=== PATIENT | male | born 1970 | race Caucasian/White ===

== ENCOUNTER 2017-05-25 14:52 | Observation (INO) | payer OTHER ==
[2017-05-24 15:30] VITALS: BMI 40.4
[2017-05-25] VITALS (17 sets, daily range): BP systolic 120–181; BP diastolic 59–98; PULSE 74–89; RESP 14–20; Ht 172.7 cm; Wt 122.6 kg
[~2017-05-25] VITALS: Ht 172.7 cm; Wt 122.6 kg
[~2017-05-25 14:52] MED LIST: AMLO-145 PO; BENA20TA48 PO; CLINDAMYCIN 600 MG/50 ML D5W IVPB IVPB ONE; GLIM4TAB PO; HYDR25TA6 PO; INSU100V19 SQ; NOV SQ; OXYC-284 PO
[2017-05-25] MEDS ORDERED: PROPOFOL 20 ML ONE ×2 (17:20→18:21)
[2017-05-25] MEDS ORDERED: FENTAnyl 50 MCG/ML VIAL ONE ×2 (17:20→18:02)
[2017-05-25] MEDS ORDERED: LIDOCAINE 2% (SDV) 5 ML INJ ONE (17:21)
[2017-05-25] MEDS ORDERED: LIDOCAINE 2%/EPI (MDV) 20ML INJ ONE (17:23)
[2017-05-25] MEDS ORDERED: THROMBIN 5000 UNIT VIAL ONE (17:23)
[2017-05-25] MEDS ORDERED: MINERAL OIL LIGHT 10 ML VIAL ONE (17:23)
[2017-05-25] MEDS ORDERED: OXYCODONE/ACETAMINOPHEN (5/325) TAB PO PRN ×2 (17:30)
[2017-05-25] MEDS ORDERED: DIPHENHYDRAMINE 50 MG INJ IV PRN (17:30)
[2017-05-25] MEDS ORDERED: MEPERIDINE 25 MG INJ IV PRN (17:30)
[2017-05-25] MEDS ORDERED: ONDANSETRON 4 MG INJ IV PRN (17:30)
[2017-05-25] MEDS ORDERED: METOCLOPRAMIDE 10 MG INJ IV PRN ×2 (17:30→19:00)
[2017-05-25] MEDS ORDERED: HYDROmorphONE (0.2 MG/ML) 10ML SYG IV PRN ×2 (17:30)
[2017-05-25] MEDS ORDERED: hydrALAzine 20 MG INJ IV PRN (17:30)
[2017-05-25] MEDS ORDERED: FENTAnyl 50 MCG/ML VIAL IV PRN ×2 (17:30)
[2017-05-25] MEDS ORDERED: EPHEDrine SULFATE 50 MG/5 ML SYG IV PRN (17:30)
[2017-05-25] MEDS ORDERED: LABETALOL HCL 20MG INJ IV PRN (17:30)
[2017-05-25] MEDS ORDERED: BACITRACIN 0.9 GM OINT ONE (18:20)
[2017-05-25] MEDS ORDERED: ROPIVACAINE 0.5 % 30 ML VIAL ONE (18:21)
--- NOTE | 2017-05-25 18:32 | OPR ---
Date/Time of Note Date/Time of Note DATE: 05/25/17 TIME: 18:28 Operative Report Preoperative Diagnosis Left foot/ ankle diabetic ulceration DM2 poorly controlled Chronic pain Cellulitis history Postoperative Diagnosis same Operation/Procedure Performed Left ankle wound bed preparation Left ankle application of integra allograft Surgeon: JASMYNE DIAZ DPM Anesthesia: general Estimated Blood Loss: 10 - 50 ml's Specimens wound culture Grafts/Implants integra bilayer 4 x 5 in Complications: None JASMYNE DIAZ DPM May 25, 2017 18:32
[2017-05-25] MEDS ORDERED: CEPASTAT LOZENGE MT PRN (19:00)
[2017-05-25] MEDS ORDERED: HYDROCODONE/APAP (10/325) TAB PO PRN (19:00)
[2017-05-25] MEDS ORDERED: IBUPROFEN 600 MG TAB PO PRN (19:00)
[2017-05-25] MEDS ORDERED: KETOROLAC 30 MG INJ IV PRN (19:00)
[2017-05-25] MEDS: CEFAZOLIN 2 GM/50 ML (PMX) 50 ML IVPB SCH (19:08)
[2017-05-25] MEDS: FENTAnyl 50 MCG/ML VIAL IV PRN ×2 (19:15→19:26)
[2017-05-25] MEDS: FAMOTIDINE 20 MG INJ IV SCH (20:33)
[2017-05-25] MEDS: DIPHENHYDRAMINE 50 MG INJ IV PRN (23:27)
[2017-05-26] MEDS ORDERED: METOPROLOL 25 MG TAB PO ONE
[2017-05-26] MEDS ORDERED: AMLODIPINE 5 MG TAB PO ONE
[2017-05-26] MEDS ORDERED: hydrALAzine 20 MG INJ IV PRN (00:30)
[2017-05-26] MEDS: CEFAZOLIN 2 GM/50 ML (PMX) 50 ML IVPB SCH ×2 (03:42→11:00)
[2017-05-26 03:58] VITALS: BP 175/95; PULSE 72; RESP 18
[2017-05-26 04:36] VITALS: BP 152/74; PULSE 68; RESP 18
[2017-05-26] MEDS: DIPHENHYDRAMINE 50 MG INJ IV PRN (05:33)
[2017-05-26 07:00] VITALS: BP 158/99; RESP 18
[2017-05-26] MEDS ORDERED: ASCORBIC ACID 500 MG TAB PO SCH (09:00)
[2017-05-26] MEDS ORDERED: ZINC SULFATE 220 MG CAP PO SCH (09:00)
[2017-05-26] MEDS ORDERED: METOPROLOL 25 MG TAB PO SCH (09:00)
[2017-05-26] MEDS: FAMOTIDINE 20 MG INJ IV SCH (09:00)
--- NOTE | 2017-05-26 10:46 | HP ---
Date/Time of Note Date/Time of Note DATE: 05/26/17 TIME: 10:33 Assessment/Plan VTE Prophylaxis VTE Prophylaxis Intervention: SCD's Lines/Catheters IV Catheter Type (from Nrsg): Saline Lock Assessment/Plan Assessment/Plan Assessment and plan: 1. Status post day 1 left diabetic ulcer allograft placement-left ankle is currently dressed. Awaiting special boot. Patient to follow with the orchestrator. 2. Diabetes mellitus-while in the hospital will check Accu-Chek q. before meals and nightly. Will place him on weight-based insulin. 3. Hypertension-continue metoprolol amlodipine and as needed hydralazine. We will add CEDRIC inhibitor. Low-salt diet is advised. 4. Patient to be placed on DVT prophylaxis and GI prophylaxis 5. Obese state-recommend dietitian evaluation and diet low in salt low in fat and low in carbs 6. The patient will be provided with pain medications including Percocet 7. Smoking cessation is advised 8. Patient is to be discharged, he has a front wheel walker at home. HPI/ROS Admit Date/Time Admit Date/Time May 25, 2017 at 20:18 Hx of Present Illness The patient is a 46-year-old morbidly obese male. The patient has history of diabetes mellitus type 2, hypertension, dyslipidemia, chronic left ankle diabetic foot ulcer, who is actively smoking. Patient has been followed closely by Dr. Peoples, the orchestrator. Now status post day 1 post left ankle allograft placement. Patient tolerated the procedure well denies any significant pain. He is awaiting special left Boot placement. Since admission he has been hypertensive. ROS Subjective hx not possible: pt critical status Constitutional: other (obese), No disoriented Eyes: No discharge, No redness ENT: No congestion, No discharge Respiratory: No shortness of breath, No wheezing Cardiovascular: No chest pain, No edema, No lightheadedness, No orthopenea, No palpitations Gastrointestinal: No diarrhea Genitourinary: No discharge, No flank pain Musculoskeletal: No neck pain Skin: No laceration Neurologic: No focal-weakness PMH/Family/Social Past Medical History Medical History: diabetes, high cholesterol, hypertension, other (neuropathy, nicotine dependency, left ankle chronic ankle ulcer, minor CVA) Past Surgical History Past Surgical Hx: other (left ankle debridments, left wrist surgery 2016) Family History Significant Family History: heart disease, diabetes, vascular disease Social History Alcohol Use: none Smoking Status: Current every day smoker Drug Use: none Exam/Review of Systems Vital Signs Vitals Vital Signs Date Time Temp Pulse Resp B/P Pulse Ox O2 Delivery O2 Flow Rate FiO2 05/26/17 07:00 98.7 82 18 158/99 100 05/26/17 04:36 Room Air Intake and Output 05/25/17 05/25/17 05/26/17 15:00 23:00 07:00 Intake Total 1210 ml 1250 ml Output Total 15 ml 900 ml Balance 1195 ml 350 ml Exam Constitutional: other (obese\), No distress Psych: No confusion Head: No lacerations Eyes: PERRL Neck: No bruits, No masses Respiratory: diminished breath sounds, No congested cough, No crackles/rales Cardiovascular: No irregular rhythm Gastrointestinal: distended (obese) Genitourinary - Male: No CVA tenderness Extremities: other (right ankel banded.), No clubbing, No cyanosis, No edema Neurological: numbness (left lower extremity foot), No confused Medications Medications Current Medications Cefazolin Sodium/ Dextrose (Ancef 2 Gm/50 ml (Pmx)) 50 ml @ 100 mls/hr Q8H IVPB Last administered on 05/26/17 03:42; Admin Dose 100 MLS/HR; Start at 19:00; Stop 05/26/17 at 18:59 Acetaminophen/ Hydrocodone Bitart ([place] (10/325)) 1 tab Q6H PRN PO PAIN Last administered on 05/25/17 23:27; Admin Dose 1 TAB; Start 05/25/17 at 19:00 Ketorolac Tromethamine (Toradol) 30 mg Q6H PRN IV PAIN; Start 05/25/17 at 19:00 ; Stop 05/28/17 at 18:59 Ibuprofen (Motrin) 600 mg Q6H PRN PO PAIN LEVEL 1-5; Start 05/25/17 at 19:00 Diphenhydramine HCl (Benadryl) 25 mg Q6H PRN IV ITCHING Last administered on 05:33; Admin Dose 25 MG; Start 05/25/17 at 19:00 Metoclopramide HCl (Reglan) 10 mg Q6H PRN IV NAUSEA AND/OR VOMITING; Start at 19:00 Famotidine (Pepcid Iv) 20 mg Q12 IV Last administered on 05/25/17 20:33; Admin Dose 20 MG; Start 05/25/17 at 21:00 Phenol (Cepastat Lozenge) 1 lozenge PRN PRN MT SORE THROAT; Start 05/25/17 at 19:00 Ascorbic Acid (Vitamin C) 1,000 mg DAILY PO Last administered on 05/26/17 09: 35; Admin Dose 1,000 MG; Start 05/26/17 at 09:00 Zinc Sulfate (Zinc Sulfate) 220 mg DAILY PO Last administered on 05/26/17 09: 35; Admin Dose 220 MG; Start 05/26/17 at 09:00 Metoprolol Tartrate (Lopressor) 25 mg BID PO Last administered on 05/26/17 09: 36; Admin Dose 25 MG; Start 05/26/17 at 09:00 Hydralazine HCl (Apresoline) 10 mg Q6H PRN IV SBP>170 Last administered on 05/26 03:51; Admin Dose 10 MG; Start 05/26/17 at 00:30 SHANNA IVORY MD May 26, 2017 10:46
--- NOTE | 2017-05-26 10:48 | PDOCDIS ---
Discharge Instructions CONDITION Patient Condition: Stable HOME CARE INSTRUCTIONS: Diet Instructions: Reduced CalorieSpecial Diet: Diabetic, carb/calorie- controlled diet ACTIVITY: Activity Restrictions: Slowly Increase Activity Rest between Activity Avoid heavy lifting Avoid Heavy Housework Bathing Restrictions: Shower FOLLOW UP/APPOINTMENTS Follow-up Plan follow up with Dr. Peoples and PMD within a week. continue all home meds. SHANNA IVORY MD May 26, 2017 10:48
[2017-05-26] MEDS ORDERED: ASPI325T4 PO (10:50)
[2017-05-26] MEDS ORDERED: GLUCOSE GEL 15 GRAM TUBE PO PRN ×2 (11:00)
[2017-05-26] MEDS ORDERED: GLUCAGON 1 MG INJ IM PRN (11:00)
[2017-05-26] MEDS ORDERED: GLUCOSE GEL 15 GRAM TUBE BUCCAL PRN (11:00)
[2017-05-26] MEDS ORDERED: DEXTROSE 50% 50 ML SYRINGE IV PRN ×2 (11:00)
[2017-05-26] MEDS ORDERED: INSULIN ASPART [NOVOLOG] 3 ML PEN SC SCH (11:40)
[2017-05-27] MEDS ORDERED: ACCU-CHEK XX SCH ×2 (02:00)
--- NOTE | 2017-05-31 11:22 | OPR ---
DATE OF OPERATION: 05/25/2017 SURGEON: Frederic Peoples DPM. PLASTIC SURGEON: None. PREOPERATIVE DIAGNOSES: 1. Left foot and ankle ulceration, chronic. 2. Left foot and ankle diabetic ulceration. 3. Chronic pain. 4. Edema. 5. History of recurring cellulitis. POSTOPERATIVE DIAGNOSES: 1. Left foot and ankle ulceration, chronic. 2. Left foot and ankle diabetic ulceration. 3. Chronic pain. 4. Edema. 5. History of recurring cellulitis. PROCEDURES PERFORMED: 1. Left foot and ankle wound bed preparation for graft application. 2. Application of Integra bilayer allograft. PATHOLOGY: Wound cultures. ANESTHESIA: General with postop popliteal block. HEMOSTASIS: Compression. ESTIMATED BLOOD LOSS: Fifteen to 20 mL. MATERIAL: Three-0 Prolene. COMPLICATIONS: None. INDICATIONS FOR PROCEDURE: This is a 46-year-old gentleman with chronic pain. He had outpatient treatment for his ulceration. It has an improved appearance without acute signs of infection. It has delayed tissue regeneration. The patient presents to limb salvage. I discussed plans of procedure, risks, benefits, potential complications. Foot was marked, and informed consent was obtained. PROCEDURE IN DETAIL: The patient was brought into the operating room, placed in the supine position, and formal time-out was performed. Extremities were prepped with Betadine scrub and prepped and draped in the usual sterile fashion. At this time, using a combination of instrumentation, the wound located on the left lateral foot and ankle was prepared using a combination of instrumentation, using pickup scissors, 15-blade. Ulceration measured approximately 8 x 4 cm. Nonviable tissue was removed. Cleaned skin and subcutaneous tissue and ligament. The sound was irrigated with saline. Gloves were changed and applied the Integra and bilayered graft, sutured with 3-0 nylon. The excess was discarded. Lidocaine 2% with epi was injected in perforated wound. The wound was then covered with Xeroform, 4 x 4 gauge, Kerlix, and Hung wrap. The patient received a postoperative popliteal block by Anesthesia. POSTOPERATIVE PLAN: The patient tolerated the procedure well and transferred to PACU. Vital signs were stable. The patient has a history of chronic pain and recommend observation overnight. The patient will be continued on intravenous antibiotics. Recommend strict bed rest. Further recommendation pending clinical appearance. Dr. Jacob consulted for medical management and control of diabetes. Dictated By: Frederic Peoples DPM /[email or web address]/[email or web address] /Document#: [id number] MTDD
== END 2017-05-26 13:30 | disposition home or self-care (01) ==
LOC: SDS 14:52 → MS1 20:18
PROVIDERS: ADMIT Podiatrist Foot & Ankle Surgery; ATTEND Podiatrist Foot & Ankle Surgery
DX: E11.621 Type 2 diabetes mellitus with foot ulcer (principal); E11.622 Type 2 diabetes mellitus with other skin ulcer; L97.529 Non-pressure chronic ulcer of other part of left foot with unspecified severity; L97.329 Non-pressure chronic ulcer of left ankle with unspecified severity; R60.0 Localized edema; I10 Essential (primary) hypertension; E78.5 Hyperlipidemia, unspecified; E78.00 Pure hypercholesterolemia, unspecified; F17.200 Nicotine dependence, unspecified, uncomplicated; E66.01 Morbid (severe) obesity due to excess calories; Z68.41 Body mass index [BMI] 40.0-44.9, adult; Z88.5 Allergy status to narcotic agent; Z83.3 Family history of diabetes mellitus; Z82.49 Family history of ischemic heart disease and other diseases of the circulatory system
CPT/HCPCS: 15002; 15271; 82962; 87070; 87075; 87102; 87116; C1781; J0360; J0690; J1170; J1200; J2795; J3010; L4360; Z7500; Z7512; Z7610; G0378; J1815

== ENCOUNTER 2017-06-26 13:36 | Observation (INO) | payer OTHER ==
[~2017-06-26] VITALS: Ht 172.7 cm; Wt 123.0 kg
[2017-06-26] VITALS (15 sets, daily range): BP systolic 140–171; BP diastolic 64–105; PULSE 80–90; RESP 10–24; Ht 172.7 cm; Wt 123.0 kg
[~2017-06-26 13:36] MED LIST changes: +ASPI325T4 PO; +CEFAZOLIN 2 GM/50 ML (PMX) 50 ML IVPB SCH; -CLINDAMYCIN 600 MG/50 ML D5W IVPB IVPB ONE
[2017-06-26] MEDS ORDERED: BENA1TAB13 PO (14:31)
[2017-06-26] MEDS ORDERED: METO-448 PO (14:31)
[2017-06-26] MEDS ORDERED: GLIP-95 PO (14:32)
[2017-06-26] MEDS ORDERED: INSU200I SQ (14:33)
[2017-06-26] MEDS ORDERED: ASPI-664 PO (14:33)
[2017-06-26] MEDS ORDERED: LANT3I SC (14:33)
[2017-06-26] MEDS ORDERED: OXYC-209 PO (14:35)
[2017-06-26] MEDS ORDERED: LIDOCAINE 2%/EPI 30 ML INJ ONE ×3 (15:04→16:48)
[2017-06-26] MEDS ORDERED: MINERAL OIL LIGHT 10 ML VIAL ONE (15:05)
[2017-06-26] MEDS ORDERED: THROMBIN 5000 UNIT VIAL ONE (15:05)
[2017-06-26] MEDS ORDERED: INSULIN ASPART [NOVOLOG] 3 ML PEN SC ONE (15:30)
[2017-06-26] MEDS ORDERED: MEPERIDINE 25 MG INJ IV PRN (15:30)
[2017-06-26] MEDS ORDERED: EPHEDrine SULFATE 50 MG/5 ML SYG IV PRN (15:30)
[2017-06-26] MEDS ORDERED: HYDROmorphONE (0.2 MG/ML) 10ML SYG IV PRN ×2 (15:30)
[2017-06-26] MEDS ORDERED: oxyCODONE 5 MG TAB PO PRN ×2 (15:30)
[2017-06-26] MEDS ORDERED: ONDANSETRON 4 MG INJ IV PRN (15:30)
[2017-06-26] MEDS ORDERED: hydrALAzine 20 MG INJ IV PRN (15:30)
[2017-06-26] MEDS ORDERED: FENTAnyl 50 MCG/ML VIAL IV PRN (15:30)
[2017-06-26] MEDS ORDERED: PROCHLORPERAZINE 10 MG INJ IV PRN (15:30)
[2017-06-26] MEDS ORDERED: LABETALOL HCL 20MG INJ IV PRN (15:30)
[2017-06-26] MEDS ORDERED: DIPHENHYDRAMINE 50 MG INJ IV PRN (15:30)
[2017-06-26] MEDS ORDERED: ROPIVACAINE 0.5 % 30 ML VIAL ONE (15:39)
[2017-06-26] MEDS ORDERED: MIDAZOLAM 1 MG/ML 2 ML INJ ONE (15:40)
[2017-06-26] MEDS ORDERED: LIDOCAINE 2% (SDV) 5 ML INJ ONE (15:47)
--- NOTE | 2017-06-26 15:59 | HPN ---
Date/Time of Note Date/Time of Note DATE: 06/26/17 TIME: 15:59 Interval H&P Admission Note Pt. seen H&P reviewed: No system changes JASMYNE DIAZ DPM Jun 26, 2017 15:59
[2017-06-26] MEDS ORDERED: DEXTROSE 50% 50 ML SYRINGE IV PRN ×4 (16:00→18:00)
[2017-06-26] MEDS ORDERED: GLUCOSE GEL 15 GRAM TUBE PO PRN ×4 (16:00→18:00)
[2017-06-26] MEDS ORDERED: GLUCOSE GEL 15 GRAM TUBE BUCCAL PRN ×2 (16:00→18:00)
[2017-06-26] MEDS ORDERED: GLUCAGON 1 MG INJ IM PRN ×2 (16:00→18:00)
[2017-06-26] MEDS ORDERED: FENTAnyl 50 MCG/ML VIAL ONE (16:11)
[2017-06-26] MEDS ORDERED: PROPOFOL 20 ML ONE (16:18)
[2017-06-26] MEDS ORDERED: METOCLOPRAMIDE 10 MG INJ ONE (16:19)
[2017-06-26] MEDS ORDERED: ONDANSETRON 4 MG INJ ONE (16:19)
[2017-06-26] MEDS ORDERED: CEFAZOLIN 1 GM INJ ONE (16:19)
[2017-06-26] MEDS ORDERED: PHENYLephrine (100 MCG/ML) 5ML SYG ONE (16:37)
--- NOTE | 2017-06-26 17:13 | SIPON ---
Date/Time of Note Date/Time of Note DATE: 06/26/17 TIME: 17:12 Operative Report Preoperative Diagnosis Left foot/ ankle diabetic ulceration HTN Edema Postoperative Diagnosis same Operation/Procedure Performed Left foot/ ankle wound bed prep < 100 cm2 Left foot STSG Surgeon: JASMYNE DIAZ DPM Anesthesia Type: other (regional/ MAC) Estimated Blood Loss: 10 - 50 ml's Transfusion Required: no Specimen: none Complications: no JASMYNE DIAZ DPM Jun 26, 2017 17:13
[2017-06-26] MEDS ORDERED: HYDROCODONE/APAP (10/325) TAB PO PRN (17:30)
[2017-06-26] MEDS ORDERED: HYDROmorphONE 1 MG/ML SYG IV PRN (17:30)
[2017-06-26] MEDS ORDERED: CEPASTAT LOZENGE MT PRN (17:30)
[2017-06-26] MEDS ORDERED: ASPIRIN (EC) 81 MG TAB PO ONE (17:30)
[2017-06-26] MEDS: CEFAZOLIN 2 GM/50 ML (PMX) 50 ML IVPB SCH (17:30)
[2017-06-26] MEDS ORDERED: IBUPROFEN 600 MG TAB PO PRN (17:30)
[2017-06-26] MEDS ORDERED: METOCLOPRAMIDE 10 MG INJ IV PRN (17:30)
--- NOTE | 2017-06-26 20:26 | OPR ---
DATE OF OPERATION: 06/26/2017 SURGEON: Frederic Peoples MD BAKERY TEAM MEMBER: None. PREOPERATIVE DIAGNOSES: 1. Left foot and ankle diabetic ulceration. 2. Diabetes, type 2. 3. Hypertension. 4. Edema. POSTOPERATIVE DIAGNOSES: 1. Left foot and ankle diabetic ulceration. 2. Diabetes, type 2. 3. Hypertension. 4. Edema. OPERATION PERFORMED: 1. Left foot and ankle wound bed preparation for skin grafting. 2. Left foot split-thickness skin graft. PATHOLOGY: None. ANESTHESIA: Lidocaine 2 percent with epinephrine, total of 40 cc. Regional block, left popliteal, with sedation. ESTIMATED BLOOD LOSS: 30 mL HEMOSTASIS: Compression, topical thrombin. MATERIALS: 3-0 nylon. COMPLICATIONS: None. INDICATION FOR PROCEDURE: This is a 46-year-old gentleman with history of type 2 diabetes, has delayed wound healing, has had local wound care. Prior treatment included debridement, with application of Integra and at this time presents for definitive treatment with skin graft. Patient has been cleared medically for his surgical procedure and was given 3 g of Ancef preoperatively, was seen by Anesthesia, regional block provided. Informed consent obtained. Discussed the risks, benefits, potential complications. OPERATIVE PROCEDURE: Patient brought into the operating room, placed in the supine position. A formal time-out was performed. Extremity was prepped with Betadine scrub and paint and draped in the usual sterile fashion. At this time the wound was located about the lateral aspect of the foot and ankle, measuring approximately 12 x 5 cm. At this time, using a combination of instrumentation, the wound was prepared for grafting. Patient had estimated blood loss of 20-30 cc. At this time, attention was directed to the ipsilateral thigh. Lidocaine 2 percent with epi was injected 20 cc, mineral oil applied to the surface of the skin, split-thickness skin graft, of an inch harvested and meshed 1.5:1 and secured to the recipient site with a 3-0 nylon. Hemostasis was achieved using a compression, as well as topical thrombin in the donor site, and wounds were covered with Xeroform, 4 x 4 gauze, Kerlix, and Webril. Patient tolerated the procedure well. Transferred to PACU with vital signs stable. POSTOPERATIVE PLAN: Anticipate discharge to home. Nonweightbearing to the operative limb and can follow up in 1 week. Instructed to keep dressings clean, dry, and intact. Dictated By: Frederic Peoples DPM /[email or web address]/mariluz /Document#: [id number]
[2017-06-26] MEDS: BENAZEPRIL 20 MG TAB PO SCH (21:09)
[2017-06-26] MEDS: FAMOTIDINE 20 MG INJ IV SCH (21:09)
[2017-06-26] MEDS: GABAPENTIN 100 MG CAP GTB SCH (21:09)
[2017-06-26] MEDS: METOPROLOL (XL) 25 MG TAB PO SCH (21:13)
[2017-06-26] MEDS: INSULIN ASPART [NOVOLOG] 3 ML PEN SC SCH (21:25)
[2017-06-26] MEDS: HYDROmorphONE 1 MG/ML SYG IV PRN (21:47)
[2017-06-27] MEDS: CEFAZOLIN 2 GM/50 ML (PMX) 50 ML IVPB SCH ×2 (01:11→08:52)
[2017-06-27] MEDS: HYDROmorphONE 1 MG/ML SYG IV PRN ×2 (01:20→08:32)
[2017-06-27] MEDS: ACCU-CHEK XX SCH (01:34)
[2017-06-27 01:36] VITALS: BP 170/85; PULSE 84; RESP 18
[2017-06-27] MEDS ORDERED: ACCU-CHEK XX SCH ×2 (02:00)
[2017-06-27] MEDS: DIPHENHYDRAMINE 50 MG INJ IV PRN ×3 (02:00→21:30)
[2017-06-27 02:07] VITALS: BP 142/74; PULSE 74; RESP 18
[2017-06-27] MEDS: PANTOPRAZOLE (EC) 40 MG TAB PO SCH ×2 (06:00→08:32)
[2017-06-27 06:34] LABS: BASOPHIL # 0.1 10^3/ul (0.0-0.1); BASOPHILS % 0.9 % (0.0-2.0); EOSINOPHILS # 0.2 10^3/ul (0.0-0.5); EOSINOPHILS % 1.7 % (0.0-7.0); HEMATOCRIT 45.9 % (42.0-52.0); LYMPHOCYTES # 3.7 10^3/ul (0.8-2.9); LYMPHOCYTES % 26.6 % (15.0-51.0); MEAN CORPUSCULAR HEMOGLOBIN 30.1 pg (29.0-33.0); MEAN CORPUSCULAR HGB CONC 32.7 g/dl (32.0-37.0); MEAN PLATELET VOLUME 11.7 fl (7.4-10.4); MONOCYTE # 1.1 10^3/ul (0.3-0.9); MONOCYTES % 7.8 % (0.0-11.0); NEUTROPHILS % 62.5 % (39.0-77.0); PLATELET COUNT 271 10^3/UL (140-415); RED BLOOD COUNT 4.99 10^6/ul (4.70-6.10); RED CELL DISTRIBUTION WIDTH 13.4 % (11.5-14.5); WHITE BLOOD COUNT 13.8 10^3/ul (4.8-10.8)
[2017-06-27 07:13] LABS: ALBUMIN 3.8 g/dl (3.3-4.9); ALBUMIN/GLOBULIN RATIO 1.18; BILIRUBIN,INDIRECT 0.2 mg/dl (0-1.1); BILIRUBIN,TOTAL 0.2 mg/dl (0.2-1.3); CREATININE 1.25 mg/dl (0.61-1.24); POTASSIUM 4.3 mmol/L (3.5-5.1)
[2017-06-27] MEDS: INSULIN ASPART [NOVOLOG] 3 ML PEN SC SCH ×4 (07:50→21:00)
[2017-06-27 08:15] VITALS: BP 158/92; RESP 18
[2017-06-27] MEDS: FAMOTIDINE 20 MG INJ IV SCH (08:30)
[2017-06-27] MEDS: GABAPENTIN 100 MG CAP GTB SCH ×3 (08:30→21:17)
[2017-06-27] MEDS: BENAZEPRIL 20 MG TAB PO SCH ×2 (08:31→21:18)
[2017-06-27] MEDS: METOPROLOL (XL) 25 MG TAB PO SCH ×2 (08:32→21:17)
[2017-06-27] MEDS ORDERED: glipiZIDE (XL) 5 MG TAB PO SCH (09:00)
--- NOTE | 2017-06-27 09:17 | OPPN ---
Date/Time of Note Date/Time of Note DATE: 06/27/17 TIME: 09:09 Anesthesia Follow up Anesthesia Follow up Last documented vital signs Vital Signs Date Time Temp Pulse Resp B/P Pulse Ox O2 Delivery O2 Flow Rate FiO2 06/27/17 08:15 98.0 87 18 158/92 93 06/27/17 02:07 Room Air 06/26/17 17:32 8.0 Respiratory function: WNL Cardiovascular function: WNL Comments Pt seen and examined, VSS, A&Ox3, no n/v, tolerating diet, ambulating without difficulty. Pt is POD 1 s/p L ankle I&D, STSG, c/o pain at graft site, LLE motor and sensory intact. Pt also c/o swelling of uvula, noted that this has occurred with previous surgeries as well as being in hospitals without having any surgeries. In past per pt, swelling decreases within 24h and relieved with ice. Discussed at length with patient that it could be from manipulation of airway or medications or environmental exposure to allergens. Uvula is swollen , however does not descend down past tongue, pt does not have difficulty breathing, does not appear to have any signs of respiratory distress. Recommended seeing ENT for further evaluation and if due to allergens, an contract paralegal. Discussed that use of decadron could help swelling, however it could affect blood sugars as well, especially given h/o IDDM II, and DM neuropathy and ulcer and affect wound healing. Will try trial of lozenges and continue with ice. BHUPINDER MATHIAS MD Jun 27, 2017 09:17
[2017-06-27] MEDS: INSULIN GLARGINE [LANtus] 3 ML PEN SC SCH (10:20)
[2017-06-27] MEDS: CEPASTAT LOZENGE MT PRN (11:15)
[2017-06-27] MEDS: KETOROLAC 30 MG INJ IV PRN ×3 (11:15→13:16)
[2017-06-27] MEDS ORDERED: KETOROLAC 30 MG INJ IV SCH (12:00)
[2017-06-27] MEDS: LIDOCAINE 4% SOLUTION 50 ML BTL TOP PRN ×3 (12:58→18:25)
[2017-06-27] MEDS ORDERED: OXYCODONE/ACETAMINOPHEN (10/325) TAB PO PRN (14:00)
[2017-06-27 14:37] VITALS: BP 144/88; RESP 20
[2017-06-27] MEDS: ENOXAPARIN 40 MG/0.4 ML SYG SC SCH (14:54)
[2017-06-27] MEDS: HYDROmorphONE 2 MG/ML SYG IV PRN ×3 (15:00→21:18)
--- NOTE | 2017-06-27 18:02 | HP ---
DATE OF ADMISSION: 06/26/2017 REASON FOR ADMISSION: Status post left ankle diabetic ulcer skin graft placement. HISTORY OF PRESENT ILLNESS: The patient is a 46-year-old, obese male with history of diabetes mellitus type 2, hypertension, dyslipidemia, chronic left ankle diabetic foot ulcer status post allograft placement of the left ankle back at the end of April 2017 where wound actually did not heal completely with skin graft. He was followed closely with Dr. Peoples, the geospatial scientist, and it was decided to proceed with the case with left foot and ankle wound grafting. The patient tolerated the procedure well. The graft was taken from the left thigh. The patient has been complaining of pain. Pain medication has been provided. The left lower extremities currently all banded and covered. The patient is admitted for further care. Otherwise denies any chest pain, shortness of breath, fever, or chills. PAST MEDICAL HISTORY: Includes diabetes mellitus, dyslipidemia, hypertension, diabetic neuropathy, nicotine dependency, left chronic ankle, also minor CVA. SURGICAL HISTORY: Left ankle debridement and left graft placement back in April 2017 and left wrist surgery in 2015. FAMILY HISTORY: There is heart disease, diabetes, and vascular disease in the family. SOCIAL HISTORY: Alcohol use none. The patient is a daily smoker. IVDA none. HOME MEDICATIONS: 1. Benazepril/hydrochlorothiazide 20/12.5 b.i.d. 2. Metoprolol tartrate 25 b.i.d. 3. Aspirin, oxycodone, or Percocet 10/325 t.i.d. p.r.n. 4. Glipizide 10 mg b.i.d. 5. Lantus 25 b.i.d., but the patient says he takes insulin sliding scale p.r.n., and he used it maybe twice in the past month. PHYSICAL EXAMINATION: VITALS: Temperature is 98, pulse 87, respiration 18, blood pressure is slightly high at 158/92, saturation 93-95 percent on room air. Blood pressure has been running in the 140s-170s; so he is hypertensive. The patient remains afebrile. T-max 99. GENERAL: The patient is in no acute distress, obese. CARDIOVASCULAR: S1 and S2. Regular rate. LUNGS: Clear. ABDOMEN: Soft and nontender. The patient is obese. EXTREMITIES: Left ankle is all banded. Left thigh graft site is covered. Old graft site is healed in the right lateral ankle. No clubbing, cyanosis, or edema. LABS: White count is elevated at 13.8. Before the surgery, it was actually 13.6 on 06/20/2019. Hemoglobin 15, hematocrit 46, platelet count of 271 with normal differential. Chemistry: Sodium is 146, potassium 4.5, bicarb 25, BUN 20, creatinine 1.25 (on 06/20 was 1.2). Glucose 141 and 111. TSH 3.6, AST 26, ALT 38, alk phos 66. RADIOLOGY: No radiographic imaging. Current meds are reviewed. ASSESSMENT AND PLAN: This is a 46-year-old, obese male with history of diabetes mellitus, diabetic neuropathy, chronic left ankle diabetic foot ulcer, hypertension, postop day number 1 diabetic ulcer graft placement. 1. Status post day number 1 diabetic ulcer. Further wound care per the surgical team and executive relations specialist. The patient may need a special boot. We will follow. Pain control will be provided. 2. Diabetes mellitus. Continue Accu-Cheks before meals and at bedtime. Glucose levels are quite good. He has been on glipizide. May benefit from being on some medications such as metformin, Tradjenta, or Januvia. 3. Advised to be on a low-fat, low-carb diet, but patient insists that he wants a regular diet. 4. Hypertension. Previously on metoprolol, amlodipine, and p.r.n. hydralazine. Will also benefit with the CEDRIC inhibitor and titrate medication up as needed. 5. Patient will be placed on deep vein thrombosis prophylaxis and gastrointestinal prophylaxis. 6. Smoking cessation is advised. DISPOSITION: Soon. No evidence of infectious process noted. He has a mild leukocytosis. We will follow for any evidence of ongoing fevers. Dictated By: Conner Jacob MD /[email or web address]/[email or web address] /Document#: [id number]
[2017-06-27 20:18] VITALS: BP 161/94; RESP 19
--- NOTE | 2017-06-27 22:56 | CONS ---
DATE OF ADMISSION: 06/26/2017 DATE OF CONSULTATION: 06/27/2017 SUBJECTIVE: The patient is postoperative day 1, left foot and ankle debridement and skin grafting. The patient admitted for observation. Has a persistent pain. Drainage from donor site, as well as pain in his throat. Denies any fever, nausea, or vomiting. Patient has been using lidocaine solution for pain relief. The patient being followed by Dr. Jacob. OBJECTIVE: VITAL SIGNS: Temperature 97.8, pulse 88, respiratory rate 20, blood pressure 144/88, and pulse ox is 96 on room air. GENERAL: The patient alert, oriented, in no acute distress. EXTREMITIES: Dressings are clean, dry, and intact. Mild to moderate drainage from a donor site. The patient relates the pain to this area. The toes are warm with immediate capillary refill. LABORATORY: WBC 13.8, hemoglobin 15, hematocrit 45.9, and platelets 271. Sodium 146, potassium 4.3, chloride 105, CO2 25, BUN 20, and creatinine 1.25. ASSESSMENT: 1. Postoperative status left foot debridement and skin grafting. 2. Postoperative pain. 3. Leukocytosis PLAN: The patient seen and evaluated recommend periodic use of lidocaine solution as needed to donor site. Adjusted pain medication. Recommend tight glycemic control. Being followed by Dr. Jacob. Anticipate discharge in the morning. Discussed dressing changes with nursing. Recommend nonweightbearing with the use of a knee walker and elevation of extremity. Dispensed postoperative shoe to assist with transfers. Dictated By: Frederic Peoples DPM /susan/nehal /Document#: [id number]
[2017-06-28] MEDS: ACCU-CHEK XX SCH (01:46)
[2017-06-28] MEDS ORDERED: PANTOPRAZOLE (EC) 40 MG TAB PO SCH (06:00)
[2017-06-28] MEDS: PANTOPRAZOLE (EC) 40 MG TAB PO SCH (06:24)
[2017-06-28] MEDS: HYDROmorphONE 2 MG/ML SYG IV PRN (07:21)
[2017-06-28] MEDS: DIPHENHYDRAMINE 50 MG INJ IV PRN (07:22)
[2017-06-28] MEDS: CEPASTAT LOZENGE MT PRN (07:27)
[2017-06-28 08:03] VITALS: BP 192/105; RESP 18
[2017-06-28] MEDS: BENAZEPRIL 20 MG TAB PO SCH (08:52)
[2017-06-28] MEDS: METOPROLOL (XL) 25 MG TAB PO SCH (08:52)
[2017-06-28] MEDS: GABAPENTIN 100 MG CAP GTB SCH (08:52)
[2017-06-28] MEDS: ENOXAPARIN 40 MG/0.4 ML SYG SC SCH (08:55)
[2017-06-28] MEDS: INSULIN GLARGINE [LANtus] 3 ML PEN SC SCH (08:56)
[2017-06-28] MEDS: INSULIN ASPART [NOVOLOG] 3 ML PEN SC SCH (08:57)
[2017-06-28] MEDS ORDERED: AMLODIPINE 5 MG TAB PO SCH (09:00)
[2017-06-28] MEDS: LIDOCAINE 4% SOLUTION 50 ML BTL TOP PRN (10:50)
--- NOTE | 2017-06-28 11:22 | PDOCDIS ---
Discharge Instructions CONDITION Patient Condition: Stable HOME CARE INSTRUCTIONS: Diet Instructions: Regular ACTIVITY: Activity Restrictions: Slowly Increase Activity Rest between Activity Avoid heavy lifting Bathing Restrictions: Shower FOLLOW UP/APPOINTMENTS Follow-up Plan follow up with Dr. Peoples, and PMD within 1 week. continue home meds, see attached added prescriptions, any fevers or change in condition call 911 or go to the ER. Please discharge with home health for wound care SHANNA IVORY MD Jun 28, 2017 11:22
[2017-06-28] MEDS ORDERED: AMLO-145 PO (11:24)
--- NOTE | 2017-06-28 19:50 | DS ---
DATE OF ADMISSION: 06/26/2017 DATE OF DISCHARGE: 06/28/2017 REASON FOR ADMISSION: Left ankle diabetic foot ulcer, status post graft placement. HISTORY OF PRESENT ILLNESS: Patient is a 46-year-old, obese male with history of diabetes mellitus type 2; hypertension; dyslipidemia; chronic left ankle diabetic foot ulcer, status post allograft placement in April but unfortunately, the wound did not heal. He was followed closely by Dr. Peoples, the flat clothier, who recommended again grafting to be done. Patient underwent left foot and ankle wound bed preparation for skin grafting, left foot split-thickness skin graft. Patient tolerated the procedure well and transferred to the Medical-Surgical floor for further care. Patient received cefazolin in the perioperative state, insulin. Sugars were running okay in the low 100s. His blood pressure is high, so I added amlodipine. Patient already takes hydrochlorothiazide, benazepril, and Toprol-XL. Patient overall remained stable. Blood pressure is better in the 160s and another dose of the amlodipine was just given. Patient will be discharged in fair condition. Temperature 98.1, pulse 81, respirations 18, saturation 98 percent. DISCHARGE MEDICATIONS: Patient will be discharged with the following medications: 1. Amlodipine 5 mg daily. 2. Aspirin 81 mg daily. 3. Benazepril/hydrochlorothiazide 20/12.5. Actually, I am increasing the dose to 40/25 daily instead of 20/12.5 b.i.d. 4. Glipizide 10 mg b.i.d. 5. Insulin Lantus 25 units b.i.d. 6. Lispro per sliding scale. 7. Metoprolol XL 25 mg daily. 8. Oxycodone/Percocet p.r.n. Patient has all these prescriptions besides the amlodipine and a new dose of the benazepril/hydrochlorothiazide 40/25 daily. Basically to continue his home medications. If he has any questions, I gave him my card for any questions. FINAL DIAGNOSES: 1. Chronic left diabetic foot/ankle ulcer, status post grafting. 2. Hypertension. 3. Diabetes mellitus, type 2. 4. Morbidly obese state, with a BMI of 41.2. 5. Leukocytosis, likely reactive in nature. Afebrile, status post Ancef in the perioperative state. Patient's hemoglobin A1c is 8.4. 6. Dyslipidemia. 7. Chronic pain related to his wound. 8. Diabetic neuropathy. DIET: ADA 1800, 2 g sodium. Patient refused that diet here, so he was on a regular diet. Otherwise, he will not eat. DISCHARGE CONDITION: If there is any change in condition, fever, chills, to call 911. I would like him to be discharged with Home Health. Case management to assist. Dictated By: Conner Jacob MD /[email or web address] /Document#: [id number]
== END 2017-06-28 12:35 | disposition home health service (06) ==
LOC: SDS 13:36 → MS1 17:19 → SDS 17:19
PROVIDERS: ADMIT Podiatrist Foot & Ankle Surgery; ATTEND Podiatrist Foot & Ankle Surgery
DX: E11.621 Type 2 diabetes mellitus with foot ulcer (principal); L97.529 Non-pressure chronic ulcer of other part of left foot with unspecified severity; E11.622 Type 2 diabetes mellitus with other skin ulcer; L97.329 Non-pressure chronic ulcer of left ankle with unspecified severity; I10 Essential (primary) hypertension; R60.0 Localized edema; E66.01 Morbid (severe) obesity due to excess calories; Z68.41 Body mass index [BMI] 40.0-44.9, adult; E78.5 Hyperlipidemia, unspecified; D72.829 Elevated white blood cell count, unspecified; E11.40 Type 2 diabetes mellitus with diabetic neuropathy, unspecified; G89.29 Other chronic pain; G89.18 Other acute postprocedural pain; F17.200 Nicotine dependence, unspecified, uncomplicated; Z79.82 Long term (current) use of aspirin; Z79.4 Long term (current) use of insulin; Z86.73 Personal history of transient ischemic attack (TIA), and cerebral infarction without residual deficits; Z83.3 Family history of diabetes mellitus; Z82.49 Family history of ischemic heart disease and other diseases of the circulatory system
CPT/HCPCS: 15002; 15004; 15100; 15120; 80053; 82962; 83036; 84443; 85025; J0360; J0690; J1170; J1200; J1650; J1815; J1885; J2250; J2370; J2405; J2765; J2795; J3010; L3260; Z7500; Z7512; Z7610; G0378

== ENCOUNTER 2018-09-04 10:13 | Inpatient (IN) | END 2018-09-13 12:20 | disposition home health service (06) | DRG 982 ==

== ENCOUNTER 2018-12-25 12:30 | Emergency (ER) | payer OTHER ==
[~2018-12-25] VITALS: Wt 126.0 kg
[~2018-12-25 12:30] MED LIST changes: -AMLO-145 PO; +AMLO5TAB4 PO; +ASPI-817 PO; -ASPI325T4 PO; +ATOR40TA68 PO; -BENA20TA48 PO; -CEFAZOLIN 2 GM/50 ML (PMX) 50 ML IVPB SCH; +DOXY100T2 PO; +GABA300C16 PO; -GLIM4TAB PO; +GLIP10TA14 PO; -HYDR25TA6 PO; +INSU100I12 SQ; -INSU100V19 SQ; +LACT1CAP28 PO; +LANT3I SC; +LEVO500T48 PO; +LISI-471 PO; +METO-448 PO; -NOV SQ; -OXYC-284 PO; +OXYC-438 PO; +PIOG45TA9 PO
[2018-12-25] MEDS ORDERED: METO25TA4 PO (14:18)
[2018-12-25] MEDS ORDERED: BENA1TAB14 PO (14:20)
[2018-12-25] MEDS ORDERED: INSU100C SQ (14:21)
[2018-12-25] MEDS ORDERED: INSU100I33 SC (14:21)
[2018-12-25] MEDS ORDERED: HYDROCODONE/APAP (5/325) TAB PO ONE (14:30)
--- NOTE | 2018-12-25 14:31 | ERD ---
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 The patient states that he had chest pain for 1 hour. The patient states that he was upstairs having a debridement of his right lower extremity and came downstairs and ate in the cafeteria. He then stated he had some chest pain. He describes chest pain as a sharp pain in the center of his chest with no radiation. The patient denies any nausea, vomiting, or diaphoresis. The patient came to the ER today for evaluation of his symptoms. He states that he was evaluated earlier this month by retail shift manager Dr. Ochoa ROS All systems reviewed and are negative except as per history of present illness. Medications Home Meds Active Scripts Oxycodone HCl/Acetaminophen (Oxycodone-Acetaminophen 5-325) 1 Each Tablet, 1 TAB PO Q4H PRN for PAIN for 5 Days, #30 TAB Prov:ANJEL RENTERIA 11/30/18 Metoprolol Tartrate* (Lopressor*) 25 Mg Tab, 75 MG PO BID, #180 TAB Prov:ANJEL RENTERIA 11/30/18 Lisinopril* (Lisinopril*) 20 Mg Tablet, 20 MG PO DAILY for 30 Days, #30 TAB Prov:ANJEL RENTERIA 11/30/18 Reported Medications Insulin Glargine,Hum.rec.anlog (Basaglar Kwikpen U-100) 100 Unit/1 Ml Insuln.pen, 45 UNIT SC BID, EA 12/25/18 Insulin Lispro (Humalog) 100 Unit/1 Ml Cartridge, 5-10 UNIT SQ AC B, EA 12/25/18 Benazepril-Hydrochlorothiazide (Benazepril-Hydrochlorothiazide) 20-25 Mg Tablet, 1 TAB PO DAILY 12/25/18 Metoprolol Tartrate* (Lopressor*) 25 Mg Tablet, 75 MG PO BID, #180 TAB 12/25/18 Pioglitazone Hcl* (Actos*) 45 Mg Tablet, 45 MG PO DAILY, #30 TAB 11/21/18 Glipizide* (Glipizide*) 10 Mg Tablet, 10 MG PO BID, TAB 11/21/18 Gabapentin* (Gabapentin*) 300 Mg Capsule, 300 MG PO TID, #90 CAP 11/21/18 Aspirin* (Aspirin* EC) 81 Mg Tablet.dr, 81 MG PO DAILY, TAB 11/21/18 Amlodipine Besylate* (Norvasc*) 5 Mg Tablet, 5 MG PO DAILY, TAB 11/21/18 Atorvastatin* (Atorvastatin*) 40 Mg Tablet, 40 MG PO QHS, #30 TAB 09/04/18 Discontinued Reported Medications Insulin Lispro (Humalog Kwikpen U-100) 100 Unit/1 Ml Insuln.pen, 5-10 UNIT SQ AC A, EA 11/21/18 Insulin Glargine* (Lantus*) 100 Unit/Ml Soln, 45 UNIT SC BID, #1 VIAL 11/21/18 Discontinued Scripts Lactobacillus Rhamnosus GG (Culturelle) 1 Each Capsule, 1 CAP PO BID for 30 Days, #60 CAP Prov:ANJEL RENTERIA 11/30/18 Levofloxacin* (Levaquin*) 500 Mg Tablet, 500 MG PO DAILY@06 for 7 Days, #7 TAB Prov:ANJEL RENTERIA 11/30/18 Doxycycline* (Vibramycin*) 100 Mg Tab, 100 MG PO BID for 7 Days, #14 TAB Prov:ANJEL RENTERIA 11/30/18 Allergies Allergies: Coded Allergies: morphine (Verified Allergy, Unknown, VOMITING, 12/25/18) PMhx/Soc History of Surgery: Yes (right leg debridement status post skin graft, left a nkle surgery 2017) Anesthesia Reaction: No Hx Neurological Disorder: No Hx Respiratory Disorders: No Hx Cardiac Disorders: No Hx Psychiatric Problems: No Hx Miscellaneous Medical Probl: Yes (stroke 2016,HTN,HLD,sleep apnea,DMII,morbid obesity) Hx Alcohol Use: No Hx Substance Use: No Hx Tobacco Use: No Smoking Status: Never smoker Physical Exam Vitals Vital Signs Date Temp Pulse Resp B/P (MAP) Pulse Ox O2 O2 Flow FiO2 Time Delivery Rate 12/25/18 Nasal 13:28 Cannula 12/25/18 98.3 89 19 181/99 100 Room Air 13:17 (126) 12/25/18 98.3 72 19 189/101 100 12:33 (130) Physical Exam INITIAL VITAL SIGNS: Reviewed by me GENERAL: The patient is well developed and appropriate for usual state of health in no apparent distress HEENT: Pupils equal, round, and reactive to light. EOMI. There is no scleral icterus. NECK: C-spine is soft and supple, there is no meningismus. There is no cervical lymphadenopathy. LUNGS: Clear to auscultation bilaterally. There are no rales, wheezes or rhonchi. HEART: Regular rate and rhythm, no murmurs, clicks, rubs or gallops. ABDOMEN: Soft, non-tender, non-distended. There are bowel sounds in all four quadrants. No rebound or guarding. EXTREMITIES: There is no peripheral cyanosis or edema. No focal swelling or erythema. NEUROLOGICAL: The patient moves all four extremities with 5/5 strength. Cranial nerves II - XII are intact. Normal gait. Alert and oriented SKIN: Healing skin ulceration right lower extremity, there is no apparent rash or petechiae. HEME/LYMPHATIC: There is no evidence of excessive bruising or lymphedema. PSYCHIATRIC: The patient does not appear anxious or depressed. Result Diagram: 12/25/18 1328 12/25/18 1328 Results 24 hrs Laboratory Tests Test 12/25/18 13:28 White Blood Count 9.0 10^3/ul Red Blood Count 5.18 10^6/ul Hemoglobin 14.7 g/dl Hematocrit 45.7 % Mean Corpuscular Volume 88.2 fl Mean Corpuscular Hemoglobin 28.4 pg Mean Corpuscular Hemoglobin Concent 32.2 g/dl Red Cell Distribution Width 12.6 % Platelet Count 331 10^3/UL Mean Platelet Volume 11.2 fl Immature Granulocytes % 0.200 % Neutrophils % 60.7 % Lymphocytes % 23.3 % Monocytes % 8.8 % Eosinophils % 6.3 % Basophils % 0.7 % Nucleated Red Blood Cells % 0.0 /100WBC Immature Granulocytes # 0.020 10^3/ul Neutrophils # 5.5 10^3/ul Lymphocytes # 2.1 10^3/ul Monocytes # 0.8 10^3/ul Eosinophils # 0.6 10^3/ul Basophils # 0.1 10^3/ul Nucleated Red Blood Cells # 0.0 10^3/ul Sodium Level 136 mmol/L Potassium Level 4.4 mmol/L Chloride Level 99 mmol/L Carbon Dioxide Level 26 mmol/L Anion Gap 11 Blood Urea Nitrogen 20 mg/dl Creatinine 0.97 mg/dl Est Glomerular Filtrat Rate mL/min > 60 mL/min Glucose Level 421 mg/dl Calcium Level 9.7 mg/dl Troponin I 0.056 ng/ml Current Medications Medications Dose Sig/Yumi Start Time Status Last (Trade) Ordered Route PRN Stop Time Admin Dose Reason Admin 1 tab ONCE ONCE 12/25/18 Acetaminophen PO 14:30 / 12/25/18 14:31 Hydrocodone Bitart ([place] (5/325)) Procedures/MDM EKG: Rate/Rhythm: [Normal Sinus Rhythm] QRS, ST, T-waves: [No changes consistent w/ acute ischemia] Impression: [No evidence of ischemia or arrhythmia] EKG: #2 Rate/Rhythm: [Normal Sinus Rhythm] QRS, ST, T-waves: [No changes consistent w/ acute ischemia] Impression: [No evidence of ischemia or arrhythmia] Chest X-ray 1V Interpreted by me: Soft Tissue: No acute abnormalities Bones: No acute abnormalities Mediastinum/Cardiac Silhouette/Lungs: [No acute abnormalities] This 48-year-old male presents to the ER for evaluation of chest pain. On my exam the patient is afebrile, nontoxic-appearing, hemodynamically stable. The patient does have a history of hypertension and diabetes. Lab work was obtained this patient's troponin is in normal range at this time. He is not complaining of any active chest pain at this time. His EKG shows no signs of STEMI and repeat EKG shows no evolution of changes. Chest x-ray is clear. The patient does have a elevated glucose level above 400 however he is a known diabetic and was instructed to take his insulin at home. The patient states that he did go to Dr. Ochoa office yesterday however due to insurance reasons he was unable to see Dr. Ochoa. I advised him to call Dr. Ochoa tomorrow morning to arrange outpatient stress testing which I feel is appropriate for this patient. The patient is comfortable with her plan of care and is requesting pain medicine for pain in his right leg. He was given 1 tab of [place]. He is not hypoxic, I doubt PE. The patient will be discharged at this time however I did instruct him that if he were to have continued pain or any worsening of symptoms he needs to return immediately to the emergency room for admission to the hospital. He does verbalize understanding and is okay with the plan of care at this time. Departure Diagnosis: Primary Impression: Chest pain Additional Impressions: Morbid obesity with BMI of 40.0-44.9, adult Ulcer of lower extremity due to type 2 diabetes mellitus Uncontrolled diabetes mellitus Condition: Stable Patient Instructions: Chest Pain, Uncertain Cause Referrals: RODRIGO OCHOA Additional Instructions: Call Dr. Ochoa TOMORROW for a repeat exam.Return sooner if your condition worsens before then. JOANNA JONES DO Dec 25, 2018 14:31
[2018-12-25 14:57] VITALS: BP 163/95; PULSE 95; RESP 17
== END 2018-12-25 14:58 | disposition home or self-care (01) ==
LOC: E/R 12:30
DX: E66.01 Morbid (severe) obesity due to excess calories (principal); L97.919 Non-pressure chronic ulcer of unspecified part of right lower leg with unspecified severity; E11.9 Type 2 diabetes mellitus without complications; I10 Essential (primary) hypertension; Z68.41 Body mass index [BMI] 40.0-44.9, adult; Z79.4 Long term (current) use of insulin; Z79.82 Long term (current) use of aspirin
CPT/HCPCS: 36415; 71045; 80048; 84484; 85025; 93005; Z7502; Z7610

== ENCOUNTER 2019-01-15 15:05 | Observation (INO) | payer OTHER ==
[~2019-01-15] VITALS: Ht 172.7 cm; Wt 129.3 kg
[~2019-01-15 15:05] MED LIST changes: +BENA1TAB14 PO; -DOXY100T2 PO; +INSU100C SQ; -INSU100I12 SQ; +INSU100I33 SC; -LACT1CAP28 PO; -LANT3I SC; -LEVO500T48 PO; +METO25TA4 PO
--- NOTE | 2019-01-15 17:01 | ERD ---
ER Documentation Chief Complaint Chief Complaint RIGHT LOWER LEG WOUND WITH EXCESSIVE BLEEDING HPI The patient is a 48-year-old male, presenting to the ER because of excessive bleeding from the wound after a chemical cauterization today by insulation technician Dr Peoples, who is in the ER with the patient and redressing the wound and would l heidi the patient to be admitted. He denies dizziness, syncope, near syncope, neck pain, chest pain, abdominal pain, vomiting. He is taking Plavix and aspirin Past medical history: Diabetes mellitus, hypertension, dyslipidemia, sleep apnea Past surgical history: Left ankle, stent PCI ROS All systems reviewed and are negative except as per history of present illness. Medications Home Meds Reported Medications Insulin Lispro (Humalog) 100 Unit/1 Ml Cartridge, 0 SQ SLIDING SCALE, EA 01/15/19 Insulin Glargine,Hum.rec.anlog (Basaglar Kwikpen U-100) 100 Unit/1 Ml Insuln.pen, 45 UNIT SC BID, EA 01/15/19 Metoprolol Tartrate* (Lopressor*) 25 Mg Tablet, 75 MG PO BID, #180 TAB 01/15/19 Atorvastatin* (Atorvastatin*) 80 Mg Tablet, 80 MG PO QHS, #30 TAB 01/15/19 Pioglitazone Hcl* (Pioglitazone Hcl*) 45 Mg Tablet, 45 MG PO DAILY, TAB 01/15/19 Clopidogrel Bisulfate* (Clopidogrel Bisulfate*) 75 Mg Tablet, 75 MG PO DAILY, #30 TAB 01/15/19 Carvedilol* (Carvedilol*) 12.5 Mg Tablet, 12.5 MG PO BID, #60 TAB 01/15/19 Aspirin* (Aspirin* EC) 81 Mg Tablet., 81 MG PO DAILY, TAB 01/15/19 Amlodipine Besylate* (Norvasc*) 5 Mg Tablet, 5 MG PO DAILY, TAB 01/15/19 Hydrochlorothiazide* (Hydrochlorothiazide*) 25 Mg Tab, 25 MG PO DAILY, #30 TAB 01/15/19 Glipizide* (Glipizide*) 10 Mg Tablet, 10 MG PO AC BREAKFAST DINNER, TAB 01/15/19 Lisinopril* (Lisinopril*) 20 Mg Tablet, 20 MG PO DAILY, #30 TAB 01/15/19 Gabapentin* (Gabapentin*) 300 Mg Capsule, 300 MG PO TID, #90 CAP 01/15/19 Isosorbide Dinitrate* (Isordil*) 10 Mg Tablet, 10 MG PO TID, TAB 01/15/19 Discontinued Reported Medications Insulin Glargine,Hum.rec.anlog (Basaglar Kwikpen U-100) 100 Unit/1 Ml Insu ln.pen, 45 UNIT SC BID, EA 12/25/18 Insulin Lispro (Humalog) 100 Unit/1 Ml Cartridge, 5-10 UNIT SQ AC B, EA 12/25/18 Benazepril-Hydrochlorothiazide (Benazepril-Hydrochlorothiazide) 20-25 Mg Tablet, 1 TAB PO DAILY 12/25/18 Metoprolol Tartrate* (Lopressor*) 25 Mg Tablet, 75 MG PO BID, #180 TAB 12/25/18 Pioglitazone Hcl* (Actos*) 45 Mg Tablet, 45 MG PO DAILY, #30 TAB 11/21/18 Glipizide* (Glipizide*) 10 Mg Tablet, 10 MG PO BID, TAB 11/21/18 Gabapentin* (Gabapentin*) 300 Mg Capsule, 300 MG PO TID, #90 CAP 11/21/18 Aspirin* (Aspirin* EC) 81 Mg Tablet.dr, 81 MG PO DAILY, TAB 11/21/18 Amlodipine Besylate* (Norvasc*) 5 Mg Tablet, 5 MG PO DAILY, TAB 11/21/18 Atorvastatin* (Atorvastatin*) 40 Mg Tablet, 40 MG PO QHS, #30 TAB 09/04/18 Discontinued Scripts Oxycodone HCl/Acetaminophen (Oxycodone-Acetaminophen 5-325) 1 Each Tablet, 1 TAB PO Q4H PRN for PAIN for 5 Days, #30 TAB Prov:ANJEL RENTERIA 11/30/18 Metoprolol Tartrate* (Lopressor*) 25 Mg Tab, 75 MG PO BID, #180 TAB Prov:ANJEL RENTERIA 11/30/18 Lisinopril* (Lisinopril*) 20 Mg Tablet, 20 MG PO DAILY for 30 Days, #30 TAB Prov:ANJEL RENTERIA 11/30/18 Allergies Allergies: Coded Allergies: morphine (Verified Allergy, Unknown, VOMITING, 01/15/19) PMhx/Soc History of Surgery: Yes (right leg debridement status post skin graft, left ankle surgery 2017) Anesthesia Reaction: No Hx Neurological Disorder: No Hx Respiratory Disorders: No Hx Cardiac Disorders: No Hx Psychiatric Problems: No Hx Miscellaneous Medical Probl: Yes (stroke 2016,HTN,HLD,sleep apnea,DMII,morbid obesity) Hx Alcohol Use: No Hx Substance Use: No Hx Tobacco Use: No Physical Exam Vitals Vital Signs Date Temp Pulse Resp B/P (MAP) Pulse Ox O2 O2 Flow FiO2 Time Delivery Rate 01/15/19 98.4 80 17 160/81 98 Room Air 18:38 (107) 01/15/19 75 12 143/82 100 Room Air 18:01 (102) 01/15/19 98.9 88 18 149/90 96 15:21 (109) Physical Exam Const: No acute distress. Head: Atraumatic. Eyes: Normal Conjunctiva. ENT: Normal External Ears, Nose and Mouth. Neck: Full range of motion. No meningismus. Resp: Clear to auscultation bilaterally. Cardio: Regular rate and rhythm. Abd: Soft, non distended, normal bowel sounds, non tender. Skin: No petechiae or rashes. Back: No midline or flank tenderness. Ext: No cyanosis, or edema. Mild bleeding at the right calf, no active bleeding Neur: Awake and alert. No focal deficit Psych: Normal Mood and Affect. Result Diagram: 01/15/19180401/15/191804 Results 24 hrs Laboratory Tests Test 01/15/19 18:05 White Blood Count 12.1 10^3/ul Red Blood Count 4.75 10^6/ul Hemoglobin 13.5 g/dl Hematocrit 42.1 % Mean Corpuscular Volume 88.6 fl Mean Corpuscular Hemoglobin 28.4 pg Mean Corpuscular Hemoglobin Concent 32.1 g/dl Red Cell Distribution Width 12.8 % Platelet Count 416 10^3/UL Mean Platelet Volume 11.3 fl Immature Granulocytes % 0.300 % Neutrophils % 58.0 % Lymphocytes % 27.7 % Monocytes % 8.0 % Eosinophils % 5.2 % Basophils % 0.8 % Nucleated Red Blood Cells % 0.0 /100WBC Immature Granulocytes # 0.040 10^3/ul Neutrophils # 7.0 10^3/ul Lymphocytes # 3.4 10^3/ul Monocytes # 1.0 10^3/ul Eosinophils # 0.6 10^3/ul Basophils # 0.1 10^3/ul Nucleated Red Blood Cells # 0.0 10^3/ul Prothrombin Time 12.4 Sec Prothrombin Time Ratio 1.0 INR International Normalized Ratio 0.91 Activated Partial Thromboplast Time 28.7 Sec Sodium Level 139 mmol/L Potassium Level 4.6 mmol/L Chloride Level 100 mmol/L Carbon Dioxide Level 26 mmol/L Anion Gap 13 Blood Urea Nitrogen 21 mg/dl Creatinine 1.09 mg/dl Est Glomerular Filtrat Rate mL/min > 60 mL/min Glucose Level 299 mg/dl Calcium Level 9.7 mg/dl Current Medications Medications Dose Sig/Yumi Start Time Status Last (Trade) Ordered Route PRN Stop Time Admin Dose Reason Admin 0.5 mg ONCE STAT 01/15/19 DC 01/15/19 Hydromorphone IV 18:15 18:34 HCl 01/15/19 18:16 (Dilaudid) Ondansetron 4 mg ONCE STAT 01/15/19 DC 01/15/19 HCl (Zofran IV 18:15 18:34 Inj) 01/15/19 18:16 Departure Diagnosis: Primary Impression: Post-op bleeding Additional Impressions: Anemia Hyperglycemia Condition: Stable Comments I discussed the findings with the patient. I discussed the patient with the ho spitalist Dr Smith at 6:50 pm who was made aware of the lab, the treatment, the patient condition. The patient is admitted to [facility] Disclaimer: Inadvertent spelling and grammatical errors are likely due to EHR/dictation software use and do not reflect on the overall quality of patient care. Also, please note that the electronic time recorded on this note does not necessarily reflect the actual time of the patient encounter. VENKATESH PEARSON MD Jan 15, 2019 17:01
[2019-01-15] MEDS ORDERED: GABA300C16 PO (17:56)
[2019-01-15] MEDS ORDERED: ISOS10TA2 PO (17:56)
[2019-01-15] MEDS ORDERED: GLIP10TA14 PO (17:57)
[2019-01-15] MEDS ORDERED: LISI-471 PO (17:57)
[2019-01-15] MEDS ORDERED: HYDR25TA6 PO (17:57)
[2019-01-15] MEDS ORDERED: ASPI-817 PO (17:58)
[2019-01-15] MEDS ORDERED: CARV12.579 PO (17:58)
[2019-01-15] MEDS ORDERED: AMLO5TAB4 PO (17:58)
[2019-01-15] MEDS ORDERED: CLOP75TA19 PO (17:59)
[2019-01-15] MEDS ORDERED: PIOG45TA64 PO (17:59)
[2019-01-15] MEDS ORDERED: METO25TA4 PO (18:00)
[2019-01-15] MEDS ORDERED: ATOR-2 PO (18:00)
[2019-01-15] MEDS ORDERED: INSU100I33 SC (18:01)
[2019-01-15] MEDS ORDERED: INSU100C SQ (18:02)
[2019-01-15] MEDS ORDERED: HYDROmorphONE 0.5 MG/0.5 ML SYG IV STA ×2 (18:15→20:05)
[2019-01-15] MEDS ORDERED: ONDANSETRON 4 MG INJ IV STA (18:15)
[2019-01-15 20:00] VITALS: BP 157/97; PULSE 79; RESP 19
[2019-01-15 21:31] VITALS: Ht 172.7 cm; Wt 129.3 kg
--- NOTE | 2019-01-15 22:17 | HP ---
Date/Time of Note Date/Time of Note DATE: 01/15/19 TIME: 22:17 Assessment/Plan Lines/Catheters IV Catheter Type (from [facility]): Saline Lock Assessment/Plan Hospital Course created in error Result Diagram: 01/15/19 1805 01/15/19 1805 Results 24hrs Laboratory Tests Test 01/15/19 18:05 White Blood Count 12.1 #H Red Blood Count 4.75 Hemoglobin 13.5 L Hematocrit 42.1 Mean Corpuscular Volume 88.6 Mean Corpuscular Hemoglobin 28.4 L Mean Corpuscular Hemoglobin Concent 32.1 Red Cell Distribution Width 12.8 Platelet Count 416 #H Mean Platelet Volume 11.3 H Immature Granulocytes % 0.300 Neutrophils % 58.0 Lymphocytes % 27.7 Monocytes % 8.0 Eosinophils % 5.2 Basophils % 0.8 Nucleated Red Blood Cells % 0.0 Immature Granulocytes # 0.040 H Neutrophils # 7.0 Lymphocytes # 3.4 H Monocytes # 1.0 H Eosinophils # 0.6 H Basophils # 0.1 Nucleated Red Blood Cells # 0.0 Prothrombin Time 12.4 Prothrombin Time Ratio 1.0 INR International Normalized Ratio 0.91 Activated Partial Thromboplast Time 28.7 Sodium Level 139 Potassium Level 4.6 Chloride Level 100 Carbon Dioxide Level 26 Anion Gap 13 Blood Urea Nitrogen 21 H Creatinine 1.09 Est Glomerular Filtrat Rate mL/min > 60 Glucose Level 299 H Calcium Level 9.7 HPI/ROS Admit Date/Time Admit Date/Time Jan 15, 2019 at 19:07 Hx of Present Illness created in error PMH/Family/Social Past Medical History Coded Allergies: morphine (Verified Allergy, Unknown, VOMITING, 01/15/19) Past Surgical History Past Surgical Hx: other Social History Smoking Status: Never smoker Exam/Review of Systems Vital Signs Vitals Vital Signs Date Temp Pulse Resp B/P (MAP) Pulse Ox O2 O2 Flow FiO2 Time Delivery Rate 01/15/19 98.3 79 19 157/97 96 20:00 (117) 01/15/19 Room Air 18:38 GORDON GARCIA Jan 15, 2019 22:17
[2019-01-15] MEDS ORDERED: HYDROmorphONE 1 MG/ML SYG IV PRN (22:30)
[2019-01-15] MEDS ORDERED: HYDROCODONE/APAP (5/325) TAB PO PRN (22:30)
[2019-01-15] MEDS ORDERED: GLUCOSE GEL 15 GRAM TUBE BUCCAL PRN (22:30)
[2019-01-15] MEDS ORDERED: GLUCAGON 1 MG INJ IM PRN (22:30)
[2019-01-15] MEDS ORDERED: ACETAMINOPHEN 325 MG TAB PO PRN (22:30)
[2019-01-15] MEDS ORDERED: ONDANSETRON 4 MG INJ IV PRN (22:30)
[2019-01-15] MEDS ORDERED: DEXTROSE 50% 50 ML SYRINGE IV PRN ×2 (22:30)
[2019-01-15] MEDS ORDERED: GLUCOSE GEL 15 GRAM TUBE PO PRN ×2 (22:30)
[2019-01-15] MEDS ORDERED: NACL 0.9% 3 ML SYG IV SCH (22:30)
[2019-01-15] MEDS ORDERED: DIPHENHYDRAMINE 50 MG CAP PO ONE (23:00)
[2019-01-16] MEDS: INSULIN GLARGINE [LANTus] (100 UNITS/ML) SYG SC SCH ×2 (00:11→08:27)
[2019-01-16] MEDS: HYDROCODONE/APAP (10/325) TAB PO PRN ×3 (00:12→18:20)
[2019-01-16 02:00] VITALS: BP 125/75; PULSE 84; RESP 18
[2019-01-16] MEDS: ACCU-CHEK XX SCH (02:00)
[2019-01-16] MEDS: HYDROmorphONE 2 MG/ML SYG IV PRN ×4 (02:54→15:07)
[2019-01-16] MEDS ORDERED: DIPHENHYDRAMINE 50 MG CAP PO PRN (05:00)
[2019-01-16] MEDS: INSULIN ASPART [NOVOLOG] 3 ML PEN SC SCH ×5 (08:26→21:00)
[2019-01-16] MEDS: GABAPENTIN 300 MG CAP PO SCH ×3 (08:27→21:10)
[2019-01-16] MEDS: AMLODIPINE 5 MG TAB PO SCH (08:28)
[2019-01-16] MEDS: LISINOPRIL 20 MG TAB PO SCH (08:28)
[2019-01-16] MEDS: HYDROCHLOROTHIAZIDE 25 MG TAB PO SCH (08:28)
[2019-01-16 08:50] VITALS: BP 179/106; PULSE 83; RESP 20
--- NOTE | 2019-01-16 10:00 | HP ---
Date/Time of Note Date/Time of Note DATE: 01/16/19 TIME: 10:00 Assessment/Plan VTE Prophylaxis Risk score (from Nsg)>0 risk: 4 SCD applied (from Nsg): No SCD contraindicated: other Pharmacological prophylaxis: NA/contraindicated Pharm contraindication: bleeding Lines/Catheters IV Catheter Type (from Nrsg): Peripheral IV Urinary Cath still in place: No Assessment/Plan Hospital Course SUBJECTIVE: Lying in bed comfortably. No acute distress. OBJECTIVE: Vital signs-see below PHYSICAL EXAM: Constitutional: Well-developed, adequately built, lying in bed comfortably. Psych: nl mood/affect, no complaints Head: atraumatic, normocephalic Eyes: nl conjunctiva, nl sclera ENMT: mucosa pink and moist, nl external ears & nose Neck: non-tender, supple Respiratory: clear to auscultation, normal air movement Cardiovascular: nl pulses, regular rate and rhythm Gastrointestinal: non-tender, soft, bowel sounds active in all 4 quadrants. Musculoskeletal/extremities:RLE dressed w/CEDRIC wrap,no oozing/bleeding noted. Neurological: Alert oriented 3,nl speech, nl strength Skin: nl turgor ASSESSMENT/PLAN: 48-year-old male with chronic diabetic right lower extremity wound which is worsening, recent NSTEMI/PTCA x2 2 weeks ago,DMII, htn, underwent I&D/debridement yesterday at the [facility], admitted with bleeding RLE chronic DM ulcer.. 1. Bleeding Right lower extremity chronic non-healing diabetic ulcer, status post intervention at [facility] clinic yesterday -Patient was evaluated with tugboat operator in ER with control of bleeding. -Wound management, weightbearing per podiatry team. 2. Acute on chronic anemia, acute anemia secondary to postop bleeding. -Currently H&H stable. We will continue to monitor. 3. Multivessel coronary artery disease, recent NSTEMI, status post PTCA x2 2 weeks ago. -We will call patient's construction site manager. At this time, since bleeding is resolved, we should be able to resume him back on aspirin and Plavix for stent patency. We will defer this to construction site manager. -cont.statin and other home cardiac medications. 4. Essential hypertension. -Elevated likely 2/2 pain -Resume antihypertensives 5. Poorly controlled DMII -Accu-Cheks/ISS/pre-meal insulin/Lantus. -Carb controlled diet. -Endocrinology consult in light of nonhealing ulcers to recommend the best regimen. 6. Dyslipidemia -Continue statin. 7.Chronic pain 2/2 chronic non healing DM wound -Patient tells to amputate this leg as his pain is out of control and he wakes up w/ pain and go to sleep in pain. -PRN opiates -Pain management consult for better pain med regimen on DC to cope with his disease process. DVT prophylaxis: Contraindicated in light of postop bleeding. PUD prophylaxis: Not indicated CODE STATUS: Full code Diet: Carbohydrate controlled/low-cholesterol diet. Rest of the management depend on hospital course. Approximately 60 m spent on this history and physical. Patient was seen in collaboration with Result Diagram: 01/16/19 0607 01/16/19 0607 Results 24hrs Laboratory Tests Test 01/15/19 18:05 01/15/19 22:49 01/16/19 00:02 01/16/19 03:02 White Blood Count 12.1 #H Red Blood Count 4.75 Hemoglobin 13.5 L Hematocrit 42.1 Mean Corpuscular 88.6 Volume Mean Corpuscular 28.4 L Hemoglobin Mean Corpuscular 32.1 Hemoglobin Concent Red Cell 12.8 Distribution Width Platelet Count 416 #H Mean Platelet Volume 11.3 H Immature 0.300 Granulocytes % Neutrophils % 58.0 Lymphocytes % 27.7 Monocytes % 8.0 Eosinophils % 5.2 Basophils % 0.8 Nucleated Red Blood 0.0 Cells % Immature 0.040 H Granulocytes # Neutrophils # 7.0 Lymphocytes # 3.4 H Monocytes # 1.0 H Eosinophils # 0.6 H Basophils # 0.1 Nucleated Red Blood 0.0 Cells # Prothrombin Time 12.4 Prothrombin Time 1.0 Ratio INR International 0.91 Normalized Ratio Activated 28.7 Partial Thromboplast Time Sodium Level 139 Potassium Level 4.6 Chloride Level 100 Carbon Dioxide Level 26 Anion Gap 13 Blood Urea Nitrogen 21 H Creatinine 1.09 Est Glomerular > 60 Filtrat Rate mL/min Glucose Level 299 H Calcium Level 9.7 Bedside Glucose 148 131 178 Test 01/16/19 06:07 01/16/19 08:04 White Blood Count 11.8 H Red Blood Count 4.80 Hemoglobin 13.5 L Hematocrit 42.6 Mean Corpuscular 88.8 Volume Mean Corpuscular 28.1 L Hemoglobin Mean Corpuscular 31.7 L Hemoglobin Concent Red Cell 13.1 Distribution Width Platelet Count 415 Mean Platelet Volume 11.0 H Immature 0.300 Granulocytes % Neutrophils % 54.9 Lymphocytes % 29.3 Monocytes % 8.1 Eosinophils % 6.5 Basophils % 0.9 Nucleated Red Blood 0.0 Cells % Immature 0.040 H Granulocytes # Neutrophils # 6.5 Lymphocytes # 3.5 H Monocytes # 1.0 H Eosinophils # 0.8 H Basophils # 0.1 Nucleated Red Blood 0.0 Cells # Sodium Level 140 Potassium Level 4.4 Chloride Level 101 Carbon Dioxide Level 26 Anion Gap 13 Blood Urea Nitrogen 20 Creatinine 1.12 Est Glomerular > 60 Filtrat Rate mL/min Glucose Level 190 # Hemoglobin A1c 11.3 H Calcium Level 9.5 Magnesium Level 1.7 Total Bilirubin 0.3 Direct Bilirubin 0.00 Indirect Bilirubin 0.3 Aspartate Amino 30 Transf (AST/SGOT) Alanine 20 Aminotransferase (AL T/SGPT) Alkaline Phosphatase 74 Total Protein 7.4 Albumin 3.9 Globulin 3.50 H Albumin/Globulin 1.11 Ratio Triglycerides Level 143 Cholesterol Level 101 LDL Cholesterol, 43 Calculated HDL Cholesterol 29 Cholesterol/HDL 3.4 Ratio Thyroid Stimulating 4.630 Hormone (TSH) Bedside Glucose 184 HPI/ROS Admit Date/Time Admit Date/Time Jan 15, 2019 at 19:07 Hx of Present Illness This is a 48-year-old obese male with a history of type 2 diabetes, hypertension, chronic diabetic ulcers of lower extremities who has been under [facility] wound clinic follow-up with /, coronary artery disease, non-ST elevation myocardial infarction a month ago found to have multivessel coronary artery disease requiring bypass surgery for which laurenu nately not a candidate for open heart surgery secondary to worsening lower extremity diabetic wound underwent LHC/PTCA x2 stent 2 weeks ago at [facility] who was also told that he may need another stent in the near future, came to the emergency room with bleeding Right lower extremity wound. Apparently, patient underwent I&D/ debridement at [facility] wound clinic with yesterday and was discharged with compressive dressing/postop boards, felt tightness leading to removal of dressing by himself at home, found to have severe bleeding with dripping blood all over, who was advised by the tugboat operator to go to the emergency room. Patient was seen by tugboat operator in the emergency room with bedside intervention and control of bleeding from right lower extremity wound. Patient reports 10/10 pain on RLE and is asking to amputate this leg.. He denied chest pain, palpitation, shortness of breath, nausea, vomiting, abdominal pain, numbness, tingling, headache, fever, chills or other constitutional symptoms. Labs WBC 11,800, hemoglobin A1c 11.3, blood sugar 190. Patient has pain 10 out of 10 on right lower extremity. He is also holding breath with pain when I am evaluating him. Patient's blood pressure is 179/106. ROS A 12 point review of system was assessed and is negative other than what is mentioned in the HPI. PMH/Family/Social Past Medical History See HPI Medications Current Medications IV Flush (NS 3 ml) 3 ml PER PROTOCOL IV ; Start 01/15/19 at 22:30 Ondansetron HCl (Zofran Inj) 4 mg Q6H PRN IV NAUSEA/VOMITING; Start 01/15/19 at 22:30 Acetaminophen (Tylenol Tab) 650 mg Q6H PRN PO .PAIN 1-3 OR TEMP; Start 01/15/19 at 22:30 Amlodipine Besylate (Norvasc) 5 mg DAILY PO Last administered on 01/16/19 08:28; Admin Dose 5 MG; Start 01/16/19 at 09:00 Atorvastatin Calcium (Lipitor) 80 mg QHS PO ; Start 01/16/19 at 21:00 Carvedilol (Coreg) 12.5 mg BID PO Last administered on 01/16/19 08:28; Admin Dose 12.5 MG; Start 01/16/19 at 09:00 Gabapentin (Neurontin) 300 mg TID PO Last administered on 01/16/19 08:27; Admin Dose 300 MG; Start 01/16/19 at 09:00 Hydrochlorothiazide (Hydrochlorothiazide) 25 mg DAILY PO Last administered on 01/16/19 08:28; Admin Dose 25 MG; Start 01/16/19 at 09:00 Insulin Glargine (Lantus) 45 units BID SC Last administered on 01/16/19 08:27; Admin Dose 45 UNITS; Start 01/15/19 at 22:30 Lisinopril (Zestril) 20 mg DAILY PO Last administered on 01/16/19at 08:28; Admin Dose 20 MG; Start 01/16/19 at 09:00 Diagnostic Test (Pha) (Accu-Chek) 1 ea 02 XX ; Start 01/16/19 at 02:00 Insulin Aspart (Novolog Insulin Pen) NOVOLOG *MILD* ALGORITHM WITH MEALS BEDTIME SC Last administered on 01/16/19at 08:26; Admin Dose 2 UNIT; Start 01/16/19 at 08:00 Miscellaneous Information 1 ea NOTE XX ; Start 01/15/19 at 22:30 Glucose (Glutose) 15 gm Q15M PRN PO DECREASED GLUCOSE; Start 01/15/19 at 22:30 Glucose (Glutose) 22.5 gm Q15M PRN PO DECREASED GLUCOSE; Start 01/15/19 at 22:30 Dextrose (D50w Syringe) 25 ml Q15M PRN IV DECREASED GLUCOSE; Start 01/15/19 at 22:30 Dextrose (D50w Syringe) 50 ml Q15M PRN IV DECREASED GLUCOSE; Start 01/15/19 at 22:30 Glucagon (Glucagen) 1 mg Q15M PRN IM DECREASED GLUCOSE; Start 01/15/19 at 22:30 Glucose (Glutose) 15 gm Q15M PRN BUCCAL DECREASED GLUCOSE; Start 01/15/19 at 22:30 Hydromorphone HCl (Dilaudid) 2 mg Q4H PRN IV SEVERE PAIN LEVEL 7-10 Last administered on 01/16/19at 07:08; Admin Dose 2 MG; Start 01/15/19 at 23:30 Acetaminophen/ Hydrocodone Bitart ([place] (10/325)) 1 tab Q6H PRN PO MODERATE PAIN LEVEL 4-6 Last administered on 01/16/19at 00:12; Admin Dose 1 TAB; Start 01/15/19 at 23:30 Diphenhydramine HCl (Benadryl) 50 mg Q6H PRN PO ITCHING Last administered on 01/16/19at 07:08; Admin Dose 50 MG; Start 01/16/19 at 05:00 Coded Allergies: morphine (Verified Allergy, Unknown, VOMITING, 01/15/19) Past Surgical History See HPI Past Surgical Hx: other Family History Significant Family History: no pertinent family hx Social History Former smoker/alcohol/meth abuse, sober for 25 years. Smoking Status: Former smoker Exam/Review of Systems Vital Signs Vitals Vital Signs Date Temp Pulse Resp B/P (MAP) Pulse Ox O2 O2 Flow FiO2 Time Delivery Rate 01/16/19 98.1 83 20 179/106 96 Room Air 08:50 (130) Intake and Output 01/15/19 01/15/19 01/16/19 1515:00 23:00 07:00 IntakeIntake Total 400 ml BalanceBalance 400 ml KIMI HULL NP Jan 16, 2019 10:00
--- NOTE | 2019-01-16 10:31 | CONS ---
Assessment/Plan Assessment/Plan Hospital Course (Demo Recall) 1. Coronary artery disease status post recent [place] 2. Multivessel coronary artery disease status post PCI of the left cecum and obtuse marginal recently at [facility] about a week ago by myself with significant RCA and diagonal disease 3. Diabetes 4. Hypertension 5. Dyslipidemia 6. Nonhealing wound and bleeding in the wound Recommendation: Aspirin and Plavix will be resumed. Already discussed with podiatry and decided to resume patient aspirin Plavix Continue with the Coreg and increase as needed and tolerated Diabetic management as per internal medicine Continue with a statin Aggressive risk factor modifications Stage PCI of the right coronary artery at a later time probably up a couple of weeks once no sign of bleeding. Thank you for his referral will continue to follow with you MARII OLIVEIRA MD [facility] Consultation Date/Type/Reason Admit Date/Time Jan 15, 2019 at 19:07 Date of Consultation: Jan 16, 2019 Type of Consult Cardiology Reason for Consultation cad s/p PCI Requesting Provider: KIMI HULL NP Date/Time of Note DATE: 01/16/19 TIME: 10:26 Hx of Present Illness Interventional cardiology consultation note Chief complaint: Right leg bleeding Reason for consult: Coronary artery disease status post recent PCI History of present illness: Thank you for this referral. History was from the patient from review of the old chart discussion physician staff This is a 48-year-old gentleman with history of severe diabetes severe coronary artery disease status post PCI of his left circumflex and obtuse marginal at [facility] by me about a week ago, nonhealing wound in his right leg who has had an I&D done yesterday. After this the procedure patient had noted significant bleeding of his right leg. He has been admitted for further workup. Bleeding is stopped now. Discussed with podiatry as well. Patient aspirin Plavix were held today by a fter discussion with podiatry permission has been given by them to be started again. Patient blood pressure also has been labile. Was low yesterday and is higher today but he has significant right foot pain now. Allergies: Morphine Medications were reviewed as per medical reconciliation sheet Family history: No reported early coronary artery disease Social history: Has quit smoking Past medical history: Coronary artery disease multivessel coronary artery disease. Patient is being followed by his regular financial professional Dr. Kwasi Martin and has had a coronary angiogram done by him about a week ago at [facility]. Coronary angiogram that time showed multivessel coronary artery disease. He was referred for cardiac surgery for a coronary artery bypass graft. After CT surgery evaluating felt the patient would not be a good candidate for bypass due to his severe right lower extremity wound. At that time he was referred to me for multivessel PCI and underwent PCI of his left second obtuse marginal. He still has significant right coronary arteries as well as diagonal disease which was felt that his best to stage him and later on once he remains stable. Patient also with diabetes hypertension dyslipidemia likely peripheral vascular disease Review of system: Patient denies all others except for above-mentioned Past Medical History Home Meds Reported Medications Insulin Lispro (Humalog) 100 Unit/1 Ml Cartridge, 0 SQ SLIDING SCALE, EA 01/15/19 Insulin Glargine,Hum.rec.anlog (Basaglar Kwikpen U-100) 100 Unit/1 Ml Insuln.pen, 45 UNIT SC BID, EA 01/15/19 Metoprolol Tartrate* (Lopressor*) 25 Mg Tablet, 75 MG PO BID, #180 TAB 01/15/19 Atorvastatin* (Atorvastatin*) 80 Mg Tablet, 80 MG PO QHS, #30 TAB 01/15/19 Pioglitazone Hcl* (Pioglitazone Hcl*) 45 Mg Tablet, 45 MG PO DAILY, TAB 01/15/19 Clopidogrel Bisulfate* (Clopidogrel Bisulfate*) 75 Mg Tablet, 75 MG PO DAILY, #30 TAB 01/15/19 Carvedilol* (Carvedilol*) 12.5 Mg Tablet, 12.5 MG PO BID, #60 TAB 01/15/19 Aspirin* (Aspirin* EC) 81 Mg Tablet.dr, 81 MG PO DAILY, TAB 01/15/19 Amlodipine Besylate* (Norvasc*) 5 Mg Tablet, 5 MG PO DAILY, TAB 01/15/19 Hydrochlorothiazide* (Hydrochlorothiazide*) 25 Mg Tab, 25 MG PO DAILY, #30 TAB 01/15/19 Glipizide* (Glipizide*) 10 Mg Tablet, 10 MG PO AC BREAKFAST DINNER, TAB 01/15/19 Lisinopril* (Lisinopril*) 20 Mg Tablet, 20 MG PO DAILY, #30 TAB 01/15/19 Gabapentin* (Gabapentin*) 300 Mg Capsule, 300 MG PO TID, #90 CAP 01/15/19 Isosorbide Dinitrate* (Isordil*) 10 Mg Tablet, 10 MG PO TID, TAB 01/15/19 Discontinued Reported Medications Insulin Glargine,Hum.rec.anlog (Basaglar Kwikpen U-100) 100 Unit/1 Ml Insuln.pen, 45 UNIT SC BID, EA 12/25/18 Insulin Lispro (Humalog) 100 Unit/1 Ml Cartridge, 5-10 UNIT SQ AC B, EA 12/25/18 Benazepril-Hydrochlorothiazide (Benazepril-Hydrochlorothiazide) 20-25 Mg Tablet, 1 TAB PO DAILY 12/25/18 Metoprolol Tartrate* (Lopressor*) 25 Mg Tablet, 75 MG PO BID, #180 TAB 12/25/18 Pioglitazone Hcl* (Actos*) 45 Mg Tablet, 45 MG PO DAILY, #30 TAB 11/21/18 Glipizide* (Glipizide*) 10 Mg Tablet, 10 MG PO BID, TAB 11/21/18 Gabapentin* (Gabapentin*) 300 Mg Capsule, 300 MG PO TID, #90 CAP 11/21/18 Aspirin* (Aspirin* EC) 81 Mg Tablet.dr, 81 MG PO DAILY, TAB 11/21/18 Amlodipine Besylate* (Norvasc*) 5 Mg Tablet, 5 MG PO DAILY, TAB 11/21/18 Atorvastatin* (Atorvastatin*) 40 Mg Tablet, 40 MG PO QHS, #30 TAB 09/04/18 Discontinued Scripts Oxycodone HCl/Acetaminophen (Oxycodone-Acetaminophen 5-325) 1 Each Tablet, 1 TAB PO Q4H PRN for PAIN for 5 Days, #30 TAB Prov:ANJEL RENTERIA 11/30/18 Metoprolol Tartrate* (Lopressor*) 25 Mg Tab, 75 MG PO BID, #180 TAB Prov:ANJEL RENTERIA 11/30/18 Lisinopril* (Lisinopril*) 20 Mg Tablet, 20 MG PO DAILY for 30 Days, #30 TAB Prov:ANJEL RENTERIA 11/30/18 Medications Current Medications IV Flush (NS 3 ml) 3 ml PER PROTOCOL IV ; Start 01/15/19 at 22:30 Ondansetron HCl (Zofran Inj) 4 mg Q6H PRN IV NAUSEA/VOMITING; Start 01/15/19 at 22:30 Acetaminophen (Tylenol Tab) 650 mg Q6H PRN PO .PAIN 1-3 OR TEMP; Start 01/15/19 at 22:30 Amlodipine Besylate (Norvasc) 5 mg DAILY PO Last administered on 01/16/19 08:28; Admin Dose 5 MG; Start 01/16/19 at 09:00 Atorvastatin Calcium (Lipitor) 80 mg QHS PO ; Start 01/16/19 at 21:00 Carvedilol (Coreg) 12.5 mg BID PO Last administered on 01/16/19 08:28; Admin Dose 12.5 MG; Start 01/16/19 at 09:00 Gabapentin (Neurontin) 300 mg TID PO Last administered on 01/16/19 08:27; Admin Dose 300 MG; Start 01/16/19 at 09:00 Hydrochlorothiazide (Hydrochlorothiazide) 25 mg DAILY PO Last administered on 01/16/19 08:28; Admin Dose 25 MG; Start 01/16/19 at 09:00 Insulin Glargine (Lantus) 45 units BID SC Last administered on 01/16/19 08:27; Admin Dose 45 UNITS; Start 01/15/19 at 22:30 Lisinopril (Zestril) 20 mg DAILY PO Last administered on 01/16/19 08:28; Admin Dose 20 MG; Start 01/16/19 at 09:00 Diagnostic Test (Pha) (Accu-Chek) 1 ea 02 XX ; Start 01/16/19 at 02:00 Insulin Aspart (Novolog Insulin Pen) NOVOLOG *MILD* ALGORITHM WITH MEALS BEDTIME SC Last administered on 01/16/19 08:26; Admin Dose 2 UNIT; Start 01/16/19 at 08:00 Miscellaneous Information 1 ea NOTE XX ; Start 01/15/19 at 22:30 Glucose (Glutose) 15 gm Q15M PRN PO DECREASED GLUCOSE; Start 01/15/19 at 22:30 Glucose (Glutose) 22.5 gm Q15M PRN PO DECREASED GLUCOSE; Start 01/15/19 at 22 :30 Dextrose (D50w Syringe) 25 ml Q15M PRN IV DECREASED GLUCOSE; Start 01/15/19 at 22:30 Dextrose (D50w Syringe) 50 ml Q15M PRN IV DECREASED GLUCOSE; Start 01/15/19 at 22:30 Glucagon (Glucagen) 1 mg Q15M PRN IM DECREASED GLUCOSE; Start 01/15/19 at 22:30 Glucose (Glutose) 15 gm Q15M PRN BUCCAL DECREASED GLUCOSE; Start 01/15/19 at 22:30 Hydromorphone HCl (Dilaudid) 2 mg Q4H PRN IV SEVERE PAIN LEVEL 7-10 Last administered on 01/16/19at 07:08; Admin Dose 2 MG; Start 01/15/19 at 23:30 Acetaminophen/ Hydrocodone Bitart ([place] (10)) 1 tab Q6H PRN PO MODERATE PAIN LEVEL 4-6 Last administered on 01/16/19at 00:12; Admin Dose 1 TAB; Start 01/15/19 at 23:30 Diphenhydramine HCl (Benadryl) 25 mg Q6H PRN IV irching; Start 01/16/19 at 10:30 Allergies: Coded Allergies: morphine (Verified Allergy, Unknown, VOMITING, 01/15/19) Past Surgical History Past Surgical Hx: other Social History Smoking Status: Former smoker Exam/Review of Systems Vital Signs Vitals Vital Signs Date Temp Pulse Resp B/P (MAP) Pulse Ox O2 O2 Flow FiO2 Time Delivery Rate 01/16/19 98.1 83 20 179/106 96 Room Air 08:50 (130) Intake and Output 01/15/19 01/15/19 01/16/19 1515:00 23:00 07:00 IntakeIntake Total 400 ml BalanceBalance 400 ml Exam Exam General: Obese gentleman in no acute distress HEENT: NC/AT. pupils are equal. round. NECK: NO JVD. no stridor. CV: RRR. systolic murmur; no gallop or rubs. PULM: no wheezing or rhonchi. GI: SOFT, NT, ND, no rebound or guarding Extremity: Right lower extremity in dressing neuro: awake and alert, OX3. Psych: Anxious but pleasant rectal: deferred : normal Labs Result Diagram: 01/16/19 0607 01/16/19 0607 Results 24hrs Laboratory Tests Test 01/15/19 18:05 01/15/19 22:49 01/16/19 00:02 01/16/19 03:02 White Blood Count 12.1 #H Red Blood Count 4.75 Hemoglobin 13.5 L Hematocrit 42.1 Mean Corpuscular 88.6 Volume Mean Corpuscular 28.4 L Hemoglobin Mean Corpuscular 32.1 Hemoglobin Concent Red Cell 12.8 Distribution Width Platelet Count 416 #H Mean Platelet Volume 11.3 H Immature 0.300 Granulocytes % Neutrophils % 58.0 Lymphocytes % 27.7 Monocytes % 8.0 Eosinophils % 5.2 Basophils % 0.8 Nucleated Red Blood 0.0 Cells % Immature 0.040 H Granulocytes # Neutrophils # 7.0 Lymphocytes # 3.4 H Monocytes # 1.0 H Eosinophils # 0.6 H Basophils # 0.1 Nucleated Red Blood 0.0 Cells # Prothrombin Time 12.4 Prothrombin Time 1.0 Ratio INR International 0.91 Normalized Ratio Activated 28.7 Partial Thromboplast Time Sodium Level 139 Potassium Level 4.6 Chloride Level 100 Carbon Dioxide Level 26 Anion Gap 13 Blood Urea Nitrogen 21 H Creatinine 1.09 Est Glomerular > 60 Filtrat Rate mL/min Glucose Level 299 H Calcium Level 9.7 Bedside Glucose 148 131 178 Test 01/16/19 06:07 01/16/19 08:04 White Blood Count 11.8 H Red Blood Count 4.80 Hemoglobin 13.5 L Hematocrit 42.6 Mean Corpuscular 88.8 Volume Mean Corpuscular 28.1 L Hemoglobin Mean Corpuscular 31.7 L Hemoglobin Concent Red Cell 13.1 Distribution Width Platelet Count 415 Mean Platelet Volume 11.0 H Immature 0.300 Granulocytes % Neutrophils % 54.9 Lymphocytes % 29.3 Monocytes % 8.1 Eosinophils % 6.5 Basophils % 0.9 Nucleated Red Blood 0.0 Cells % Immature 0.040 H Granulocytes # Neutrophils # 6.5 Lymphocytes # 3.5 H Monocytes # 1.0 H Eosinophils # 0.8 H Basophils # 0.1 Nucleated Red Blood 0.0 Cells # Sodium Level 140 Potassium Level 4.4 Chloride Level 101 Carbon Dioxide Level 26 Anion Gap 13 Blood Urea Nitrogen 20 Creatinine 1.12 Est Glomerular > 60 Filtrat Rate mL/min Glucose Level 190 # Hemoglobin A1c 11.3 H Calcium Level 9.5 Magnesium Level 1.7 Total Bilirubin 0.3 Direct Bilirubin 0.00 Indirect Bilirubin 0.3 Aspartate Amino 30 Transf (AST/SGOT) Alanine 20 Aminotransferase (AL T/SGPT) Alkaline Phosphatase 74 Total Protein 7.4 Albumin 3.9 Globulin 3.50 H Albumin/Globulin 1.11 Ratio Triglycerides Level 143 Cholesterol Level 101 LDL Cholesterol, 43 Calculated HDL Cholesterol 29 Cholesterol/HDL 3.4 Ratio Thyroid Stimulating 4.630 Hormone (TSH) Bedside Glucose 184 Medications Medications Current Medications IV Flush (NS 3 ml) 3 ml PER PROTOCOL IV ; Start 01/15/19 at 22:30 Ondansetron HCl (Zofran Inj) 4 mg Q6H PRN IV NAUSEA/VOMITING; Start 01/15/19 at 22:30 Acetaminophen (Tylenol Tab) 650 mg Q6H PRN PO .PAIN 1-3 OR TEMP; Start 01/15/19 at 22:30 Amlodipine Besylate (Norvasc) 5 mg DAILY PO Last administered on 01/16/19at 08:28; Admin Dose 5 MG; Start 01/16/19 at 09:00 Atorvastatin Calcium (Lipitor) 80 mg QHS PO ; Start 01/16/19 at 21:00 Carvedilol (Coreg) 12.5 mg BID PO Last administered on 01/16/19at 08:28; Admin Dose 12.5 MG; Start 01/16/19 at 09:00 Gabapentin (Neurontin) 300 mg TID PO Last administered on 01/16/19 08:27; Admin Dose 300 MG; Start 01/16/19 at 09:00 Hydrochlorothiazide (Hydrochlorothiazide) 25 mg DAILY PO Last administered on 01/16/19 08:28; Admin Dose 25 MG; Start 01/16/19 at 09:00 Insulin Glargine (Lantus) 45 units BID SC Last administered on 01/16/19at 08:27; Admin Dose 45 UNITS; Start 01/15/19 at 22:30 Lisinopril (Zestril) 20 mg DAILY PO Last administered on 01/16/19 08:28; Admin Dose 20 MG; Start 01/16/19 at 09:00 Diagnostic Test (Pha) (Accu-Chek) 1 ea 02 XX ; Start 01/16/19 at 02:00 Insulin Aspart (Novolog Insulin Pen) NOVOLOG *MILD* ALGORITHM WITH MEALS BEDTIME SC Last administered on 01/16/19at 08:26; Admin Dose 2 UNIT; Start 01/16/19 at 08:00 Miscellaneous Information 1 ea NOTE XX ; Start 01/15/19 at 22:30 Glucose (Glutose) 15 gm Q15M PRN PO DECREASED GLUCOSE; Start 01/15/19 at 22:30 Glucose (Glutose) 22.5 gm Q15M PRN PO DECREASED GLUCOSE; Start 01/15/19 at 22:30 Dextrose (D50w Syringe) 25 ml Q15M PRN IV DECREASED GLUCOSE; Start 01/15/19 at 22:30 Dextrose (D50w Syringe) 50 ml Q15M PRN IV DECREASED GLUCOSE; Start 01/15/19 at 22:30 Glucagon (Glucagen) 1 mg Q15M PRN IM DECREASED GLUCOSE; Start 01/15/19 at 22:30 Glucose (Glutose) 15 gm Q15M PRN BUCCAL DECREASED GLUCOSE; Start 01/15/19 at 22:30 Hydromorphone HCl (Dilaudid) 2 mg Q4H PRN IV SEVERE PAIN LEVEL 7-10 Last administered on 01/16/19at 07:08; Admin Dose 2 MG; Start 01/15/19 at 23:30 Acetaminophen/ Hydrocodone Bitart ([place] (10/325)) 1 tab Q6H PRN PO MODERATE PAIN LEVEL 4-6 Last administered on 01/16/19at 00:12; Admin Dose 1 TAB; Start 01/15/19 at 23:30 Diphenhydramine HCl (Benadryl) 25 mg Q6H PRN IV irching; Start 01/16/19 at 10:30 MARII OLIVEIRA MD Jan 16, 2019 10:31
[2019-01-16] MEDS: DIPHENHYDRAMINE 50 MG INJ IV PRN ×2 (10:32→17:36)
[2019-01-16 11:13] VITALS: BP 135/85; PULSE 76
[2019-01-16] MEDS: ASPIRIN (EC) 81 MG TAB PO SCH (12:04)
[2019-01-16] MEDS: CLOPIDOGREL 75 MG TAB PO SCH (12:04)
--- NOTE | 2019-01-16 13:05 | CONS ---
Assessment/Plan Assessment/Plan Assessment/Plan (Daily) Right lower extremity diabetic ulcer CAD s/p cardiac stent DM2 with peripheral neuropathy Chronic pain right lower extremity Plan: Dressings to be kept clean dry and intact today. May resume dressing change tomorrow if in house. Patient may continue with topical abx creams and compression therapy at home for dressing changes. Continue with anticoagulation. Recommend to nurses to have surgicel on standby to incorporate into the dressings if bleeding persists. Patient may weight bear as tolerated. Recommend pain management and endocrinology for chronic pain and diabetes out of control. Patient has previous tattoo near ulceration site, urine metal toxicity studies ordered. Consultation Date/Type/Reason Admit Date/Time Jan 15, 2019 at 19:07 Date/Time of Note DATE: 01/16/19 TIME: 13:05 Hx of Present Illness 48 y/o M patient with hx of T2DM, HTN, hyperlipidemia, CAD s/p recent NSTEMI, CVA x2, L hand nerve injury, presents to the floor with right foot ulceration and concern for bleeding. Patient was seen previously at the [facility] wound center and due to patient being on blood thinners he was having uncontrolled bleeding and was instructed to report to the ED and be admitted for further monitoring. Patient had a previous cardiac stent placement and is now on blood thinners. He is not a candidate for open heart surgery due to non-healing right lower extremity ulceration site. Patient reports chronic pain to the right lower extremity ulceration site. Denies constitutional symptoms. ROS negative except for HPI Past Medical History T2DM, HTN, hyperlipidemia, CAD s/p recent NSTEMI, CVA x2, L hand nerve injury Home Meds Reported Medications Insulin Lispro (Humalog) 100 Unit/1 Ml Cartridge, 0 SQ SLIDING SCALE, EA 01/15/19 Insulin Glargine,Hum.rec.anlog (Basaglar Kwikpen U-100) 100 Unit/1 Ml Insuln.pen, 45 UNIT SC BID, EA 01/15/19 Metoprolol Tartrate* (Lopressor*) 25 Mg Tablet, 75 MG PO BID, #180 TAB 01/15/19 Atorvastatin* (Atorvastatin*) 80 Mg Tablet, 80 MG PO QHS, #30 TAB 01/15/19 Pioglitazone Hcl* (Pioglitazone Hcl*) 45 Mg Tablet, 45 MG PO DAILY, TAB 01/15/19 Clopidogrel Bisulfate* (Clopidogrel Bisulfate*) 75 Mg Tablet, 75 MG PO DAILY, #30 TAB 01/15/19 Carvedilol* (Carvedilol*) 12.5 Mg Tablet, 12.5 MG PO BID, #60 TAB 01/15/19 Aspirin* (Aspirin* EC) 81 Mg Tablet.dr, 81 MG PO DAILY, TAB 01/15/19 Amlodipine Besylate* (Norvasc*) 5 Mg Tablet, 5 MG PO DAILY, TAB 01/15/19 Hydrochlorothiazide* (Hydrochlorothiazide*) 25 Mg Tab, 25 MG PO DAILY, #30 TAB 01/15/19 Glipizide* (Glipizide*) 10 Mg Tablet, 10 MG PO AC BREAKFAST DINNER, TAB 01/15/19 Lisinopril* (Lisinopril*) 20 Mg Tablet, 20 MG PO DAILY, #30 TAB 01/15/19 Gabapentin* (Gabapentin*) 300 Mg Capsule, 300 MG PO TID, #90 CAP 01/15/19 Isosorbide Dinitrate* (Isordil*) 10 Mg Tablet, 10 MG PO TID, TAB 01/15/19 Discontinued Reported Medications Insulin Glargine,Hum.rec.anlog (Basaglar Kwikpen U-100) 100 Unit/1 Ml Insuln.pen, 45 UNIT SC BID, EA 12/25/18 Insulin Lispro (Humalog) 100 Unit/1 Ml Cartridge, 5-10 UNIT SQ AC B, EA 12/25/18 Benazepril-Hydrochlorothiazide (Benazepril-Hydrochlorothiazide) 20-25 Mg Tablet, 1 TAB PO DAILY 12/25/18 Metoprolol Tartrate* (Lopressor*) 25 Mg Tablet, 75 MG PO BID, #180 TAB 12/25/18 Pioglitazone Hcl* (Actos*) 45 Mg Tablet, 45 MG PO DAILY, #30 TAB 11/21/18 Glipizide* (Glipizide*) 10 Mg Tablet, 10 MG PO BID, TAB 11/21/18 Gabapentin* (Gabapentin*) 300 Mg Capsule, 300 MG PO TID, #90 CAP 11/21/18 Aspirin* (Aspirin* EC) 81 Mg Tablet.dr, 81 MG PO DAILY, TAB 11/21/18 Amlodipine Besylate* (Norvasc*) 5 Mg Tablet, 5 MG PO DAILY, TAB 11/21/18 Atorvastatin* (Atorvastatin*) 40 Mg Tablet, 40 MG PO QHS, #30 TAB 09/04/18 Discontinued Scripts Oxycodone HCl/Acetaminophen (Oxycodone-Acetaminophen 5-325) 1 Each Tablet, 1 TAB PO Q4H PRN for PAIN for 5 Days, #30 TAB Prov:ANJEL RENTERIA 11/30/18 Metoprolol Tartrate* (Lopressor*) 25 Mg Tab, 75 MG PO BID, #180 TAB Prov:ANJEL RENTERIA 11/30/18 Lisinopril* (Lisinopril*) 20 Mg Tablet, 20 MG PO DAILY for 30 Days, #30 TAB Prov:ANJEL RENTERIA 11/30/18 Medications Current Medications IV Flush (NS 3 ml) 3 ml PER PROTOCOL IV ; Start 01/15/19 at 22:30 Ondansetron HCl (Zofran Inj) 4 mg Q6H PRN IV NAUSEA/VOMITING; Start 01/15/19 at 22:30 Acetaminophen (Tylenol Tab) 650 mg Q6H PRN PO .PAIN 1-3 OR TEMP; Start 01/15/19 at 22:30 Amlodipine Besylate (Norvasc) 5 mg DAILY PO Last administered on 01/16/19at 08:28; Admin Dose 5 MG; Start 01/16/19 at 09:00 Atorvastatin Calcium (Lipitor) 80 mg QHS PO ; Start 01/16/19 at 21:00 Carvedilol (Coreg) 12.5 mg BID PO Last administered on 01/16/19at 08:28; Admin Dose 12.5 MG; Start 01/16/19 at 09:00 Gabapentin (Neurontin) 300 mg TID PO Last administered on 01/16/19at 12:04; Admin Dose 300 MG; Start 01/16/19 at 09:00 Hydrochlorothiazide (Hydrochlorothiazide) 25 mg DAILY PO Last administered on 01/16/19 08:28; Admin Dose 25 MG; Start 01/16/19 at 09:00 Insulin Glargine (Lantus) 45 units BID SC Last administered on 01/16/19 08:27; Admin Dose 45 UNITS; Start 01/15/19 at 22:30 Lisinopril (Zestril) 20 mg DAILY PO Last administered on 01/16/19at 08:28; Admin Dose 20 MG; Start 01/16/19 at 09:00 Diagnostic Test (Pha) (Accu-Chek) 1 ea 02 XX ; Start 01/16/19 at 02:00 Insulin Aspart (Novolog Insulin Pen) NOVOLOG *MILD* ALGORITHM WITH MEALS BE DTIME SC Last administered on 01/16/19at 11:55; Admin Dose 2 UNIT; Start 01/16/19 at 08:00 Miscellaneous Information 1 ea NOTE XX ; Start 01/15/19 at 22:30 Glucose (Glutose) 15 gm Q15M PRN PO DECREASED GLUCOSE; Start 01/15/19 at 22:30 Glucose (Glutose) 22.5 gm Q15M PRN PO DECREASED GLUCOSE; Start 01/15/19 at 22:30 Dextrose (D50w Syringe) 25 ml Q15M PRN IV DECREASED GLUCOSE; Start 01/15/19 at 22:30 Dextrose (D50w Syringe) 50 ml Q15M PRN IV DECREASED GLUCOSE; Start 01/15/19 at 22:30 Glucagon (Glucagen) 1 mg Q15M PRN IM DECREASED GLUCOSE; Start 01/15/19 at 22:30 Glucose (Glutose) 15 gm Q15M PRN BUCCAL DECREASED GLUCOSE; Start 01/15/19 at 22:30 Hydromorphone HCl (Dilaudid) 2 mg Q4H PRN IV SEVERE PAIN LEVEL 7-10 Last administered on 01/16/19at 11:05; Admin Dose 2 MG; Start 01/15/19 at 23:30 Acetaminophen/ Hydrocodone Bitart ([place] (10/325)) 1 tab Q6H PRN PO MODERATE PAIN LEVEL 4-6 Last administered on 01/16/19at 12:13; Admin Dose 1 TAB; Start 01/15/19 at 23:30 Diphenhydramine HCl (Benadryl) 25 mg Q6H PRN IV irching Last administered on 01/16/19at 10:32; Admin Dose 25 MG; Start 01/16/19 at 10:30 Aspirin (Halfprin) 81 mg DAILY PO Last administered on 01/16/19at 12:04; Admin Dose 81 MG; Start 01/16/19 at 11:30 Clopidogrel Bisulfate (plaVIX) 75 mg DAILY PO Last administered on 01/16/19at 12:04; Admin Dose 75 MG; Start 01/16/19 at 11:30 Sodium Hypochlorite ([place]akin'S (Dilute 40)) 1 applic DAILY IRR ; Start 01/17/19 at 09:00 Collagenase (Santyl) 1 applic DAILY TOP ; Start 01/17/19 at 09:00 Allergies: Coded Allergies: metformin (Verified Allergy, Intermediate, 01/16/19) per pt, makes him feel horribles, worse abdominal pain morphine (Verified Allergy, Unknown, VOMITING, 01/15/19) Past Surgical History right lower extremity split thickness skin graft, cardiac stent placement Past Surgical Hx: other Family History Significant Family History: no pertinent family hx Social History Alcohol Use: none Smoking Status: Former smoker Exam/Review of Systems Exam Vitals Vital Signs Date Temp Pulse Resp B/P (MAP) Pulse Ox O2 O2 Flow FiO2 Time Delivery Rate 01/16/19 76 135/85 11:13 (102) 01/16/19 98.1 20 96 Room Air 08:50 Intake and Output 01/15/19 01/15/19 01/16/19 1515:00 23:00 07:00 IntakeIntake Total 400 ml BalanceBalance 400 ml Exam Dressings are clean dry and intact No strikethrough appreciated No proximal streaking No foul odor. Results Result Diagram: 01/16/19 0607 01/16/19 0607 Results 24hrs Laboratory Tests Test 01/15/19 18:05 01/15/19 22:49 01/16/19 00:02 01/16/19 03:02 White Blood Count 12.1 #H Red Blood Count 4.75 Hemoglobin 13.5 L Hematocrit 42.1 Mean Corpuscular 88.6 Volume Mean Corpuscular 28.4 L Hemoglobin Mean Corpuscular 32.1 Hemoglobin Concent Red Cell 12.8 Distribution Width Platelet Count 416 #H Mean Platelet Volume 11.3 H Immature 0.300 Granulocytes % Neutrophils % 58.0 Lymphocytes % 27.7 Monocytes % 8.0 Eosinophils % 5.2 Basophils % 0.8 Nucleated Red Blood 0.0 Cells % Immature 0.040 H Granulocytes # Neutrophils # 7.0 Lymphocytes # 3.4 H Monocytes # 1.0 H Eosinophils # 0.6 H Basophils # 0.1 Nucleated Red Blood 0.0 Cells # Prothrombin Time 12.4 Prothrombin Time 1.0 Ratio INR International 0.91 Normalized Ratio Activated 28.7 Partial Thromboplast Time Sodium Level 139 Potassium Level 4.6 Chloride Level 100 Carbon Dioxide Level 26 Anion Gap 13 Blood Urea Nitrogen 21 H Creatinine 1.09 Est Glomerular > 60 Filtrat Rate mL/min Glucose Level 299 H Calcium Level 9.7 Bedside Glucose 148 131 178 Test 01/16/19 06:07 01/16/19 08:04 01/16/19 11:15 White Blood Count 11.8 H Red Blood Count 4.80 Hemoglobin 13.5 L Hematocrit 42.6 Mean Corpuscular 88.8 Volume Mean Corpuscular 28.1 L Hemoglobin Mean Corpuscular 31.7 L Hemoglobin Concent Red Cell 13.1 Distribution Width Platelet Count 415 Mean Platelet Volume 11.0 H Immature 0.300 Granulocytes % Neutrophils % 54.9 Lymphocytes % 29.3 Monocytes % 8.1 Eosinophils % 6.5 Basophils % 0.9 Nucleated Red Blood 0.0 Cells % Immature 0.040 H Granulocytes # Neutrophils # 6.5 Lymphocytes # 3.5 H Monocytes # 1.0 H Eosinophils # 0.8 H Basophils # 0.1 Nucleated Red Blood 0.0 Cells # Sodium Level 140 Potassium Level 4.4 Chloride Level 101 Carbon Dioxide Level 26 Anion Gap 13 Blood Urea Nitrogen 20 Creatinine 1.12 Est Glomerular > 60 Filtrat Rate mL/min Glucose Level 190 # Hemoglobin A1c 11.3 H Calcium Level 9.5 Magnesium Level 1.7 Total Bilirubin 0.3 Direct Bilirubin 0.00 Indirect Bilirubin 0.3 Aspartate Amino 30 Transf (AST/SGOT) Alanine 20 Aminotransferase (AL T/SGPT) Alkaline Phosphatase 74 Total Protein 7.4 Albumin 3.9 Globulin 3.50 H Albumin/Globulin 1.11 Ratio Triglycerides Level 143 Cholesterol Level 101 LDL Cholesterol, 43 Calculated HDL Cholesterol 29 Cholesterol/HDL 3.4 Ratio Thyroid Stimulating 4.630 Hormone (TSH) Bedside Glucose 184 189 Medications Medication Current Medications IV Flush (NS 3 ml) 3 ml PER PROTOCOL IV ; Start 01/15/19 at 22:30 Ondansetron HCl (Zofran Inj) 4 mg Q6H PRN IV NAUSEA/VOMITING; Start 01/15/19 at 22:30 Acetaminophen (Tylenol Tab) 650 mg Q6H PRN PO .PAIN 1-3 OR TEMP; Start 01/15/19 at 22:30 Amlodipine Besylate (Norvasc) 5 mg DAILY PO Last administered on 01/16/19at 08:28; Admin Dose 5 MG; Start 01/16/19 at 09:00 Atorvastatin Calcium (Lipitor) 80 mg QHS PO ; Start 01/16/19 at 21:00 Carvedilol (Coreg) 12.5 mg BID PO Last administered on 01/16/19at 08:28; Admin Dose 12.5 MG; Start 01/16/19 at 09:00 Gabapentin (Neurontin) 300 mg TID PO Last administered on 01/16/19at 12:04; Admin Dose 300 MG; Start 01/16/19 at 09:00 Hydrochlorothiazide (Hydrochlorothiazide) 25 mg DAILY PO Last administered on 01/16/19at 08:28; Admin Dose 25 MG; Start 01/16/19 at 09:00 Insulin Glargine (Lantus) 45 units BID SC Last administered on 01/16/19at 08:27; Admin Dose 45 UNITS; Start 01/15/19 at 22:30 Lisinopril (Zestril) 20 mg DAILY PO Last administered on 01/16/19at 08:28; Admin Dose 20 MG; Start 01/16/19 at 09:00 Diagnostic Test (Pha) (Accu-Chek) 1 ea 02 XX ; Start 01/16/19 at 02:00 Insulin Aspart (Novolog Insulin Pen) NOVOLOG *MILD* ALGORITHM WITH MEALS BEDTIME SC Last administered on 01/16/19at 11:55; Admin Dose 2 UNIT; Start 01/16/19 at 08:00 Miscellaneous Information 1 ea NOTE XX ; Start 01/15/19 at 22:30 Glucose (Glutose) 15 gm Q15M PRN PO DECREASED GLUCOSE; Start 01/15/19 at 22:30 Glucose (Glutose) 22.5 gm Q15M PRN PO DECREASED GLUCOSE; Start 01/15/19 at 22:30 Dextrose (D50w Syringe) 25 ml Q15M PRN IV DECREASED GLUCOSE; Start 01/15/19 at 22:30 Dextrose (D50w Syringe) 50 ml Q15M PRN IV DECREASED GLUCOSE; Start 01/15/19 at 22:30 Glucagon (Glucagen) 1 mg Q15M PRN IM DECREASED GLUCOSE; Start 01/15/19 at 22:30 Glucose (Glutose) 15 gm Q15M PRN BUCCAL DECREASED GLUCOSE; Start 01/15/19 at 22:30 Hydromorphone HCl (Dilaudid) 2 mg Q4H PRN IV SEVERE PAIN LEVEL 7-10 Last administered on 01/16/19 11:05; Admin Dose 2 MG; Start 01/15/19 at 23:30 Acetaminophen/ Hydrocodone Bitart ([place] (10/325)) 1 tab Q6H PRN PO MODERATE PAIN LEVEL 4-6 Last administered on 01/16/19at 12:13; Admin Dose 1 TAB; Start 01/15/19 at 23:30 Diphenhydramine HCl (Benadryl) 25 mg Q6H PRN IV irching Last administered on 01/16/19at 10:32; Admin Dose 25 MG; Start 01/16/19 at 10:30 Aspirin (Halfprin) 81 mg DAILY PO Last administered on 01/16/19at 12:04; Admin Dose 81 MG; Start 01/16/19 at 11:30 Clopidogrel Bisulfate (plaVIX) 75 mg DAILY PO Last administered on 01/16/19at 12:04; Admin Dose 75 MG; Start 01/16/19 at 11:30 Sodium Hypochlorite ([place]akin'S (Dilute 1/40)) 1 applic DAILY IRR ; Start 01/17/19 at 09:00 Collagenase (Santyl) 1 applic DAILY TOP ; Start 01/17/19 at 09:00 KHADRA ODOM DPM Jan 16, 2019 13:05
[2019-01-16 15:11] VITALS: BP 136/70; PULSE 78; RESP 18
[2019-01-16] MEDS ORDERED: metFORMIN (XR) 500 MG TAB PO SCH (18:05)
--- NOTE | 2019-01-16 18:10 | CONS ---
Assessment/Plan Assessment/Plan Problems: (1) Diabetes mellitus type 2 in obese Status: Chronic Comment: T2DM OOC. A1c > 11%. Cannot control glucose on lantus alone. Will change pt.'s 90 units/d of insulin to 90 units multi-dose. Will decrease lantus to 36 units qhs and start 18 units qac of Novolog. Pt. intolerant of metformin. Add tradjenta 5 mg/d and jardiance 25 mg/d. Monitor glucose values and titrate insulin to goal values. Given CAD and DFU, good control of blood glucose is imperative. Consultation Date/Type/Reason Admit Date/Time Jan 15, 2019 at 19:07 Date of Consultation: Jan 16, 2019 Type of Consult Endocrinology Reason for Consultation T2DM Out Of Control (OOC) Requesting Provider: KIMI HULL NP Date/Time of Note DATE: 01/16/19 TIME: 18:03 Hx of Present Illness 48 y/o C M w/ h/o T2DM, HTN, hyperlipidemia, CAD s/p recent NSTEMI, CVA x2, L hand nerve injury in [facility] until recent R DFU procedure. Subsequently had excessive bleeding. Seen in [facility] and admission recommended by podiatry. A1c >11%. Endo consulted. Constitutional: no complaints Eyes: no complaints ENT: no complaints Respiratory: no complaints Cardiovascular: no complaints Gastrointestinal: no complaints Genitourinary: no complaints Musculoskeletal: no complaints Skin: no complaints Neurologic: no complaints Past Medical History Medical History: coronary artery disease (w/ [place]), diabetes, high cholesterol, hypertension, other (CVA x 2, nerve injury L hand) Home Meds Reported Medications Insulin Lispro (Humalog) 100 Unit/1 Ml Cartridge, 0 SQ SLIDING SCALE, EA 01/15/19 Insulin Glargine,Hum.rec.anlog (Basaglar Kwikpen U-100) 100 Unit/1 Ml Insuln.pen, 45 UNIT SC BID, EA 01/15/19 Metoprolol Tartrate* (Lopressor*) 25 Mg Tablet, 75 MG PO BID, #180 TAB 01/15/19 Atorvastatin* (Atorvastatin*) 80 Mg Tablet, 80 MG PO QHS, #30 TAB 01/15/19 Pioglitazone Hcl* (Pioglitazone Hcl*) 45 Mg Tablet, 45 MG PO DAILY, TAB 01/15/19 Clopidogrel Bisulfate* (Clopidogrel Bisulfate*) 75 Mg Tablet, 75 MG PO DAILY, #30 TAB 01/15/19 Carvedilol* (Carvedilol*) 12.5 Mg Tablet, 12.5 MG PO BID, #60 TAB 01/15/19 Aspirin* (Aspirin* EC) 81 Mg Tablet.dr, 81 MG PO DAILY, TAB 01/15/19 Amlodipine Besylate* (Norvasc*) 5 Mg Tablet, 5 MG PO DAILY, TAB 01/15/19 Hydrochlorothiazide* (Hydrochlorothiazide*) 25 Mg Tab, 25 MG PO DAILY, #30 TAB 01/15/19 Glipizide* (Glipizide*) 10 Mg Tablet, 10 MG PO AC BREAKFAST DINNER, TAB 01/15/19 Lisinopril* (Lisinopril*) 20 Mg Tablet, 20 MG PO DAILY, #30 TAB 01/15/19 Gabapentin* (Gabapentin*) 300 Mg Capsule, 300 MG PO TID, #90 CAP 01/15/19 Isosorbide Dinitrate* (Isordil*) 10 Mg Tablet, 10 MG PO TID, TAB 01/15/19 Discontinued Reported Medications Insulin Glargine,Hum.rec.anlog (Basaglar Kwikpen U-100) 100 Unit/1 Ml Insuln.pen, 45 UNIT SC BID, EA 12/25/18 Insulin Lispro (Humalog) 100 Unit/1 Ml Cartridge, 5-10 UNIT SQ AC B, EA 12/25/18 Benazepril-Hydrochlorothiazide (Benazepril-Hydrochlorothiazide) 20-25 Mg Tablet, 1 TAB PO DAILY 12/25/18 Metoprolol Tartrate* (Lopressor*) 25 Mg Tablet, 75 MG PO BID, #180 TAB 12/25/18 Pioglitazone Hcl* (Actos*) 45 Mg Tablet, 45 MG PO DAILY, #30 TAB 11/21/18 Glipizide* (Glipizide*) 10 Mg Tablet, 10 MG PO BID, TAB 11/21/18 Gabapentin* (Gabapentin*) 300 Mg Capsule, 300 MG PO TID, #90 CAP 11/21/18 Aspirin* (Aspirin* EC) 81 Mg Tablet.dr, 81 MG PO DAILY, TAB 11/21/18 Amlodipine Besylate* (Norvasc*) 5 Mg Tablet, 5 MG PO DAILY, TAB 11/21/18 Atorvastatin* (Atorvastatin*) 40 Mg Tablet, 40 MG PO QHS, #30 TAB 09/04/18 Discontinued Scripts Oxycodone HCl/Acetaminophen (Oxycodone-Acetaminophen 5-325) 1 Each Tablet, 1 TAB PO Q4H PRN for PAIN for 5 Days, #30 TAB Prov:ANJEL RENTERIA 11/30/18 Metoprolol Tartrate* (Lopressor*) 25 Mg Tab, 75 MG PO BID, #180 TAB Prov:ANJEL RENTERIA 11/30/18 Lisinopril* (Lisinopril*) 20 Mg Tablet, 20 MG PO DAILY for 30 Days, #30 TAB Prov:ANJEL RENTERIA 11/30/18 Medications Current Medications IV Flush (NS 3 ml) 3 ml PER PROTOCOL IV ; Start 01/15/19 at 22:30 Ondansetron HCl (Zofran Inj) 4 mg Q6H PRN IV NAUSEA/VOMITING; Start 01/15/19 at 22:30 Acetaminophen (Tylenol Tab) 650 mg Q6H PRN PO .PAIN 1-3 OR TEMP; Start 01/15/19 at 22:30 Amlodipine Besylate (Norvasc) 5 mg DAILY PO Last administered on 01/16/19at 08:28; Admin Dose 5 MG; Start 01/16/19 at 09:00 Atorvastatin Calcium (Lipitor) 80 mg QHS PO ; Start 01/16/19 at 21:00 Carvedilol (Coreg) 12.5 mg BID PO Last administered on 01/16/19at 08:28; Admin Dose 12.5 MG; Start 01/16/19 at 09:00 Gabapentin (Neurontin) 300 mg TID PO Last administered on 01/16/19at 12:04; Admin Dose 300 MG; Start 01/16/19 at 09:00 Hydrochlorothiazide (Hydrochlorothiazide) 25 mg DAILY PO Last administered on 01/16/19at 08:28; Admin Dose 25 MG; Start 01/16/19 at 09:00 Lisinopril (Zestril) 20 mg DAILY PO Last administered on 01/16/19at 08:28; Admin Dose 20 MG; Start 01/16/19 at 09:00 Diagnostic Test (Pha) (Accu-Chek) 1 XX ; Start 01/16/19 at 02:00 Insulin Aspart (Novolog Insulin Pen) NOVOLOG *MILD* ALGORITHM WITH MEALS BEDTIME SC Last administered on 01/16/19at 17:38; Admin Dose 1 UNIT; Start 01/16/19 at 08:00 Miscellaneous Information 1 ea NOTE XX ; Start 01/15/19 at 22:30 Glucose (Glutose) 15 gm Q15M PRN PO DECREASED GLUCOSE; Start 01/15/19 at 22:30 Glucose (Glutose) 22.5 gm Q15M PRN PO DECREASED GLUCOSE; Start 01/15/19 at 22:30 Dextrose (D50w Syringe) 25 ml Q15M PRN IV DECREASED GLUCOSE; Start 01/15/19 at 22:30 Dextrose (D50w Syringe) 50 ml Q15M PRN IV DECREASED GLUCOSE; Start 01/15/19 at 22:30 Glucagon (Glucagen) 1 mg Q15M PRN IM DECREASED GLUCOSE; Start 01/15/19 at 22:30 Glucose (Glutose) 15 gm Q15M PRN BUCCAL DECREASED GLUCOSE; Start 01/15/19 at 22:30 Hydromorphone HCl (Dilaudid) 2 mg Q4H PRN IV SEVERE PAIN LEVEL 7-10 Last ad ministered on 01/16/19at 15:07; Admin Dose 2 MG; Start 01/15/19 at 23:30 Acetaminophen/ Hydrocodone Bitart (Forest (10/325)) 1 tab Q6H PRN PO MODERATE PAIN LEVEL 4-6 Last administered on 01/16/19at 12:13; Admin Dose 1 TAB; Start 01/15/19 at 23:30 Diphenhydramine HCl (Benadryl) 25 mg Q6H PRN IV irching Last administered on 01/16/19at 17:36; Admin Dose 25 MG; Start 01/16/19 at 10:30 Aspirin (Halfprin) 81 mg DAILY PO Last administered on 01/16/19at 12:04; Admin Dose 81 MG; Start 01/16/19 at 11:30 Clopidogrel Bisulfate (plaVIX) 75 mg DAILY PO Last administered on 01/16/19at 12:04; Admin Dose 75 MG; Start 01/16/19 at 11:30 Sodium Hypochlorite (Dakin'S (Dilute )) 1 applic DAILY IRR ; Start 01/17/19 at 09:00 Collagenase (Santyl) 1 applic DAILY TOP ; Start 01/17/19 at 09:00 Insulin Glargine (Lantus) 36 units QHS SC ; Start 01/16/19 at 21:00 Insulin Aspart (Novolog Insulin Pen) 16 unit WITH MEALS SC Last administered on 01/16/19at 17:37; Admin Dose 16 UNIT; Start 01/16/19 at 17:35 Metformin HCl (Glucophage Xr) 500 mg BID WITH MEALS PO ; Start 01/16/19 at 18:05 Linagliptin (Tradjenta) 5 mg DAILY PO ; Start 01/17/19 at 09:00 Empaglifozin (Jardiance) 25 mg DAILY@08 PO ; Start 01/17/19 at 08:00 Allergies: Coded Allergies: morphine (Verified Allergy, Unknown, VOMITING, 01/15/19) Past Surgical History Past Surgical Hx: angioplasty, other (R foot I&D multiple, skin graft, ORIF L hand, (+) tendon release L hand) Family History Significant Family History: cancer (lung and leukemia in father), diabetes, hypertension, other (CVA in brother) Social History b. 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 ) Exam/Review of Systems Exam Vitals VS - Last 72 Hours, by Label Date Temp Pulse Resp B/P (MAP) Pulse Ox O2 O2 Flow FiO2 Time Delivery Rate 01/16/19 98.0 78 18 136/70 95 Room Air 15:11 (92) 01/16/19 76 135/85 11:13 (102) 01/16/19 98.1 83 20 179/106 96 Room Air 08:50 (130) 01/16/19 98.5 84 18 125/75 96 02:00 (92) 01/15/19 98.3 79 19 157/97 96 20:00 (117) 01/15/19 98.4 80 17 160/81 98 Room Air 18:38 (107) 01/15/19 75 12 143/82 100 Room Air 18:01 (102) 01/15/19 98.9 88 18 149/90 96 15:21 (109) Vital Signs Date Temp Pulse Resp B/P (MAP) Pulse Ox O2 O2 Flow FiO2 Time Delivery Rate 01/16/19 98.0 78 18 136/70 95 Room Air 15:11 (92) Intake and Output 01/15/19 01/15/19 01/16/19 1515:00 23:00 07:00 IntakeIntake Total 400 ml BalanceBalance 400 ml Constitutional: alert, oriented, obese Psych: no complaints, nl mood/affect Eyes: nl conjunctiva, EOMI, nl lids, nl sclera, PERRL ENMT: nl external ears & nose, mucosa pink and moist Neck: supple, non-tender; No bruits, No masses, No thyromegaly Respiratory: clear to auscultation, normal air movement Cardiovascular: regular rate and rhythm, nl pulses; No edema, No murmurs/extra sounds, No rub Gastrointestinal: soft, nl liver, spleen, non-tender, bowel sounds; No mass, No rebound or guarding Musculoskeletal: No nl extremities to inspection (R foot wrapped) Extremities: No cyanosis, No clubbing, No edema Neurological: [place] CR[place] II-XII intact, nl mental status, nl speech, nl strength Additional Comments Bedside Glucose - 72 Hours Test 01/15/19 22:49 01/16/19 00:02 01/16/19 03:02 01/16/19 08:04 Bedside 148 131 178 184 Glucose mg/dL (70-220) mg/dL (70-220) mg/dL (70-220) mg/dL (70-220) Test 01/16/19 11:15 01/16/19 17:31 Bedside 189 149 Glucose mg/dL (70-220) mg/dL (70-220) Results Result Diagram: 01/16/19 0607 01/16/19 0607 Results 24hrs Laboratory Tests Test 01/15/19 18:05 01/15/19 22:49 01/16/19 00:02 01/16/19 03:02 White Blood Count 12.1 #H Red Blood Count 4.75 Hemoglobin 13.5 L Hematocrit 42.1 Mean Corpuscular 88.6 Volume Mean Corpuscular 28.4 L Hemoglobin Mean Corpuscular 32.1 Hemoglobin Concent Red Cell 12.8 Distribution Width Platelet Count 416 #H Mean Platelet Volume 11.3 H Immature 0.300 Granulocytes % Neutrophils % 58.0 Lymphocytes % 27.7 Monocytes % 8.0 Eosinophils % 5.2 Basophils % 0.8 Nucleated Red Blood 0.0 Cells % Immature 0.040 H Granulocytes # Neutrophils # 7.0 Lymphocytes # 3.4 H Monocytes # 1.0 H Eosinophils # 0.6 H Basophils # 0.1 Nucleated Red Blood 0.0 Cells # Prothrombin Time 12.4 Prothrombin Time 1.0 Ratio INR International 0.91 Normalized Ratio Activated 28.7 Partial Thromboplast Time Sodium Level 139 Potassium Level 4.6 Chloride Level 100 Carbon Dioxide Level 26 Anion Gap 13 Blood Urea Nitrogen 21 H Creatinine 1.09 Est Glomerular > 60 Filtrat Rate mL/min Glucose Level 299 H Calcium Level 9.7 Bedside Glucose 148 131 178 Test 01/16/19 06:07 01/16/19 08:04 01/16/19 11:15 01/16/19 17:31 White Blood Count 11.8 H Red Blood Count 4.80 Hemoglobin 13.5 L Hematocrit 42.6 Mean Corpuscular 88.8 Volume Mean Corpuscular 28.1 L Hemoglobin Mean Corpuscular 31.7 L Hemoglobin Concent Red Cell 13.1 Distribution Width Platelet Count 415 Mean Platelet Volume 11.0 H Immature 0.300 Granulocytes % Neutrophils % 54.9 Lymphocytes % 29.3 Monocytes % 8.1 Eosinophils % 6.5 Basophils % 0.9 Nucleated Red Blood 0.0 Cells % Immature 0.040 H Granulocytes # Neutrophils # 6.5 Lymphocytes # 3.5 H Monocytes # 1.0 H Eosinophils # 0.8 H Basophils # 0.1 Nucleated Red Blood 0.0 Cells # Sodium Level 140 Potassium Level 4.4 Chloride Level 101 Carbon Dioxide Level 26 Anion Gap 13 Blood Urea Nitrogen 20 Creatinine 1.12 Est Glomerular > 60 Filtrat Rate mL/min Glucose Level 190 # Hemoglobin A1c 11.3 H Calcium Level 9.5 Magnesium Level 1.7 Total Bilirubin 0.3 Direct Bilirubin 0.00 Indirect Bilirubin 0.3 Aspartate Amino 30 Transf (AST/SGOT) Alanine 20 Aminotransferase (AL T/SGPT) Alkaline Phosphatase 74 Total Protein 7.4 Albumin 3.9 Globulin 3.50 H Albumin/Globulin 1.11 Ratio Triglycerides Level 143 Cholesterol Level 101 LDL Cholesterol, 43 Calculated HDL Cholesterol 29 Cholesterol/HDL 3.4 Ratio Thyroid Stimulating 4.630 Hormone (TSH) Bedside Glucose 184 189 149 Medications Medication Current Medications IV Flush (NS 3 ml) 3 ml PER PROTOCOL IV ; Start 01/15/19 at 22:30 Ondansetron HCl (Zofran Inj) 4 mg Q6H PRN IV NAUSEA/VOMITING; Start 01/15/19 at 22:30 Acetaminophen (Tylenol Tab) 650 mg Q6H PRN PO .PAIN 1-3 OR TEMP; Start 01/15/19 at 22:30 Amlodipine Besylate (Norvasc) 5 mg DAILY PO Last administered on 01/16/19at 08:28; Admin Dose 5 MG; Start 01/16/19 at 09:00 Atorvastatin Calcium (Lipitor) 80 mg QHS PO ; Start 01/16/19 at 21:00 Carvedilol (Coreg) 12.5 mg BID PO Last administered on 01/16/19at 08:28; Admin Dose 12.5 MG; Start 01/16/19 at 09:00 Gabapentin (Neurontin) 300 mg TID PO Last administered on 01/16/19at 12:04; Admin Dose 300 MG; Start 01/16/19 at 09:00 Hydrochlorothiazide (Hydrochlorothiazide) 25 mg DAILY PO Last administered on 01/16/19at 08:28; Admin Dose 25 MG; Start 01/16/19 at 09:00 Lisinopril (Zestril) 20 mg DAILY PO Last administered on 01/16/19at 08:28; Admin Dose 20 MG; Start 01/16/19 at 09:00 Diagnostic Test (Pha) (Accu-Chek) 1 ea 02 XX ; Start 01/16/19 at 02:00 Insulin Aspart (Novolog Insulin Pen) NOVOLOG *MILD* ALGORITHM WITH MEALS BEDTIME SC Last administered on 01/16/19at 17:38; Admin Dose 1 UNIT; Start 01/16/19 at 08:00 Miscellaneous Information 1 ea NOTE XX ; Start 01/15/19 at 22:30 Glucose (Glutose) 15 gm Q15M PRN PO DECREASED GLUCOSE; Start 01/15/19 at 22:30 Glucose (Glutose) 22.5 gm Q15M PRN PO DECREASED GLUCOSE; Start 01/15/19 at 22:30 Dextrose (D50w Syringe) 25 ml Q15M PRN IV DECREASED GLUCOSE; Start 01/15/19 at 22:30 Dextrose (D50w Syringe) 50 ml Q15M PRN IV DECREASED GLUCOSE; Start 01/15/19 at 22:30 Glucagon (Glucagen) 1 mg Q15M PRN IM DECREASED GLUCOSE; Start 01/15/19 at 22:30 Glucose (Glutose) 15 gm Q15M PRN BUCCAL DECREASED GLUCOSE; Start 01/15/19 at 22:30 Hydromorphone HCl (Dilaudid) 2 mg Q4H PRN IV SEVERE PAIN LEVEL 7-10 Last administered on 01/16/19at 15:07; Admin Dose 2 MG; Start 01/15/19 at 23:30 Acetaminophen/ Hydrocodone Bitart (Forest (10)) 1 tab Q6H PRN PO MODERATE PAIN LEVEL 4-6 Last administered on 01/16/19at 12:13; Admin Dose 1 TAB; Start 01/15/19 at 23:30 Diphenhydramine HCl (Benadryl) 25 mg Q6H PRN IV irching Last administered on 01/16/19at 17:36; Admin Dose 25 MG; Start 01/16/19 at 10:30 Aspirin (Halfprin) 81 mg DAILY PO Last administered on 01/16/19at 12:04; Admin Dose 81 MG; Start 01/16/19 at 11:30 Clopidogrel Bisulfate (plaVIX) 75 mg DAILY PO Last administered on 01/16/19at 12:04; Admin Dose 75 MG; Start 01/16/19 at 11:30 Sodium Hypochlorite (Dakin'S (Dilute 1/40)) 1 applic DAILY IRR ; Start 01/17/19 at 09:00 Collagenase (Santyl) 1 applic DAILY TOP ; Start 01/17/19 at 09:00 Insulin Glargine (Lantus) 36 units QHS SC ; Start 01/16/19 at 21:00 Insulin Aspart (Novolog Insulin Pen) 16 unit WITH MEALS SC Last administered on 01/16/19at 17:37; Admin Dose 16 UNIT; Start 01/16/19 at 17:35 Metformin HCl (Glucophage Xr) 500 mg BID WITH MEALS PO ; Start 01/16/19 at 18:05 Linagliptin (Tradjenta) 5 mg DAILY PO ; Start 01/17/19 at 09:00 Empaglifozin (Jardiance) 25 mg DAILY@08 PO ; Start 3/22/19 at 08:00 VENKATESH ROWAN MD Jan 16, 2019 18:10
[2019-01-16 20:00] VITALS: BP 124/77; PULSE 75; RESP 19
[2019-01-16] MEDS: METHADONE (1 MG/ML 5 ML PO UD SYG) PO SCH (20:58)
[2019-01-16] MEDS: HYDROmorphONE 1 MG/ML SYG IV PRN (20:58)
[2019-01-16] MEDS ORDERED: INSULIN GLARGINE [LANTus] (100 UNITS/ML) SYG SC SCH (21:00)
[2019-01-16] MEDS ORDERED: ATORVASTATIN 80 MG TAB PO SCH (21:00)
[2019-01-16] MEDS: morphine (ER) 15 MG TAB PO SCH (22:13)
[2019-01-17] MEDS: METHADONE (1 MG/ML 5 ML PO UD SYG) PO SCH ×4 (00:37→18:00)
[2019-01-17] MEDS: ACCU-CHEK XX SCH (01:25)
[2019-01-17 02:00] VITALS: BP 130/59; PULSE 76; RESP 19
--- NOTE | 2019-01-17 06:53 | CONS ---
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 I had a long discussion with him decided to switch from current medications to MS Contin 15 mg p.o. twice daily a temporary low-dose of methadone to control his pain tonight which be 2 mg p.o. every 6 hours, but I did tell him we probably would not be able to discharge him with methadone can be taken up if he wants to continue with that drug with an outpatient pain management physician and finally IV Dilaudid will be continued at the dose will be lowered since he is on 2 new opioids. We will follow him closely thank you Consultation Date/Type/Reason Admit Date/Time Jan 15, 2019 at 19:07 Date/Time of Note DATE: 01/17/19 TIME: 06:51 Hx of Present Illness Chronic diabetic right lower extremity wound. Patient underwent a debridement a nd grafting 2 days ago at clinic was admitted through the emergency room after he developed uncontrolled bleeding from the debridement site. Comorbid medical problems at this gentleman include non-STEMI 2 diabetes. Patient seen in emergency room his H&H was stable, blood pressure was controlled elevated lipid level restarted back on his statin drugs. Unfortunately patient request to have his right leg amputated since he has had a chronic ongoing pain management issue with his leg and density of his disorder it has interfered with his social life significantly. Complaints of pain in the area itself anterior tibial region not nausea not associated with nausea vomiting constipation itchi ng pruritus mental cloudiness sweating fatigue drowsiness he states that the current medication he is taking is not controlling his pain there is no past medical history of purposeful overdose oversedation negative mood changes are apparent in patient's respiration for the wound to fully heal up. He does not appear to be intoxicated unkempt and not involved in motor vehicle accident this was not a result of a mechanical fall or syncopal fall there is no contact with street drugs. The pain medication he takes at home include just Peebles with minimal response Constitutional: no complaints, improved Eyes: no complaints ENT: no complaints Respiratory: no complaints Cardiovascular: no complaints Gastrointestinal: no complaints Genitourinary: no complaints Musculoskeletal: no complaints, other (Refer to history of present illness) Skin: other (Refer to history of present illness) Neurologic: other (Chronic lower extremity neuropathy) Psychological: anxiety, depression Past Medical History Medical History: coronary artery disease (w/ ND), diabetes, high cholesterol, hypertension, other (CVA x 2, nerve injury L hand) Home Meds Reported Medications Insulin Lispro (Humalog) 100 Unit/1 Ml Cartridge, 0 SQ SLIDING SCALE, EA 01/15/19 Insulin Glargine,Hum.rec.anlog (Basaglar Kwikpen U-100) 100 Unit/1 Ml Insuln.pen, 45 UNIT SC BID, EA 01/15/19 Metoprolol Tartrate* (Lopressor*) 25 Mg Tablet, 75 MG PO BID, #180 TAB 01/15/19 Atorvastatin* (Atorvastatin*) 80 Mg Tablet, 80 MG PO QHS, #30 TAB 01/15/19 Pioglitazone Hcl* (Pioglitazone Hcl*) 45 Mg Tablet, 45 MG PO DAILY, TAB 01/15/19 Clopidogrel Bisulfate* (Clopidogrel Bisulfate*) 75 Mg Tablet, 75 MG PO DAILY, #30 TAB 01/15/19 Carvedilol* (Carvedilol*) 12.5 Mg Tablet, 12.5 MG PO BID, #60 TAB 01/15/19 Aspirin* (Aspirin* EC) 81 Mg Tablet.dr, 81 MG PO DAILY, TAB 01/15/19 Amlodipine Besylate* (Norvasc*) 5 Mg Tablet, 5 MG PO DAILY, TAB 01/15/19 Hydrochlorothiazide* (Hydrochlorothiazide*) 25 Mg Tab, 25 MG PO DAILY, #30 TAB 01/15/19 Glipizide* (Glipizide*) 10 Mg Tablet, 10 MG PO AC BREAKFAST DINNER, TAB 01/15/19 Lisinopril* (Lisinopril*) 20 Mg Tablet, 20 MG PO DAILY, #30 TAB 01/15/19 Gabapentin* (Gabapentin*) 300 Mg Capsule, 300 MG PO TID, #90 CAP 01/15/19 Isosorbide Dinitrate* (Isordil*) 10 Mg Tablet, 10 MG PO TID, TAB 01/15/19 Discontinued Reported Medications Insulin Glargine,Hum.rec.anlog (Basaglar Yovaniikpen U-100) 100 Unit/1 Ml Insuln.pen, 45 UNIT SC BID, EA 12/25/18 Insulin Lispro (Humalog) 100 Unit/1 Ml Cartridge, 5-10 UNIT SQ AC B, EA 12/25/18 Benazepril-Hydrochlorothiazide (Benazepril-Hydrochlorothiazide) 20-25 Mg Tablet, 1 TAB PO DAILY 12/25/18 Metoprolol Tartrate* (Lopressor*) 25 Mg Tablet, 75 MG PO BID, #180 TAB 12/25/18 Pioglitazone Hcl* (Actos*) 45 Mg Tablet, 45 MG PO DAILY, #30 TAB 11/21/18 Glipizide* (Glipizide*) 10 Mg Tablet, 10 MG PO BID, TAB 11/21/18 Gabapentin* (Gabapentin*) 300 Mg Capsule, 300 MG PO TID, #90 CAP 11/21/18 Aspirin* (Aspirin* EC) 81 Mg Tablet.dr, 81 MG PO DAILY, TAB 11/21/18 Amlodipine Besylate* (Norvasc*) 5 Mg Tablet, 5 MG PO DAILY, TAB 11/21/18 Atorvastatin* (Atorvastatin*) 40 Mg Tablet, 40 MG PO QHS, #30 TAB 09/04/18 Discontinued Scripts Oxycodone HCl/Acetaminophen (Oxycodone-Acetaminophen 5-325) 1 Each Tablet, 1 TAB PO Q4H PRN for PAIN for 5 Days, #30 TAB Prov:ANJEL RENTERIA 11/30/18 Metoprolol Tartrate* (Lopressor*) 25 Mg Tab, 75 MG PO BID, #180 TAB Prov:ANJEL RENTERIA 11/30/18 Lisinopril* (Lisinopril*) 20 Mg Tablet, 20 MG PO DAILY for 30 Days, #30 TAB Prov:ANJEL RENTERIA 11/30/18 Medications Current Medications IV Flush (NS 3 ml) 3 ml PER PROTOCOL IV ; Start 01/15/19 at 22:30 Ondansetron HCl (Zofran Inj) 4 mg Q6H PRN IV NAUSEA/VOMITING; Start 01/15/19 at 22:30 Acetaminophen (Tylenol Tab) 650 mg Q6H PRN PO .PAIN 1-3 OR TEMP; Start 01/15/19 at 22:30 Amlodipine Besylate (Norvasc) 5 mg DAILY PO Last administered on 01/16/19 08:28; Admin Dose 5 MG; Start 01/16/19 at 09:00 Atorvastatin Calcium (Lipitor) 80 mg QHS PO Last administered on 01/16/19at 21:10; Admin Dose 80 MG; Start 01/16/19 at 21:00 Carvedilol (Coreg) 12.5 mg BID PO Last administered on 01/16/19 21:10; Admin Dose 12.5 MG; Start 01/16/19 at 09:00 Gabapentin (Neurontin) 300 mg TID PO Last administered on 01/16/19 21:10; A dmin Dose 300 MG; Start 01/16/19 at 09:00 Hydrochlorothiazide (Hydrochlorothiazide) 25 mg DAILY PO Last administered on 01/16/19 08:28; Admin Dose 25 MG; Start 01/16/19 at 09:00 Lisinopril (Zestril) 20 mg DAILY PO Last administered on 01/16/19 08:28; Admin Dose 20 MG; Start 01/16/19 at 09:00 Diagnostic Test (Pha) (Accu-Chek) 1 ea 02 XX ; Start 01/16/19 at 02:00 Insulin Aspart (Novolog Insulin Pen) NOVOLOG *MILD* ALGORITHM WITH MEALS BEDTIME SC Last administered on 01/16/19at 17:38; Admin Dose 1 UNIT; Start 01/16/19 at 08:00 Miscellaneous Information 1 ea NOTE XX ; Start 01/15/19 at 22:30 Glucose (Glutose) 15 gm Q15M PRN PO DECREASED GLUCOSE; Start 01/15/19 at 22:30 Glucose (Glutose) 22.5 gm Q15M PRN PO DECREASED GLUCOSE; Start 01/15/19 at 22:30 Dextrose (D50w Syringe) 25 ml Q15M PRN IV DECREASED GLUCOSE; Start 01/15/19 at 22:30 Dextrose (D50w Syringe) 50 ml Q15M PRN IV DECREASED GLUCOSE; Start 01/15/19 at 22:30 Glucagon (Glucagen) 1 mg Q15M PRN IM DECREASED GLUCOSE; Start 01/15/19 at 22:30 Glucose (Glutose) 15 gm Q15M PRN BUCCAL DECREASED GLUCOSE; Start 01/15/19 at 22:30 Diphenhydramine HCl (Benadryl) 25 mg Q6H PRN IV irching Last administered on 01/16/19at 17:36; Admin Dose 25 MG; Start 01/16/19 at 10:30 Aspirin (Halfprin) 81 mg DAILY PO Last administered on 01/16/19at 12:04; Admin Dose 81 MG; Start 01/16/19 at 11:30 Clopidogrel Bisulfate (plaVIX) 75 mg DAILY PO Last administered on 01/16/19at 12:04; Admin Dose 75 MG; Start 01/16/19 at 11:30 Sodium Hypochlorite (Dakin'S (Dilute )) 1 applic DAILY IRR ; Start 01/17/19 at 09:00 Collagenase (Santyl) 1 applic DAILY TOP ; Start 01/17/19 at 09:00 Insulin Glargine (Lantus) 36 units QHS SC Last administered on 01/16/19at 22:14; Admin Dose 36 UNITS; Start 01/16/19 at 21:00 Insulin Aspart (Novolog Insulin Pen) 16 unit WITH MEALS SC Last administered on 01/16/19at 17:37; Admin Dose 16 UNIT; Start 01/16/19 at 17:35 Linagliptin (Tradjenta) 5 mg DAILY PO ; Start 01/17/19 at 09:00 Empaglifozin (Jardiance) 25 mg DAILY@08 PO ; Start 01/17/19 at 08:00 Hydromorphone HCl (Dilaudid) 1 mg Q4H PRN IV SEVERE PAIN LEVEL 7-10 Last administered on 01/16/19at 20:58; Admin Dose 1 MG; Start 01/16/19 at 19:30 Morphine Sulfate (Ms Contin (Er)) 15 mg BID PO Last administered on 01/16/19at 22:13; Admin Dose 15 MG; Start 01/16/19 at 21:00 Methadone HCl (Methadone Liq) 2 mg Q6 PO Last administered on 01/17/19at 06:04; Admin Dose 2 MG; Start 01/16/19 at 19:30 Allergies: Coded Allergies: metformin (Verified Allergy, Intermediate, 01/16/19) per pt, makes him feel horribles, worse abdominal pain morphine (Verified Allergy, Unknown, VOMITING, 01/15/19) Past Surgical History Past Surgical Hx: angioplasty, other (R foot I&D multiple, skin graft, ORIF L hand, (+) tendon release L hand) Social History Alcohol Use: none Smoking Status: Former smoker (1-2 ppd x 20 y, quit 17 y. 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 ) Exam/Review of Systems Exam Vitals Vital Signs Date Temp Pulse Resp B/P (MAP) Pulse Ox O2 O2 Flow FiO2 Time Delivery Rate 01/17/19 98.1 76 19 130/59 97 02:00 (82) 01/16/19 Room Air 15:11 Intake and Output 01/16/19 01/16/19 01/17/19 1515:00 23:00 07:00 IntakeIntake Total 820 ml OutputOutput Total 325 ml 250 ml BalanceBalance 820 ml -325 ml -250 ml Constitutional: alert, oriented, well developed Psych: no complaints, nl mood/affect, anxiety, confusion, depression, suicidal, other Head: No normocephalic, No atraumatic, No lacerations, No hematomas, No other Eyes: No nl conjunctiva, No EOMI, No nl lids, No nl sclera, No PERRL, No icteric, No fundi, disc, No other ENMT: No nl external ears & nose, No nl lips & teeth, No nl nasal mucosa & septum, No mucosa pink and moist, No intubated, No tympanic membranes, No other Neck: No supple, No non-tender, No jvd, No bruits, No masses, No thyromegaly, No nuchal rigidity, No other Respiratory: No clear to auscultation, No normal air movement, No congested cough, No crackles/rales, No diminished breath sounds, No intercostal retra ction, No labored breathing, No respirations, No tactile fremitus, No wheezing, No other Cardiovascular: No regular rate and rhythm, No nl pulses, No bruits, No diastolic murmur, No edema, No gallop, No irregular rhythm, No jugular venous distention (JVD), No murmurs/extra sounds, No rub, No systolic murmur, No S3, No S4, No other Gastrointestinal: No soft, No nl liver, spleen, No non-tender, No ascites, No bowel sounds, No distended, No firm, No hepatomegaly, No mass, No rebound or guarding, No splenomegaly, No surgical scars, No tender, No other Genitourinary - Male: No nl penis, No nl scrotum, No CVA tenderness, No discharge, No other Musculoskeletal: No nl extremities to inspection, No nl gait and stance, No joint tenderness, No muscle tone, No muscle weakness, No range of motion, No spine non-tender, No swelling, No other Extremities: No normal pulses, No calf tenderness, No cyanosis, No clubbing, No edema, No pitting pedal edema, No palpable cord, No tenderness, No other Neurological: No STAFF ANESTHESIOLOGIST II-XII intact, No nl mental status, No nl speech, No nl strength, No confused, No DTR's symmetric, No focal weakness, No lethargic, No numbness, No reflexes, No unresponsive, No other Skin: other (Right lower extremity circumferentially bandaged) Results Result Diagram: 01/16/19 0607 01/16/19 0607 Results 24hrs Laboratory Tests Test 01/16/19 08:04 01/16/19 11:15 01/16/19 17:31 01/16/19 20:53 Bedside Glucose 184 189 149 165 Medications Medication Current Medications IV Flush (NS 3 ml) 3 ml PER PROTOCOL IV ; Start 01/15/19 at 22:30 Ondansetron HCl (Zofran Inj) 4 mg Q6H PRN IV NAUSEA/VOMITING; Start 01/15/19 at 22:30 Acetaminophen (Tylenol Tab) 650 mg Q6H PRN PO .PAIN 1-3 OR TEMP; Start 01/15/19 at 22:30 Amlodipine Besylate (Norvasc) 5 mg DAILY PO Last administered on 01/16/19at 08:28; Admin Dose 5 MG; Start 01/16/19 at 09:00 Atorvastatin Calcium (Lipitor) 80 mg QHS PO Last administered on 01/16/19at 21:10; Admin Dose 80 MG; Start 01/16/19 at 21:00 Carvedilol (Coreg) 12.5 mg BID PO Last administered on 01/16/19at 21:10; Admin Dose 12.5 MG; Start 01/16/19 at 09:00 Gabapentin (Neurontin) 300 mg TID PO Last administered on 01/16/19at 21:10; Admin Dose 300 MG; Start 01/16/19 at 09:00 Hydrochlorothiazide (Hydrochlorothiazide) 25 mg DAILY PO Last administered on 01/16/19at 08:28; Admin Dose 25 MG; Start 01/16/19 at 09:00 Lisinopril (Zestril) 20 mg DAILY PO Last administered on 01/16/19at 08:28; Admin Dose 20 MG; Start 01/16/19 at 09:00 Diagnostic Test (Pha) (Accu-Chek) 1 ea 02 XX ; Start 01/16/19 at 02:00 Insulin Aspart (Novolog Insulin Pen) NOVOLOG *MILD* ALGORITHM WITH MEALS BEDTIME SC Last administered on 01/16/19at 17:38; Admin Dose 1 UNIT; Start 01/16/19 at 08:00 Miscellaneous Information 1 ea NOTE XX ; Start 01/15/19 at 22:30 Glucose (Glutose) 15 gm Q15M PRN PO DECREASED GLUCOSE; Start 01/15/19 at 22:30 Glucose (Glutose) 22.5 gm Q15M PRN PO DECREASED GLUCOSE; Start 01/15/19 at 22:30 Dextrose (D50w Syringe) 25 ml Q15M PRN IV DECREASED GLUCOSE; Start 01/15/19 at 22:30 Dextrose (D50w Syringe) 50 ml Q15M PRN IV DECREASED GLUCOSE; Start 01/15/19 at 22:30 Glucagon (Glucagen) 1 mg Q15M PRN IM DECREASED GLUCOSE; Start 01/15/19 at 22:30 Glucose (Glutose) 15 gm Q15M PRN BUCCAL DECREASED GLUCOSE; Start 01/15/19 at 22:30 Diphenhydramine HCl (Benadryl) 25 mg Q6H PRN IV irching Last administered on 01/16/19at 17:36; Admin Dose 25 MG; Start 01/16/19 at 10:30 Aspirin (Halfprin) 81 mg DAILY PO Last administered on 01/16/19at 12:04; Admin Dose 81 MG; Start 01/16/19 at 11:30 Clopidogrel Bisulfate (plaVIX) 75 mg DAILY PO Last administered on 01/16/19at 12:04; Admin Dose 75 MG; Start 01/16/19 at 11:30 Sodium Hypochlorite (Dakin'S (Dilute )) 1 applic DAILY IRR ; Start 01/17/19 at 09:00 Collagenase (Santyl) 1 applic DAILY TOP ; Start 01/17/19 at 09:00 Insulin Glargine (Lantus) 36 units QHS SC Last administered on 01/16/19at 22:14; Admin Dose 36 UNITS; Start 01/16/19 at 21:00 Insulin Aspart (Novolog Insulin Pen) 16 unit WITH MEALS SC Last administered on 01/16/19at 17:37; Admin Dose 16 UNIT; Start 01/16/19 at 17:35 Linagliptin (Tradjenta) 5 mg DAILY PO ; Start 01/17/19 at 09:00 Empaglifozin (Jardiance) 25 mg DAILY@08 PO ; Start 01/17/19 at 08:00 Hydromorphone HCl (Dilaudid) 1 mg Q4H PRN IV SEVERE PAIN LEVEL 7-10 Last administered on 01/16/19at 20:58; Admin Dose 1 MG; Start 01/16/19 at 19:30 Morphine Sulfate (Ms Contin (Er)) 15 mg BID PO Last administered on 01/16/19at 22:13; Admin Dose 15 MG; Start 01/16/19 at 21:00 Methadone HCl (Methadone Liq) 2 mg Q6 PO Last administered on 01/17/19at 06:04; Admin Dose 2 MG; Start 01/16/19 at 19:30 MOHSEN GUPTA Jan 17, 2019 06:53
[2019-01-17] MEDS: HYDROmorphONE 1 MG/ML SYG IV PRN ×2 (07:45→14:27)
[2019-01-17] MEDS ORDERED: EMPAGLIFLOZIN 10 MG TABLET PO SCH (08:00)
[2019-01-17] MEDS: GABAPENTIN 300 MG CAP PO SCH ×2 (08:15→12:39)
[2019-01-17] MEDS: CLOPIDOGREL 75 MG TAB PO SCH (08:16)
[2019-01-17] MEDS: LISINOPRIL 20 MG TAB PO SCH (08:16)
[2019-01-17] MEDS: HYDROCHLOROTHIAZIDE 25 MG TAB PO SCH (08:16)
[2019-01-17] MEDS: INSULIN ASPART [NOVOLOG] 3 ML PEN SC SCH ×5 (08:17→17:18)
[2019-01-17] MEDS: ASPIRIN (EC) 81 MG TAB PO SCH (08:18)
[2019-01-17] MEDS: AMLODIPINE 5 MG TAB PO SCH (08:18)
[2019-01-17] MEDS: DIPHENHYDRAMINE 50 MG INJ IV PRN ×2 (08:25→14:27)
[2019-01-17 08:39] VITALS: BP 143/80; PULSE 81; RESP 18
[2019-01-17] MEDS ORDERED: COLLAGENASE 5 GM (UD JAR) TOP SCH (09:00)
[2019-01-17] MEDS ORDERED: SODIUM HYPOCHLORITE (1/40) 1 APPLIC BTL IRR SCH (09:00)
[2019-01-17] MEDS ORDERED: LINAGLIPTIN 5 MG TABLET PO SCH (09:00)
[2019-01-17] MEDS: morphine (ER) 15 MG TAB PO SCH (09:11)
[2019-01-17] MEDS ORDERED: INSU100I33 SC ×2 (11:57→12:26)
[2019-01-17] MEDS ORDERED: MORP15TA3 PO (11:57)
[2019-01-17] MEDS ORDERED: LINA5TAB PO (11:57)
[2019-01-17] MEDS ORDERED: EMPA10TA PO (11:57)
[2019-01-17] MEDS ORDERED: INSU100C SQ ×2 (11:57→12:26)
[2019-01-17] MEDS ORDERED: SAN30GM TOP (11:57)
--- NOTE | 2019-01-17 11:58 | PDOCDIS ---
Discharge Instructions CONDITION [id number] Patient Condition: [id number] Stable HOME CARE INSTRUCTIONS: [id number] Your diet recommendation is: [id number] Carbohydrate controlled/low-cholesterol diet FOLLOW UP/APPOINTMENTS Follow-up Plan Follow-up with [facility] wound clinic on next Sunday Wound care as instructed. Follow-up with primary care physician in 1 week You will also benefit from a outpatient pain management clinic for your pain medications. Follow-up with in his clinic in 2 weeks. You need to have staged coronary angiogram and stent placement once your wound is healed further. Name, Degree Rigoberto Elizondo MD Specialty Cardiology Comments Office Address [id number] [facility] [address] [place] [id number] Office KIMI HULL NP Jan 17, 2019 11:58
--- NOTE | 2019-01-17 12:09 | DS ---
Date/Time of Note Date/Time of Note DATE: 01/17/19 TIME: 12:05 Discharge Summary Admission/Discharge Info Admit Date/Time Jan 15, 2019 at 19:07 Discharge Date/Time Discharge Diagnosis 1. Bleeding Right lower extremity chronic non-healing diabetic ulcer, status post intervention at [facility] clinic yesterday.stable 2. Acute on chronic anemia, acute anemia secondary to postop bleeding.Stable 3. Multivessel coronary artery disease, recent NSTEMI, status post PTCA x2 2 weeks ago.NEEDS STAGED PTCA IN COUPLE WEEKS 4. Essential hypertension. 5. Poorly controlled DMII 6. Dyslipidemia 7.Chronic pain 2/2 chronic non healing DM wound Patient Condition: Stable Consults ,radiography technician ,Cards ,pain doctor Hx of Present Illness This is a 48-year-old obese male with a history of type 2 diabetes, hypertension, chronic diabetic ulcers of lower extremities who has been under [facility] wound clinic follow-up with /, coronary artery disease, non-ST elevation myocardial infarction a month ago found to have multivessel coronary artery disease requiring bypass surgery for which unfortunately not a candidate for open heart surgery secondary to worsening lower extremity diabetic wound underwent LHC/PTCA x2 stent 2 weeks ago at [facility] who was also told that he may need another stent in the near future, came to the emergency room with bleeding Right lower extremity wound. Apparently, patient underwent I&D/ debridement at [facility] wound clinic with yesterday and was discharged with compressive dressing/postop boards, felt tightness leading to removal of dressing by himself at home, found to have severe bleeding with dripping blood all over, who was advised by the radiography technician to go to the emergency room. Patient was seen by radiography technician in the emergency room with bedside intervention and control of bleeding from right lower extremity wound. Patient reports 10/10 pain on RLE and is asking to amputate this leg.. He denied chest pain, palpitation, shortness of breath, nausea, vomiting, abdominal pain, numbness, tingling, headache, fever, chills or other constitutional symptoms. Labs WBC 11,800, hemoglobin A1c 11.3, blood sugar 190. Patient has pain 10 out of 10 on right lower extremity. He is also holding breath with pain when I am evaluating him. Patient's blood pressure is 179/106. Hospital Course 48-year-old male with chronic diabetic right lower extremity wound which is worsening, recent NSTEMI/PTCA x2 2 weeks ago who is also on aspirin and Plavix,DMII, htn, underwent I&D/debridement yesterday at the clinic, admitted with bleeding RLE chronic DM ulcer.. Patient underwent I&D, dressing change by radiography technician. Bleeding stopped. Patient was continued on appropriate dressing changes recommended by radiography technician . Patient was also continued on aspirin and Plavix with recent cardiac stent placed. He was also being followed by his air conditioning unit tester. Apparently this patient has multivessel coronary artery disease who is also not a candidate for open heart surgery secondary to nonhealing right lower extremity ulcers with poorly controlled diabetes. Patient would need staged cardiac stent once right lower extremity wound remain stabilized. He was also seen by contact center specialist and supervisor paint roller covers. He was continued on appropriate diabetic regimen. He was continued on MS Contin for pain management. Patient also verbalized that he will follow-up with [facility] pain clinic after discharge. At this time, patient is feeling back to baseline.Patient with no further bleeding. He is ready for outpatient follow-up with [facility] wound clinic. He was given MS Contin prescription to control his pain. He was given all the new insulin prescriptions. Home health was arranged for daily dressing change. Approximately 60 minutes was spent on coordinating the discharge on this patient. Patient was seen in collaboration with Dr. Chacko. Home Meds Active Scripts Collagenase* (Santyl*) 30 Gm Oint..gm., 1 APPLIC TOP DAILY, #1 TUBE Apply to right lower extremity wound after irrigation with Dakin solution. Prov:HULL,KIMI V. QUALITY ASSURANCE ASSISTANT 01/17/19 Linagliptin (TRADJENTA) 5 Mg Tablet, 5 MG PO DAILY, #30 TAB Prov:HULL,KIMI V. QUALITY ASSURANCE ASSISTANT 01/17/19 Empagliflozin (Jardiance) 10 Mg Tablet, 25 MG PO DAILY@08, #30 TAB Prov:HULL,KIMI V. QUALITY ASSURANCE ASSISTANT 01/17/19 Insulin Lispro (Humalog) 100 Unit/1 Ml Cartridge, 16 UNIT SQ TIDM A, #1 EA Blood sugar check 3 times a day and at bedtime. Provide patient with 100 lancet, 100 test strips, 100 32-gauge insulin pen needles. Prov:KIMI HULL V. QUALITY ASSURANCE ASSISTANT 01/17/19 Insulin Glargine,Hum.rec.anlog (Basaglar Kwikpen U-100) 100 Unit/1 Ml Insuln.pen, 36 UNIT SC .HS, #1 EA Prov:KIMI HULL V. QUALITY ASSURANCE ASSISTANT 01/17/19 Reported Medications Metoprolol Tartrate* (Lopressor*) 25 Mg Tablet, 75 MG PO BID, #180 TAB 01/15/19 Atorvastatin* (Atorvastatin*) 80 Mg Tablet, 80 MG PO QHS, #30 TAB 01/15/19 Pioglitazone Hcl* (Pioglitazone Hcl*) 45 Mg Tablet, 45 MG PO DAILY, TAB 01/15/19 Clopidogrel Bisulfate* (Clopidogrel Bisulfate*) 75 Mg Tablet, 75 MG PO DAILY, #30 TAB 01/15/19 Carvedilol* (Carvedilol*) 12.5 Mg Tablet, 12.5 MG PO BID, #60 TAB 01/15/19 Aspirin* (Aspirin* EC) 81 Mg Tablet.dr, 81 MG PO DAILY, TAB 01/15/19 Amlodipine Besylate* (Norvasc*) 5 Mg Tablet, 5 MG PO DAILY, TAB 01/15/19 Hydrochlorothiazide* (Hydrochlorothiazide*) 25 Mg Tab, 25 MG PO DAILY, #30 TAB 01/15/19 Glipizide* (Glipizide*) 10 Mg Tablet, 10 MG PO AC BREAKFAST DINNER, TAB 01/15/19 Lisinopril* (Lisinopril*) 20 Mg Tablet, 20 MG PO DAILY, #30 TAB 01/15/19 Gabapentin* (Gabapentin*) 300 Mg Capsule, 300 MG PO TID, #90 CAP 01/15/19 Isosorbide Dinitrate* (Isordil*) 10 Mg Tablet, 10 MG PO TID, TAB 01/15/19 Discontinued Reported Medications Insulin Glargine,Hum.rec.anlog (Basaglar Kwikpen U-100) 100 Unit/1 Ml Insuln.pen, 45 UNIT SC BID, EA 12/25/18 Insulin Lispro (Humalog) 100 Unit/1 Ml Cartridge, 5-10 UNIT SQ AC B, EA 12/25/18 Benazepril-Hydrochlorothiazide (Benazepril-Hydrochlorothiazide) 20-25 Mg Tablet, 1 TAB PO DAILY 12/25/18 Metoprolol Tartrate* (Lopressor*) 25 Mg Tablet, 75 MG PO BID, #180 TAB 12/25/18 Pioglitazone Hcl* (Actos*) 45 Mg Tablet, 45 MG PO DAILY, #30 TAB 11/21/18 Glipizide* (Glipizide*) 10 Mg Tablet, 10 MG PO BID, TAB 11/21/18 Gabapentin* (Gabapentin*) 300 Mg Capsule, 300 MG PO TID, #90 CAP 11/21/18 Aspirin* (Aspirin* EC) 81 Mg Tablet.dr, 81 MG PO DAILY, TAB 11/21/18 Amlodipine Besylate* (Norvasc*) 5 Mg Tablet, 5 MG PO DAILY, TAB 11/21/18 Atorvastatin* (Atorvastatin*) 40 Mg Tablet, 40 MG PO QHS, #30 TAB 09/04/18 Discontinued Scripts Oxycodone HCl/Acetaminophen (Oxycodone-Acetaminophen 5-325) 1 Each Tablet, 1 TAB PO Q4H PRN for PAIN for 5 Days, #30 TAB Prov:ANJEL RENTERIA 11/30/18 Metoprolol Tartrate* (Lopressor*) 25 Mg Tab, 75 MG PO BID, #180 TAB Prov:ANJEL RENTERIA 11/30/18 Lisinopril* (Lisinopril*) 20 Mg Tablet, 20 MG PO DAILY for 30 Days, #30 TAB Prov:ANJEL RENTERIA 11/30/18 Follow-up Plan Follow-up with [facility] wound clinic on next Sunday Wound care as instructed. Follow-up with primary care physician in 1 week You will also benefit from a outpatient pain management clinic for your pain medications. Primary Care Provider Not On Staff Doctor Pending Labs Laboratory Tests Test 01/16/19 17:31 01/16/19 20:53 01/17/19 08:15 Bedside Glucose 149 mg/dL (70-220) 165 mg/dL (70-220) 152 mg/dL (70-220) KIMI HULL NP Jan 17, 2019 12:09
[2019-01-17] MEDS ORDERED: INSULIN ASPART [NOVOLOG] 3 ML PEN SC ONE (13:00)
[2019-01-17 14:13] VITALS: BP 115/79; PULSE 82; RESP 18
--- NOTE | 2019-01-17 14:19 | RADRPT ---
Echocardiogram Report Patient Name: AKASH GARCÍAPatient ID: [id number] : 1970 (48y 2m)Study Date: 01/16/2019 10:40:56 AM Gender: MAccession #: [id number] Tech: Jose Eduardo Walters [facility] Location: 2262-A Ref.Physician: MARII ELIZONDO Height(Cm): BSA: Weight(Kg): Quality: AdequateAccount #: Procedures: Echocardiographic Report: Transthoracic echocardiogram with complete 2D, M-Mode, and doppler examination. Indications: Coronary Artery Disease. Measurements: 2D/M Mode Doppler Measurement Value Normal Range Measurement Value Normal Range LVIDd 2D 5.9 [ 4.2 - 5.8 ] cm AV Peak Mata 1.4 [ 100.0 - 170.0 ] cm/sec LVIDs 2D 3.5 [ 2.5 - 4.0 ] cm AV Peak PG 8.0 [ 2.0 - 9.0 ] mmHg LVPWd 2D 1.3 [ 0.6 - 1.0 ] cm LVOT Peak Mata 0.9 [ 70.0 - 110.0 ] cm/sec IVSd 2D 1.3 [ 0.6 - 1.0 ] cm LVOT Peak PG 3.0 [ 2.0 - 6.0 ] mmHg IVS/LVPW 2D 1.0 ratio MV E Peak Mata 0.9 [ 60.0 - 130.0 ] cm/sec AoR Diam 2D 3.2 [ 2.6 - 3.4 ] cm MV A Peak Mata 0.6 [ 100.0 - 120.0 ] cm/sec LA/Ao 2D 1 ratio MV E/A 1.4 [ 0.8 - 1.5 ] ratio LA Dimen 2D 4.0 [ 3.0 - 4.0 ] cm MV Decel Time 201 [ 104 - 258 ] msec Lat E` Mata 0.1 [ 10.0 - 15.0 ] cm/sec Med E` Mata 0.0 cm/sec MV E/A 1.4 [ 0.8 - 1.5 ] ratio RA Pressure 10.0 mmHg Findings: Left Ventricle: Normal left ventricular systolic function. Normal left ventricular cavity size. Mild concentric left ventricular hypertrophy. Ejection fraction is visually estimated at 50 %. Tissue Doppler/Mitral Doppler indices are consistent with impaired relaxation (Stage I diastolic dysfunction). Right Ventricle: Normal right ventricular size. Normal right ventricular systolic function. Left Atrium: The left atrium is normal in size. Right Atrium: The right atrium is normal in size. Mitral Valve: Mild mitral leaflet calcification. Mild mitral annular calcification. Trace mitral regurgitation. Aortic Valve: No significant aortic stenosis or insufficiency. Aortic cusps appear mildly calcified. Tricuspid Valve: Normal appearance of the tricuspid valve. Unable to obtain RVSP due to minimal presence of tricuspid regurgitation. Pericardium: Normal pericardium with no significant pericardial effusion. Aorta: Normal aortic root. IVC: Normal size and normal respiratory collapse consistent with normal right atrial pressure. Conclusions: Normal left ventricular systolic function. Normal left ventricular cavity size. Mild concentric left ventricular hypertrophy. Ejection fraction is visually estimated at 50 %. Tissue Doppler/Mitral Doppler indices are consistent with impaired relaxation (Stage I diastolic dysfunction). No significant aortic stenosis or insufficiency. Aortic cusps appear mildly calcified. Mild mitral leaflet calcification. Mild mitral annular calcification. Trace mitral regurgitation. Normal appearance of the tricuspid valve. Unable to obtain RVSP due to minimal presence of tricuspid regurgitation. Electronically Signed By: Marii Elizondo 2019-01-17 14:19:27 PDT
--- NOTE | 2019-01-17 16:36 | CONS ---
Consult Date/Type/Reason Admit Date/Time Jan 15, 2019 at 19:07 Initial Consult Date 01/16/19 Requesting Provider: KIMI HULL NP Date/Time of Note DATE: 01/17/19 TIME: 16:35 Subjective Cardiology follow-up progress note Subjective: Patient with no chest pain or pressure no palpitation. His foot pain is better. No active bleeding Objective: General: Obese gentleman in no acute distress HEENT: NC/AT. pupils are equal. round. NECK: NO JVD. no stridor. CV: RRR. systolic murmur; no gallop or rubs. PULM: no wheezing or rhonchi. GI: SOFT, NT, ND, no rebound or guarding Extremity: Right lower extremity in dressing neuro: awake and alert, OX3. Psych: Anxious but pleasant rectal: deferred : normal Objective Vitals Vital Signs Date Temp Pulse Resp B/P (MAP) Pulse Ox O2 O2 Flow FiO2 Time Delivery Rate 01/17/19 97.4 82 18 115/79 93 Room Air 14:13 (91) Intake and Output 01/16/19 01/16/19 01/17/19 1515:00 23:00 07:00 IntakeIntake Total 820 ml OutputOutput Total 325 ml 250 ml BalanceBalance 820 ml -325 ml -250 ml Results/Medications Result Diagram: 01/17/19 1416 01/17/19 1416 Results 24 hrs Laboratory Tests Test 01/16/19 17:31 01/16/19 20:53 01/17/19 08:15 01/17/19 12:12 Bedside Glucose 149 165 152 92 Test 01/17/19 14:16 White Blood Count 10.6 Red Blood Count 4.82 Hemoglobin 13.8 L Hematocrit 43.0 Mean Corpuscular 89.2 Volume Mean Corpuscular 28.6 L Hemoglobin Mean Corpuscular 32.1 Hemoglobin Concent Red Cell 12.9 Distribution Width Platelet Count 412 Mean Platelet Volume 11.1 H Immature 0.400 Granulocytes % Neutrophils % 57.5 Lymphocytes % 26.6 Monocytes % 7.1 Eosinophils % 7.6 H Basophils % 0.8 Nucleated Red Blood 0.0 Cells % Immature 0.040 H Granulocytes # Neutrophils # 6.1 Lymphocytes # 2.8 Monocytes # 0.8 Eosinophils # 0.8 H Basophils # 0.1 Nucleated Red Blood 0.0 Cells # Sodium Level 139 Potassium Level 4.1 Chloride Level 100 Carbon Dioxide Level 25 Anion Gap 14 H Blood Urea Nitrogen 27 H Creatinine 1.36 H Est Glomerular 56 L Filtrat Rate mL/min Glucose Level 104 # Calcium Level 9.7 Magnesium Level 1.9 Total Bilirubin 0.3 Direct Bilirubin 0.00 Indirect Bilirubin 0.3 Aspartate Amino 38 Transf (AST/SGOT) Alanine 28 Aminotransferase (AL T/SGPT) Alkaline Phosphatase 86 B-Type Natriuretic 388 H Peptide Total Protein 7.7 Albumin 4.2 Globulin 3.50 H Albumin/Globulin 1.20 Ratio Triglycerides Level 173 H Cholesterol Level 114 LDL Cholesterol, 50 Calculated HDL Cholesterol 29 Cholesterol/HDL 3.9 Ratio Home Meds Active Scripts Insulin Lispro (Humalog) 100 Unit/1 Ml Cartridge, 14 UNIT SQ TIDM A, #1 EA Take insulin lispro 14 units subcutaneous 3 times a day with meals. Need to check blood sugar 3 times a day and at bedtime. Provide patient with 100 lancet, 100 test strips, 100 32-gauge insulin pen needles. Prov:KIMI HULL NP 01/17/19 Insulin Glargine,Hum.rec.anlog (Basaglar Kwikpen U-100) 100 Unit/1 Ml Insuln.pen, 32 UNIT SC .HS, #1 EA Prov:KIMI HULL NP 01/17/19 Morphine Sulfate (Morphine Sulfate ER) 15 Mg Tablet.er, 15 MG PO BID PRN for PAIN, #30 TAB Prov:KIMI HULL NP 01/17/19 Collagenase* (Santyl*) 30 Gm Oint..gm., 1 APPLIC TOP DAILY, #1 TUBE Apply to right lower extremity wound after irrigation with Dakin solution. Prov:KIMI HULL NP 01/17/19 Linagliptin (TRADJENTA) 5 Mg Tablet, 5 MG PO DAILY, #30 TAB Prov:KIMI HULL V. UPSETTER 01/17/19 Empagliflozin (Jardiance) 10 Mg Tablet, 25 MG PO DAILY@08, #30 TAB Prov:KIMI HULL V. UPSETTER 01/17/19 Reported Medications Atorvastatin* (Atorvastatin*) 80 Mg Tablet, 80 MG PO QHS, #30 TAB 01/15/19 Clopidogrel Bisulfate* (Clopidogrel Bisulfate*) 75 Mg Tablet, 75 MG PO DAILY, #30 TAB 01/15/19 Carvedilol* (Carvedilol*) 12.5 Mg Tablet, 12.5 MG PO BID, #60 TAB 01/15/19 Aspirin* (Aspirin* EC) 81 Mg Tablet.dr, 81 MG PO DAILY, TAB 01/15/19 Amlodipine Besylate* (Norvasc*) 5 Mg Tablet, 5 MG PO DAILY, TAB 01/15/19 Hydrochlorothiazide* (Hydrochlorothiazide*) 25 Mg Tab, 25 MG PO DAILY, #30 TAB 01/15/19 Lisinopril* (Lisinopril*) 20 Mg Tablet, 20 MG PO DAILY, #30 TAB 01/15/19 Gabapentin* (Gabapentin*) 300 Mg Capsule, 300 MG PO TID, #90 CAP 01/15/19 Isosorbide Dinitrate* (Isordil*) 10 Mg Tablet, 10 MG PO TID, TAB 01/15/19 Discontinued Reported Medications Insulin Lispro (Humalog) 100 Unit/1 Ml Cartridge, 0 SQ SLIDING SCALE, EA 01/15/19 Insulin Glargine,Hum.rec.anlog (Basaglar Kwikpen U-100) 100 Unit/1 Ml Insuln.pen, 45 UNIT SC BID, EA 01/15/19 Metoprolol Tartrate* (Lopressor*) 25 Mg Tablet, 75 MG PO BID, #180 TAB 01/15/19 Pioglitazone Hcl* (Pioglitazone Hcl*) 45 Mg Tablet, 45 MG PO DAILY, TAB 01/15/19 Glipizide* (Glipizide*) 10 Mg Tablet, 10 MG PO AC BREAKFAST DINNER, TAB 01/15/19 Insulin Glargine,Hum.rec.anlog (Basaglar Kwikpen U-100) 100 Unit/1 Ml Insuln.pen, 45 UNIT SC BID, EA 12/25/18 Insulin Lispro (Humalog) 100 Unit/1 Ml Cartridge, 5-10 UNIT SQ AC B, EA 12/25/18 Benazepril-Hydrochlorothiazide (Benazepril-Hydrochlorothiazide) 20-25 Mg Tablet, 1 TAB PO DAILY 12/25/18 Metoprolol Tartrate* (Lopressor*) 25 Mg Tablet, 75 MG PO BID, #180 TAB 12/25/18 Pioglitazone Hcl* (Actos*) 45 Mg Tablet, 45 MG PO DAILY, #30 TAB 11/21/18 Glipizide* (Glipizide*) 10 Mg Tablet, 10 MG PO BID, TAB 11/21/18 Gabapentin* (Gabapentin*) 300 Mg Capsule, 300 MG PO TID, #90 CAP 11/21/18 Aspirin* (Aspirin* EC) 81 Mg Tablet.dr, 81 MG PO DAILY, TAB 11/21/18 Amlodipine Besylate* (Norvasc*) 5 Mg Tablet, 5 MG PO DAILY, TAB 11/21/18 Atorvastatin* (Atorvastatin*) 40 Mg Tablet, 40 MG PO QHS, #30 TAB 09/04/18 Discontinued Scripts Oxycodone HCl/Acetaminophen (Oxycodone-Acetaminophen 5-325) 1 Each Tablet, 1 TAB PO Q4H PRN for PAIN for 5 Days, #30 TAB Prov:ANJEL RENTERIA 11/30/18 Metoprolol Tartrate* (Lopressor*) 25 Mg Tab, 75 MG PO BID, #180 TAB Prov:ANJEL RENTERIA 11/30/18 Lisinopril* (Lisinopril*) 20 Mg Tablet, 20 MG PO DAILY for 30 Days, #30 TAB Prov:ANJEL RENTERIA 11/30/18 Medications Current Medications IV Flush (NS 3 ml) 3 ml PER PROTOCOL IV ; Start 01/15/19 at 22:30 Ondansetron HCl (Zofran Inj) 4 mg Q6H PRN IV NAUSEA/VOMITING; Start 01/15/19 at 22:30 Acetaminophen (Tylenol Tab) 650 mg Q6H PRN PO .PAIN 1-3 OR TEMP; Start 01/15/19 at 22:30 Amlodipine Besylate (Norvasc) 5 mg DAILY PO Last administered on 01/17/19at 08:18; Admin Dose 5 MG; Start 01/16/19 at 09:00 Atorvastatin Calcium (Lipitor) 80 mg QHS PO Last administered on 01/16/19at 21:10; Admin Dose 80 MG; Start 01/16/19 at 21:00 Carvedilol (Coreg) 12.5 mg BID PO Last administered on 01/17/19at 08:21; Admin Dose 12.5 MG; Start 01/16/19 at 09:00 Gabapentin (Neurontin) 300 mg TID PO Last administered on 01/17/19at 12:39; Admin Dose 300 MG; Start 01/16/19 at 09:00 Hydrochlorothiazide (Hydrochlorothiazide) 25 mg DAILY PO Last administered on at 08:16; Admin Dose 25 MG; Start 01/16/19 at 09:00 Lisinopril (Zestril) 20 mg DAILY PO Last administered on 01/17/19at 08:16; Admin Dose 20 MG; Start 01/16/19 at 09:00 Diagnostic Test (Pha) (Accu-Chek) 1 ea 02 XX ; Start 01/16/19 at 02:00 Insulin Aspart (Novolog Insulin Pen) NOVOLOG *MILD* ALGORITHM WITH MEALS BEDTIME SC Last administered on 01/17/19 08:18; Admin Dose 1 UNIT; Start 01/16 at 08:00 Miscellaneous Information 1 ea NOTE XX ; Start 01/15/19 at 22:30 Glucose (Glutose) 15 gm Q15M PRN PO DECREASED GLUCOSE; Start 01/15/19 at 22:30 Glucose (Glutose) 22.5 gm Q15M PRN PO DECREASED GLUCOSE; Start 01/15/19 at 22:30 Dextrose (D50w Syringe) 25 ml Q15M PRN IV DECREASED GLUCOSE; Start 01/15/19 at 22:30 Dextrose (D50w Syringe) 50 ml Q15M PRN IV DECREASED GLUCOSE; Start 01/15/19 at 22:30 Glucagon (Glucagen) 1 mg Q15M PRN IM DECREASED GLUCOSE; Start 01/15/19 at 22:30 Glucose (Glutose) 15 gm Q15M PRN BUCCAL DECREASED GLUCOSE; Start 01/15/19 at 22:30 Diphenhydramine HCl (Benadryl) 25 mg Q6H PRN IV irching Last administered on 01/17/19at 14:27; Admin Dose 25 MG; Start 01/16/19 at 10:30 Aspirin (Halfprin) 81 mg DAILY PO Last administered on 01/17/19at 08:18; Admin Dose 81 MG; Start 01/16/19 at 11:30 Clopidogrel Bisulfate (plaVIX) 75 mg DAILY PO Last administered on 01/17/19at 08:16; Admin Dose 75 MG; Start 01/16/19 at 11:30 Sodium Hypochlorite (Dakin'S (Dilute 1/40)) 1 applic DAILY IRR Last administered on 01/17/19 08:21; Admin Dose 1 APPLIC; Start 01/17/19 at 09:00 Collagenase (Santyl) 1 applic DAILY TOP Last administered on 01/17/19 08:21; Admin Dose 1 APPLIC; Start 01/17/19 at 09:00 Linagliptin (Tradjenta) 5 mg DAILY PO Last administered on 01/17/19 08:24; Admin Dose 5 MG; Start 01/17/19 at 09:00 Empaglifozin (Jardiance) 25 mg DAILY@08 PO Last administered on 01/17/19 08:16; Admin Dose 25 MG; Start 01/17/19 at 08:00 Hydromorphone HCl (Dilaudid) 1 mg Q4H PRN IV SEVERE PAIN LEVEL 7-10 Last administered on 01/17/19 14:27; Admin Dose 1 MG; Start 01/16/19 at 19:30 Morphine Sulfate (Ms Contin (Er)) 15 mg BID PO Last administered on 01/17/19 09:11; Admin Dose 15 MG; Start 01/16/19 at 21:00 Methadone HCl (Methadone Liq) 2 mg Q6 PO Last administered on 01/17/19 11:50; Admin Dose 2 MG; Start 01/16/19 at 19:30 Insulin Aspart (Novolog Insulin Pen) 14 unit WITH MEALS SC ; Start 01/17/19 at 17:35 Insulin Glargine (Lantus) 32 units QHS SC ; Start 01/17/19 at 21:00 Assessment/Plan Hospital Course (Demo Recall) 1. Coronary artery disease status post recent MO 2. Multivessel coronary artery disease status post PCI of the left cecum and obtuse marginal recently at [facility] about a week ago by myself with significant RCA and diagonal disease 3. Diabetes 4. Hypertension 5. Dyslipidemia 6. Nonhealing wound and bleeding in the wound Recommendation: Aspirin and Plavix should be continued. Continue with the Coreg and increase as needed and tolerated Diabetic management as per internal medicine/endocrine sediment remediation consultant Continue with a statin Aggressive risk factor modifications Stage PCI of the right coronary artery at a later time probably up a couple of weeks once no sign of bleeding. 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 Kwasi Martin Thank you for his referral will continue to follow with you MARII OLIVEIRA MD Jan 17, 2019 16:36
--- NOTE | 2019-01-17 17:16 | CONS ---
Assessment/Plan Assessment/Plan Problems: (1) Diabetes mellitus type 2 in obese Status: Chronic Comment: Excellent glycemic control. BG actually slightly below expected at lunch today. Would continue this regimen after d/c: Lantus 32 units sq qhs, Humalog 14 units qac, Tradjenta 5 mg daily, Jardiance 25 mg daily. F/u as outpt. Consultation Date/Type/Reason Admit Date/Time Jan 15, 2019 at 19:07 Initial Consult Date 01/16/19 Type of Consult Endocrinology Reason for Consultation [id number] Requesting Provider: KIMI HULL NP Date/Time of Note DATE: 01/17/19 TIME: 17:14 24 HR Interval Summary Constitutional: no complaints, improved Detailed Summary Respiratory: no complaints Cardiovascular: no complaints Gastrointestinal: no complaints Genitourinary: no complaints Musculoskeletal: no complaints Neurologic: no complaints Exam/Review of Systems Exam Vitals VS - Last 72 Hours, by Label Date Temp Pulse Resp B/P (MAP) Pulse Ox O2 O2 Flow FiO2 Time Delivery Rate 01/17/19 97.4 82 18 115/79 93 Room Air 14:13 (91) 01/17/19 97.8 81 18 143/80 95 Room Air 08:39 (101) 01/17/19 98.1 76 19 130/59 97 02:00 (82) 01/16/19 98.3 75 19 124/77 96 20:00 (93) 01/16/19 98.0 78 18 136/70 95 Room Air 15:11 (92) 01/16/19 76 135/85 11:13 (102) 01/16/19 98.1 83 20 179/106 96 Room Air 08:50 (130) 01/16/19 98.5 84 18 125/75 96 02:00 (92) 01/15/19 98.3 79 19 157/97 96 20:00 (117) 01/15/19 98.4 80 17 160/81 98 Room Air 18:38 (107) 01/15/19 75 12 143/82 100 Room Air 18:01 (102) 01/15/19 98.9 88 18 149/90 96 15:21 (109) Vital Signs Date Temp Pulse Resp B/P (MAP) Pulse Ox O2 O2 Flow FiO2 Time Delivery Rate 01/17/19 97.4 82 18 115/79 93 Room Air 14:13 (91) Intake and Output 01/16/19 01/16/19 01/17/19 1515:00 23:00 07:00 IntakeIntake Total 820 ml OutputOutput Total 325 ml 250 ml BalanceBalance 820 ml -325 ml -250 ml Constitutional: alert, oriented, obese Respiratory: clear to auscultation, normal air movement Cardiovascular: regular rate and rhythm, nl pulses; No edema, No murmurs/extra sounds, No rub Gastrointestinal: soft, nl liver, spleen, non-tender, bowel sounds; No mass, No rebound or guarding Musculoskeletal: No nl extremities to inspection (RLE wrapped) Extremities: No cyanosis, No clubbing, No edema Neurological: CAT TENDER II-XII intact, nl mental status, nl speech, nl strength Additional Comments Bedside Glucose - 72 Hours Test 01/15/19 22:49 01/16/19 00:02 01/16/19 03:02 01/16/19 08:04 Bedside 148 131 178 184 Glucose mg/dL (70-220) mg/dL (70-220) mg/dL (70-220) mg/dL (70-220) Test 01/16/19 11:15 01/16/19 17:31 01/16/19 20:53 01/17/19 08:15 Bedside 189 149 165 152 Glucose mg/dL (70-220) mg/dL (70-220) mg/dL (70-220) mg/dL (70-220) Test 01/17/19 12:12 Bedside 92 Glucose mg/dL (70-220) Results Result Diagram: 01/17/19 1416 01/17/19 1416 Results 24hrs Laboratory Tests Test 01/16/19 17:31 01/16/19 20:53 01/17/19 08:15 01/17/19 12:12 Bedside Glucose 149 165 152 92 Test 01/17/19 14:16 White Blood Count 10.6 Red Blood Count 4.82 Hemoglobin 13.8 L Hematocrit 43.0 Mean Corpuscular 89.2 Volume Mean Corpuscular 28.6 L Hemoglobin Mean Corpuscular 32.1 Hemoglobin Concent Red Cell 12.9 Distribution Width Platelet Count 412 Mean Platelet Volume 11.1 H Immature 0.400 Granulocytes % Neutrophils % 57.5 Lymphocytes % 26.6 Monocytes % 7.1 Eosinophils % 7.6 H Basophils % 0.8 Nucleated Red Blood 0.0 Cells % Immature 0.040 H Granulocytes # Neutrophils # 6.1 Lymphocytes # 2.8 Monocytes # 0.8 Eosinophils # 0.8 H Basophils # 0.1 Nucleated Red Blood 0.0 Cells # Sodium Level 139 Potassium Level 4.1 Chloride Level 100 Carbon Dioxide Level 25 Anion Gap 14 H Blood Urea Nitrogen 27 H Creatinine 1.36 H Est Glomerular 56 L Filtrat Rate mL/min Glucose Level 104 # Calcium Level 9.7 Magnesium Level 1.9 Total Bilirubin 0.3 Direct Bilirubin 0.00 Indirect Bilirubin 0.3 Aspartate Amino 38 Transf (AST/SGOT) Alanine 28 Aminotransferase (AL T/SGPT) Alkaline Phosphatase 86 B-Type Natriuretic 388 H Peptide Total Protein 7.7 Albumin 4.2 Globulin 3.50 H Albumin/Globulin 1.20 Ratio Triglycerides Level 173 H Cholesterol Level 114 LDL Cholesterol, 50 Calculated HDL Cholesterol 29 Cholesterol/HDL 3.9 Ratio Medications Medication Current Medications IV Flush (NS 3 ml) 3 ml PER PROTOCOL IV ; Start 01/15/19 at 22:30 Ondansetron HCl (Zofran Inj) 4 mg Q6H PRN IV NAUSEA/VOMITING; Start 01/15/19 at 22:30 Acetaminophen (Tylenol Tab) 650 mg Q6H PRN PO .PAIN 1-3 OR TEMP; Start 01/15/19 at 22:30 Amlodipine Besylate (Norvasc) 5 mg DAILY PO Last administered on 01/17/19at 08:18; Admin Dose 5 MG; Start 01/16/19 at 09:00 Atorvastatin Calcium (Lipitor) 80 mg QHS PO Last administered on 01/16/19at 21:10; Admin Dose 80 MG; Start 01/16/19 at 21:00 Carvedilol (Coreg) 12.5 mg BID PO Last administered on 01/17/19 08:21; Admin Dose 12.5 MG; Start 01/16/19 at 09:00 Gabapentin (Neurontin) 300 mg TID PO Last administered on 01/17/19at 12:39; Admin Dose 300 MG; Start 01/16/19 at 09:00 Hydrochlorothiazide (Hydrochlorothiazide) 25 mg DAILY PO Last administered on 01/17/19 08:16; Admin Dose 25 MG; Start 01/16/19 at 09:00 Lisinopril (Zestril) 20 mg DAILY PO Last administered on 01/17/19 08:16; Admin Dose 20 MG; Start 01/16/19 at 09:00 Diagnostic Test (Pha) (Accu-Chek) 1 ea 02 XX ; Start 01/16/19 at 02:00 Insulin Aspart (Novolog Insulin Pen) NOVOLOG *MILD* ALGORITHM WITH MEALS BEDTIME SC Last administered on 01/17/19at 08:18; Admin Dose 1 UNIT; Start 01/16/19 at 08:00 Miscellaneous Information 1 ea NOTE XX ; Start 01/15/19 at 22:30 Glucose (Glutose) 15 gm Q15M PRN PO DECREASED GLUCOSE; Start 01/15/19 at 22:30 Glucose (Glutose) 22.5 gm Q15M PRN PO DECREASED GLUCOSE; Start 01/15/19 at 22:30 Dextrose (D50w Syringe) 25 ml Q15M PRN IV DECREASED GLUCOSE; Start 01/15/19 at 22:30 Dextrose (D50w Syringe) 50 ml Q15M PRN IV DECREASED GLUCOSE; Start 01/15/19 at 22:30 Glucagon (Glucagen) 1 mg Q15M PRN IM DECREASED GLUCOSE; Start 01/15/19 at 22:30 Glucose (Glutose) 15 gm Q15M PRN BUCCAL DECREASED GLUCOSE; Start 01/15/19 at 22:30 Diphenhydramine HCl (Benadryl) 25 mg Q6H PRN IV irching Last administered on 01/17/19at 14:27; Admin Dose 25 MG; Start 01/16/19 at 10:30 Aspirin (Halfprin) 81 mg DAILY PO Last administered on 01/17/19at 08:18; Admin Dose 81 MG; Start 01/16/19 at 11:30 Clopidogrel Bisulfate (plaVIX) 75 mg DAILY PO Last administered on 01/17/19at 08:16; Admin Dose 75 MG; Start 01/16/19 at 11:30 Sodium Hypochlorite (Dakin'S (Dilute )) 1 applic DAILY IRR Last administered on 01/17/19 08:21; Admin Dose 1 APPLIC; Start 01/17/19 at 09:00 Collagenase (Santyl) 1 applic DAILY TOP Last administered on 01/17/19at 08:21; Admin Dose 1 APPLIC; Start 01/17/19 at 09:00 Linagliptin (Tradjenta) 5 mg DAILY PO Last administered on 01/17/19 08:24; Admin Dose 5 MG; Start 01/17/19 at 09:00 Empaglifozin (Jardiance) 25 mg DAILY@08 PO Last administered on 01/17/19 08:16; Admin Dose 25 MG; Start 01/17/19 at 08:00 Hydromorphone HCl (Dilaudid) 1 mg Q4H PRN IV SEVERE PAIN LEVEL 7-10 Last administered on 01/17/19at 14:27; Admin Dose 1 MG; Start 01/16/19 at 19:30 Morphine Sulfate (Ms Contin (Er)) 15 mg BID PO Last administered on 01/17/19at 09:11; Admin Dose 15 MG; Start 01/16/19 at 21:00 Methadone HCl (Methadone Liq) 2 mg Q6 PO Last administered on 01/17/19at 11:50; Admin Dose 2 MG; Start 01/16/19 at 19:30 Insulin Aspart (Novolog Insulin Pen) 14 unit WITH MEALS SC ; Start 01/17/19 at 17:35 Insulin Glargine (Lantus) 32 units QHS SC ; Start 01/17/19 at 21:00 VENKATESH ROWAN MD Jan 17, 2019 17:16
[2019-01-17] MEDS ORDERED: INSULIN ASPART [NOVOLOG] 3 ML PEN SC SCH (17:35)
[2019-01-17] MEDS ORDERED: INSULIN GLARGINE [LANTus] (100 UNITS/ML) SYG SC SCH (21:00)
== END 2019-01-17 19:30 | disposition home or self-care (01) ==
LOC: E/R 15:05 → PP2 19:07
PROVIDERS: ADMIT Family Medicine; ATTEND Family Medicine
DX: L76.21 Postprocedural hemorrhage of skin and subcutaneous tissue following a dermatologic procedure (principal); E11.621 Type 2 diabetes mellitus with foot ulcer; L97.819 Non-pressure chronic ulcer of other part of right lower leg with unspecified severity; D64.9 Anemia, unspecified; I10 Essential (primary) hypertension; E11.65 Type 2 diabetes mellitus with hyperglycemia; Z79.4 Long term (current) use of insulin; E78.5 Hyperlipidemia, unspecified; G47.30 Sleep apnea, unspecified; Z79.82 Long term (current) use of aspirin; E11.42 Type 2 diabetes mellitus with diabetic polyneuropathy; I25.10 Atherosclerotic heart disease of native coronary artery without angina pectoris; Z86.73 Personal history of transient ischemic attack (TIA), and cerebral infarction without residual deficits; Z95.5 Presence of coronary angioplasty implant and graft
CPT/HCPCS: 80048; 80053; 80061; 82962; 83015; 83036; 83735; 83880; 84443; 85025; 85610; 85730; 93306; 96374; 96375; J1170; J1200; J1815; J2405; Z7500; Z7502; Z7610; G0378

== ENCOUNTER 2019-03-03 11:01 | Inpatient (IN) | payer OTHER ==
[~2019-03-03] VITALS: Ht 172.7 cm; Wt 133.1 kg
[~2019-03-03 11:01] MED LIST changes: +ATOR-2 PO; -ATOR40TA68 PO; -BENA1TAB14 PO; +CARV12.579 PO; +CLOP75TA19 PO; +EMPA10TA PO; -GLIP10TA14 PO; +HYDR25TA6 PO; +ISOS10TA2 PO; +LINA5TAB PO; -METO-448 PO; -METO25TA4 PO; +MORP15TA3 PO; -OXYC-438 PO; -PIOG45TA9 PO; +SAN30GM TOP
[2019-03-03 11:11] VITALS: Ht 172.7 cm; Wt 133.1 kg
--- NOTE | 2019-03-03 15:34 | ERD ---
ER Documentation Chief Complaint Chief Complaint chest pain HPI The patient is a 48-year-old male, presenting to the ER because of intermittent left-sided chest pain for the last 6 weeks, worse for the last 2 days. He had similar symptoms when he had 2 stent PCI at [facility] about [address] Elizondo. He called Dr. Elizondo who asked him to come to [facility]. The chest pain is intermittent, he denies chest pain with vomiting/radiation/exertion/diaphoresis, he denies dyspnea, abdominal pain, vomiting, dizzy, diarrhea. He does not smoke Past medical history: CAD, diabetes mellitus, hypertension, chronic right foot wound for a year and a half Past surgical history: Stent PCI ROS All systems reviewed and are negative except as per history of present illness. Medications Home Meds Active Scripts Insulin Lispro (Humalog) 100 Unit/1 Ml Cartridge, 14 UNIT SQ TIDM A, #1 EA Take insulin lispro 14 units subcutaneous 3 times a day with meals. Need to check blood sugar 3 times a day and at bedtime. Provide patient with 100 lancet, 100 test strips, 100 32-gauge insulin pen needles. Prov:KIMI HULL NP 01/17/19 Insulin Glargine,Hum.rec.anlog (Basaglar Kwikpen U-100) 100 Unit/1 Ml Insuln.pen, 32 UNIT SC .HS, #1 EA Prov:KIMI HULL NP 01/17/19 Collagenase* (Santyl*) 30 Gm Oint..gm., 1 APPLIC TOP DAILY, #1 TUBE Apply to right lower extremity wound after irrigation with Dakin solution. Prov:KIMI HULL NP 01/17/19 Linagliptin (TRADJENTA) 5 Mg Tablet, 5 MG PO DAILY, #30 TAB Prov:KIMI HULL V. INCOME TAX AUDITOR 01/17/19 Empagliflozin (Jardiance) 10 Mg Tablet, 25 MG PO DAILY@08, #30 TAB Prov:KIMI HULL NP 01/17/19 Reported Medications Hydrocodone/Acetaminophen ([place] 10-325 Tablet) 1 Each Tablet, 1 EACH PO Q8H, TAB 03/03/19 Oxycodone HCl/Acetaminophen (Oxycodone-Acetaminophen 10-325) 1 Each Tablet, 1 EACH PO Q12H PRN for NEEDED, TAB 03/03/19 Atorvastatin* (Atorvastatin*) 80 Mg Tablet, 80 MG PO QHS, #30 TAB 01/15/19 Clopidogrel Bisulfate* (Clopidogrel Bisulfate*) 75 Mg Tablet, 75 MG PO DAILY, #30 TAB 01/15/19 Carvedilol* (Carvedilol*) 12.5 Mg Tablet, 12.5 MG PO BID, #60 TAB 01/15/19 Aspirin* (Aspirin* EC) 81 Mg Tablet.dr, 81 MG PO DAILY, TAB 01/15/19 Amlodipine Besylate* (Norvasc*) 5 Mg Tablet, 5 MG PO DAILY, TAB 01/15/19 Hydrochlorothiazide* (Hydrochlorothiazide*) 25 Mg Tab, 25 MG PO DAILY, #30 TAB 01/15/19 Lisinopril* (Lisinopril*) 20 Mg Tablet, 20 MG PO DAILY, #30 TAB 01/15/19 Gabapentin* (Gabapentin*) 300 Mg Capsule, 300 MG PO TID, #90 CAP 01/15/19 Isosorbide Dinitrate* (Isordil*) 10 Mg Tablet, 10 MG PO TID, TAB 01/15/19 Discontinued Scripts Morphine Sulfate (Morphine Sulfate ER) 15 Mg Tablet.er, 15 MG PO BID PRN for PAIN, #30 TAB Prov:KIMI HULL V. INCOME TAX AUDITOR 01/17/19 Allergies Allergies: Coded Allergies: metformin (Verified Allergy, Intermediate, 03/03/19) per pt, makes him feel horribles, worse abdominal pain PMhx/Soc History of Surgery: Yes Anesthesia Reaction: No Hx Neurological Disorder: Yes (neuropathy) Hx Respiratory Disorders: No Hx Cardiac Disorders: Yes (Stents x2) Hx Psychiatric Problems: No Hx Miscellaneous Medical Probl: Yes (Diabetic wound lower extremity) Hx Alcohol Use: Yes Hx Substance Use: Yes Hx Tobacco Use: Yes Physical Exam Vitals Vital Signs Date Temp Pulse Resp B/P (MAP) Pulse Ox O2 O2 Flow FiO2 Time Delivery Rate 03/03/19 81 18 140/76 99 Room Air 19:02 (97) 03/03/19 78 20 136/84 99 Room Air 16:45 (101) 03/03/19 98.1 80 18 146/77 95 11:11 (100) Physical Exam Const: No acute distress. Head: Atraumatic. Eyes: Normal Conjunctiva. ENT: Normal External Ears, Nose and Mouth. Neck: Full range of motion. No meningismus. Resp: Clear to auscultation bilaterally. Cardio: Regular rate and rhythm. Abd: Soft, non distended, normal bowel sounds, non tender. Skin: No petechiae or rashes. Back: No midline or flank tenderness. Ext: No cyanosis, or edema. Right foot is immobilized, no calf tenderness Neur: Awake and alert. No focal deficit Psych: Normal Mood and Affect. Result Diagram: 03/03/19 1609 03/03/19 1608 Results 24 hrs Laboratory Tests Test 03/03/19 16:08 03/03/19 16:09 Sodium Level 136 mmol/L Potassium Level 5.0 mmol/L Chloride Level 102 mmol/L Carbon Dioxide Level 21 mmol/L Anion Gap 13 Blood Urea Nitrogen 32 mg/dl Creatinine 1.37 mg/dl Est Glomerular Filtrat Rate mL/min 55 mL/min Glucose Level 283 mg/dl Calcium Level 10.1 mg/dl Troponin I < 0.012 ng/ml White Blood Count 11.0 10^3/ul Red Blood Count 4.98 10^6/ul Hemoglobin 14.4 g/dl Hematocrit 44.7 % Mean Corpuscular Volume 89.8 fl Mean Corpuscular Hemoglobin 28.9 pg Mean Corpuscular Hemoglobin Concent 32.2 g/dl Red Cell Distribution Width 14.2 % Platelet Count 318 10^3/UL Mean Platelet Volume 11.0 fl Immature Granulocytes % 0.300 % Neutrophils % 53.7 % Lymphocytes % 26.8 % Monocytes % 8.5 % Eosinophils % 9.7 % Basophils % 1.0 % Nucleated Red Blood Cells % 0.0 /100WBC Immature Granulocytes # 0.030 10^3/ul Neutrophils # 5.9 10^3/ul Lymphocytes # 2.9 10^3/ul Monocytes # 0.9 10^3/ul Eosinophils # 1.1 10^3/ul Basophils # 0.1 10^3/ul Nucleated Red Blood Cells # 0.0 10^3/ul Current Medications Medications Dose Sig/Yumi Start Time Status Last (Trade) Ordered Route PRN Stop Time Admin Dose Reason Admin Aspirin 324 mg ONCE ONCE 03/03/19 DC 03/03/19 (Aspirin) PO 16:00 03/03/19 16:15 16:01 1 inch ONCE ONCE 03/03/19 DC 03/03/19 Nitroglycerin TD 16:00 03/03/19 16:11 16:01 (Nitroglyceri n 2% Oint) 1 tab ONCE ONCE 03/03/19 DC 03/03/19 Acetaminophen PO 16:30 03/03/19 16:39 / 16:31 Hydrocodone Bitart ([place] (10/325)) IV Flush 3 ml PER 03/03/19 UNV (NS 3 ml) PROTOCOL IV 19:00 Ondansetron 4 mg Q6H PRN 03/03/19 HCl (Zofran IV 19:00 Inj) NAUSEA/VOMITI NG 650 mg Q6H PRN 03/03/19 Acetaminophen PO .PAIN 1-3 19:00 (Tylenol OR TEMP Tab) 1 tab Q6H PRN 03/03/19 Acetaminophen PO .MOD PAIN 19:00 / 4-6 Hydrocodone Bitart ([place] (5/325)) Morphine 2 mg Q4H PRN 03/03/19 UNV Sulfate IV .SEVERE 19:00 (morphine) PAIN 7-10 Docusate 100 mg Q12H PRN 03/03/19 Sodium PO 19:00 (Colace) .CONSTIPATION Magnesium 30 ml DAILY PRN 03/03/19 UNV Hydroxide PO 19:00 (Milk Of Mag) .CONSTIPATION Lorazepam 0.5 mg Q6H PRN 03/03/19 UNV (Ativan) IV ANXIETY 19:00 Albuterol/ 3 ml Q4H RESP 03/03/19 Ipratropium THERAPY PRN 19:00 (Duoneb) HHN SHORTNESS OF BREATH Hydralazine 10 mg Q6H PRN 03/03/19 HCl IV ELEVATED 19:00 (Apresoline) BLOOD PRESSURE 1 tab Q5M PRN 03/03/19 UNV Nitroglycerin SL ANGINA 19:00 (Nitroglyceri n (Sl Tab) 0.4 Mg) Aspirin 325 mg DAILY PO 03/04/19 (Ecotrin) 09:00 Discontinue ONCE ONCE 03/03/19 DC Miscellaneous current oral XX 19:00 03/03/19 sulfonylur... 19:02 Information (* Miscellaneous Pharmacy Order) Diagnostic 1 ea 02 XX 03/04/19 Test (Pha) 02:00 (Accu-Chek) ONCE ONCE 03/03/19 DC Miscellaneous HYPOGLYCEMIA XX 19:00 03/03/19 PROTOCOL 19:02 Information w... (* Miscellaneous Pharmacy Order) Insulin NOVOLOG Q4 SC 03/03/19 Aspart *MILD* 21:00 (Novolog ALGORI... Insulin Pen) Discontinue ONCE ONCE 03/03/19 DC Miscellaneous all previ... XX 19:00 03/03/19 19:02 Information (* Miscellaneous Pharmacy Order) Amlodipine 5 mg DAILY PO 03/04/19 Besylate 09:00 (Norvasc) Aspirin 81 mg DAILY PO 03/04/19 (Halfprin) 09:00 80 mg QHS PO 03/03/19 Atorvastatin 21:00 Calcium (Lipitor) Carvedilol 12.5 mg BID PO 03/03/19 (Coreg) 21:00 Collagenase 1 applic DAILY TOP 03/04/19 UNV (Santyl) 09:00 Gabapentin 300 mg TID PO 03/03/19 (Neurontin) 21:00 Insulin 32 unit HS SC 03/03/19 UNV Glargine 19:00 (Lantus) Isosorbide 10 mg TID PO 03/03/19 UNV Dinitrate 21:00 (Isordil) 14 unit TIDM A SQ 03/03/19 UNV Miscellaneous 19:00 Information Clopidogrel 75 mg DAILY PO 03/04/19 Bisulfate 09:00 (plaVIX) Insulin 32 units QHS SC 03/03/19 Glargine 21:00 (Lantus) Procedures/[place] [id number] Radiology Main Line: [phone] DIAGNOSTIC IMAGING REPORT Patient: AKASH GARCÍA : 1970 Age: 48 Sex: M MR #: [id number] DOS: 03/03/19 1540 Ordering MD: VENKATESH PEARSON MD Location: E/R Room/Bed: PROCEDURE: XR Chest. CLINICAL INDICATION: chest pain TECHNIQUE: Single frontal view of the chest was obtained COMPARISON: DR HERNANDEZ CHEST 11/24/2018 FINDINGS: The heart and mediastinum are within normal limits. The lungs are clear. There is no pleural effusion or pneumothorax. RPTAT: AA IMPRESSION: No acute disease. .Kendell Greenwood MD, MD Date Time Electronically viewed and signed by .Kendell Greenwood MD, MD on 03/03/2019 17:11 .S/ CC: VENKATESH PERASON MD [phone] EKG: Read by emergency physician Rate/Rhythm: Normal Sinus Rhythm 80 beats/min QRS, ST, T-waves: No ST elevation, no T inversion, septal Q's Impression: Abnormal EKG Consultation: I discussed episode with Dr Elizondo, who recommended admitting the patient MEDICAL MAKING DECISION: The patient is 48 year old male, with multiple cardiac risk factors, presenting with acute chest pain that is concerning for acute ACS, was treated with aspirin 325 mg p.o., 1 inch of nitroglycerin ointment to the chest wall for acute chest pain and [place] 10 mg p.o. for his chronic right foot pain with good response. The differential diagnoses considered include but are not limited to acute coronary syndrome, acute myocardial infarction, pericarditis, pulmonary embolism, aortic dissection, pneumonia, pleural effusion, pneumothorax, GERD, chest wall pain. Departure Diagnosis: Primary Impression: Chest pain Additional Impression: Renal insufficiency Condition: Stable Comments I discussed the findings with the patient. I discussed the patient with Dr Cain at 5:25 p , who was made aware of the lab, the treatment, the patient condition. The patient is admitted to [facility] Disclaimer: Inadvertent spelling and grammatical errors are likely due to EHR/dictation software use and do not reflect on the overall quality of patient care. Also, please note that the electronic time recorded on this note does not necessarily reflect the actual time of the patient encounter. VENKATESH PEARSON MD March 03, 2019 15:33
[2019-03-03] MEDS ORDERED: ASPIRIN 81 MG TAB PO ONE (16:00)
[2019-03-03] MEDS ORDERED: NITROGLYCERIN 2% 1 GM OINT PKT TD ONE (16:00)
[2019-03-03] MEDS ORDERED: HYDROCODONE/APAP (10/325) TAB PO ONE (16:30)
[2019-03-03] MEDS ORDERED: OXYC-431 PO (17:42)
[2019-03-03] MEDS ORDERED: HYDR-3980 PO (17:42)
[2019-03-03] MEDS ORDERED: LORAZEPAM 2 MG INJ IV PRN (19:00)
[2019-03-03] MEDS ORDERED: hydrALAzine 20 MG INJ IV PRN (19:00)
[2019-03-03] MEDS ORDERED: ONDANSETRON 4 MG INJ IV PRN (19:00)
[2019-03-03] MEDS ORDERED: ACETAMINOPHEN 325 MG TAB PO PRN (19:00)
[2019-03-03] MEDS ORDERED: NITROGLYCERIN (SL) 0.4 MG TAB SL PRN (19:00)
[2019-03-03] MEDS ORDERED: MAGNESIUM HYDROXIDE 30ML CUP PO PRN (19:00)
[2019-03-03] MEDS ORDERED: ALBUTEROL/IPRATROPIUM (NEB) 3 ML AMP HHN PRN (19:00)
[2019-03-03] MEDS ORDERED: DOCUSATE SODIUM 100 MG CAP PO PRN (19:00)
[2019-03-03] MEDS ORDERED: INSULIN GLARGINE [LANtus] 3 ML PEN SC SCH (19:00)
[2019-03-03] MEDS ORDERED: NACL 0.9% 3 ML SYG IV SCH (19:00)
--- NOTE | 2019-03-03 19:09 | CONS ---
Assessment/Plan Assessment/Plan Hospital Course (Demo Recall) 1.Chest pain r/ o ACS 2. multivessel CAD 3. HX PCI OM 4. DM 5. HTN 6. Dyslipidemia 7. morbid obesity 8. PAD 9. NONhealing wound REC cont ASA PLAVIX BETABLOCKER DM control HOLD metformin cont statin check lipid panel R/O [place] [facility] michelet PCI tomorrow am . Risks benefits and alternatives of procedure discussed with the patient. Risks including but not limited to risk of infection vascular complication bleeding complication MN stroke arrhythmia renal failure etc. discussed. Patient consented to procedure. Patient has been scheduled for the procedure for a.m. Thank you for his referral. We will continue to follow along with you MARII OLIVEIRA MD [facility] Consultation Date/Type/Reason Admit Date/Time Date of Consultation: March 03, 2019 Type of Consult Cardiology Reason for Consultation chest pain Requesting Provider: LUCAS OROZCO Date/Time of Note DATE: 03/03/19 TIME: 19:03 Hx of Present Illness Interventional cardiology consultation note Chief complaint: Chest pain Reason for consult: Chest pain History of present illness: Thank you for this referral. History was obtained from the patient from review of the old chart. This is a pleasant 48-year-old gentleman multiple complicated medical history including history of coronary artery disease status post complex PCI of his left circumflex artery/obtuse marginals who presented to emergency room with recurrence of chest pain. Pain is anterior pressure-like. He could not describe any exacerbation or relieving factors for it much but it seems like is getting worse with exertion. Also patient is unable to do much activity due to his leg pain He states that he has been compliant with aspirin and Plavix has not had any recent bleeding Allergies: Morphine Medications were reviewed as per medical reconciliation sheet Family history: No reported early coronary artery disease Social history: Has quit smoking Past medical history: Coronary artery disease multivessel coronary artery disease. Patient is being followed by his regular wire splicer Dr. Kwasi Martin and has had a coronary angiogram done by him about a month ago at [facility]. Coronary angiogram that time showed multivessel coronary artery disease. He was referred for cardiac surgery for a coronary artery bypass graft at that time but. After CT surgery evaluation, the surgery felt the patient would not be a good candidate for bypass due to his severe right lower extremity wound. At that time he was referred to me for multivessel PCI and underwent PCI of 2 of his second obtuse marginals. He still has significant right coronary arteries as well as diagonal disease which was felt that his best to stage him and later on once he remains stable. Patient also with diabetes hypertension dyslipidemia likely peripheral vascular disease Review of system: Patient denies all others except for above-mentioned Past Medical History Home Meds Active Scripts Insulin Lispro (Humalog) 100 Unit/1 Ml Cartridge, 14 UNIT SQ TIDM A, #1 EA Take insulin lispro 14 units subcutaneous 3 times a day with meals. Need to check blood sugar 3 times a day and at bedtime. Provide patient with 100 lancet, 100 test strips, 100 32-gauge insulin pen needles. Prov:KIMI HULL NP 01/17/19 Insulin Glargine,Hum.rec.anlog (Basaglar Kwikpen U-100) 100 Unit/1 Ml Insuln.pen, 32 UNIT SC .HS, #1 EA Prov:KIMI HULL NP 01/17/19 Collagenase* (Santyl*) 30 Gm Oint..gm., 1 APPLIC TOP DAILY, #1 TUBE Apply to right lower extremity wound after irrigation with Dakin solution. Prov:KIMI HULL NP 01/17/19 Linagliptin (TRADJENTA) 5 Mg Tablet, 5 MG PO DAILY, #30 TAB Prov:KIMI HULL V. MEDICAL CLAIMS PROCESSOR 01/17/19 Empagliflozin (Jardiance) 10 Mg Tablet, 25 MG PO DAILY@08, #30 TAB Prov:KIMI HULL V. MEDICAL CLAIMS PROCESSOR 01/17/19 Reported Medications Hydrocodone/Acetaminophen ([place] 10-325 Tablet) 1 Each Tablet, 1 EACH PO Q8H, TAB 03/03/19 Oxycodone HCl/Acetaminophen (Oxycodone-Acetaminophen 10-325) 1 Each Tablet, 1 EACH PO Q12H PRN for NEEDED, TAB 03/03/19 Atorvastatin* (Atorvastatin*) 80 Mg Tablet, 80 MG PO QHS, #30 TAB 01/15/19 Clopidogrel Bisulfate* (Clopidogrel Bisulfate*) 75 Mg Tablet, 75 MG PO DAILY, #30 TAB 01/15/19 Carvedilol* (Carvedilol*) 12.5 Mg Tablet, 12.5 MG PO BID, #60 TAB 3/20/19 Aspirin* (Aspirin* EC) 81 Mg Tablet.dr, 81 MG PO DAILY, TAB 01/15/19 Amlodipine Besylate* (Norvasc*) 5 Mg Tablet, 5 MG PO DAILY, TAB 01/15/19 Hydrochlorothiazide* (Hydrochlorothiazide*) 25 Mg Tab, 25 MG PO DAILY, #30 TAB 01/15/19 Lisinopril* (Lisinopril*) 20 Mg Tablet, 20 MG PO DAILY, #30 TAB 01/15/19 Gabapentin* (Gabapentin*) 300 Mg Capsule, 300 MG PO TID, #90 CAP 01/15/19 Isosorbide Dinitrate* (Isordil*) 10 Mg Tablet, 10 MG PO TID, TAB 01/15/19 Discontinued Scripts Morphine Sulfate (Morphine Sulfate ER) 15 Mg Tablet.er, 15 MG PO BID PRN for PAIN, #30 TAB Prov:KIMI HULL V. MEDICAL CLAIMS PROCESSOR 01/17/19 Medications Current Medications IV Flush (NS 3 ml) 3 ml PER PROTOCOL IV ; Start 03/03/19 at 19:00; Status UNV Ondansetron HCl (Zofran Inj) 4 mg Q6H PRN IV NAUSEA/VOMITING; Start 03/03/19 at 19:00 Acetaminophen (Tylenol Tab) 650 mg Q6H PRN PO .PAIN 1-3 OR TEMP; Start 03/03/19 at 19:00 Acetaminophen/ Hydrocodone Bitart ([place] (5/325)) 1 tab Q6H PRN PO .MOD PAIN 4- 6; Start 03/03/19 at 19:00; Status UNV Morphine Sulfate (morphine) 2 mg Q4H PRN IV .SEVERE PAIN 7-10; Start 03/03/19 at 19:00; Status UNV Docusate Sodium (Colace) 100 mg Q12H PRN PO .CONSTIPATION; Start 03/03/19 at 19:00 Magnesium Hydroxide (Milk Of Mag) 30 ml DAILY PRN PO .CONSTIPATION; Start 03/03/19 at 19:00; Status UNV Lorazepam (Ativan) 0.5 mg Q6H PRN IV ANXIETY; Start 03/03/19 at 19:00; Status UNV Albuterol/ Ipratropium (Duoneb) 3 ml Q4H RESP THERAPY PRN HHN SHORTNESS OF BREATH; Start 03/03/19 at 19:00; Status UNV Hydralazine HCl (Apresoline) 10 mg Q6H PRN IV ELEVATED BLOOD PRESSURE; Start 03/03/19 at 19:00; Status UNV Nitroglycerin (Nitroglycerin (Sl Tab) 0.4 Mg) 1 tab Q5M PRN SL ANGINA; Start 03/03/19 at 19:00; Status UNV Aspirin (Ecotrin) 325 mg DAILY PO ; Start 03/04/19 at 09:00 Miscellaneous Information (* Miscellaneous Pharmacy Order) Discontinue current oral sulfonylur... ONCE ONCE XX ; Start 03/03/19 at 19:00; Stop 03/03/19 at 19:01 Diagnostic Test (Pha) (Accu-Chek) 1 XX ; Start 03/04/19 at 02:00 Miscellaneous Information (* Miscellaneous Pharmacy Order) HYPOGLYCEMIA PROTOCOL w... ONCE ONCE XX ; Start 03/03/19 at 19:00; Stop 03/03/19 at 19:01; Status UNV Insulin Aspart (Novolog Insulin Pen) NOVOLOG *MILD* ALGORI... Q4 SC ; Start 03/03/19 at 21:00; Status UNV Miscellaneous Information (* Miscellaneous Pharmacy Order) Discontinue all previ... ONCE ONCE XX ; Start 03/03/19 at 19:00; Stop 03/03/19 at 19:01; Status UNV Amlodipine Besylate (Norvasc) 5 mg DAILY PO ; Start 03/04/19 at 09:00 Aspirin (Halfprin) 81 mg DAILY PO ; Start 03/04/19 at 09:00 Atorvastatin Calcium (Lipitor) 80 mg QHS PO ; Start 03/03/19 at 21:00 Carvedilol (Coreg) 12.5 mg BID PO ; Start 03/03/19 at 21:00 Collagenase (Santyl) 1 applic DAILY TOP ; Start 03/04/19 at 09:00; Status UNV Gabapentin (Neurontin) 300 mg TID PO ; Start 03/03/19 at 21:00 Insulin Glargine (Lantus) 32 unit HS SC ; Start 03/03/19 at 19:00; Status UNV Isosorbide Dinitrate (Isordil) 10 mg TID PO ; Start 03/03/19 at 21:00; Status UNV Miscellaneous Information 14 unit TIDM A SQ ; Start 03/03/19 at 19:00; Status UNV Clopidogrel Bisulfate (plaVIX) 75 mg DAILY PO ; Start 03/04/19 at 09:00 Allergies: Coded Allergies: metformin (Verified Allergy, Intermediate, 03/03/19) per pt, makes him feel horribles, worse abdominal pain Past Surgical History Past Surgical Hx: angioplasty, other Social History Smoking Status: Current every day smoker Exam/Review of Systems Vital Signs Vitals Vital Signs Date Temp Pulse Resp B/P (MAP) Pulse Ox O2 O2 Flow FiO2 Time Delivery Rate 03/03/19 78 20 136/84 99 Room Air 16:45 (101) 03/03/19 98.1 11:11 Exam Exam General: no acute distress HEENT: NC/AT. pupils are equal. round. NECK: NO JVD. no stridor. CV: RRR. systolic murmur; no gallop or rubs. PULM: no wheezing or rhonchi. GI: SOFT, NT, ND, no rebound or guarding Extremity: Right lower extremity is covered neuro: awake and alert, OX3. Psych: calm and pleasant rectal: deferred echo 01/14 shows Normal left ventricular systolic function. Normal left ventricular cavity size. Mild concentric left ventricular hypertrophy. Ejection fraction is visually estimated at 50 %. Tissue Doppler/Mitral Doppler indices are consistent with impaired relaxation (Stage I diastolic dysfunction). No significant aortic stenosis or insufficiency. Aortic cusps appear mildly calcified. Mild mitral leaflet calcification. Mild mitral annular calcification. Trace mitral regurgitation. Normal appearance of the tricuspid valve. Unable to obtain RVSP due to minimal presence of tricuspid regurgitation. Labs Result Diagram: 03/03/19 1609 03/03/19 1608 Results 24hrs Laboratory Tests Test 03/03/19 16:08 03/03/19 16:09 Sodium Level 136 Potassium Level 5.0 Chloride Level 102 Carbon Dioxide Level 21 Anion Gap 13 Blood Urea Nitrogen 32 H Creatinine 1.37 H Est Glomerular Filtrat Rate mL/min 55 L Glucose Level 283 H Calcium Level 10.1 Troponin I < 0.012 White Blood Count 11.0 H Red Blood Count 4.98 Hemoglobin 14.4 Hematocrit 44.7 Mean Corpuscular Volume 89.8 Mean Corpuscular Hemoglobin 28.9 L Mean Corpuscular Hemoglobin Concent 32.2 Red Cell Distribution Width 14.2 Platelet Count 318 # Mean Platelet Volume 11.0 H Immature Granulocytes % 0.300 Neutrophils % 53.7 Lymphocytes % 26.8 Monocytes % 8.5 Eosinophils % 9.7 H Basophils % 1.0 Nucleated Red Blood Cells % 0.0 Immature Granulocytes # 0.030 Neutrophils # 5.9 Lymphocytes # 2.9 Monocytes # 0.9 Eosinophils # 1.1 H Basophils # 0.1 Nucleated Red Blood Cells # 0.0 Medications Medications Current Medications IV Flush (NS 3 ml) 3 ml PER PROTOCOL IV ; Start 03/03/19 at 19:00; Status UNV Ondansetron HCl (Zofran Inj) 4 mg Q6H PRN IV NAUSEA/VOMITING; Start 03/03/19 at 19:00 Acetaminophen (Tylenol Tab) 650 mg Q6H PRN PO .PAIN 1-3 OR TEMP; Start 03/03/19 at 19:00 Acetaminophen/ Hydrocodone Bitart ([place] (5/325)) 1 tab Q6H PRN PO .MOD PAIN 4- 6; Start 03/03/19 at 19:00; Status UNV Morphine Sulfate (morphine) 2 mg Q4H PRN IV .SEVERE PAIN 7-10; Start 03/03/19 at 19:00; Status UNV Docusate Sodium (Colace) 100 mg Q12H PRN PO .CONSTIPATION; Start 03/03/19 at 19:00 Magnesium Hydroxide (Milk Of Mag) 30 ml DAILY PRN PO .CONSTIPATION; Start 03/03/19 at 19:00; Status UNV Lorazepam (Ativan) 0.5 mg Q6H PRN IV ANXIETY; Start 03/03/19 at 19:00; Status U NV Albuterol/ Ipratropium (Duoneb) 3 ml Q4H RESP THERAPY PRN HHN SHORTNESS OF BREATH; Start 03/03/19 at 19:00; Status UNV Hydralazine HCl (Apresoline) 10 mg Q6H PRN IV ELEVATED BLOOD PRESSURE; Start 03/03/19 at 19:00; Status UNV Nitroglycerin (Nitroglycerin (Sl Tab) 0.4 Mg) 1 tab Q5M PRN SL ANGINA; Start 03/03/19 at 19:00; Status UNV Aspirin (Ecotrin) 325 mg DAILY PO ; Start 03/04/19 at 09:00 Miscellaneous Information (* Miscellaneous Pharmacy Order) Discontinue current oral sulfonylur... ONCE ONCE XX ; Start 03/03/19 at 19:00; Stop 03/03/19 at 19:01 Diagnostic Test (Pha) (Accu-Chek) 1 ea 02 XX ; Start 03/04/19 at 02:00 Miscellaneous Information (* Miscellaneous Pharmacy Order) HYPOGLYCEMIA PROTOCOL w... ONCE ONCE XX ; Start 03/03/19 at 19:00; Stop 03/03/19 at 19:01; Status UNV Insulin Aspart (Novolog Insulin Pen) NOVOLOG *MILD* ALGORI... Q4 SC ; Start 03/03/19 at 21:00; Status UNV Miscellaneous Information (* Miscellaneous Pharmacy Order) Discontinue all previ... ONCE ONCE XX ; Start 03/03/19 at 19:00; Stop 03/03/19 at 19:01; Status UNV Amlodipine Besylate (Norvasc) 5 mg DAILY PO ; Start 03/04/19 at 09:00 Aspirin (Halfprin) 81 mg DAILY PO ; Start 03/04/19 at 09:00 Atorvastatin Calcium (Lipitor) 80 mg QHS PO ; Start 03/03/19 at 21:00 Carvedilol (Coreg) 12.5 mg BID PO ; Start 03/03/19 at 21:00 Collagenase (Santyl) 1 applic DAILY TOP ; Start 03/04/19 at 09:00; Status UNV Gabapentin (Neurontin) 300 mg TID PO ; Start 03/03/19 at 21:00 Insulin Glargine (Lantus) 32 unit HS SC ; Start 03/03/19 at 19:00; Status UNV Isosorbide Dinitrate (Isordil) 10 mg TID PO ; Start 03/03/19 at 21:00; Status UNV Miscellaneous Information 14 unit TIDM A SQ ; Start 03/03/19 at 19:00; Status UNV Clopidogrel Bisulfate (plaVIX) 75 mg DAILY PO ; Start 03/04/19 at 09:00 MARII OLIVEIRA MD March 03, 2019 19:09
[2019-03-03] MEDS: morphine 2 MG INJ IV PRN (19:31)
--- NOTE | 2019-03-03 19:46 | HP ---
DATE OF ADMISSION: 03/03/2019 CHIEF COMPLAINT: Chest pain, recent stent placement 6 weeks ago. HISTORY OF PRESENT ILLNESS: A 48-year-old male with history of non-ST elevation HI, coronary artery disease with stent placement x2 performed 6 weeks ago, type 2 diabetes, high cholesterol, hypertensio n, who was sent in by his computer installation engineer because of chest pain and need for possible new stent placemen t versus bypass surgery. The patient presently denies any fever or chills, diarrhea or constipation, no nausea or vomiting, but he has been having some chest pain, pressure-like in sensation, mild shor tness of breath. The patient was last here at [facility] from 01/15 to 01/17/2019. At that time, he was treated for bleeding right lower extremity chronic nonhealing diabetic ulcer, and apparently 6 w eeks ago or within the last 2 months, had stent placement at [facility]. When patient came in today, he was found to have white blood cell count of 11.0, his creatinine was 1 .37, his troponin was negative x1. PAST MEDICAL HISTORY: As stated above. ALLERGY: Metformin. HOME MEDICINES: 1. Plavix 75 mg daily. 2. Norvasc 5 mg daily. 3. Atorvastatin 80 mg at bedtime. 4. Coreg 12.5 mg b.i.d. 5. Isordil 10 mg t.i.d. 6. Lisinopril 20 mg daily. 7. Aspirin 81 mg daily. 8. Gabapentin 300 mg t.i.d. 9. [place] 10/325 one tab q.8 hours p.r.n. 10. Hydrochlorothiazide 25 mg daily. 11. Jardiance 25 mg daily. 12. Basaglar insulin 32 units at bedtime. 13. Humalog insulin 14 units. 14. Tradjenta 5 mg daily. 15. Santyl topically daily. FAMILY HISTORY: Noncontributory. 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 PAST SURGICAL HISTORY: Again, he had recent cardiac stent placement 6 to 8 weeks ago. He has had le g debridement in the past with skin graft placement in the past and also left ankle surgery in the [facility] and left wrist surgery in the past. PHYSICAL EXAMINATION: VITAL SIGNS: Today, T-max 98.1, pulse 80, respirations 18, blood pressure 146/77, satting at 95% on room air. GENERAL: The patient lying in bed, answering questions appropriately. No acute distress. HEENT: Pupils equal, round, reactive to light. Extraocular muscles intact. NECK: Supple. No thyromegaly. LUNGS: Clear to auscultation bilaterally. CARDIOVASCULAR: S1, S2 heard. No rubs or gallops. ABDOMEN: Soft, nontender, nondistended. Normal bowel sounds. No rebound or guarding. MUSCULOSKELETAL: No lower extremity edema bilaterally. NEUROLOGIC: No focal deficits. LABORATORY DATA: Sodium 136, potassium 5.0, chloride 102, CO2 21, BUN 32, creatinine 1.37, glucose 2 83. WBC 11.0, hemoglobin 14.4, hematocrit 44.7, platelets 318. IMAGING STUDY: His chest x-ray showed no acute disease. ASSESSMENT AND PLAN: A 48-year-old male with prior history of non-ST elevation myocardial infarction , coronary artery disease with stent placement x2 recently, type 2 diabetes, hypertension, high ernestine sterol, who presents with chest pain symptoms. 1. Chest pain. Again, rule out for acute coronary syndrome. Admit the patient. Put him on aspirin , morphine, oxygen, nitroglycerin as needed and trend his troponins. First troponin is negative. Ch varsha 2 more every 6 hours. We will get a cardiology consult. The patient, per discussion with Cardio logy team, may benefit from another stent placement given his significant coronary artery disease mainor cici possible bypass surgery. We will discuss the case further with Cardiology team when the patient is more stabilized. Follow up TSH, A1c and lipid panel. Continue aspirin and Plavix for now. 2. Type 2 diabetes. Follow up A1c. Continue home Basaglar insulin and short-acting insulin. Add s liding-scale insulin. 3. History of high cholesterol. Follow up lipid panel. Continue statin. 4. History of hypertension. For now, continue Coreg. We are holding his hydrochlorothiazide medica tion for now. Continue Isordil. 5. Gastrointestinal prophylaxis. Add H2 freya. 6. Deep venous thrombosis prophylaxis. He will be on sequential compression devices for now. Dictated By: LUCAS GARCIA Conf#: [id number] DID#: [id number]
[2019-03-03] MEDS: DIPHENHYDRAMINE 25 MG CAP PO PRN (20:09)
[2019-03-03] MEDS: INSULIN ASPART [NOVOLOG] 3 ML PEN SC SCH ×2 (22:00→22:41)
[2019-03-03] MEDS: ATORVASTATIN 80 MG TAB PO SCH (22:43)
[2019-03-03] MEDS: HYDROCODONE/APAP (5/325) TAB PO PRN (22:44)
[2019-03-03] MEDS: ISOSORBIDE DINITRATE 10 MG TAB PO SCH (22:44)
[2019-03-03] MEDS: GABAPENTIN 300 MG CAP PO SCH (22:45)
[2019-03-03] MEDS: INSULIN GLARGINE [LANTus] (100 UNITS/ML) SYG SC SCH (22:46)
[2019-03-04] VITALS (27 sets, daily range): BP systolic 84–175; BP diastolic 57–95; PULSE 75–100; RESP 10–24
[2019-03-04] MEDS ORDERED: DIPHENHYDRAMINE 50 MG INJ IV ONE ×2 (00:30→12:39)
[2019-03-04] MEDS: INSULIN ASPART [NOVOLOG] 3 ML PEN SC SCH ×10 (01:00→23:55)
[2019-03-04] MEDS: morphine 2 MG INJ IV PRN ×3 (01:56→18:12)
[2019-03-04] MEDS: ACCU-CHEK XX SCH (02:00)
[2019-03-04] MEDS: HYDROCODONE/APAP (5/325) TAB PO PRN (04:44)
[2019-03-04] MEDS: DIPHENHYDRAMINE 25 MG CAP PO PRN ×2 (05:43→11:53)
--- NOTE | 2019-03-04 07:25 | CONS ---
Consult Date/Type/Reason Admit Date/Time March 03, 2019 at 17:57 Initial Consult Date 03/03/19 Type of Consultation: cv Requesting Provider: LUCAS OROZCO Date/Time of Note DATE: 03/04/19 TIME: 07:23 Subjective Cardiology follow-up progress note Subjective: Discussed with the staff telemetry was reviewed patient remains in sinus rhythm overnight No chest pain or pressure now but has had some chest discomfort last night again Objective: General: no acute distress HEENT: NC/AT. pupils are equal. round. NECK: NO JVD. no stridor. CV: RRR. systolic murmur; no gallop or rubs. PULM: no wheezing or rhonchi. GI: SOFT, NT, ND, no rebound or guarding Extremity: Right lower extremity is covered neuro: awake and alert, OX3. Psych: calm and pleasant rectal: deferred echo 01/14 shows Normal left ventricular systolic function. Normal left ventricular cavity size. Mild concentric left ventricular hypertrophy. Ejection fraction is visually estimated at 50 %. Tissue Doppler/Mitral Doppler indices are consistent with impaired relaxation (Stage I diastolic dysfunction). No significant aortic stenosis or insufficiency. Aortic cusps appear mildly calcified. Mild mitral leaflet calcification. Mild mitral annular calcification. Trace mitral regurgitation. Normal appearance of the tricuspid valve. Unable to obtain RVSP due to minimal presence of tricuspid regurgitation. Objective Vitals Vital Signs Date Temp Pulse Resp B/P (MAP) Pulse Ox O2 O2 Flow FiO2 Time Delivery Rate 03/04/19 98.0 75 20 100/58 92 Room Air 04:00 (72) Results/Medications Result Diagram: 03/03/19 1609 03/03/19 1608 Results 24 hrs Laboratory Tests Test 03/03/19 16:08 03/03/19 16:09 03/03/19 19:20 03/03/19 22:38 Sodium Level 136 Potassium Level 5.0 Chloride Level 102 Carbon Dioxide Level 21 Anion Gap 13 Blood Urea Nitrogen 32 H Creatinine 1.37 H Est Glomerular Filtrat 55 L Rate mL/min Glucose Level 283 H Calcium Level 10.1 Troponin I < 0.012 White Blood Count 11.0 H Red Blood Count 4.98 Hemoglobin 14.4 Hematocrit 44.7 Mean Corpuscular Volume 89.8 Mean Corpuscular 28.9 L Hemoglobin Mean Corpuscular 32.2 Hemoglobin Concent Red Cell Distribution 14.2 Width Platelet Count 318 # Mean Platelet Volume 11.0 H Immature Granulocytes % 0.300 Neutrophils % 53.7 Lymphocytes % 26.8 Monocytes % 8.5 Eosinophils % 9.7 H Basophils % 1.0 Nucleated Red Blood 0.0 Cells % Immature Granulocytes # 0.030 Neutrophils # 5.9 Lymphocytes # 2.9 Monocytes # 0.9 Eosinophils # 1.1 H Basophils # 0.1 Nucleated Red Blood 0.0 Cells # Prothrombin Time 11.8 L Prothrombin Time Ratio 0.9 INR International 0.86 Normalized Ratio Activated 28.3 Partial Thromboplast Time Creatine Kinase 126 Creatinine Kinase MB 2.63 H (Mass) Free Thyroxine 1.46 Bedside Glucose 133 Test 03/03/19 23:09 03/04/19 01:09 03/04/19 06:10 Creatine Kinase 126 Creatine Kinase Index 2.9 Creatinine Kinase MB 3.61 H (Mass) Troponin I < 0.012 Bedside Glucose 144 132 Home Meds Active Scripts Insulin Lispro (Humalog) 100 Unit/1 Ml Cartridge, 14 UNIT SQ TIDM A, #1 EA Take insulin lispro 14 units subcutaneous 3 times a day with meals. Need to check blood sugar 3 times a day and at bedtime. Provide patient with 100 lancet, 100 test strips, 100 32-gauge insulin pen needles. Prov:KIMI HULL NP 01/17/19 Insulin Glargine,Hum.rec.anlog (Basaglar Kwikpen U-100) 100 Unit/1 Ml Insuln.pen, 32 UNIT SC .HS, #1 EA Prov:KIMI HULL V. COUNTER INSTALLER 01/17/19 Collagenase* (Santyl*) 30 Gm Oint..gm., 1 APPLIC TOP DAILY, #1 TUBE Apply to right lower extremity wound after irrigation with Dakin solution. Prov:HULLCADYA Aurelia. COUNTER INSTALLER 01/17/19 Linagliptin (TRADJENTA) 5 Mg Tablet, 5 MG PO DAILY, #30 TAB Prov:HULLKIMI V. COUNTER INSTALLER 01/17/19 Empagliflozin (Jardiance) 10 Mg Tablet, 25 MG PO DAILY@08, #30 TAB Prov:IKMI HULL V. COUNTER INSTALLER 01/17/19 Reported Medications Hydrocodone/Acetaminophen ([place] 10-325 Tablet) 1 Each Tablet, 1 EACH PO Q8H, TAB 5/6/19 Oxycodone HCl/Acetaminophen (Oxycodone-Acetaminophen 10-325) 1 Each Tablet, 1 EACH PO Q12H PRN for NEEDED, TAB 03/03/19 Atorvastatin* (Atorvastatin*) 80 Mg Tablet, 80 MG PO QHS, #30 TAB 01/15/19 Clopidogrel Bisulfate* (Clopidogrel Bisulfate*) 75 Mg Tablet, 75 MG PO DAILY, #30 TAB 01/15/19 Carvedilol* (Carvedilol*) 12.5 Mg Tablet, 12.5 MG PO BID, #60 TAB 01/15/19 Aspirin* (Aspirin* EC) 81 Mg Tablet.dr, 81 MG PO DAILY, TAB 01/15/19 Amlodipine Besylate* (Norvasc*) 5 Mg Tablet, 5 MG PO DAILY, TAB 01/15/19 Hydrochlorothiazide* (Hydrochlorothiazide*) 25 Mg Tab, 25 MG PO DAILY, #30 TAB 01/15/19 Lisinopril* (Lisinopril*) 20 Mg Tablet, 20 MG PO DAILY, #30 TAB 01/15/19 Gabapentin* (Gabapentin*) 300 Mg Capsule, 300 MG PO TID, #90 CAP 01/15/19 Isosorbide Dinitrate* (Isordil*) 10 Mg Tablet, 10 MG PO TID, TAB 01/15/19 Discontinued Scripts Morphine Sulfate (Morphine Sulfate ER) 15 Mg Tablet.er, 15 MG PO BID PRN for PAIN, #30 TAB Prov:KIMI HULL V. COUNTER INSTALLER 01/17/19 Medications Current Medications IV Flush (NS 3 ml) 3 ml PER PROTOCOL IV ; Start 03/03/19 at 19:00 Ondansetron HCl (Zofran Inj) 4 mg Q6H PRN IV NAUSEA/VOMITING Last administered on 03/03/19at 19:31; Admin Dose 4 MG; Start 03/03/19 at 19:00 Acetaminophen (Tylenol Tab) 650 mg Q6H PRN PO .PAIN 1-3 OR TEMP; Start 03/03/19 at 19:00 Acetaminophen/ Hydrocodone Bitart ([place] (5/325)) 1 tab Q6H PRN PO .MOD PAIN 4- 6 Last administered on 03/04/19at 04:44; Admin Dose 1 TAB; Start 03/03/19 at 19:00 Morphine Sulfate (morphine) 2 mg Q4H PRN IV .SEVERE PAIN 7-10 Last administered on 03/04/19at 01:56; Admin Dose 2 MG; Start 03/03/19 at 19:00 Docusate Sodium (Colace) 100 mg Q12H PRN PO .CONSTIPATION; Start 03/03/19 at 19:00 Magnesium Hydroxide (Milk Of Mag) 30 ml DAILY PRN PO .CONSTIPATION; Start 03/03/19 at 19:00 Lorazepam (Ativan) 0.5 mg Q6H PRN IV ANXIETY; Start 03/03/19 at 19:00 Albuterol/ Ipratropium (Duoneb) 3 ml Q4H RESP THERAPY PRN HHN SHORTNESS OF BLAKE TH; Start 03/03/19 at 19:00 Hydralazine HCl (Apresoline) 10 mg Q6H PRN IV ELEVATED BLOOD PRESSURE; Start 03/03/19 at 19:00 Nitroglycerin (Nitroglycerin (Sl Tab) 0.4 Mg) 1 tab Q5M PRN SL ANGINA; Start 03/03/19 at 19:00 Diagnostic Test (Pha) (Accu-Chek) 1 ea 02 XX Last administered on 03/04/19at 02:00; Admin Dose 1 EA; Start 03/04/19 at 02:00 Insulin Aspart (Novolog Insulin Pen) NOVOLOG *MILD* ALGORI... Q4 SC ; Start 03/03/19 at 21:00 Amlodipine Besylate (Norvasc) 5 mg DAILY PO ; Start 03/04/19 at 09:00 Atorvastatin Calcium (Lipitor) 80 mg QHS PO Last administered on 03/03/19at 22:43; Admin Dose 80 MG; Start 03/03/19 at 21:00 Carvedilol (Coreg) 12.5 mg BID PO Last administered on 03/03/19at 22:45; Admin Dose 12.5 MG; Start 03/03/19 at 21:00 Collagenase (Santyl) 1 applic DAILY TOP ; Start 03/04/19 at 09:00 Gabapentin (Neurontin) 300 mg TID PO Last administered on 03/03/19at 22:45; Admin Dose 300 MG; Start 03/03/19 at 21:00 Isosorbide Dinitrate (Isordil) 10 mg TID PO Last administered on 5/6/19at 22: 44; Admin Dose 10 MG; Start 03/03/19 at 21:00 Insulin Aspart (Novolog Insulin Pen) 14 unit AC MEALS SC ; Start 03/03/19 at 22:00 Clopidogrel Bisulfate (plaVIX) 75 mg DAILY PO ; Start 03/04/19 at 09:00 Insulin Glargine (Lantus) 32 units QHS SC ; Start 03/03/19 at 21:00 Aspirin (Halfprin) 81 mg DAILY PO ; Start 03/04/19 at 09:00 Diphenhydramine HCl (Benadryl) 25 mg Q6 PRN PO itch Last administered on at 05:43; Admin Dose 25 MG; Start 03/03/19 at 20:00 Assessment/Plan Hospital Course (Demo Recall) 1.Chest pain r/ o ACS 2. multivessel CAD 3. HX PCI OM 4. DM 5. HTN 6. Dyslipidemia 7. morbid obesity 8. PAD 9. NONhealing wound REC cont ASA PLAVIX BETABLOCKER DM control HOLD metformin We will discontinue Norvasc to avoid hypotension cont statin check lipid panel R/O [place] [facility] michelet PCI today Risks benefits and alternatives of procedure discussed with the patient. Risks including but not limited to risk of infection vascular complication bleeding complication [place] stroke arrhythmia renal failure etc. discussed. Patient consented to procedure. Patient has been scheduled for the procedure for a.m. Thank you for his referral. We will continue to follow along with you MARII OLIVEIRA MD [facility] MARII OLIVEIRA MD March 04, 2019 07:25
[2019-03-04] MEDS ORDERED: DIPHENHYDRAMINE 50 MG INJ ONE ×2 (07:37→12:37)
[2019-03-04] MEDS ORDERED: HEPARIN 1000 UNITS/ML 10 ML INJ ONE (07:45)
[2019-03-04] MEDS ORDERED: LIDOCAINE 1% (MDV) 20 ML INJ ONE (07:45)
[2019-03-04] MEDS ORDERED: IODIXANOL LOCM 100 ML BTL ONE (07:45)
[2019-03-04] MEDS ORDERED: MIDAZOLAM 1 MG/ML 2 ML INJ ONE (07:46)
[2019-03-04] MEDS ORDERED: NITROGLYCERIN (IC) 100 MCG/ML INJ ONE (07:46)
[2019-03-04] MEDS ORDERED: VERAPAMIL 5 MG INJ ONE (07:46)
[2019-03-04] MEDS ORDERED: FENTAnyl 50 MCG/ML VIAL ONE (07:46)
[2019-03-04] MEDS ORDERED: AMLODIPINE 5 MG TAB PO SCH (09:00)
[2019-03-04] MEDS ORDERED: ASPIRIN (EC) 325 MG TAB PO SCH (09:00)
[2019-03-04] MEDS: GABAPENTIN 300 MG CAP PO SCH ×3 (09:00→21:33)
[2019-03-04] MEDS ORDERED: ASPIRIN (EC) 81 MG TAB PO SCH (09:00)
[2019-03-04] MEDS: ISOSORBIDE DINITRATE 10 MG TAB PO SCH ×2 (09:00→21:33)
[2019-03-04] MEDS ORDERED: CLOPIDOGREL 300 MG TAB ONE (09:29)
[2019-03-04] MEDS ORDERED: SOD CHLORIDE 0.9% 1,000 ML IV SCH (09:39)
--- NOTE | 2019-03-04 09:48 | OPR ---
Date/Time of Note Date/Time of Note DATE: 03/04/19 TIME: 09:43 Operative Report Procedure Date: March 04, 2019 Preoperative Diagnosis ACS Postoperative Diagnosis ACS Operation/Procedure Performed PCI RCA Surgeon see signature line Civil Draftsman Tim Anesthesia Type: moderate sedation Estimated Blood Loss: minimal Transfusion none Specimen none Grafts/Implants none Complications none Procedure Description Game Protector: Marii Elizondo MD Indication: 48-year-old gentleman with history of coronary artery disease status post complex PCI of his left circumflex artery, with known multivessel disease who was admitted with acute coronary syndrome Procure performed: #1 left heart catheterization and selective right and left coronary angiogram using radial approach #2 ultrasound guided placement of radial arterial sheath placement 3. Successful PTCA and stenting of proximal right coronary artery using a 4 x 20 mm Synergy drug-eluting stent 4. Moderate sedation for more than 90 minutes 5. Fractional flow reserve (FFR) measurement of the right coronary artery Findings: 1. Left main: is normal and birfurcates to LAD & LCX. 2. LAD: has 40-50 % stenosis at proximal LAD, and 30-40 % stenosis at mid LAD. Diagonal is moderate size with about 80% stenosis all the way from ostial to proximal and mid 3. Left circumflex artery: is nondominant. it has minimal luminal irregularity. Previous 2 stents are widely patent 4. RCA: is large and dominant. it has 50 % stenosis at ostium. Proximally had about 70% stenosis angiographically. FFR measurement of this lesion was 0.70 consistent with significant stenosis of this lesion. After successful PCI no significant residual stenosis left. Distally PDA and posterolateral artery are very small diffusely diseased 5. LVEDP is 22 with no significant gradient across aortic valve Procedure in detail: Written informed consent with obtained after risks benefits and alternatives discussed with the patient in detail. risks including but not limited to risk of infection vascular complications, bleeding complications, [place] stroke arrhythmia renal failure at even were discussed with the patient in detail. Patient was brought into the cardiac microbiology lab assistant and placed in supine pos ition. Radial area was prepped and draped in regular sterile fashion and then he was in anesthetized using 1% lidocaine. Under clinical physician assistant of ultrasound, radial artery was cannulated and using modified seldinger technique a 6 [place] sheath was placed in the radial artery. A JR4 guiding head was advanced to engage the right coronary artery graft review was obtained. It was decided to do FFR measurement of this lesion to see if the significant clinically. FFR wire was advanced as if it was equilibrated out of the body. Adenosine was given and FFR measurement showed as lowest at 0.7 consistent with significant stenosis. . BMW wire was used and advanced across the lesion and placed distal to the lesion. I used a 3 x 12 balloon which was placed across the lesion and predilated the vessel. Then I used a 4 x 20 mm Synergy drug-eluting stent which was placed across the lesion and deployed at 16 Nagi. Final angiographic view was obtained which showed REJI-3 flow no evidence of dissection and no significant residual stenosis at the site of the stent. Then a JL3.5 catheter was advanced and engaged into the left main coronary artery and angiographic view was obtained. Then a pigtail was advanced to engage the left ventricle hemodynamics as recorded by pullback aortic pressure was measured. Patient tolerated the procedure well with no complication. Patient was transferred to ICU in stable condition. contrast used: 90 cc Visipaque Conclusions: Successful PTCA stenting of the right coronary artery artery from 70% stenosis and FFR measurement of 0.7 to no significant residual stenosis using a 4 x 20 mm Synergy drug-eluting stent. Recommendations: Aggressive medical therapy. aspirin indefinitely dual antiplatlet therapy with aspirin and Plavix Elective PCI of the diagonal a later time ( FEW weeks) if patient remains symptomatic despite medical therapy MARII ELIZONDO MD [facility] MARII ELIZONDO MD March 04, 2019 09:48
--- NOTE | 2019-03-04 11:21 | PN ---
Date/Time of Note Date/Time of Note DATE: 03/04/19 TIME: 11:15 Assessment/Plan VTE Prophylaxis Risk score (from Nsg)>0 risk: 1 SCD applied (from Nsg): Yes Pharmacological prophylaxis: other Lines/Catheters IV Catheter Type (from Nrsg): Peripheral IV Urinary Cath still in place: No Assessment/Plan Hospital Course S: Patient Sound Person undergoing stent placement recently. No acute events overnight. O: VS - see below PHYSICAL EXAMINATION: -Unable to be performed today as patient is presently off the floor at procedure. [facility]: Date/Time of Note Date/Time of Note DATE: 03/04/19 TIME: 09:43 Operative Report Procedure Date: March 04, 2019 Preoperative Diagnosis ACS Postoperative Diagnosis ACS Operation/Procedure Performed PCI RCA ASSESSMENT AND PLAN: 48-year-old male with prior history of non-ST elevation myocardial infarction, coronary artery disease with stent placement x2 recently, type 2 diabetes, hypertension, high cholesterol, who presents with chest pain symptoms. 1. Chest pain- has ruled out for acute coronary syndrome. Again status post cardiac stent placement earlier this morning by cardiology team. - aspirin, morphine, oxygen, nitroglycerin as needed - Continue Plavix, beta-freya, Lipitor as well - Follow-up recommendations from cardiology team the patient 2. Type 2 diabetes-sugars stable, A1c = 10.2. - Continue home Basaglar insulin and short-acting insulin, sliding-scale insulin. - Holding metformin since admission 3. History of high cholesterol. - Continue statin. 4. History of hypertension. Stable - for now, continue Coreg. We are holding his hydrochlorothiazide medication since admission - Continue Isordil. 5. Gastrointestinal prophylaxis- H2 freya. 6. Deep venous thrombosis prophylaxis - sequential compression devices for now. Result Diagram: 03/04/1980403/04/19804 Results 24hrs Laboratory Tests Test 03/03/19 16:08 03/03/19 16:09 03/03/19 19:20 03/03/19 22:38 Sodium Level 136 Potassium Level 5.0 Chloride Level 102 Carbon Dioxide Level 21 Anion Gap 13 Blood Urea Nitrogen 32 H Creatinine 1.37 H Est Glomerular Filtrat 55 L Rate mL/min Glucose Level 283 H Calcium Level 10.1 Troponin I < 0.012 White Blood Count 11.0 H Red Blood Count 4.98 Hemoglobin 14.4 Hematocrit 44.7 Mean Corpuscular Volume 89.8 Mean Corpuscular 28.9 L Hemoglobin Mean Corpuscular 32.2 Hemoglobin Concent Red Cell Distribution 14.2 Width Platelet Count 318 # Mean Platelet Volume 11.0 H Immature Granulocytes % 0.300 Neutrophils % 53.7 Lymphocytes % 26.8 Monocytes % 8.5 Eosinophils % 9.7 H Basophils % 1.0 Nucleated Red Blood 0.0 Cells % Immature Granulocytes # 0.030 Neutrophils # 5.9 Lymphocytes # 2.9 Monocytes # 0.9 Eosinophils # 1.1 H Basophils # 0.1 Nucleated Red Blood 0.0 Cells # Prothrombin Time 11.8 L Prothrombin Time Ratio 0.9 INR International 0.86 Normalized Ratio Activated 28.3 Partial Thromboplast Time Creatine Kinase 126 Creatinine Kinase MB 2.63 H (Mass) Free Thyroxine 1.46 Bedside Glucose 133 Test 03/03/19 23:09 03/04/19 01:09 03/04/19 06:10 03/04/19 08:05 Creatine Kinase 126 119 Creatine Kinase Index 2.9 2.2 Creatinine Kinase MB 3.61 H 2.65 H (Mass) Troponin I < 0.012 < 0.012 Bedside Glucose 144 132 White Blood Count 12.1 H Red Blood Count 4.69 L Hemoglobin 13.4 L Hematocrit 41.9 L Mean Corpuscular Volume 89.3 Mean Corpuscular 28.6 L Hemoglobin Mean Corpuscular 32.0 Hemoglobin Concent Red Cell Distribution 14.2 Width Platelet Count 304 Mean Platelet Volume 11.3 H Immature Granulocytes % 0.400 Neutrophils % 52.9 Lymphocytes % 28.4 Monocytes % 9.1 Eosinophils % 8.2 H Basophils % 1.0 Nucleated Red Blood 0.0 Cells % Immature Granulocytes # 0.050 H Neutrophils # 6.4 Lymphocytes # 3.5 H Monocytes # 1.1 H Eosinophils # 1.0 H Basophils # 0.1 Nucleated Red Blood 0.0 Cells # Sodium Level 138 Potassium Level 4.4 Chloride Level 104 Carbon Dioxide Level 24 Anion Gap 10 Blood Urea Nitrogen 41 H Creatinine 1.72 H Est Glomerular Filtrat 42 L Rate mL/min Glucose Level 136 # Hemoglobin A1c 10.2 H Calcium Level 9.3 Phosphorus Level 7.1 H Magnesium Level 1.9 Triglycerides Level 271 H Cholesterol Level 142 LDL Cholesterol, 57 Calculated HDL Cholesterol 31 Cholesterol/HDL Ratio 4.5 Thyroid Stimulating 2.400 Hormone (TSH) Exam/Review of Systems Exam Vitals Vital Signs Date Temp Pulse Resp B/P (MAP) Pulse Ox O2 O2 Flow FiO2 Time Delivery Rate 03/04/19 78 13 158/85 95 Nasal 2.0 10:34 (109) Cannula 03/04/19 99.0 09:49 Results Results 24hrs Laboratory Tests Test 03/03/19 16:08 03/03/19 16:09 03/03/19 19:20 03/03/19 22:38 Sodium Level 136 Potassium Level 5.0 Chloride Level 102 Carbon Dioxide Level 21 Anion Gap 13 Blood Urea Nitrogen 32 H Creatinine 1.37 H Est Glomerular Filtrat 55 L Rate mL/min Glucose Level 283 H Calcium Level 10.1 Troponin I < 0.012 White Blood Count 11.0 H Red Blood Count 4.98 Hemoglobin 14.4 Hematocrit 44.7 Mean Corpuscular Volume 89.8 Mean Corpuscular 28.9 L Hemoglobin Mean Corpuscular 32.2 Hemoglobin Concent Red Cell Distribution 14.2 Width Platelet Count 318 # Mean Platelet Volume 11.0 H Immature Granulocytes % 0.300 Neutrophils % 53.7 Lymphocytes % 26.8 Monocytes % 8.5 Eosinophils % 9.7 H Basophils % 1.0 Nucleated Red Blood 0.0 Cells % Immature Granulocytes # 0.030 Neutrophils # 5.9 Lymphocytes # 2.9 Monocytes # 0.9 Eosinophils # 1.1 H Basophils # 0.1 Nucleated Red Blood 0.0 Cells # Prothrombin Time 11.8 L Prothrombin Time Ratio 0.9 INR International 0.86 Normalized Ratio Activated 28.3 Partial Thromboplast Time Creatine Kinase 126 Creatinine Kinase MB 2.63 H (Mass) Free Thyroxine 1.46 Bedside Glucose 133 Test 03/03/19 23:09 03/04/19 01:09 03/04/19 06:10 03/04/19 08:05 Creatine Kinase 126 119 Creatine Kinase Index 2.9 2.2 Creatinine Kinase MB 3.61 H 2.65 H (Mass) Troponin I < 0.012 < 0.012 Bedside Glucose 144 132 White Blood Count 12.1 H Red Blood Count 4.69 L Hemoglobin 13.4 L Hematocrit 41.9 L Mean Corpuscular Volume 89.3 Mean Corpuscular 28.6 L Hemoglobin Mean Corpuscular 32.0 Hemoglobin Concent Red Cell Distribution 14.2 Width Platelet Count 304 Mean Platelet Volume 11.3 H Immature Granulocytes % 0.400 Neutrophils % 52.9 Lymphocytes % 28.4 Monocytes % 9.1 Eosinophils % 8.2 H Basophils % 1.0 Nucleated Red Blood 0.0 Cells % Immature Granulocytes # 0.050 H Neutrophils # 6.4 Lymphocytes # 3.5 H Monocytes # 1.1 H Eosinophils # 1.0 H Basophils # 0.1 Nucleated Red Blood 0.0 Cells # Sodium Level 138 Potassium Level 4.4 Chloride Level 104 Carbon Dioxide Level 24 Anion Gap 10 Blood Urea Nitrogen 41 H Creatinine 1.72 H Est Glomerular Filtrat 42 L Rate mL/min Glucose Level 136 # Hemoglobin A1c 10.2 H Calcium Level 9.3 Phosphorus Level 7.1 H Magnesium Level 1.9 Triglycerides Level 271 H Cholesterol Level 142 LDL Cholesterol, 57 Calculated HDL Cholesterol 31 Cholesterol/HDL Ratio 4.5 Thyroid Stimulating 2.400 Hormone (TSH) Medications Medication Current Medications IV Flush (NS 3 ml) 3 ml PER PROTOCOL IV ; Start 03/03/19 at 19:00 Ondansetron HCl (Zofran Inj) 4 mg Q6H PRN IV NAUSEA/VOMITING Last administered on 03/03/19at 19:31; Admin Dose 4 MG; Start 03/03/19 at 19:00 Acetaminophen (Tylenol Tab) 650 mg Q6H PRN PO .PAIN 1-3 OR TEMP; Start 03/03/19 at 19:00 Acetaminophen/ Hydrocodone Bitart ([place] (5/325)) 1 tab Q6H PRN PO .MOD PAIN 4- 6 Last administered on 03/04/19at 04:44; Admin Dose 1 TAB; Start 03/03/19 at 19:00 Morphine Sulfate (morphine) 2 mg Q4H PRN IV .SEVERE PAIN 7-10 Last administered on 03/04/19at 10:03; Admin Dose 2 MG; Start 03/03/19 at 19:00 Docusate Sodium (Colace) 100 mg Q12H PRN PO .CONSTIPATION; Start 03/03/19 at 19:00 Magnesium Hydroxide (Milk Of Mag) 30 ml DAILY PRN PO .CONSTIPATION; Start 03/03/19 at 19:00 Lorazepam (Ativan) 0.5 mg Q6H PRN IV ANXIETY; Start 03/03/19 at 19:00 Albuterol/ Ipratropium (Duoneb) 3 ml Q4H RESP THERAPY PRN HHN SHORTNESS OF BREATH; Start 03/03/19 at 19:00 Hydralazine HCl (Apresoline) 10 mg Q6H PRN IV ELEVATED BLOOD PRESSURE; Start 03/03/19 at 19:00 Nitroglycerin (Nitroglycerin (Sl Tab) 0.4 Mg) 1 tab Q5M PRN SL ANGINA; Start 03/03/19 at 19:00 Diagnostic Test (Pha) (Accu-Chek) 1 ea 02 XX Last administered on 03/04/19at 02:00; Admin Dose 1 EA; Start 03/04/19 at 02:00 Insulin Aspart (Novolog Insulin Pen) NOVOLOG *MILD* ALGORI... Q4 SC ; Start 03/03/19 at 21:00 Atorvastatin Calcium (Lipitor) 80 mg QHS PO Last administered on 03/03/19at 22:43; Admin Dose 80 MG; Start 03/03/19 at 21:00 Collagenase (Santyl) 1 applic DAILY TOP ; Start 03/04/19 at 09:00 Gabapentin (Neurontin) 300 mg TID PO Last administered on 03/03/19at 22:45; Admin Dose 300 MG; Start 03/03/19 at 21:00 Isosorbide Dinitrate (Isordil) 10 mg TID PO Last administered on 03/03/19at 22:44; Admin Dose 10 MG; Start 03/03/19 at 21:00 Insulin Aspart (Novolog Insulin Pen) 14 unit AC MEALS SC ; Start 03/03/19 at 2 2:00 Clopidogrel Bisulfate (plaVIX) 75 mg DAILY PO ; Start 03/04/19 at 09:00 Insulin Glargine (Lantus) 32 units QHS SC ; Start 03/03/19 at 21:00 Aspirin (Halfprin) 81 mg DAILY PO ; Start 03/04/19 at 09:00 Diphenhydramine HCl (Benadryl) 25 mg Q6 PRN PO itch Last administered on 03/04/19at 05:43; Admin Dose 25 MG; Start 03/03/19 at 20:00 Sodium Chloride 1,000 ml @ 100 mls/hr Q10H IV Last administered on 03/04/19at 10:54; Admin Dose 100 MLS/HR; Start 03/04/19 at 09:39; Stop 03/04/19 at 19:38 Carvedilol (Coreg) 6.25 mg BID PO ; Start 03/04/19 at 21:00 LUCAS OROZCO March 04, 2019 11:21
--- NOTE | 2019-03-04 12:01 | CONS ---
Assessment/Plan Assessment/Plan Assessment/Plan (Daily) 1. acute on chronic renal failure 2. 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 acute chest pain, 4. h/o previous NSTEMi and cardiac cath 5. H/O HTN 6. H/o DM II 7. h/o HL Plan: Cr bumped to 1.7 Continue current medications IVF NS at 100 cc has been given alld ay, now stopped Successful PTCA stenting of the right coronary artery artery and DERIC placement Will follow up in AM creatinine to decide for further iVF will follow up Consultation Date/Type/Reason Admit Date/Time March 03, 2019 at 17:57 Date of Consultation: March 04, 2019 Type of Consult NEPHROLOGY Reason for Consultation acute vs acute on chronic renal failure Requesting Provider: LUCAS OROZCO Date/Time of Note DATE: 03/04/19 TIME: 12:01 Hx of Present Illness 48-year-old male with prior history of non-ST elevation myocardial infarction, coronary artery disease with stent placement x2 recently, type 2 diabetes, hypertension, high cholesterol, who presents with chest pain symptoms. pt hda a Cr 1.37 on admisison , pt was taken to cardica cath today AM by cardioloyg and Renal has been consulted for acute vs acute on chronic renal failure no H/o NSAID use no h/o Previous CKD as per patient but he was told by his PMD that he has protein in urine Respiratory: pleuritic pain Cardiovascular: chest pain Past Medical History Medical History: coronary artery disease, diabetes, high cholesterol, hypertension Home Meds Active Scripts Insulin Lispro (Humalog) 100 Unit/1 Ml Cartridge, 14 UNIT SQ TIDM A, #1 EA Take insulin lispro 14 units subcutaneous 3 times a day with meals. Need to check blood sugar 3 times a day and at bedtime. Provide patient with 100 lancet, 100 test strips, 100 32-gauge insulin pen needles. Prov:HULL,KIMI V. SALES SERVICE REPRESENTATIVE 01/17/19 Insulin Glargine,Hum.rec.anlog ([place] U-100) 100 Unit/1 Ml Insuln.pen, 32 UNIT SC .HS, #1 EA Prov:HULL,KIMI V. SALES SERVICE REPRESENTATIVE 01/17/19 Collagenase* (Santyl*) 30 Gm Oint..gm., 1 APPLIC TOP DAILY, #1 TUBE Apply to right lower extremity wound after irrigation with Dakin solution. Prov:KIMI HULL V. SALES SERVICE REPRESENTATIVE 01/17/19 Linagliptin (TRADJENTA) 5 Mg Tablet, 5 MG PO DAILY, #30 TAB Prov:HULLKIMI MONZON V. SALES SERVICE REPRESENTATIVE 01/17/19 Empagliflozin (Jardiance) 10 Mg Tablet, 25 MG PO DAILY@08, #30 TAB Prov:KIMI HULL V. SALES SERVICE REPRESENTATIVE 01/17/19 Reported Medications Hydrocodone/Acetaminophen ([place] 10-325 Tablet) 1 Each Tablet, 1 EACH PO Q8H, TAB 03/03/19 Oxycodone HCl/Acetaminophen (Oxycodone-Acetaminophen 10-325) 1 Each Tablet, 1 EACH PO Q12H PRN for NEEDED, TAB 03/03/19 Atorvastatin* (Atorvastatin*) 80 Mg Tablet, 80 MG PO QHS, #30 TAB 01/15/19 Clopidogrel Bisulfate* (Clopidogrel Bisulfate*) 75 Mg Tablet, 75 MG PO DAILY, #30 TAB 01/15/19 Carvedilol* (Carvedilol*) 12.5 Mg Tablet, 12.5 MG PO BID, #60 TAB 01/15/19 Aspirin* (Aspirin* EC) 81 Mg Tablet.dr, 81 MG PO DAILY, TAB 01/15/19 Amlodipine Besylate* (Norvasc*) 5 Mg Tablet, 5 MG PO DAILY, TAB 01/15/19 Hydrochlorothiazide* (Hydrochlorothiazide*) 25 Mg Tab, 25 MG PO DAILY, #30 TAB 01/15/19 Lisinopril* (Lisinopril*) 20 Mg Tablet, 20 MG PO DAILY, #30 TAB 01/15/19 Gabapentin* (Gabapentin*) 300 Mg Capsule, 300 MG PO TID, #90 CAP 01/15/19 Isosorbide Dinitrate* (Isordil*) 10 Mg Tablet, 10 MG PO TID, TAB 01/15/19 Discontinued Scripts Morphine Sulfate (Morphine Sulfate ER) 15 Mg Tablet.er, 15 MG PO BID PRN for PAIN, #30 TAB Prov:KIMI HULL V. SALES SERVICE REPRESENTATIVE 01/17/19 Medications Current Medications IV Flush (NS 3 ml) 3 ml PER PROTOCOL IV ; Start 03/03/19 at 19:00 Ondansetron HCl (Zofran Inj) 4 mg Q6H PRN IV NAUSEA/VOMITING Last administered on 03/03/19at 19:31; Admin Dose 4 MG; Start 03/03/19 at 19:00 Acetaminophen (Tylenol Tab) 650 mg Q6H PRN PO .PAIN 1-3 OR TEMP; Start 03/03/19 at 19:00 Acetaminophen/ Hydrocodone Bitart ([place] (5/325)) 1 tab Q6H PRN PO .MOD PAIN 4- 6 Last administered on 03/04/19at 04:44; Admin Dose 1 TAB; Start 03/03/19 at 19:00 Morphine Sulfate (morphine) 2 mg Q4H PRN IV .SEVERE PAIN 7-10 Last administered on 03/04/19at 10:03; Admin Dose 2 MG; Start 03/03/19 at 19:00 Docusate Sodium (Colace) 100 mg Q12H PRN PO .CONSTIPATION; Start 03/03/19 at 19:00 Magnesium Hydroxide (Milk Of Mag) 30 ml DAILY PRN PO .CONSTIPATION; Start 03/03/19 at 19:00 Lorazepam (Ativan) 0.5 mg Q6H PRN IV ANXIETY; Start 03/03/19 at 19:00 Albuterol/ Ipratropium (Duoneb) 3 ml Q4H RESP THERAPY PRN HHN SHORTNESS OF BREATH; Start 03/03/19 at 19:00 Hydralazine HCl (Apresoline) 10 mg Q6H PRN IV ELEVATED BLOOD PRESSURE; Start 03/03/19 at 19:00 Nitroglycerin (Nitroglycerin (Sl Tab) 0.4 Mg) 1 tab Q5M PRN SL ANGINA; Start 03/03/19 at 19:00 Diagnostic Test (Pha) (Accu-Chek) 1 ea 02 XX Last administered on 03/04/19at 02:00; Admin Dose 1 EA; Start 03/04/19 at 02:00 Insulin Aspart (Novolog Insulin Pen) NOVOLOG *MILD* ALGORI... Q4 SC ; Start 03/03/19 at 21:00 Atorvastatin Calcium (Lipitor) 80 mg QHS PO Last administered on 03/03/19at 22:43; Admin Dose 80 MG; Start 03/03/19 at 21:00 Collagenase (Santyl) 1 applic DAILY TOP ; Start 03/04/19 at 09:00 Gabapentin (Neurontin) 300 mg TID PO Last administered on 03/03/19at 22:45; Admin Dose 300 MG; Start 03/03/19 at 21:00 Isosorbide Dinitrate (Isordil) 10 mg TID PO Last administered on 03/03/19at 22:44; Admin Dose 10 MG; Start 03/03/19 at 21:00 Insulin Aspart (Novolog Insulin Pen) 14 unit AC MEALS SC ; Start 03/03/19 at 22:00 Clopidogrel Bisulfate (plaVIX) 75 mg DAILY PO ; Start 03/04/19 at 09:00 Insulin Glargine (Lantus) 32 units QHS SC ; Start 03/03/19 at 21:00 Aspirin (Halfprin) 81 mg DAILY PO ; Start 03/04/19 at 09:00 Diphenhydramine HCl (Benadryl) 25 mg Q6 PRN PO itch Last administered on 03/04/19at 11:53; Admin Dose 25 MG; Start 03/03/19 at 20:00 Sodium Chloride 1,000 ml @ 100 mls/hr Q10H IV Last administered on 03/04/19at 10:54; Admin Dose 100 MLS/HR; Start 03/04/19 at 09:39; Stop 03/04/19 at 19:38 Carvedilol (Coreg) 6.25 mg BID PO ; Start 03/04/19 at 21:00 Allergies: Coded Allergies: metformin (Verified Allergy, Intermediate, 03/03/19) per pt, makes him feel horribles, worse abdominal pain Past Surgical History Past Surgical Hx: angioplasty, other (H/o previous Cardiac cath placement ) Family History Significant Family History: no pertinent family hx Social History Alcohol Use: none Smoking Status: Current every day smoker Drug Use: none Exam/Review of Systems Exam Vitals Vital Signs Date Temp Pulse Resp B/P (MAP) Pulse Ox O2 O2 Flow FiO2 Time Delivery Rate 03/04/19 84 11 141/79 87 Nasal 11:09 (99) Cannula 03/04/19 2.0 10:39 03/04/19 99.0 09:49 Constitutional: alert Psych: no complaints Head: normocephalic Eyes: nl conjunctiva ENMT: nl external ears & nose Neck: supple, non-tender Respiratory: clear to auscultation, normal air movement, diminished breath sounds Cardiovascular: regular rate and rhythm, nl pulses Gastrointestinal: soft, non-tender Extremities: normal pulses Neurological: [employer] II-XII intact, nl mental status, nl speech, nl strength Skin: nl turgor Lymph: nl lymph nodes Results Result Diagram: 03/04/19 0805 03/04/19 0805 Results 24hrs Laboratory Tests Test 03/03/19 16:08 03/03/19 16:09 03/03/19 19:20 03/03/19 22:38 Sodium Level 136 Potassium Level 5.0 Chloride Level 102 Carbon Dioxide Level 21 Anion Gap 13 Blood Urea Nitrogen 32 H Creatinine 1.37 H Est Glomerular Filtrat 55 L Rate mL/min Glucose Level 283 H Calcium Level 10.1 Troponin I < 0.012 White Blood Count 11.0 H Red Blood Count 4.98 Hemoglobin 14.4 Hematocrit 44.7 Mean Corpuscular Volume 89.8 Mean Corpuscular 28.9 L Hemoglobin Mean Corpuscular 32.2 Hemoglobin Concent Red Cell Distribution 14.2 Width Platelet Count 318 # Mean Platelet Volume 11.0 H Immature Granulocytes % 0.300 Neutrophils % 53.7 Lymphocytes % 26.8 Monocytes % 8.5 Eosinophils % 9.7 H Basophils % 1.0 Nucleated Red Blood 0.0 Cells % Immature Granulocytes # 0.030 Neutrophils # 5.9 Lymphocytes # 2.9 Monocytes # 0.9 Eosinophils # 1.1 H Basophils # 0.1 Nucleated Red Blood 0.0 Cells # Prothrombin Time 11.8 L Prothrombin Time Ratio 0.9 INR International 0.86 Normalized Ratio Activated 28.3 Partial Thromboplast Time Creatine Kinase 126 Creatinine Kinase MB 2.63 H (Mass) Free Thyroxine 1.46 Bedside Glucose 133 Test 03/03/19 23:09 03/04/19 01:09 03/04/19 06:10 03/04/19 08:05 Creatine Kinase 126 119 Creatine Kinase Index 2.9 2.2 Creatinine Kinase MB 3.61 H 2.65 H (Mass) Troponin I < 0.012 < 0.012 Bedside Glucose 144 132 White Blood Count 12.1 H Red Blood Count 4.69 L Hemoglobin 13.4 L Hematocrit 41.9 L Mean Corpuscular Volume 89.3 Mean Corpuscular 28.6 L Hemoglobin Mean Corpuscular 32.0 Hemoglobin Concent Red Cell Distribution 14.2 Width Platelet Count 304 Mean Platelet Volume 11.3 H Immature Granulocytes % 0.400 Neutrophils % 52.9 Lymphocytes % 28.4 Monocytes % 9.1 Eosinophils % 8.2 H Basophils % 1.0 Nucleated Red Blood 0.0 Cells % Immature Granulocytes # 0.050 H Neutrophils # 6.4 Lymphocytes # 3.5 H Monocytes # 1.1 H Eosinophils # 1.0 H Basophils # 0.1 Nucleated Red Blood 0.0 Cells # Sodium Level 138 Potassium Level 4.4 Chloride Level 104 Carbon Dioxide Level 24 Anion Gap 10 Blood Urea Nitrogen 41 H Creatinine 1.72 H Est Glomerular Filtrat 42 L Rate mL/min Glucose Level 136 # Hemoglobin A1c 10.2 H Calcium Level 9.3 Phosphorus Level 7.1 H Magnesium Level 1.9 Triglycerides Level 271 H Cholesterol Level 142 LDL Cholesterol, 57 Calculated HDL Cholesterol 31 Cholesterol/HDL Ratio 4.5 Thyroid Stimulating 2.400 Hormone (TSH) Medications Medication Current Medications IV Flush (NS 3 ml) 3 ml PER PROTOCOL IV ; Start 03/03/19 at 19:00 Ondansetron HCl (Zofran Inj) 4 mg Q6H PRN IV NAUSEA/VOMITING Last administered on 03/03/19at 19:31; Admin Dose 4 MG; Start 03/03/19 at 19:00 Acetaminophen (Tylenol Tab) 650 mg Q6H PRN PO .PAIN 1-3 OR TEMP; Start 03/03/19 at 19:00 Acetaminophen/ Hydrocodone Bitart ([place] (5/325)) 1 tab Q6H PRN PO .MOD PAIN 4- 6 Last administered on 03/04/19at 04:44; Admin Dose 1 TAB; Start 03/03/19 at 19:00 Morphine Sulfate (morphine) 2 mg Q4H PRN IV .SEVERE PAIN 7-10 Last administered on 03/04/19at 10:03; Admin Dose 2 MG; Start 03/03/19 at 19:00 Docusate Sodium (Colace) 100 mg Q12H PRN PO .CONSTIPATION; Start 03/03/19 at 19:00 Magnesium Hydroxide (Milk Of Mag) 30 ml DAILY PRN PO .CONSTIPATION; Start 03/03/19 at 19:00 Lorazepam (Ativan) 0.5 mg Q6H PRN IV ANXIETY; Start 03/03/19 at 19:00 Albuterol/ Ipratropium (Duoneb) 3 ml Q4H RESP THERAPY PRN HHN SHORTNESS OF BREATH; Start 03/03/19 at 19:00 Hydralazine HCl (Apresoline) 10 mg Q6H PRN IV ELEVATED BLOOD PRESSURE; Start 03/03/19 at 19:00 Nitroglycerin (Nitroglycerin (Sl Tab) 0.4 Mg) 1 tab Q5M PRN SL ANGINA; Start 03/03/19 at 19:00 Diagnostic Test (Pha) (Accu-Chek) 1 ea 02 XX Last administered on 03/04/19at 02:00; Admin Dose 1 EA; Start 03/04/19 at 02:00 Insulin Aspart (Novolog Insulin Pen) NOVOLOG *MILD* ALGORI... Q4 SC ; Start 03/03/19 at 21:00 Atorvastatin Calcium (Lipitor) 80 mg QHS PO Last administered on 03/03/19at 22:43; Admin Dose 80 MG; Start 03/03/19 at 21:00 Collagenase (Santyl) 1 applic DAILY TOP ; Start 03/04/19 at 09:00 Gabapentin (Neurontin) 300 mg TID PO Last administered on 03/03/19at 22:45; Admin Dose 300 MG; Start 03/03/19 at 21:00 Isosorbide Dinitrate (Isordil) 10 mg TID PO Last administered on 03/03/19at 22:44; Admin Dose 10 MG; Start 03/03/19 at 21:00 Insulin Aspart (Novolog Insulin Pen) 14 unit AC MEALS SC ; Start 03/03/19 at 22:00 Clopidogrel Bisulfate (plaVIX) 75 mg DAILY PO ; Start 03/04/19 at 09:00 Insulin Glargine (Lantus) 32 units QHS SC ; Start 03/03/19 at 21:00 Aspirin (Halfprin) 81 mg DAILY PO ; Start 03/04/19 at 09:00 Diphenhydramine HCl (Benadryl) 25 mg Q6 PRN PO itch Last administered on 03/04/19at 11:53; Admin Dose 25 MG; Start 03/03/19 at 20:00 Sodium Chloride 1,000 ml @ 100 mls/hr Q10H IV Last administered on 03/04/19at 10:54; Admin Dose 100 MLS/HR; Start 03/04/19 at 09:39; Stop 03/04/19 at 19:38 Carvedilol (Coreg) 6.25 mg BID PO ; Start 03/04/19 at 21:00 RENEE RIVERA MD March 04, 2019 12:01
[2019-03-04] MEDS: CLOPIDOGREL 75 MG TAB PO SCH (14:30)
[2019-03-04] MEDS: COLLAGENASE 5 GM (UD JAR) TOP SCH (14:45)
[2019-03-04] MEDS: ASPIRIN (EC) 81 MG TAB PO SCH (14:58)
--- NOTE | 2019-03-04 15:57 | RADRPT ---
Vent Rate: 80 bpm RR Interval: 752 msec LA Interval: 170 msec QRS Duration: 98 msec QT Interval: 391 msec QTC Interval: 451 msec P-R-T [place]: 30 - -74 - 69 degrees Sinus rhythm...normal P axis, V-rate 50- 99 Left anterior fascicular block...axis(240,-40), init forces inf Anterior infarct, old...Q >40mS, abnormal ST-T, V2-V5 Electronically Signed By: Fransisco Davidson
[2019-03-04] MEDS: DIPHENHYDRAMINE 50 MG INJ IV PRN (17:34)
[2019-03-04] MEDS: INSULIN GLARGINE [LANTus] (100 UNITS/ML) SYG SC SCH (21:00)
[2019-03-04] MEDS: ATORVASTATIN 80 MG TAB PO SCH (21:33)
[2019-03-05] VITALS (10 sets, daily range): BP systolic 144–180; BP diastolic 69–94; PULSE 68–107; RESP 18–20
[2019-03-05] MEDS: DIPHENHYDRAMINE 50 MG INJ IV PRN (00:08)
[2019-03-05] MEDS: ACCU-CHEK XX SCH (02:00)
[2019-03-05] MEDS: INSULIN ASPART [NOVOLOG] 3 ML PEN SC SCH ×8 (05:00→21:00)
[2019-03-05] MEDS: GABAPENTIN 300 MG CAP PO SCH ×3 (09:00→21:39)
[2019-03-05] MEDS: ASPIRIN (EC) 81 MG TAB PO SCH ×2 (09:00→13:29)
[2019-03-05] MEDS: CLOPIDOGREL 75 MG TAB PO SCH ×2 (09:00→13:29)
[2019-03-05] MEDS: COLLAGENASE 5 GM (UD JAR) TOP SCH (09:00)
[2019-03-05] MEDS: ISOSORBIDE DINITRATE 10 MG TAB PO SCH ×3 (09:00→21:40)
--- NOTE | 2019-03-05 09:04 | CONS ---
Assessment/Plan Assessment/Plan Assessment/Plan (Daily) 1. acute on chronic renal failure 2. 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 acute chest pain, 4. h/o previous NSTEMi and cardiac cath 5. H/O HTN 6. H/o DM II 7. h/o HL Plan: s/p IVF hydration , BUN/Cr improved to 22/1.1, other electrolytes stable Successful PTCA stenting of the right coronary artery artery and DERIC placement will follow up Consultation Date/Type/Reason Admit Date/Time March 03, 2019 at 17:57 Initial Consult Date 03/04/19 Type of Consult NEPHROLOGY Requesting Provider: LUCAS OROZCO Date/Time of Note DATE: 03/05/19 TIME: 09:04 Exam/Review of Systems Exam Vitals Vital Signs Date Temp Pulse Resp B/P (MAP) Pulse Ox O2 O2 Flow FiO2 Time Delivery Rate 03/05/19 98.7 102 20 180/94 92 Room Air 08:04 (122) 03/04/19 2.0 12:09 Intake and Output 03/04/19 03/04/19 03/05/19 1515:00 23:00 07:00 IntakeIntake Total 120 ml 500 ml BalanceBalance 120 ml 500 ml Exam Constitutional: alert, awake no acute distress Respiratory: clear to auscultation, normal air movement, diminished breath so unds Cardiovascular: regular rate and rhythm, nl pulses Gastrointestinal: soft, non-tender Extremities: normal pulses Neurological: [employer] II-XII intact, nl mental status, nl speech, nl strength Results Result Diagram: 03/04/19 0805 03/04/19 0805 Results 24hrs Laboratory Tests Test 03/04/19 14:36 03/04/19 17:31 Bedside Glucose 129 185 Medications Medication Current Medications IV Flush (NS 3 ml) 3 ml PER PROTOCOL IV ; Start 03/03/19 at 19:00 Ondansetron HCl (Zofran Inj) 4 mg Q6H PRN IV NAUSEA/VOMITING Last administered on 03/03/19at 19:31; Admin Dose 4 MG; Start 03/03/19 at 19:00 Acetaminophen (Tylenol Tab) 650 mg Q6H PRN PO .PAIN 1-3 OR TEMP; Start 03/03/19 at 19:00 Acetaminophen/ Hydrocodone Bitart ([place] (5/325)) 1 tab Q6H PRN PO .MOD PAIN 4- 6 Last administered on 03/04/19 04:44; Admin Dose 1 TAB; Start 03/03/19 at 19:00 Docusate Sodium (Colace) 100 mg Q12H PRN PO .CONSTIPATION; Start 03/03/19 at 19:00 Magnesium Hydroxide (Milk Of Mag) 30 ml DAILY PRN PO .CONSTIPATION; Start 03/03/19 at 19:00 Lorazepam (Ativan) 0.5 mg Q6H PRN IV ANXIETY; Start 03/03/19 at 19:00 Albuterol/ Ipratropium (Duoneb) 3 ml Q4H RESP THERAPY PRN HHN SHORTNESS OF BREATH; Start 03/03/19 at 19:00 Hydralazine HCl (Apresoline) 10 mg Q6H PRN IV ELEVATED BLOOD PRESSURE Last administered on 03/05/19 08:33; Admin Dose 10 MG; Start 03/03/19 at 19:00 Nitroglycerin (Nitroglycerin (Sl Tab) 0.4 Mg) 1 tab Q5M PRN SL ANGINA; Start 03/03/19 at 19:00 Diagnostic Test (Pha) (Accu-Chek) 1 ea 02 XX Last administered on 03/04/19 02:00; Admin Dose 1 EA; Start 03/04/19 at 02:00 Insulin Aspart (Novolog Insulin Pen) NOVOLOG *MILD* ALGORI... Q4 SC Last administered on 03/04/19 18:06; Admin Dose 2 UNIT; Start 03/03/19 at 21:00 Atorvastatin Calcium (Lipitor) 80 mg QHS PO Last administered on 03/04/19 21:33; Admin Dose 80 MG; Start 03/03/19 at 21:00 Collagenase (Santyl) 1 applic DAILY TOP ; Start 03/04/19 at 09:00 Gabapentin (Neurontin) 300 mg TID PO Last administered on 03/04/19 21:33; Admin Dose 300 MG; Start 03/03/19 at 21:00 Isosorbide Dinitrate (Isordil) 10 mg TID PO Last administered on 03/04/19 21:33; Admin Dose 10 MG; Start 03/03/19 at 21:00 Insulin Aspart (Novolog Insulin Pen) 14 unit AC MEALS SC Last administered on 03/04/19 18:06; Admin Dose 14 UNIT; Start 03/03/19 at 22:00 Clopidogrel Bisulfate (plaVIX) 75 mg DAILY PO ; Start 03/04/19 at 09:00 Insulin Glargine (Lantus) 32 units QHS SC ; Start 03/03/19 at 21:00 Aspirin (Halfprin) 81 mg DAILY PO Last administered on 03/04/19 14:58; Admin Dose 81 MG; Start 03/04/19 at 09:00 Carvedilol (Coreg) 6.25 mg BID PO Last administered on 03/04/19 21:32; Admin Dose 6.25 MG; Start 03/04/19 at 21:00 Morphine Sulfate (morphine) 1 mg Q4H PRN IV .SEVERE PAIN 7-10 Last administered on 03/04/19 18:12; Admin Dose 1 MG; Start 03/04/19 at 19:00 Diphenhydramine HCl (Benadryl) 25 mg Q6H PRN IV ITCHING Last administered on 03/05/19 00:08; Admin Dose 25 MG; Start 03/04/19 at 15:30 RENEE RIVERA MD March 05, 2019 09:04
--- NOTE | 2019-03-05 09:13 | CONS ---
Consult Date/Type/Reason Admit Date/Time March 03, 2019 at 17:57 Initial Consult Date 03/03/19 Type of Consultation: cv Requesting Provider: LUCAS OROZCO Date/Time of Note DATE: 03/05/19 TIME: 09:11 Subjective Cardiology follow-up progress note Subjective: Discussed with the staff telemetry was reviewed patient remains in sinus rhythm No chest pain or pressure now Discussed with multiple nursing staff. Patient has been noncompliant. Has not been taking his medication. Refused blood draw. Wanted to sign out AMA yesterday. Patient does not want to have a cardiac done and wants to have a regular diet Objective: General: no acute distress HEENT: NC/AT. pupils are equal. round. NECK: NO JVD. no stridor. CV: RRR. systolic murmur; no gallop or rubs. PULM: no wheezing or rhonchi. GI: SOFT, NT, ND, no rebound or guarding Extremity: Right lower extremity is covered neuro: awake and alert, OX3. Psych: calm and pleasant rectal: deferred echo 01/14 shows Normal left ventricular systolic function. Normal left ventricular cavity size. Mild concentric left ventricular hypertrophy. Ejection fraction is visually estimated at 50 %. Tissue Doppler/Mitral Doppler indices are consistent with impaired relaxation (Stage I diastolic dysfunction). No significant aortic stenosis or insufficiency. Aortic cusps appear mildly calcified. Mild mitral leaflet calcification. Mild mitral annular calcification. Trace mitral regurgitation. Normal appearance of the tricuspid valve. Unable to obtain RVSP due to minimal presence of tricuspid regurgitation. Objective Vitals Vital Signs Date Temp Pulse Resp B/P (MAP) Pulse Ox O2 O2 Flow FiO2 Time Delivery Rate 03/05/19 105 09:09 03/05/19 98.7 20 180/94 92 Room Air 08:04 (122) 03/04/19 2.0 12:09 Intake and Output 03/04/19 03/04/19 03/05/19 1515:00 23:00 07:00 IntakeIntake Total 120 ml 500 ml BalanceBalance 120 ml 500 ml Results/Medications Result Diagram: 03/04/1980403/04/19804 Results 24 hrs Laboratory Tests Test 03/04/19 14:36 03/04/19 17:31 Bedside Glucose 129 185 Home Meds Active Scripts Insulin Lispro (Humalog) 100 Unit/1 Ml Cartridge, 14 UNIT SQ TIDM A, #1 EA Take insulin lispro 14 units subcutaneous 3 times a day with meals. Need to check blood sugar 3 times a day and at bedtime. Provide patient with 100 lancet, 100 test strips, 100 32-gauge insulin pen needles. Prov:HULL,KIMI [employer] 01/17/19 Insulin Glargine,Hum.rec.anlog (Basaglar Kwikpen U-100) 100 Unit/1 Ml Insuln.pen, 32 UNIT SC .HS, #1 EA Prov:HULL,K[employer] 01/17/19 Collagenase* (Santyl*) 30 Gm Oint..gm., 1 APPLIC TOP DAILY, #1 TUBE Apply to right lower extremity wound after irrigation with Dakin solution. Prov:HULL,K[employer] 01/17/19 Linagliptin (TRADJENTA) 5 Mg Tablet, 5 MG PO DAILY, #30 TAB Prov:HULL,K[employer] 01/17/19 Empagliflozin (Jardiance) 10 Mg Tablet, 25 MG PO DAILY@08, #30 TAB Prov:HULL,K[employer] 01/17/19 Reported Medications Hydrocodone/Acetaminophen ([place] 10-325 Tablet) 1 Each Tablet, 1 EACH PO Q8H, TAB 03/03/19 Oxycodone HCl/Acetaminophen (Oxycodone-Acetaminophen 10-325) 1 Each Tablet, 1 EACH PO Q12H PRN for NEEDED, TAB 03/03/19 Atorvastatin* (Atorvastatin*) 80 Mg Tablet, 80 MG PO QHS, #30 TAB 01/15/19 Clopidogrel Bisulfate* (Clopidogrel Bisulfate*) 75 Mg Tablet, 75 MG PO DAILY, #30 TAB 01/15/19 Carvedilol* (Carvedilol*) 12.5 Mg Tablet, 12.5 MG PO BID, #60 TAB 01/15/19 Aspirin* (Aspirin* EC) 81 Mg Tablet.dr, 81 MG PO DAILY, TAB 01/15/19 Amlodipine Besylate* (Norvasc*) 5 Mg Tablet, 5 MG PO DAILY, TAB 01/15/19 Hydrochlorothiazide* (Hydrochlorothiazide*) 25 Mg Tab, 25 MG PO DAILY, #30 TAB 01/15/19 Lisinopril* (Lisinopril*) 20 Mg Tablet, 20 MG PO DAILY, #30 TAB 01/15/19 Gabapentin* (Gabapentin*) 300 Mg Capsule, 300 MG PO TID, #90 CAP 01/15/19 Isosorbide Dinitrate* (Isordil*) 10 Mg Tablet, 10 MG PO TID, TAB 01/15/19 Discontinued Scripts Morphine Sulfate (Morphine Sulfate ER) 15 Mg Tablet.er, 15 MG PO BID PRN for PAIN, #30 TAB Prov:KIMI [employer]ENT 01/17/19 Medications Current Medications IV Flush (NS 3 ml) 3 ml PER PROTOCOL IV ; Start 03/03/19 at 19:00 Ondansetron HCl (Zofran Inj) 4 mg Q6H PRN IV NAUSEA/VOMITING Last administered on 03/03/19at 19:31; Admin Dose 4 MG; Start 03/03/19 at 19:00 Acetaminophen (Tylenol Tab) 650 mg Q6H PRN PO .PAIN 1-3 OR TEMP; Start 03/03/19 at 19:00 Acetaminophen/ Hydrocodone Bitart ([place] (5/325)) 1 tab Q6H PRN PO .MOD PAIN 4- 6 Last administered on 03/04/19at 04:44; Admin Dose 1 TAB; Start 03/03/19 at 19:00 Docusate Sodium (Colace) 100 mg Q12H PRN PO .CONSTIPATION; Start 03/03/19 at 19:00 Magnesium Hydroxide (Milk Of Mag) 30 ml DAILY PRN PO .CONSTIPATION; Start 03/03/19 at 19:00 Lorazepam (Ativan) 0.5 mg Q6H PRN IV ANXIETY; Start 03/03/19 at 19:00 Albuterol/ Ipratropium (Duoneb) 3 ml Q4H RESP THERAPY PRN HHN SHORTNESS OF BREATH; Start 03/03/19 at 19:00 Hydralazine HCl (Apresoline) 10 mg Q6H PRN IV ELEVATED BLOOD PRESSURE Last administered on 03/05/19at 08:33; Admin Dose 10 MG; Start 03/03/19 at 19:00 Nitroglycerin (Nitroglycerin (Sl Tab) 0.4 Mg) 1 tab Q5M PRN SL ANGINA; Start 03/03/19 at 19:00 Diagnostic Test (Pha) (Accu-Chek) 1 ea 02 XX Last administered on 03/04/19 02:00; Admin Dose 1 EA; Start 03/04/19 at 02:00 Insulin Aspart (Novolog Insulin Pen) NOVOLOG *MILD* ALGORI... Q4 SC Last administered on 03/04/19 18:06; Admin Dose 2 UNIT; Start 03/03/19 at 21:00 Atorvastatin Calcium (Lipitor) 80 mg QHS PO Last administered on 03/04/19 21:33; Admin Dose 80 MG; Start 03/03/19 at 21:00 Collagenase (Santyl) 1 applic DAILY TOP ; Start 03/04/19 at 09:00 Gabapentin (Neurontin) 300 mg TID PO Last administered on 03/04/19 21:33; Admin Dose 300 MG; Start 03/03/19 at 21:00 Isosorbide Dinitrate (Isordil) 10 mg TID PO Last administered on 03/04/19 21:33; Admin Dose 10 MG; Start 03/03/19 at 21:00 Insulin Aspart (Novolog Insulin Pen) 14 unit AC MEALS SC Last administered on 03/04/19 18:06; Admin Dose 14 UNIT; Start 03/03/19 at 22:00 Clopidogrel Bisulfate (plaVIX) 75 mg DAILY PO ; Start 03/04/19 at 09:00 Insulin Glargine (Lantus) 32 units QHS SC ; Start 03/03/19 at 21:00 Aspirin (Halfprin) 81 mg DAILY PO Last administered on 03/04/19 14:58; Admin Dose 81 MG; Start 03/04/19 at 09:00 Morphine Sulfate (morphine) 1 mg Q4H PRN IV .SEVERE PAIN 7-10 Last administered on 03/04/19 18:12; Admin Dose 1 MG; Start 03/04/19 at 19:00 Diphenhydramine HCl (Benadryl) 25 mg Q6H PRN IV ITCHING Last administered on 03/05/19 00:08; Admin Dose 25 MG; Start 03/04/19 at 15:30 Carvedilol (Coreg) 12.5 mg BID PO ; Start 03/05/19 at 21:00; Status UNV Carvedilol (Coreg) 6.25 mg ONCE ONCE PO ; Start 03/05/19 at 09:30; Stop 03/05/19 at 09:31; Status UNV Assessment/Plan Hospital Course (Demo Recall) 1.Chest pain /ACS: Status post PCI of right coronary artery 2. multivessel CAD 3. HX PCI OM 4. DM 5. HTN 6. Dyslipidemia 7. morbid obesity 8. PAD 9. NONhealing wound 10. Renal insufficiency 11. Severe obstructive sleep apnea 12. Noncompliant REC cont ASA PLAVIX CONTINUE WITH BETABLOCKER DM control HOLD metformin Off of Norvasc to avoid hypotension. However today's patient hypertensive but he has not been taking any of his medications cont statin Importance of compliance with diet and medication were discussed with the patient explained to him. DC planning if renal function is a stable today. However he has refused blood draw Thank you for his referral. We will continue to follow along with you MARII OLIVEIRA MD [facility] MARII OLIVEIRA MD March 05, 2019 09:13
--- NOTE | 2019-03-05 11:46 | PN ---
Date/Time of Note Date/Time of Note DATE: 03/05/19 TIME: 11:41 Assessment/Plan VTE Prophylaxis Risk score (from Nsg)>0 risk: 1 SCD applied (from Nsg): Yes Pharmacological prophylaxis: other Lines/Catheters IV Catheter Type (from Nrsg): Peripheral IV Urinary Cath still in place: No Assessment/Plan Hospital Course S: Patient had a cardiac stent placed yesterday. Refused blood draws this morning and asking for change in diet as he does not like a low-fat low- cholesterol diet. O: VS - see below PHYSICAL EXAMINATION: GENERAL: lying in bed, answering questions appropriately. No acute distress. HEENT: Pupils equal, round, reactive to light. Extraocular muscles intact. NECK: Supple. No thyromegaly. LUNGS: Clear to auscultation bilaterally. CARDIOVASCULAR: S1, S2 heard. No rubs or gallops. ABDOMEN: Soft, nontender, nondistended. Normal bowel sounds. No rebound or guarding. MUSCULOSKELETAL: No lower extremity edema bilaterally. NEUROLOGIC: No focal deficits. [facility]: Date/Time of Note Date/Time of Note DATE: 03/04/19 TIME: 09:43 Operative Report Procedure Date: March 04, 2019 Preoperative Diagnosis ACS Postoperative Diagnosis ACS Operation/Procedure Performed PCI RCA ASSESSMENT AND PLAN: 48-year-old male with prior history of non-ST elevation myocardial infarction, coronary artery disease with stent placement x2 recently, type 2 diabetes, hypertension, high cholesterol, who presents with chest pain symptoms. 1. Chest pain- has ruled out for acute coronary syndrome. Again status post cardiac stent placement Status post PCI of right coronary artery yesterday. - aspirin, morphine, oxygen, nitroglycerin as needed - Continue Plavix, beta-freya, Lipitor as well - Follow-up recommendations from cardiology team 2. Type 2 diabetes-sugars stable, A1c = 10.2. - Continue home Basaglar insulin and short-acting insulin, sliding-scale insulin. - Holding metformin since admission 3. History of high cholesterol. - Continue statin. 4. History of hypertension. Stable - for now, continue Coreg. We are holding his hydrochlorothiazide medication since admission - Continue Isordil. 5. Likely acute on CKD - due to DM nephropathy. Creatinine on admission 1.3, yesterday 1.7. Again patient refused BMP this morning. -Again, holding hydrochlorthiazide and metformin since admission. -Follow-up further renal recommendations and will try to convince patient to allow for blood draws today to monitor creatinine levels to see if IV fluids need to be restarted or not 6. Deep venous thrombosis prophylaxis - sequential compression devices for now. Result Diagram: 03/04/19 0803/04/1905 Results 24hrs Laboratory Tests Test 03/04/19 14:36 03/04/19 17:31 Bedside Glucose 129 185 Exam/Review of Systems Exam Vitals Vital Signs Date Temp Pulse Resp B/P (MAP) Pulse Ox O2 O2 Flow FiO2 Time Delivery Rate 03/05/19 105 09:09 03/05/19 98.7 20 180/94 92 Room Air 08:04 (122) 03/04/19 2.0 12:09 Intake and Output 03/04/19 03/04/19 03/05/19 1414:59 22:59 06:59 IntakeIntake Total 120 ml 500 ml BalanceBalance 120 ml 500 ml Results Results 24hrs Laboratory Tests Test 03/04/19 14:36 03/04/19 17:31 Bedside Glucose 129 185 Medications Medication Current Medications IV Flush (NS 3 ml) 3 ml PER PROTOCOL IV ; Start 03/03/19 at 19:00 Ondansetron HCl (Zofran Inj) 4 mg Q6H PRN IV NAUSEA/VOMITING Last administered on 03/03/19at 19:31; Admin Dose 4 MG; Start 03/03/19 at 19:00 Acetaminophen (Tylenol Tab) 650 mg Q6H PRN PO .PAIN 1-3 OR TEMP; Start 03/03/19 at 19:00 Acetaminophen/ Hydrocodone Bitart ([place] (5/325)) 1 tab Q6H PRN PO .MOD PAIN 4- 6 Last administered on 03/04/19at 04:44; Admin Dose 1 TAB; Start 03/03/19 at 19:00 Docusate Sodium (Colace) 100 mg Q12H PRN PO .CONSTIPATION; Start 03/03/19 at 19:00 Magnesium Hydroxide (Milk Of Mag) 30 ml DAILY PRN PO .CONSTIPATION; Start 03/03/19 at 19:00 Lorazepam (Ativan) 0.5 mg Q6H PRN IV ANXIETY; Start 03/03/19 at 19:00 Albuterol/ Ipratropium (Duoneb) 3 ml Q4H RESP THERAPY PRN HHN SHORTNESS OF BREATH; Start 03/03/19 at 19:00 Hydralazine HCl (Apresoline) 10 mg Q6H PRN IV ELEVATED BLOOD PRESSURE Last administered on 03/05/19 08:33; Admin Dose 10 MG; Start 03/03/19 at 19:00 Nitroglycerin (Nitroglycerin (Sl Tab) 0.4 Mg) 1 tab Q5M PRN SL ANGINA; Start 03/03/19 at 19:00 Diagnostic Test (Pha) (Accu-Chek) 1 ea 02 XX Last administered on 03/04/19 02:00; Admin Dose 1 EA; Start 03/04/19 at 02:00 Insulin Aspart (Novolog Insulin Pen) NOVOLOG *MILD* ALGORI... Q4 SC Last administered on 03/04/19 18:06; Admin Dose 2 UNIT; Start 03/03/19 at 21:00 Atorvastatin Calcium (Lipitor) 80 mg QHS PO Last administered on 03/04/19 21:33; Admin Dose 80 MG; Start 03/03/19 at 21:00 Collagenase (Santyl) 1 applic DAILY TOP ; Start 03/04/19 at 09:00 Gabapentin (Neurontin) 300 mg TID PO Last administered on 03/04/19 21:33; Admin Dose 300 MG; Start 03/03/19 at 21:00 Isosorbide Dinitrate (Isordil) 10 mg TID PO Last administered on 03/04/19 21:33; Admin Dose 10 MG; Start 03/03/19 at 21:00 Insulin Aspart (Novolog Insulin Pen) 14 unit AC MEALS SC Last administered on 03/04/19 18:06; Admin Dose 14 UNIT; Start 03/03/19 at 22:00 Clopidogrel Bisulfate (plaVIX) 75 mg DAILY PO ; Start 03/04/19 at 09:00 Insulin Glargine (Lantus) 32 units QHS SC ; Start 03/03/19 at 21:00 Aspirin (Halfprin) 81 mg DAILY PO Last administered on 03/04/19 14:58; Admin Dose 81 MG; Start 03/04/19 at 09:00 Morphine Sulfate (morphine) 1 mg Q4H PRN IV .SEVERE PAIN 7-10 Last administered on 5/7/19at 18:12; Admin Dose 1 MG; Start 03/04/19 at 19:00 Diphenhydramine HCl (Benadryl) 25 mg Q6H PRN IV ITCHING Last administered on 03/05/19at 00:08; Admin Dose 25 MG; Start 03/04/19 at 15:30 Carvedilol (Coreg) 12.5 mg BID PO ; Start 03/05/19 at 21:00 LUCAS OROZCO March 05, 2019 11:46
[2019-03-05] MEDS: HYDROCODONE/APAP (5/325) TAB PO PRN (13:30)
[2019-03-05] MEDS: morphine 2 MG INJ IV PRN ×2 (16:20→21:39)
[2019-03-05] MEDS: INSULIN GLARGINE [LANTus] (100 UNITS/ML) SYG SC SCH (21:00)
[2019-03-05] MEDS: ATORVASTATIN 80 MG TAB PO SCH (21:39)
--- NOTE | 2019-03-05 22:21 | CONS ---
Assessment/Plan Assessment/Plan Assessment/Plan (Daily) Right lower extremity diabetic ulcer DM2 with peripheral neuropathy CAD with cardiac stent placements Edema Pain in limb Plan Continue with daily topical antibiotic dressing changes. Monitor for s/s of infection. Discussed possible debridements of wound sites. Patient is to follow up in outpatient wound clinic. Weight bearing as tolerated. Tight glycemic control. Consultation Date/Type/Reason Admit Date/Time March 03, 2019 at 17:57 Date/Time of Note DATE: 03/05/19 TIME: 22:21 Hx of Present Illness 48 y/o diabetic M patient admitted to the hospital for chest pain and underwent cardiac stent placement presents to the floor with chronic right lower extremity ulceration. Patient has been following up in wound care clinic and had undergone a previous skin graft procedure with partial take. Patient relates he's been doing dressing changes with topical antibiotic ointments. Denies f/ c/n/v or constitutional symptoms. ROS negative except for HPI Past Medical History Medical History: coronary artery disease, diabetes, high cholesterol, hypertension Home Meds Active Scripts Insulin Lispro (Humalog) 100 Unit/1 Ml Cartridge, 14 UNIT SQ TIDM A, #1 EA Take insulin lispro 14 units subcutaneous 3 times a day with meals. Need to check blood sugar 3 times a day and at bedtime. Provide patient with 100 lancet, 100 test strips, 100 32-gauge insulin pen needles. Prov:KIMI HULL NP 01/17/19 Insulin Glargine,Hum.rec.anlog (Basaglar Kwikpen U-100) 100 Unit/1 Ml Insuln.pen, 32 UNIT SC .HS, #1 EA Prov:KIMI HULL V. PRODUCE DEPARTMENT SUPERVISOR 01/17/19 Collagenase* (Santyl*) 30 Gm Oint..gm., 1 APPLIC TOP DAILY, #1 TUBE Apply to right lower extremity wound after irrigation with Dakin solution. Prov:KIMI HULL V. PRODUCE DEPARTMENT SUPERVISOR 01/17/19 Linagliptin (TRADJENTA) 5 Mg Tablet, 5 MG PO DAILY, #30 TAB Prov:HULLKIMI V. PRODUCE DEPARTMENT SUPERVISOR 01/17/19 Empagliflozin (Jardiance) 10 Mg Tablet, 25 MG PO DAILY@08, #30 TAB Prov:KIMI HULL V. PRODUCE DEPARTMENT SUPERVISOR 01/17/19 Reported Medications Hydrocodone/Acetaminophen ([place] 10-325 Tablet) 1 Each Tablet, 1 EACH PO Q8H, TAB 03/03/19 Oxycodone HCl/Acetaminophen (Oxycodone-Acetaminophen 10-325) 1 Each Tablet, 1 EACH PO Q12H PRN for NEEDED, TAB 03/03/19 Atorvastatin* (Atorvastatin*) 80 Mg Tablet, 80 MG PO QHS, #30 TAB 01/15/19 Clopidogrel Bisulfate* (Clopidogrel Bisulfate*) 75 Mg Tablet, 75 MG PO DAILY, #30 TAB 01/15/19 Carvedilol* (Carvedilol*) 12.5 Mg Tablet, 12.5 MG PO BID, #60 TAB 01/15/19 Aspirin* (Aspirin* EC) 81 Mg Tablet.dr, 81 MG PO DAILY, TAB 01/15/19 Amlodipine Besylate* (Norvasc*) 5 Mg Tablet, 5 MG PO DAILY, TAB 01/15/19 Hydrochlorothiazide* (Hydrochlorothiazide*) 25 Mg Tab, 25 MG PO DAILY, #30 TAB 01/15/19 Lisinopril* (Lisinopril*) 20 Mg Tablet, 20 MG PO DAILY, #30 TAB 01/15/19 Gabapentin* (Gabapentin*) 300 Mg Capsule, 300 MG PO TID, #90 CAP 01/15/19 Isosorbide Dinitrate* (Isordil*) 10 Mg Tablet, 10 MG PO TID, TAB 01/15/19 Discontinued Scripts Morphine Sulfate (Morphine Sulfate ER) 15 Mg Tablet.er, 15 MG PO BID PRN for PAIN, #30 TAB Prov:KIMI HULL V. PRODUCE DEPARTMENT SUPERVISOR 01/17/19 Medications Current Medications IV Flush (NS 3 ml) 3 ml PER PROTOCOL IV ; Start 03/03/19 at 19:00 Ondansetron HCl (Zofran Inj) 4 mg Q6H PRN IV NAUSEA/VOMITING Last administered on 03/03/19at 19:31; Admin Dose 4 MG; Start 03/03/19 at 19:00 Acetaminophen (Tylenol Tab) 650 mg Q6H PRN PO .PAIN 1-3 OR TEMP; Start 03/03/19 at 19:00 Acetaminophen/ Hydrocodone Bitart ([place] (5/325)) 1 tab Q6H PRN PO .MOD PAIN 4- 6 Last administered on 03/05/19at 13:30; Admin Dose 1 TAB; Start 03/03/19 at 19:00 Docusate Sodium (Colace) 100 mg Q12H PRN PO .CONSTIPATION; Start 03/03/19 at 19:00 Magnesium Hydroxide (Milk Of Mag) 30 ml DAILY PRN PO .CONSTIPATION; Start 03/03/19 at 19:00 Lorazepam (Ativan) 0.5 mg Q6H PRN IV ANXIETY; Start 03/03/19 at 19:00 Albuterol/ Ipratropium (Duoneb) 3 ml Q4H RESP THERAPY PRN HHN SHORTNESS OF BREATH; Start 03/03/19 at 19:00 Hydralazine HCl (Apresoline) 10 mg Q6H PRN IV ELEVATED BLOOD PRESSURE Last administered on 03/05/19 08:33; Admin Dose 10 MG; Start 03/03/19 at 19:00 Nitroglycerin (Nitroglycerin (Sl Tab) 0.4 Mg) 1 tab Q5M PRN SL ANGINA; Start 03/03/19 at 19:00 Diagnostic Test (Pha) (Accu-Chek) 1 ea 02 XX Last administered on 03/04/19 02:00; Admin Dose 1 EA; Start 03/04/19 at 02:00 Insulin Aspart (Novolog Insulin Pen) NOVOLOG *MILD* ALGORI... Q4 SC Last administered on 03/04/19 18:06; Admin Dose 2 UNIT; Start 03/03/19 at 21:00 Atorvastatin Calcium (Lipitor) 80 mg QHS PO Last administered on 03/05/19 21:39; Admin Dose 80 MG; Start 03/03/19 at 21:00 Collagenase (Santyl) 1 applic DAILY TOP ; Start 03/04/19 at 09:00 Gabapentin (Neurontin) 300 mg TID PO Last administered on 03/05/19 21:39; Admin Dose 300 MG; Start 03/03/19 at 21:00 Isosorbide Dinitrate (Isordil) 10 mg TID PO Last administered on 03/05/19 21:40; Admin Dose 10 MG; Start 03/03/19 at 21:00 Insulin Aspart (Novolog Insulin Pen) 14 unit AC MEALS SC Last administered on 03/04/19 18:06; Admin Dose 14 UNIT; Start 03/03/19 at 22:00 Clopidogrel Bisulfate (plaVIX) 75 mg DAILY PO Last administered on 03/05/19 13:29; Admin Dose 75 MG; Start 03/04/19 at 09:00 Insulin Glargine (Lantus) 32 units QHS SC ; Start 03/03/19 at 21:00 Aspirin (Halfprin) 81 mg DAILY PO Last administered on 03/05/19 13:29; Admin Dose 81 MG; Start 03/04/19 at 09:00 Morphine Sulfate (morphine) 1 mg Q4H PRN IV .SEVERE PAIN 7-10 Last administered on 03/05/19at 21:39; Admin Dose 1 MG; Start 03/04/19 at 19:00 Diphenhydramine HCl (Benadryl) 25 mg Q6H PRN IV ITCHING Last administered on 00:08; Admin Dose 25 MG; Start 03/04/19 at 15:30 Carvedilol (Coreg) 12.5 mg BID PO Last administered on 03/05/19 21:40; Admin Dose 12.5 MG; Start 03/05/19 at 21:00 Gentamicin Sulfate (Gentamicin 0.1% Oint) 1 applic DAILY TOP ; Start 03/06/19 at 09:00 Mupirocin (Bactroban) 1 applic DAILY TOP ; Start 03/06/19 at 09:00 Allergies: Coded Allergies: metformin (Verified Allergy, Intermediate, 03/03/19) per pt, makes him feel horribles, worse abdominal pain Past Surgical History Past Surgical Hx: angioplasty, other (H/o previous Cardiac cath placement ) Social History Alcohol Use: none Smoking Status: Current every day smoker Drug Use: none Exam/Review of Systems Exam Vitals Vital Signs Date Temp Pulse Resp B/P (MAP) Pulse Ox O2 O2 Flow FiO2 Time Delivery Rate 03/05/19 93 20:31 03/05/19 98.2 20 168/91 95 20:04 (116) 03/05/19 Room Air 15:10 03/04/19 2.0 12:09 Intake and Output 03/04/19 03/04/19 03/05/19 1515:00 23:00 07:00 IntakeIntake Total 120 ml 500 ml BalanceBalance 120 ml 500 ml Exam DP/PT pulses palpable Right posterior ankle ulceration with partial skin graft uptake 4 x 4 x 0.2 granular wound bed, no probing to bone or tendon, no proximal streaking, no purulence Right lateral jamey proximal ulcer 2.5 x 2.5 x 0.2cm fibrotic wound base with no probing to bone or purulence or proximal streaking Right lateral ankle distal ulcer 2 x 2.5 x 0.2cm fibrotic wound base, no probing to bone, no purulence no proximal streaking. Absent protective sensations Muscle strength 5/5 in all compartments of the foot Right lateral ankle wounds pain on palpation. Results Result Diagram: 03/05/19 1302 03/05/19 1302 Results 24hrs Laboratory Tests Test 03/05/19 13:02 03/05/19 13:34 03/05/19 18:03 03/05/19 21:07 White Blood Count 9.7 Red Blood Count 5.00 Hemoglobin 14.3 Hematocrit 44.1 Mean Corpuscular Volume 88.2 Mean Corpuscular 28.6 L Hemoglobin Mean Corpuscular 32.4 Hemoglobin Concent Red Cell Distribution 14.1 Width Platelet Count 308 Mean Platelet Volume 11.0 H Immature Granulocytes % 0.400 Neutrophils % 64.6 Lymphocytes % 19.2 Monocytes % 7.5 Eosinophils % 7.6 H Basophils % 0.7 Nucleated Red Blood 0.0 Cells % Immature Granulocytes # 0.040 H Neutrophils # 6.3 Lymphocytes # 1.9 Monocytes # 0.7 Eosinophils # 0.7 H Basophils # 0.1 Nucleated Red Blood 0.0 Cells # Sodium Level 141 Potassium Level 4.1 Chloride Level 106 Carbon Dioxide Level 26 Anion Gap 9 Blood Urea Nitrogen 22 #H Creatinine 1.00 Est Glomerular Filtrat > 60 Rate mL/min Glucose Level 147 Calcium Level 9.4 Bedside Glucose 135 109 130 Medications Medication Current Medications IV Flush (NS 3 ml) 3 ml PER PROTOCOL IV ; Start 03/03/19 at 19:00 Ondansetron HCl (Zofran Inj) 4 mg Q6H PRN IV NAUSEA/VOMITING Last administered on 03/03/19at 19:31; Admin Dose 4 MG; Start 03/03/19 at 19:00 Acetaminophen (Tylenol Tab) 650 mg Q6H PRN PO .PAIN 1-3 OR TEMP; Start 03/03/19 at 19:00 Acetaminophen/ Hydrocodone Bitart ([place] (5/325)) 1 tab Q6H PRN PO .MOD PAIN 4- 6 Last administered on 03/05/19 13:30; Admin Dose 1 TAB; Start 03/03/19 at 19:00 Docusate Sodium (Colace) 100 mg Q12H PRN PO .CONSTIPATION; Start 03/03/19 at 19:00 Magnesium Hydroxide (Milk Of Mag) 30 ml DAILY PRN PO .CONSTIPATION; Start 03/03/19 at 19:00 Lorazepam (Ativan) 0.5 mg Q6H PRN IV ANXIETY; Start 03/03/19 at 19:00 Albuterol/ Ipratropium (Duoneb) 3 ml Q4H RESP THERAPY PRN HHN SHORTNESS OF BREATH; Start 03/03/19 at 19:00 Hydralazine HCl (Apresoline) 10 mg Q6H PRN IV ELEVATED BLOOD PRESSURE Last administered on 03/05/19 08:33; Admin Dose 10 MG; Start 03/03/19 at 19:00 Nitroglycerin (Nitroglycerin (Sl Tab) 0.4 Mg) 1 tab Q5M PRN SL ANGINA; Start 03/03/19 at 19:00 Diagnostic Test (Pha) (Accu-Chek) 1 ea 02 XX Last administered on 03/04/19 02:00; Admin Dose 1 EA; Start 03/04/19 at 02:00 Insulin Aspart (Novolog Insulin Pen) NOVOLOG *MILD* ALGORI... Q4 SC Last administered on 03/04/19 18:06; Admin Dose 2 UNIT; Start 03/03/19 at 21:00 Atorvastatin Calcium (Lipitor) 80 mg QHS PO Last administered on 03/05/19 21:39; Admin Dose 80 MG; Start 03/03/19 at 21:00 Collagenase (Santyl) 1 applic DAILY TOP ; Start 03/04/19 at 09:00 Gabapentin (Neurontin) 300 mg TID PO Last administered on 03/05/19 21:39; Admin Dose 300 MG; Start 03/03/19 at 21:00 Isosorbide Dinitrate (Isordil) 10 mg TID PO Last administered on 03/05/19 21:40; Admin Dose 10 MG; Start 03/03/19 at 21:00 Insulin Aspart (Novolog Insulin Pen) 14 unit AC MEALS SC Last administered on 03/04/19 18:06; Admin Dose 14 UNIT; Start 03/03/19 at 22:00 Clopidogrel Bisulfate (plaVIX) 75 mg DAILY PO Last administered on 03/05/19 13:29; Admin Dose 75 MG; Start 03/04/19 at 09:00 Insulin Glargine (Lantus) 32 units QHS SC ; Start 03/03/19 at 21:00 Aspirin (Halfprin) 81 mg DAILY PO Last administered on 03/05/19 13:29; Admin Dose 81 MG; Start 03/04/19 at 09:00 Morphine Sulfate (morphine) 1 mg Q4H PRN IV .SEVERE PAIN 7-10 Last administered on 03/05/19 21:39; Admin Dose 1 MG; Start 03/04/19 at 19:00 Diphenhydramine HCl (Benadryl) 25 mg Q6H PRN IV ITCHING Last administered on 03/05/19 00:08; Admin Dose 25 MG; Start 03/04/19 at 15:30 Carvedilol (Coreg) 12.5 mg BID PO Last administered on 03/05/19 21:40; Admin Dose 12.5 MG; Start 03/05/19 at 21:00 Gentamicin Sulfate (Gentamicin 0.1% Oint) 1 applic DAILY TOP ; Start 03/06/19 at 09:00 Mupirocin (Bactroban) 1 applic DAILY TOP ; Start 03/06/19 at 09:00 KHADRA ODOM DPM March 05, 2019 22:21
[2019-03-06] VITALS (7 sets, daily range): BP systolic 127–151; BP diastolic 69–98; PULSE 85–97; RESP 20
[2019-03-06] MEDS: INSULIN ASPART [NOVOLOG] 3 ML PEN SC SCH ×6 (01:00→12:30)
[2019-03-06] MEDS ORDERED: GLUCAGON 1 MG INJ IM PRN (02:30)
[2019-03-06] MEDS ORDERED: GLUCOSE GEL 15 GRAM TUBE PO PRN ×2 (02:30)
[2019-03-06] MEDS ORDERED: GLUCOSE GEL 15 GRAM TUBE BUCCAL PRN (02:30)
[2019-03-06] MEDS ORDERED: DEXTROSE 50% 50 ML SYRINGE IV PRN ×2 (02:30)
[2019-03-06] MEDS: morphine 2 MG INJ IV PRN ×2 (04:42→08:54)
[2019-03-06] MEDS ORDERED: INSULIN GLARGINE [LANTus] (100 UNITS/ML) SYG SC SCH (08:00)
[2019-03-06] MEDS: CLOPIDOGREL 75 MG TAB PO SCH (08:20)
[2019-03-06] MEDS: ISOSORBIDE DINITRATE 10 MG TAB PO SCH ×2 (08:20→13:01)
[2019-03-06] MEDS: GABAPENTIN 300 MG CAP PO SCH ×2 (08:20→13:01)
[2019-03-06] MEDS: ASPIRIN (EC) 81 MG TAB PO SCH (08:21)
[2019-03-06] MEDS: DIPHENHYDRAMINE 50 MG INJ IV PRN (08:22)
--- NOTE | 2019-03-06 08:48 | CONS ---
Consult Date/Type/Reason Admit Date/Time March 03, 2019 at 17:57 Initial Consult Date 03/03/19 Type of Consultation: cv Requesting Provider: LUCAS OROZCO Date/Time of Note DATE: 03/06/19 TIME: 08:47 Subjective Cardiology follow-up progress note Subjective: Discussed with the staff telemetry was reviewed patient remains in sinus rhythm No chest pain or pressure now he wants to go home Objective: General: no acute distress HEENT: NC/AT. pupils are equal. round. NECK: NO JVD. no stridor. CV: RRR. systolic murmur; no gallop or rubs. PULM: no wheezing or rhonchi. GI: SOFT, NT, ND, no rebound or guarding Extremity: Right lower extremity is covered neuro: awake and alert, OX3. Psych: calm and pleasant rectal: deferred vascular L hand normal radial pulse. no hematoma or bleeding echo 01/14 shows Normal left ventricular systolic function. Normal left ventricular cavity size. Mild concentric left ventricular hypertrophy. Ejection fraction is visually estimated at 50 %. Tissue Doppler/Mitral Doppler indices are consistent with impaired relaxation (Stage I diastolic dysfunction). No significant aortic stenosis or insufficiency. Aortic cusps appear mildly calcified. Mild mitral leaflet calcification. Mild mitral annular calcification. Trace mitral regurgitation. Normal appearance of the tricuspid valve. Unable to obtain RVSP due to minimal presence of tricuspid regurgitation. Objective Vitals Vital Signs Date Temp Pulse Resp B/P (MAP) Pulse Ox O2 O2 Flow FiO2 Time Delivery Rate 03/06/19 98.6 92 20 151/98 95 Room Air 07:50 (115) 03/04/19 2.0 12:09 Results/Medications Result Diagram: 03/05/19 1302 03/05/19 1302 Results 24 hrs Laboratory Tests Test 03/05/19 13:02 03/05/19 13:34 03/05/19 18:03 03/05/19 21:07 White Blood Count 9.7 Red Blood Count 5.00 Hemoglobin 14.3 Hematocrit 44.1 Mean Corpuscular Volume 88.2 Mean Corpuscular 28.6 L Hemoglobin Mean Corpuscular 32.4 Hemoglobin Concent Red Cell Distribution 14.1 Width Platelet Count 308 Mean Platelet Volume 11.0 H Immature Granulocytes % 0.400 Neutrophils % 64.6 Lymphocytes % 19.2 Monocytes % 7.5 Eosinophils % 7.6 H Basophils % 0.7 Nucleated Red Blood 0.0 Cells % Immature Granulocytes # 0.040 H Neutrophils # 6.3 Lymphocytes # 1.9 Monocytes # 0.7 Eosinophils # 0.7 H Basophils # 0.1 Nucleated Red Blood 0.0 Cells # Sodium Level 141 Potassium Level 4.1 Chloride Level 106 Carbon Dioxide Level 26 Anion Gap 9 Blood Urea Nitrogen 22 #H Creatinine 1.00 Est Glomerular Filtrat > 60 Rate mL/min Glucose Level 147 Calcium Level 9.4 Bedside Glucose 135 109 130 Test 03/06/19 04:49 03/06/19 07:49 Bedside Glucose 145 146 Home Meds Active Scripts Insulin Lispro (Humalog) 100 Unit/1 Ml Cartridge, 14 UNIT SQ TIDM A, #1 EA Take insulin lispro 14 units subcutaneous 3 times a day with meals. Need to check blood sugar 3 times a day and at bedtime. Provide patient with 100 lancet, 100 test strips, 100 32-gauge insulin pen needles. Prov:KIMI HULL NP 01/17/19 Insulin Glargine,Hum.rec.anlog (Basaglar Kwikpen U-100) 100 Unit/1 Ml Insuln.pen, 32 UNIT SC .HS, #1 EA Prov:KIMI HULL V. COATING MACHINE OPERATOR 01/17/19 Collagenase* (Santyl*) 30 Gm Oint..gm., 1 APPLIC TOP DAILY, #1 TUBE Apply to right lower extremity wound after irrigation with Dakin solution. Prov:KIMI HULL V. COATING MACHINE OPERATOR 01/17/19 Linagliptin (TRADJENTA) 5 Mg Tablet, 5 MG PO DAILY, #30 TAB Prov:KIMI HULL V. COATING MACHINE OPERATOR 01/17/19 Empagliflozin (Jardiance) 10 Mg Tablet, 25 MG PO DAILY@08, #30 TAB Prov:KIMI HULL V. COATING MACHINE OPERATOR 01/17/19 Reported Medications Hydrocodone/Acetaminophen ([place] 10-325 Tablet) 1 Each Tablet, 1 EACH PO Q8H, TAB 03/03/19 Oxycodone HCl/Acetaminophen (Oxycodone-Acetaminophen 10-325) 1 Each Tablet, 1 EACH PO Q12H PRN for NEEDED, TAB 03/03/19 Atorvastatin* (Atorvastatin*) 80 Mg Tablet, 80 MG PO QHS, #30 TAB 01/15/19 Clopidogrel Bisulfate* (Clopidogrel Bisulfate*) 75 Mg Tablet, 75 MG PO DAILY, #30 TAB 01/15/19 Carvedilol* (Carvedilol*) 12.5 Mg Tablet, 12.5 MG PO BID, #60 TAB 01/15/19 Aspirin* (Aspirin* EC) 81 Mg Tablet.dr, 81 MG PO DAILY, TAB 01/15/19 Amlodipine Besylate* (Norvasc*) 5 Mg Tablet, 5 MG PO DAILY, TAB 01/15/19 Hydrochlorothiazide* (Hydrochlorothiazide*) 25 Mg Tab, 25 MG PO DAILY, #30 TAB 01/15/19 Lisinopril* (Lisinopril*) 20 Mg Tablet, 20 MG PO DAILY, #30 TAB 01/15/19 Gabapentin* (Gabapentin*) 300 Mg Capsule, 300 MG PO TID, #90 CAP 01/15/19 Isosorbide Dinitrate* (Isordil*) 10 Mg Tablet, 10 MG PO TID, TAB 01/15/19 Discontinued Scripts Morphine Sulfate (Morphine Sulfate ER) 15 Mg Tablet.er, 15 MG PO BID PRN for PAIN, #30 TAB Prov:KIMI HULL V. COATING MACHINE OPERATOR 01/17/19 Medications Current Medications IV Flush (NS 3 ml) 3 ml PER PROTOCOL IV ; Start 03/03/19 at 19:00 Ondansetron HCl (Zofran Inj) 4 mg Q6H PRN IV NAUSEA/VOMITING Last administered on 03/03/19at 19:31; Admin Dose 4 MG; Start 03/03/19 at 19:00 Acetaminophen (Tylenol Tab) 650 mg Q6H PRN PO .PAIN 1-3 OR TEMP; Start 03/03/19 at 19:00 Acetaminophen/ Hydrocodone Bitart ([place] (5/325)) 1 tab Q6H PRN PO .MOD PAIN 4- 6 Last administered on 03/05/19at 13:30; Admin Dose 1 TAB; Start 03/03/19 at 19:00 Docusate Sodium (Colace) 100 mg Q12H PRN PO .CONSTIPATION; Start 03/03/19 at 19:00 Magnesium Hydroxide (Milk Of Mag) 30 ml DAILY PRN PO .CONSTIPATION; Start 03/03/19 at 19:00 Lorazepam (Ativan) 0.5 mg Q6H PRN IV ANXIETY; Start 03/03/19 at 19:00 Albuterol/ Ipratropium (Duoneb) 3 ml Q4H RESP THERAPY PRN HHN SHORTNESS OF BREATH; Start 03/03/19 at 19:00 Hydralazine HCl (Apresoline) 10 mg Q6H PRN IV ELEVATED BLOOD PRESSURE Last administered on 03/05/19 08:33; Admin Dose 10 MG; Start 03/03/19 at 19:00 Nitroglycerin (Nitroglycerin (Sl Tab) 0.4 Mg) 1 tab Q5M PRN SL ANGINA; Start 03/03/19 at 19:00 Insulin Aspart (Novolog Insulin Pen) NOVOLOG *MILD* ALGORI... Q4 SC Last administered on 03/04/19 18:06; Admin Dose 2 UNIT; Start 03/03/19 at 21:00 Atorvastatin Calcium (Lipitor) 80 mg QHS PO Last administered on 03/05/19 21:39; Admin Dose 80 MG; Start 03/03/19 at 21:00 Collagenase (Santyl) 1 applic DAILY TOP ; Start 03/04/19 at 09:00 Gabapentin (Neurontin) 300 mg TID PO Last administered on 03/06/19 08:20; Admin Dose 300 MG; Start 03/03/19 at 21:00 Isosorbide Dinitrate (Isordil) 10 mg TID PO Last administered on 03/06/19 08:20; Admin Dose 10 MG; Start 03/03/19 at 21:00 Insulin Aspart (Novolog Insulin Pen) 14 unit AC MEALS SC Last administered on 03/04/19 18:06; Admin Dose 14 UNIT; Start 03/03/19 at 22:00 Clopidogrel Bisulfate (plaVIX) 75 mg DAILY PO Last administered on 03/06/19 08:20; Admin Dose 75 MG; Start 03/04/19 at 09:00 Aspirin (Halfprin) 81 mg DAILY PO Last administered on 03/06/19 08:21; Admin Dose 81 MG; Start 03/04/19 at 09:00 Morphine Sulfate (morphine) 1 mg Q4H PRN IV .SEVERE PAIN 7-10 Last administered on 03/06/19 04:42; Admin Dose 1 MG; Start 03/04/19 at 19:00 Diphenhydramine HCl (Benadryl) 25 mg Q6H PRN IV ITCHING Last administered on 03/06/19at 08:22; Admin Dose 25 MG; Start 03/04/19 at 15:30 Carvedilol (Coreg) 12.5 mg BID PO Last administered on 03/06/19at 08:21; Admin Dose 12.5 MG; Start 03/05/19 at 21:00 Gentamicin Sulfate (Gentamicin 0.1% Oint) 1 applic DAILY TOP Last administered on 03/06/19at 08:21; Admin Dose 1 APPLIC; Start 03/06/19 at 09:00 Mupirocin (Bactroban) 1 applic DAILY TOP Last administered on 03/06/19at 08:22; Admin Dose 1 APPLIC; Start 03/06/19 at 09:00 Insulin Glargine (Lantus) 32 units DAILY@0800 SC Last administered on 03/06/19at 07:54; Admin Dose 32 UNITS; Start 03/06/19 at 08:00 Miscellaneous Information 1 ea NOTE XX ; Start 03/06/19 at 02:30 Glucose (Glutose) 15 gm Q15M PRN PO DECREASED GLUCOSE; Start 03/06/19 at 02:30 Glucose (Glutose) 22.5 gm Q15M PRN PO DECREASED GLUCOSE; Start 03/06/19 at 02:30 Dextrose (D50w Syringe) 25 ml Q15M PRN IV DECREASED GLUCOSE; Start 03/06/19 at 02:30 Dextrose (D50w Syringe) 50 ml Q15M PRN IV DECREASED GLUCOSE; Start 03/06/19 at 02:30 Glucagon (Glucagen) 1 mg Q15M PRN IM DECREASED GLUCOSE; Start 03/06/19 at 02:30 Glucose (Glutose) 15 gm Q15M PRN BUCCAL DECREASED GLUCOSE; Start 03/06/19 at 02:30 Assessment/Plan Hospital Course (Demo Recall) 1.Chest pain /ACS: Status post PCI of right coronary artery 2. multivessel CAD 3. HX PCI OM 4. DM 5. HTN 6. Dyslipidemia 7. morbid obesity 8. PAD 9. NONhealing wound 10. Renal insufficiency 11. Severe obstructive sleep apnea 12. Noncompliant REC cont ASA PLAVIX CONTINUE WITH BETABLOCKER DM control HOLD metformin Off of Norvasc to avoid hypotension. However today's patient hypertensive but he has not been taking any of his medications cont statin Importance of compliance with diet and medication were discussed with the patient explained to him. DC planning HE HAS NO CARDIAC CONTRAINDICATION FOR HYPERBARIC CHAMBER Thank you for his referral. We will continue to follow along with you MARII OLIVEIRA MD [facility] MARII OLIVEIRA MD March 06, 2019 08:48
[2019-03-06] MEDS: COLLAGENASE 5 GM (UD JAR) TOP SCH (08:53)
[2019-03-06] MEDS ORDERED: MUPIROCIN 2% 22 GM OINT TOP SCH (09:00)
[2019-03-06] MEDS ORDERED: GENTAMICIN 0.1% 15 GM OINT TOP SCH (09:00)
--- NOTE | 2019-03-06 09:24 | CONS ---
Assessment/Plan Assessment/Plan Assessment/Plan (Daily) 1. acute on chronic renal failure 2. 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 acute chest pain, 4. h/o previous NSTEMi and cardiac cath 5. H/O HTN 6. H/o DM II 7. h/o HL Plan: s/p IVF hydration , BUN/Cr improving, Electrolytes stable today Successful PTCA stenting of the right coronary artery artery and DERIC placement follow up wiht me in clinic in 1-2 week upon discharge will follow up Consultation Date/Type/Reason Admit Date/Time March 03, 2019 at 17:57 Initial Consult Date 03/04/19 Type of Consult NEPHROLOGY Requesting Provider: LUCAS OROZCO Date/Time of Note DATE: 03/06/19 TIME: 09:24 Exam/Review of Systems Exam Vitals Vital Signs Date Temp Pulse Resp B/P (MAP) Pulse Ox O2 O2 Flow FiO2 Time Delivery Rate 03/06/19 98.6 92 20 151/98 95 Room Air 07:50 (115) 03/04/19 2.0 12:09 Exam Constitutional: alert, awake no acute distress Respiratory: clear to auscultation, normal air movement, diminished breath sounds Cardiovascular: regular rate and rhythm, nl pulses Gastrointestinal: soft, non-tender Extremities: normal pulses Neurological: DIGITAL CIRCUIT DESIGNER II-XII intact, nl mental status, nl speech, nl strength Results Result Diagram: 03/06/19 0840 03/05/19 1302 Results 24hrs Laboratory Tests Test 03/05/19 13:02 03/05/19 13:34 03/05/19 18:03 03/05/19 21:07 White Blood Count 9.7 Red Blood Count 5.00 Hemoglobin 14.3 Hematocrit 44.1 Mean Corpuscular Volume 88.2 Mean Corpuscular 28.6 L Hemoglobin Mean Corpuscular 32.4 Hemoglobin Concent Red Cell Distribution 14.1 Width Platelet Count 308 Mean Platelet Volume 11.0 H Immature Granulocytes % 0.400 Neutrophils % 64.6 Lymphocytes % 19.2 Monocytes % 7.5 Eosinophils % 7.6 H Basophils % 0.7 Nucleated Red Blood 0.0 Cells % Immature Granulocytes # 0.040 H Neutrophils # 6.3 Lymphocytes # 1.9 Monocytes # 0.7 Eosinophils # 0.7 H Basophils # 0.1 Nucleated Red Blood 0.0 Cells # Sodium Level 141 Potassium Level 4.1 Chloride Level 106 Carbon Dioxide Level 26 Anion Gap 9 Blood Urea Nitrogen 22 #H Creatinine 1.00 Est Glomerular Filtrat > 60 Rate mL/min Glucose Level 147 Calcium Level 9.4 Bedside Glucose 135 109 130 Test 03/06/19 04:49 03/06/19 07:49 03/06/19 08:40 Bedside Glucose 145 146 White Blood Count 9.2 Red Blood Count 4.96 Hemoglobin 14.1 Hematocrit 44.4 Mean Corpuscular Volume 89.5 Mean Corpuscular 28.4 L Hemoglobin Mean Corpuscular 31.8 L Hemoglobin Concent Red Cell Distribution 14.2 Width Platelet Count 299 Mean Platelet Volume 11.2 H Immature Granulocytes % 0.300 Neutrophils % 60.0 Lymphocytes % 23.4 Monocytes % 8.0 Eosinophils % 7.3 H Basophils % 1.0 Nucleated Red Blood 0.0 Cells % Immature Granulocytes # 0.030 Neutrophils # 5.5 Lymphocytes # 2.2 Monocytes # 0.7 Eosinophils # 0.7 H Basophils # 0.1 Nucleated Red Blood 0.0 Cells # Medications Medication Current Medications IV Flush (NS 3 ml) 3 ml PER PROTOCOL IV ; Start 03/03/19 at 19:00 Ondansetron HCl (Zofran Inj) 4 mg Q6H PRN IV NAUSEA/VOMITING Last administered on 03/03/19at 19:31; Admin Dose 4 MG; Start 03/03/19 at 19:00 Acetaminophen (Tylenol Tab) 650 mg Q6H PRN PO .PAIN 1-3 OR TEMP; Start 03/03/19 at 19:00 Acetaminophen/ Hydrocodone Bitart ([place] (5/325)) 1 tab Q6H PRN PO .MOD PAIN 4- 6 Last administered on 03/05/19at 13:30; Admin Dose 1 TAB; Start 03/03/19 at 19:00 Docusate Sodium (Colace) 100 mg Q12H PRN PO .CONSTIPATION; Start 03/03/19 at 19:00 Magnesium Hydroxide (Milk Of Mag) 30 ml DAILY PRN PO .CONSTIPATION; Start 03/03/19 at 19:00 Lorazepam (Ativan) 0.5 mg Q6H PRN IV ANXIETY; Start 03/03/19 at 19:00 Albuterol/ Ipratropium (Duoneb) 3 ml Q4H RESP THERAPY PRN HHN SHORTNESS OF BREATH; Start 03/03/19 at 19:00 Hydralazine HCl (Apresoline) 10 mg Q6H PRN IV ELEVATED BLOOD PRESSURE Last administered on 03/05/19 08:33; Admin Dose 10 MG; Start 03/03/19 at 19:00 Nitroglycerin (Nitroglycerin (Sl Tab) 0.4 Mg) 1 tab Q5M PRN SL ANGINA; Start 03/03/19 at 19:00 Insulin Aspart (Novolog Insulin Pen) NOVOLOG *MILD* ALGORI... Q4 SC Last administered on 03/04/19 18:06; Admin Dose 2 UNIT; Start 03/03/19 at 21:00 Atorvastatin Calcium (Lipitor) 80 mg QHS PO Last administered on 03/05/19 2 1:39; Admin Dose 80 MG; Start 03/03/19 at 21:00 Collagenase (Santyl) 1 applic DAILY TOP Last administered on 03/06/19 08:53; Admin Dose 1 APPLIC; Start 03/04/19 at 09:00 Gabapentin (Neurontin) 300 mg TID PO Last administered on 03/06/19 08:20; Admin Dose 300 MG; Start 03/03/19 at 21:00 Isosorbide Dinitrate (Isordil) 10 mg TID PO Last administered on 03/06/19 08:20; Admin Dose 10 MG; Start 03/03/19 at 21:00 Insulin Aspart (Novolog Insulin Pen) 14 unit AC MEALS SC Last administered on 03/04/19 18:06; Admin Dose 14 UNIT; Start 03/03/19 at 22:00 Clopidogrel Bisulfate (plaVIX) 75 mg DAILY PO Last administered on 03/06/19 08:20; Admin Dose 75 MG; Start 03/04/19 at 09:00 Aspirin (Halfprin) 81 mg DAILY PO Last administered on 03/06/19 08:21; Admin Dose 81 MG; Start 03/04/19 at 09:00 Morphine Sulfate (morphine) 1 mg Q4H PRN IV .SEVERE PAIN 7-10 Last administered on 03/06/19 08:54; Admin Dose 1 MG; Start 03/04/19 at 19:00 Diphenhydramine HCl (Benadryl) 25 mg Q6H PRN IV ITCHING Last administered on 03/06/19 08:22; Admin Dose 25 MG; Start 03/04/19 at 15:30 Carvedilol (Coreg) 12.5 mg BID PO Last administered on 03/06/19 08:21; Admin Dose 12.5 MG; Start 03/05/19 at 21:00 Gentamicin Sulfate (Gentamicin 0.1% Oint) 1 applic DAILY TOP Last administered on 03/06/19 08:21; Admin Dose 1 APPLIC; Start 03/06/19 at 09:00 Mupirocin (Bactroban) 1 applic DAILY TOP Last administered on 03/06/19 08:22; Admin Dose 1 APPLIC; Start 03/06/19 at 09:00 Insulin Glargine (Lantus) 32 units DAILY@0800 SC Last administered on 03/06/19 07:54; Admin Dose 32 UNITS; Start 03/06/19 at 08:00 Miscellaneous Information 1 ea NOTE XX ; Start 03/06/19 at 02:30 Glucose (Glutose) 15 gm Q15M PRN PO DECREASED GLUCOSE; Start 03/06/19 at 02:30 Glucose (Glutose) 22.5 gm Q15M PRN PO DECREASED GLUCOSE; Start 03/06/19 at 02:30 Dextrose (D50w Syringe) 25 ml Q15M PRN IV DECREASED GLUCOSE; Start 03/06/19 at 02:30 Dextrose (D50w Syringe) 50 ml Q15M PRN IV DECREASED GLUCOSE; Start 03/06/19 at 02:30 Glucagon (Glucagen) 1 mg Q15M PRN IM DECREASED GLUCOSE; Start 03/06/19 at 02:30 Glucose (Glutose) 15 gm Q15M PRN BUCCAL DECREASED GLUCOSE; Start 03/06/19 at 02:30 RENEE RIVERA MD March 06, 2019 09:24
--- NOTE | 2019-03-06 11:33 | PDOCDIS ---
Discharge Instructions CONDITION [id number] Patient Condition: [id number] Stable HOME CARE INSTRUCTIONS: [id number] Diet Instructions: [id number] Low Fat /Cholesterol ACTIVITY: [id number] Activity Restrictions: [id number] Slowly Increase Activity Rest between Activity Avoid heavy lifting FOLLOW UP/APPOINTMENTS Follow-up Plan Please take your medications as prescribed, see your doctor in the clinic in the next 1 to 2 weeks. LUCAS OROZCO March 06, 2019 11:33
--- NOTE | 2019-03-06 11:38 | DS ---
Date/Time of Note Date/Time of Note DATE: 03/06/19 TIME: 11:34 Discharge Summary Admission/Discharge Info Admit Date/Time March 06, 2019 at 11:17 Discharge Date/Time Discharge Diagnosis 1. Chest pain- has ruled out for acute coronary syndrome. Again status post c ardiac stent placement Status post PCI of right coronary artery this admission 2. Type 2 diabetes-sugars stable, A1c = 10.2. 3. History of high cholesterol. 4. History of hypertension. 5. Likely acute on CKD - due to DM nephropathy. Resolved now. 6. CAD -with stent placement Patient Condition: Stable Procedures [facility]: Date/Time of Note Date/Time of Note DATE: 03/04/19 TIME: 09:43 Operative Report Procedure Date: March 04, 2019 Preoperative Diagnosis ACS Postoperative Diagnosis ACS Operation/Procedure Performed PCI RCA Hx of Present Illness 48-year-old male with history of non-ST elevation [place], coronary artery disease with stent placement x2 performed 6 weeks ago, type 2 diabetes, high cholesterol, hypertension, who was sent in by his clinical laboratory manager because of chest pain and need for possible new stent placement versus bypass surgery. The patient presently denies any fever or chills, diarrhea or constipation, no nausea or vomiting, but he has been having some chest pain, pressure-like in sensation, mild shortness of breath. The patient was last here at [facility] from 01/15 to 01/17/2019. At that time, he was treated for bleeding right lower extremity chronic nonhealing diabetic ulcer, and apparently 6 weeks ago or within the last 2 months, had stent placement at [facility]. When patient came in today, he was found to have white blood cell count of 11.0, his creatinine was 1.37, his troponin was negative x1. Hospital Course Patient was admitted and seen by cardiology and renal teams during this hospital stay. He underwent left heart catheterization with successful stenting of his RCA occlusion. Patient tolerated the procedure well. He did have some renal insufficiency before admission and his metformin was held and he was given IV fluids and again followed by renal team for that. Afterwards his renal function returned to normal baseline levels of BUN and creatinine. Patient was able to ambulate, tolerated p.o. diet. After getting clearance from the legal nurse consultant teams patient will be discharged home today in improved condition. He has been strongly encouraged to adhere with his diet orders as recommended by the cardiology team, and also to be compliant with his home medications. See below for full list of discharge medications. Home Meds Active Scripts Insulin Lispro (Humalog) 100 Unit/1 Ml Cartridge, 14 UNIT SQ TIDM A, #1 EA Take insulin lispro 14 units subcutaneous 3 times a day with meals. Need to check blood sugar 3 times a day and at bedtime. Provide patient with 100 lancet, 100 test strips, 100 32-gauge insulin pen needles. Prov:KIMI HULL V. SCHEDULING ASSISTANT 01/17/19 Insulin Glargine,Hum.rec.anlog (Basaglar Kwikpen U-100) 100 Unit/1 Ml Insuln.pen, 32 UNIT SC .HS, #1 EA Prov:HULLKIMI V. SCHEDULING ASSISTANT 01/17/19 Collagenase* (Santyl*) 30 Gm Oint..gm., 1 APPLIC TOP DAILY, #1 TUBE Apply to right lower extremity wound after irrigation with Dakin solution. Prov:KIMI HULL V. SCHEDULING ASSISTANT 01/17/19 Linagliptin (TRADJENTA) 5 Mg Tablet, 5 MG PO DAILY, #30 TAB Prov:HULLKIMI MONZON V. SCHEDULING ASSISTANT 01/17/19 Empagliflozin (Jardiance) 10 Mg Tablet, 25 MG PO DAILY@08, #30 TAB Prov:HULLKIMI V. SCHEDULING ASSISTANT 01/17/19 Reported Medications Hydrocodone/Acetaminophen ([place] 10-325 Tablet) 1 Each Tablet, 1 EACH PO Q8H, TAB 03/03/19 Oxycodone HCl/Acetaminophen (Oxycodone-Acetaminophen 10-325) 1 Each Tablet, 1 EACH PO Q12H PRN for NEEDED, TAB 03/03/19 Atorvastatin* (Atorvastatin*) 80 Mg Tablet, 80 MG PO QHS, #30 TAB 01/15/19 Clopidogrel Bisulfate* (Clopidogrel Bisulfate*) 75 Mg Tablet, 75 MG PO DAILY, #30 TAB 01/15/19 Carvedilol* (Carvedilol*) 12.5 Mg Tablet, 12.5 MG PO BID, #60 TAB 01/15/19 Aspirin* (Aspirin* EC) 81 Mg Tablet.dr, 81 MG PO DAILY, TAB 01/15/19 Amlodipine Besylate* (Norvasc*) 5 Mg Tablet, 5 MG PO DAILY, TAB 01/15/19 Hydrochlorothiazide* (Hydrochlorothiazide*) 25 Mg Tab, 25 MG PO DAILY, #30 TAB 01/15/19 Lisinopril* (Lisinopril*) 20 Mg Tablet, 20 MG PO DAILY, #30 TAB 01/15/19 Gabapentin* (Gabapentin*) 300 Mg Capsule, 300 MG PO TID, #90 CAP 01/15/19 Isosorbide Dinitrate* (Isordil*) 10 Mg Tablet, 10 MG PO TID, TAB 01/15/19 Discontinued Scripts Morphine Sulfate (Morphine Sulfate ER) 15 Mg Tablet.er, 15 MG PO BID PRN for PAIN, #30 TAB Prov:HULLKIMISONNY Stanford SCHEDULING ASSISTANT 01/17/19 Follow-up Plan Please take your medications as prescribed, see your doctor in the clinic in the next 1 to 2 weeks. Primary Care Provider Not On Staff Doctor Time spent on discharge: > 30 minutes Pending Labs Laboratory Tests Test 03/05/19 13:02 03/05/19 13:34 03/05/19 18:03 03/05/19 21:07 White Blood 9.7 Count 10^3/ul (4.8-10 .8) Red Blood 5.00 Count 10^6/ul (4.70-6 .10) Hemoglobin 14.3 g/dl (14.0-18.0 ) Hematocrit 44.1 % (42.0-52.0) Mean 88.2 Corpuscular fl (82.0-101.0) Volume Mean 28.6 Corpuscular pg (29.0-33.0) Hemoglobin Mean 32.4 Corpuscular g/dl (32.0-37.0 Hemoglobin Conc ) ent Red Cell 14.1 Distribution % (11.5-14.5) Width Platelet Count 308 10^3/UL (140-41 5) Mean Platelet 11.0 Volume fl (7.4-10.4) Immature 0.400 Granulocytes % % (0.001-0.429) Neutrophils % 64.6 % (39.0-77.0) Lymphocytes % 19.2 % (15.0-51.0) Monocytes % 7.5 % (0.0-11.0) Eosinophils % 7.6 % (0.0-7.0) Basophils % 0.7 % (0.0-2.0) Nucleated Red 0.0 Blood Cells % /100WBC (0.0-0. 0) Immature 0.040 Granulocytes # 10^3/ul (0.0-0. 031) Neutrophils # 6.3 10^3/ul (1.6-7. 5) Lymphocytes # 1.9 10^3/ul (0.8-2. 9) Monocytes # 0.7 10^3/ul (0.3-0. 9) Eosinophils # 0.7 10^3/ul (0.0-0. 5) Basophils # 0.1 10^3/ul (0.0-0. 1) Nucleated Red 0.0 Blood Cells # 10^3/ul (0.0-0. 0) Sodium Level 141 mmol/L (135-144 ) Potassium 4.1 Level mmol/L (3.5-5.1 ) Chloride Level 106 mmol/L (97-110) Carbon Dioxide 26 Level mmol/L (21-31) Anion Gap 9 (5-13) Blood Urea 22 mg/dl (7-20) Nitrogen Creatinine 1.00 mg/dl (0.61-1.2 4) Est Glomerular > 60 Filtrat mL/min (>60) Rate mL/min Glucose Level 147 mg/dl (70-220) Calcium Level 9.4 mg/dl (8.4-10.2 ) Bedside 135 109 130 Glucose mg/dL (70-220) mg/dL (70-220) mg/dL (70-220) Test 03/06/19 04:49 03/06/19 07:49 03/06/19 08:40 03/06/19 09:22 Bedside 145 146 166 Glucose mg/dL (70-220) mg/dL (70-220) mg/dL (70-220) White Blood 9.2 Count 10^3/ul (4.8-1 0.8) Red Blood 4.96 Count 10^6/ul (4.70- 6.10) Hemoglobin 14.1 g/dl (14.0-18. 0) Hematocrit 44.4 % (42.0-52.0) Mean 89.5 Corpuscular fl (82.0-101.0 Volume ) Mean 28.4 Corpuscular pg (29.0-33.0) Hemoglobin Mean 31.8 Corpuscular g/dl (32.0-37. Hemoglobin Conc 0) ent Red Cell 14.2 Distribution % (11.5-14.5) Width Platelet Count 299 10^3/UL (140-4 15) Mean Platelet 11.2 Volume fl (7.4-10.4) Immature 0.300 Granulocytes % % (0.001-0.429 ) Neutrophils % 60.0 % (39.0-77.0) Lymphocytes % 23.4 % (15.0-51.0) Monocytes % 8.0 % (0.0-11.0) Eosinophils % 7.3 % (0.0-7.0) Basophils % 1.0 % (0.0-2.0) Nucleated Red 0.0 Blood Cells % /100WBC (0.0-0 .0) Immature 0.030 Granulocytes # 10^3/ul (0.0-0 .031) Neutrophils # 5.5 10^3/ul (1.6-7 .5) Lymphocytes # 2.2 10^3/ul (0.8-2 .9) Monocytes # 0.7 10^3/ul (0.3-0 .9) Eosinophils # 0.7 10^3/ul (0.0-0 .5) Basophils # 0.1 10^3/ul (0.0-0 .1) Nucleated Red 0.0 Blood Cells # 10^3/ul (0.0-0 .0) Sodium Level 141 mmol/L (135-14 4) Potassium 4.7 Level mmol/L (3.5-5. 1) Chloride Level 108 mmol/L (97-110 ) Carbon Dioxide 26 Level mmol/L (21-31) Anion Gap 7 (5-13) Blood Urea 18 Nitrogen mg/dl (7-20) Creatinine 0.90 mg/dl (0.61-1. 24) Est Glomerular > 60 Filtrat mL/min (>60) Rate mL/min Glucose Level 160 mg/dl (70-220) Calcium Level 9.4 mg/dl (8.4-10. 2) LUCAS OROZCO March 06, 2019 11:38
== END 2019-03-06 14:00 | disposition home or self-care (01) | DRG 247 ==
LOC: E/R 11:01 → TEL 17:57 → OBSVTOIN 03-06 11:17
PROVIDERS: ADMIT Hospitalist; ATTEND Hospitalist
PROC: 4A033BC Measurement of Arterial Pressure, Coronary, Percutaneous Approach (ICD-10-PCS; 2019-03-04)
PROC: 027034Z Dilation of Coronary Artery, One Artery with Drug-eluting Intraluminal Device, Percutaneous Approach (ICD-10-PCS; principal; 2019-03-04 08:00)
PROC: 4A023N7 Measurement of Cardiac Sampling and Pressure, Left Heart, Percutaneous Approach (ICD-10-PCS; 2019-03-04 08:00)
PROC: B211YZZ Fluoroscopy of Multiple Coronary Arteries using Other Contrast (ICD-10-PCS; 2019-03-04 08:00)
DX: I25.10 Atherosclerotic heart disease of native coronary artery without angina pectoris (principal); Z68.41 Body mass index [BMI] 40.0-44.9, adult; L97.319 Non-pressure chronic ulcer of right ankle with unspecified severity; N17.9 Acute kidney failure, unspecified; N18.2 Chronic kidney disease, stage 2 (mild); I25.2 Old myocardial infarction; Z95.5 Presence of coronary angioplasty implant and graft; E78.00 Pure hypercholesterolemia, unspecified; Z87.891 Personal history of nicotine dependence; F15.10 Other stimulant abuse, uncomplicated; E66.01 Morbid (severe) obesity due to excess calories; E11.51 Type 2 diabetes mellitus with diabetic peripheral angiopathy without gangrene; E11.22 Type 2 diabetes mellitus with diabetic chronic kidney disease; I12.9 Hypertensive chronic kidney disease with stage 1 through stage 4 chronic kidney disease, or unspecified chronic kidney disease; E11.21 Type 2 diabetes mellitus with diabetic nephropathy; E11.622 Type 2 diabetes mellitus with other skin ulcer
CPT/HCPCS: 36415; 71045; 80048; 80061; 82550; 82553; 82962; 83036; 83735; 84100; 84439; 84443; 84484; 85025; 85610; 85730; 92928; 93005; 93458; 93571; G0378; C1769; C1874; C1887; C1894; J0360; J1200; J1644; J1815; J2250; J2270; J2405; J3010; J7030; Q9967

== ENCOUNTER 2019-03-21 14:35 | Inpatient (IN) | payer OTHER ==
[~2019-03-21] VITALS: Ht 172.7 cm; Wt 123.0 kg
[~2019-03-21 14:35] MED LIST changes: +HYDR-3980 PO; -MORP15TA3 PO; +OXYC-431 PO
[2019-03-21] MEDS ORDERED: VANCOMYCIN 1 GM (PMX) 250 ML IVPB STA (16:32)
[2019-03-21] MEDS ORDERED: HYDROmorphONE 1 MG/ML SYG IV STA (16:32)
[2019-03-21] MEDS ORDERED: PIPER-TAZO 3.375 GM IV (PMX) 100 ML IVPB STA (16:32)
[2019-03-21] MEDS ORDERED: ONDANSETRON 4 MG INJ IV STA (16:32)
[2019-03-21] MEDS ORDERED: ALPR1TAB2 PO (16:56)
[2019-03-21] MEDS ORDERED: hydrALAzine 20 MG INJ IV PRN (17:30)
[2019-03-21] MEDS ORDERED: ACETAMINOPHEN 325 MG TAB PO PRN ×2 (17:30)
[2019-03-21] MEDS ORDERED: LORAZEPAM 0.5 MG TAB PO PRN (17:30)
[2019-03-21] MEDS ORDERED: VANCOMYCIN IV PER PHARMACY XX SCH (17:30)
[2019-03-21] MEDS ORDERED: NACL 0.9% 3 ML SYG IV SCH (17:30)
[2019-03-21] MEDS ORDERED: ONDANSETRON 4 MG INJ IV PRN (17:30)
--- NOTE | 2019-03-21 17:42 | HP ---
Date/Time of Note Date/Time of Note DATE: 03/21/19 TIME: 17:42 Assessment/Plan VTE Prophylaxis Pharmacological prophylaxis: other Lines/Catheters IV Catheter Type (from Nrsg): Saline Lock Assessment/Plan Hospital Course Patient is a male with a past medical history significant for chronic right lower extremity wound ulcers, coronary artery disease status post multiple PCI's, dyslipidemia, hypertension, diabetes mellitus who presents to [facility] due to unrelenting right lower extremity pain. Patient was recently discharged after receiving stent last week and has felt good cardiac taveras however ever since he has had better blood flow from his stent he feels like his leg is with throbbing and more red. Patient saw his ice cream mixer 2 days ago and was instructed to go to the ED where they could try to do more skin grafts. Patient otherwise feels well, denies chest pain, shortness of breath, headache, nausea, vomiting, abdominal pain, left leg pain. Patient does state that he has some generalized itchiness that has not been going away. Objective Physical exam General: Patient is laying in bed and answers questions appropriately Mentation: Patient is alert and oriented 4, Head: Normocephalic atraumatic Eyes: EOMI, pupils reactive to light Neck: Supple, nontender, midline Respiratory: Clear to auscultation bilaterally Cardiovascular: regular rate, no obvious murmurs Gastrointestinal: non-tender to palpation, bowel sounds heard. Neurological: Moves all extremities spontaneously Skin: Dry, itchy, scaly skin diffuse however mild. Right lower extremity wound mildly to moderately erythematous, multiple wounds Assessment and plan Right leg diabetic leg wound -Patient's ice cream mixer consulted, sent here by podiatry, podiatry recommendations appreciated -Mildly erythematous, mildly elevated white count, start prophylactic IV antibiotic, broad-spectrum -Wound culture -Monitor Coronary artery disease status post multiple PCI -Continue aspirin and Plavix -Continue other cardiac medications Diabetes mellitus -Insulin and mealtime and Lantus while in-house Dyslipidemia -Continue statin Hypertension -Continue home meds Disposition -Podiatry recommendations appreciated Results 24hrs Laboratory Tests Test 03/21/19 16:53 03/21/19 16:58 POC Venous Lactate 1.2 White Blood Count 12.4 #H Red Blood Count 5.11 Hemoglobin 14.5 Hematocrit 45.6 Mean Corpuscular Volume 89.2 Mean Corpuscular Hemoglobin 28.4 L Mean Corpuscular Hemoglobin Concent 31.8 L Red Cell Distribution Width 14.3 Platelet Count 310 Mean Platelet Volume 11.4 H Immature Granulocytes % 0.300 Neutrophils % 52.3 Lymphocytes % 25.5 Monocytes % 7.8 Eosinophils % 13.2 H Basophils % 0.9 Nucleated Red Blood Cells % 0.0 Immature Granulocytes # 0.040 H Neutrophils # 6.5 Lymphocytes # 3.2 H Monocytes # 1.0 H Eosinophils # 1.6 H Basophils # 0.1 Nucleated Red Blood Cells # 0.0 Prothrombin Time 11.7 L Prothrombin Time Ratio 0.9 INR International Normalized Ratio 0.85 Activated Partial Thromboplast Time 24.2 Sodium Level 139 Potassium Level 4.2 Chloride Level 102 Carbon Dioxide Level 26 Anion Gap 11 Blood Urea Nitrogen 29 H Creatinine 1.24 Est Glomerular Filtrat Rate mL/min > 60 Glucose Level 206 Calcium Level 9.4 Total Bilirubin 0.4 Direct Bilirubin 0.00 Indirect Bilirubin 0.4 Aspartate Amino Transf (AST/SGOT) 26 Alanine Aminotransferase (ALT/SGPT) 26 Alkaline Phosphatase 77 Troponin I < 0.012 Total Protein 7.5 Albumin 4.3 Globulin 3.20 Albumin/Globulin Ratio 1.34 HPI/ROS Admit Date/Time Admit Date/Time PMH/Family/Social Past Medical History Medications Current Medications Vancomycin HCl 250 ml @ 125 mls/hr ONCE STAT IVPB ; Start 03/21/19 at 16:32; Stop 03/21/19 at 18:31 Vancomycin HCl (Vanco Iv Per Pharmacy) VANCOMYCIN PER PHARMACY PER PROTOCOL XX ; Start 03/21/19 at 17:30; Status UNV Piperacillin Sod/ Tazobactam Sod 100 ml @ 200 mls/hr Q6 IVPB ; Start 03/21/19 at 18:00; Status UNV Coded Allergies: metformin (Verified Allergy, Intermediate, 03/21/19) per pt, makes him feel horribles, worse abdominal pain morphine (Verified Allergy, Mild, NAUSEA, RASH, 03/21/19) Past Surgical History Past Surgical Hx: angioplasty, other Family History Significant Family History: no pertinent family hx Social History Smoking Status: Current every day smoker Exam/Review of Systems Vital Signs Vitals Vital Signs Date Temp Pulse Resp B/P (MAP) Pulse Ox O2 O2 Flow FiO2 Time Delivery Rate 03/21/19 98.8 90 16 156/77 94 14:46 (103) ANJEL RENTERIA 24, 2019 17:42
--- NOTE | 2019-03-21 17:50 | ERD ---
ER Documentation Chief Complaint Chief Complaint FOOT WOUND- SENT BY PCP FOR ASSESSMENT, SEVERE PAIN HPI Patient is a 48-year-old male with coronary disease and diabetes who presents with wounds to his right lower extremity. He was sent by Dr. Peoples from podiatry for IV antibiotics and admission. He has been doing topical antib iotics and oral antibiotics without improvement. The symptoms have been worsening. He has been dealing with this for the past 17 months and is currently in a walking boot. Upon review of old medical record the patient has multiple visits to the ER. ROS All systems reviewed and are negative except as per history of present illness. Medications Home Meds Active Scripts Insulin Lispro (Humalog) 100 Unit/1 Ml Cartridge, 14 UNIT SQ TIDM A, #1 EA Take insulin lispro 14 units subcutaneous 3 times a day with meals. Need to check blood sugar 3 times a day and at bedtime. Provide patient with 100 lancet, 100 test strips, 100 32-gauge insulin pen needles. Prov:KIMI HULL V. SURVEY SUPERVISOR 01/17/19 Insulin Glargine,Hum.rec.anlog (Basaglar Kwikpen U-100) 100 Unit/1 Ml Insuln.pen, 32 UNIT SC .HS, #1 EA Prov:HULLKIMI V. SURVEY SUPERVISOR 01/17/19 Collagenase* (Santyl*) 30 Gm Oint..gm., 1 APPLIC TOP DAILY, #1 TUBE Apply to right lower extremity wound after irrigation with Dakin solution. Prov:KIMI HULL V. SURVEY SUPERVISOR 01/17/19 Linagliptin (TRADJENTA) 5 Mg Tablet, 5 MG PO DAILY, #30 TAB Prov:KIMI HULL V. SURVEY SUPERVISOR 01/17/19 Empagliflozin (Jardiance) 10 Mg Tablet, 25 MG PO DAILY@08, #30 TAB Prov:HULLKIMI MONZON V. SURVEY SUPERVISOR 01/17/19 Reported Medications Alprazolam* (Xanax*) 1 Mg Tab, 1 MG PO TID PRN for ANXIETY, TAB 03/21/19 Hydrocodone/Acetaminophen ([place] 10-325 Tablet) 1 Each Tablet, 1 EACH PO Q8H, TAB 03/03/19 Oxycodone HCl/Acetaminophen (Oxycodone-Acetaminophen 10-325) 1 Each Tablet, 1 EACH PO Q12H PRN for NEEDED, TAB 03/03/19 Atorvastatin* (Atorvastatin*) 80 Mg Tablet, 80 MG PO QHS, #30 TAB 01/15/19 Clopidogrel Bisulfate* (Clopidogrel Bisulfate*) 75 Mg Tablet, 75 MG PO DAILY, #30 TAB 01/15/19 Carvedilol* (Carvedilol*) 12.5 Mg Tablet, 12.5 MG PO BID, #60 TAB 01/15/19 Aspirin* (Aspirin* EC) 81 Mg Tablet.dr, 81 MG PO DAILY, TAB 01/15/19 Amlodipine Besylate* (Norvasc*) 5 Mg Tablet, 5 MG PO DAILY, TAB 01/15/19 Hydrochlorothiazide* (Hydrochlorothiazide*) 25 Mg Tab, 25 MG PO DAILY, #30 TAB 01/15/19 Lisinopril* (Lisinopril*) 20 Mg Tablet, 20 MG PO DAILY, #30 TAB 01/15/19 Gabapentin* (Gabapentin*) 300 Mg Capsule, 300 MG PO TID, #90 CAP 01/15/19 Isosorbide Dinitrate* (Isordil*) 10 Mg Tablet, 10 MG PO TID, TAB 01/15/19 Allergies Allergies: Coded Allergies: metformin (Verified Allergy, Intermediate, 03/21/19) per pt, makes him feel horribles, worse abdominal pain morphine (Verified Allergy, Mild, NAUSEA, RASH, 03/21/19) PMhx/Soc History of Surgery: Yes Anesthesia Reaction: No Hx Neurological Disorder: No Hx Respiratory Disorders: No Hx Cardiac Disorders: Yes (stent x2) Hx Psychiatric Problems: No Hx Miscellaneous Medical Probl: Yes (Diabetic wound lower extremity) Hx Alcohol Use: Yes Hx Substance Use: Yes Hx Tobacco Use: Yes Smoking Status: Current every day smoker FmHx Family History: diabetes Physical Exam Vitals Vital Signs Date Temp Pulse Resp B/P (MAP) Pulse Ox O2 O2 Flow FiO2 Time Delivery Rate 03/21/19 98.8 88 16 156/77 94 17:22 (103) 03/21/19 98.8 90 16 156/77 94 14:46 (103) Physical Exam Const: No acute distress Head: Atraumatic Eyes: Normal Conjunctiva ENT: Normal External Ears, Nose and Mouth. Neck: Full range of motion. No meningismus. Resp: Clear to auscultation bilaterally Cardio: Regular rate and rhythm, no murmurs Abd: Soft, non tender, non distended. Normal bowel sounds Skin: No petechiae or rashes Back: No midline or flank tenderness Ext: Right leg in a walking boot with open wounds with erythema consistent with cellulitis Neur: Awake and alert Psych: Normal Mood and Affect Result Diagram: 03/21/198 03/21/191657 Results 24 hrs Laboratory Tests Test 03/21/19 16:53 03/21/19 16:58 POC Venous Lactate 1.2 mmol/L White Blood Count 12.4 10^3/ul Red Blood Count 5.11 10^6/ul Hemoglobin 14.5 g/dl Hematocrit 45.6 % Mean Corpuscular Volume 89.2 fl Mean Corpuscular Hemoglobin 28.4 pg Mean Corpuscular Hemoglobin Concent 31.8 g/dl Red Cell Distribution Width 14.3 % Platelet Count 310 10^3/UL Mean Platelet Volume 11.4 fl Immature Granulocytes % 0.300 % Neutrophils % 52.3 % Lymphocytes % 25.5 % Monocytes % 7.8 % Eosinophils % 13.2 % Basophils % 0.9 % Nucleated Red Blood Cells % 0.0 /100WBC Immature Granulocytes # 0.040 10^3/ul Neutrophils # 6.5 10^3/ul Lymphocytes # 3.2 10^3/ul Monocytes # 1.0 10^3/ul Eosinophils # 1.6 10^3/ul Basophils # 0.1 10^3/ul Nucleated Red Blood Cells # 0.0 10^3/ul Prothrombin Time 11.7 Sec Prothrombin Time Ratio 0.9 INR International Normalized Ratio 0.85 Activated Partial Thromboplast Time 24.2 Sec Sodium Level 139 mmol/L Potassium Level 4.2 mmol/L Chloride Level 102 mmol/L Carbon Dioxide Level 26 mmol/L Anion Gap 11 Blood Urea Nitrogen 29 mg/dl Creatinine 1.24 mg/dl Est Glomerular Filtrat Rate mL/min > 60 mL/min Glucose Level 206 mg/dl Calcium Level 9.4 mg/dl Total Bilirubin 0.4 mg/dl Direct Bilirubin 0.00 mg/dl Indirect Bilirubin 0.4 mg/dl Aspartate Amino Transf (AST/SGOT) 26 IU/L Alanine Aminotransferase (ALT/SGPT) 26 IU/L Alkaline Phosphatase 77 IU/L Troponin I < 0.012 ng/ml Total Protein 7.5 g/dl Albumin 4.3 g/dl Globulin 3.20 g/dl Albumin/Globulin Ratio 1.34 Current Medications Medications Dose Sig/Yumi Start Time Status Last (Trade) Ordered Route PRN Stop Time Admin Dose Reason Admin 1 mg ONCE STAT 03/21/19 DC 03/21/19 Hydromorphone IV 16:32 16:57 HCl 03/21/19 16:33 (Dilaudid) Ondansetron 4 mg ONCE STAT 03/21/19 DC 03/21/19 HCl (Zofran IV 16:32 16:57 Inj) 03/21/19 16:33 Vancomycin 250 ml @ ONCE STAT 03/21/19 HCl 125 mls/hr IVPB 16:32 03/21/19 18:31 Piperacillin 100 ml @ ONCE STAT 03/21/19 DC 03/21/19 Sod/ 200 mls/hr IVPB 16:32 16:57 Tazobactam 03/21/19 17:01 Sod Vancomycin VANCOMYCIN PER 03/21/19 UNV HCl (Vanco PER PHARMACY PROTOCOL XX 17:30 Iv Per Pharmacy) Piperacillin 100 ml @ Q6 IVPB 03/21/19 UNV Sod/ 200 mls/hr 18:00 Tazobactam Sod IV Flush 3 ml PER 03/21/19 UNV (NS 3 ml) PROTOCOL IV 17:30 Aspirin 81 mg DAILY PO 03/22/19 UNV (Aspirin) 09:00 Clopidogrel 75 mg DAILY PO 03/22/19 UNV Bisulfate 09:00 (plaVIX) 650 mg Q6H PRN 03/21/19 UNV Acetaminophen PO .PAIN 1-3 17:30 (Tylenol OR TEMP Tab) Oxycodone/ 1 tab Q6H PRN 03/21/19 UNV Acetaminophen PO .PAINS 17:30 (Percocet 4-6 (5/ 325)) 0.5 mg Q4H PRN 03/21/19 UNV Hydromorphone IV .PAIN 17:30 HCl 7-10 (Dilaudid) Amlodipine 5 mg DAILY PO 03/22/19 UNV Besylate 09:00 (Norvasc) 80 mg QHS PO 03/21/19 UNV Atorvastatin 21:00 Calcium (Lipitor) Carvedilol 12.5 mg BID PO 03/21/19 UNV (Coreg) 21:00 Gabapentin 300 mg TID PO 03/21/19 UNV (Neurontin) 21:00 Insulin 32 unit QHS SC 03/21/19 UNV Glargine 21:00 (Lantus) Isosorbide 10 mg TID PO 03/21/19 UNV Dinitrate 21:00 (Isordil) Lisinopril 20 mg DAILY PO 03/22/19 UNV (Zestril) 09:00 Discontinue ONCE ONCE 03/21/19 UNV Miscellaneous current oral XX 17:30 sulfonylur... 03/21/19 17:31 Information (* Miscellaneous Pharmacy Order) Diagnostic 1 ea 02 XX 03/22/19 UNV Test (Pha) 02:00 (Accu-Chek) Insulin 13 unit WITH MEALS 03/21/19 UNV Aspart SC 18:00 (Novolog Insulin Pen) ONCE ONCE 03/21/19 UNV Miscellaneous HYPOGLYCEMIA XX 17:30 PROTOCOL 03/21/19 17:31 Information w... (* Miscellaneous Pharmacy Order) Insulin NOVOLOG WITH MEALS 03/21/19 UNV Aspart *MILD* BEDTIME SC 18:00 (Novolog ALGORITHM Insulin Pen) Discontinue ONCE ONCE 03/21/19 UNV Miscellaneous all previ... XX 17:30 03/21/19 17:31 Information (* Miscellaneous Pharmacy Order) Hydralazine 10 mg Q4H PRN 03/21/19 UNV HCl IV sbp >160 17:30 (Apresoline) Lorazepam 0.5 mg TID PRN 03/21/19 UNV (Ativan) PO ANXIETY 17:30 Ondansetron 4 mg BRIDGE ORDER 03/21/19 HCl (Zofran PRN IV 17:30 Inj) NAUSEA/VOMITI 03/22/19 17:29 NG 650 mg ER BRIDGE 03/21/19 Acetaminophen PRN PO 17:30 (Tylenol .MILD PAIN 03/22/19 17:29 Tab) 1-3 OR TEMP 25 mg Q6H PRN 03/21/19 UNV Diphenhydrami IV itching 18:00 ne HCl (Benadryl) Calamine 1 applic QID TOP 03/21/19 DC (Calamine 21:00 Lotion) 03/21/19 21:00 1 applic QID TOP 03/21/19 UNV Calamine/Pram 21:00 oxine (Caladryl Lotion) Procedures/MDM EKG read by me: Rate/Rhythm: Regular rate and rhythm at a normal rate Intervals: Normal Impression: No evidence of ischemia or arrhythmia Chest x-ray read by radiology. Patient is a 48-year-old male who presents with wounds and cellulitis. He is diabetic. He will get IV vancomycin and Zosyn in the emergency department. I doubt sepsis at this time. His cemetery warden is come to the bedside to see him. He will be admitted to the care of Dr. Vann to a medical surgical inpatient bed. He has failed outpatient treatment at this time. Departure Diagnosis: Primary Impression: Cellulitis Site of cellulitis: extremity Site of cellulitis of extremity: lower extremity Laterality: right Qualified Codes: L03.115 - Cellulitis of right lower limb Additional Impressions: Diabetic foot Foot pain Laterality: right Qualified Codes: M79.671 - Pain in right foot Condition: SHAD Oquendo MD March 21, 2019 17:50
[2019-03-21] MEDS: INSULIN ASPART [NOVOLOG] 3 ML PEN SC SCH ×3 (18:00→22:19)
[2019-03-21] MEDS ORDERED: HYDROmorphONE 2 MG/ML SYG IV STA (18:49)
[2019-03-21] MEDS: DIPHENHYDRAMINE 50 MG INJ IV PRN (18:52)
[2019-03-21] MEDS ORDERED: VANCOMYCIN 1 GM in 250 ML IVPB ONE (20:30)
[2019-03-21] MEDS: CALAMINE/PRAMOXINE LOT 180 ML BTL TOP SCH (21:00)
[2019-03-21] MEDS: ATORVASTATIN 80 MG TAB PO SCH (21:00)
[2019-03-21] MEDS ORDERED: CALAMINE 170 ML LOT TOP ONE (21:00)
[2019-03-21] MEDS ORDERED: INSULIN GLARGINE [LANtus] 3 ML PEN SC SCH (21:00)
[2019-03-21] MEDS ORDERED: CALAMINE 170 ML LOT TOP SCH (21:00)
[2019-03-21] MEDS ORDERED: INSULIN GLARGINE [LANTus] (100 UNITS/ML) SYG SC SCH (22:00)
[2019-03-21] MEDS: AMLODIPINE 5 MG TAB PO SCH (22:05)
[2019-03-21] MEDS: GABAPENTIN 300 MG CAP PO SCH (22:06)
[2019-03-21] MEDS: LISINOPRIL 20 MG TAB PO SCH (22:07)
[2019-03-21] MEDS: ISOSORBIDE DINITRATE 10 MG TAB PO SCH (22:07)
[2019-03-21] MEDS: HYDROmorphONE 0.5 MG/0.5 ML SYG IV PRN (22:30)
--- NOTE | 2019-03-21 22:30 | CONS ---
DATE OF ADMISSION: 03/21/2019 DATE OF CONSULTATION: 03/21/2019 REASON FOR CONSULTATION: Right lower extremity pain, nonhealing ulceration. HISTORY OF PRESENT ILLNESS: This is a 48-year-old gentleman, currently relates increasing pain, has multiple social issues and did relate wanting possible elective below knee amputation if pain persist s. He has had a wheelchair with some success, has developed some new ulcerations to the right lower extremity which are painful to light touch and has a history of poorly controlled diabetes, currently being admitted in the ER for cellulitis, has also a white count of 12.4. The patient is in hyperbar ic oxygen therapy. PAST MEDICAL HISTORY: Includes coronary artery disease, status post multiple PCIs, diabetes type 2, hyperlipidemia, hypertension, chronic pain. MEDICATIONS: Includes: 1. Vancomycin. 2. Zosyn. PAST SURGICAL HISTORY: Right lower extremity debridement and skin grafting, history of cardiac stent s, history of left hand surgery. SOCIAL HISTORY: Smoking daily. FAMILY HISTORY: Diabetes. PHYSICAL EXAMINATION: VITAL SIGNS: Temperature 98.8, pulse is 88, respiratory rate 16, blood pressure is 156/77, pulse ox is 94. GENERAL: The patient is alert, oriented. Has some anxiety and is somewhat emotional. EXTREMITIES: Right lower extremity with dressings. Localized erythema. Pain with palpation. Has n ormal pedal pulses. Ulcerations located at the posterior right ankle as well as anterior lateral ank le approximately 1 cm in diameter and the one proximal to that also 2 x 1 cm with necrosis of wound b ed. LABORATORIES: WBC 12.4, hemoglobin 14.5, hematocrit 35.6, platelets 310. Sodium 139, potassium 4.2, chloride 102, CO2 26, BUN 29, creatinine 1.24. ASSESSMENT: 1. Cellulitis. 2. Pain, right lower extremity. 3. Diabetic leg ulceration. 4. History of compromised skin graft. PLAN: The patient is being admitted. We will schedule operative intervention. Discussed debridemen t and possible allograft. The patient may benefit from a pain management consultation, he was unable to obtain one as an outpatient and/or psych consult. The patient had been requesting below knee due to pain out of proportion, not recommended as leg appears salvageable. Recommend tight glycemic con trol while in house. Nursing recommendations given. We will schedule him with the operating room, p ending OR availability. Dictated By: JASMYNE DIAZ DPM RB/NTS Conf#: [id number] DID#: [id number]
[2019-03-21 23:32] VITALS: Ht 172.7 cm; Wt 123.0 kg
[2019-03-22] VITALS (17 sets, daily range): BP systolic 102–147; BP diastolic 59–93; PULSE 80–100; RESP 14–32
[2019-03-22] MEDS: PIPER-TAZO 3.375 GM IV (PMX) 100 ML IVPB SCH ×5 (00:43→18:00)
[2019-03-22] MEDS: ACCU-CHEK XX SCH (02:00)
[2019-03-22] MEDS: HYDROmorphONE 0.5 MG/0.5 ML SYG IV PRN ×3 (02:24→21:41)
[2019-03-22] MEDS: DIPHENHYDRAMINE 50 MG INJ IV PRN ×3 (02:26→18:16)
[2019-03-22] MEDS ORDERED: INSULIN ASPART [NOVOLOG] 3 ML PEN SC ONE (05:30)
[2019-03-22] MEDS ORDERED: SEVOFLURANE 15 MIN ONE (07:00)
[2019-03-22] MEDS: VANCOMYCIN 1 GM in 250 ML IVPB SCH ×2 (08:29→21:41)
[2019-03-22] MEDS: INSULIN ASPART [NOVOLOG] 3 ML PEN SC SCH ×7 (08:33→21:00)
[2019-03-22] MEDS: GABAPENTIN 300 MG CAP PO SCH ×3 (08:34→21:46)
[2019-03-22] MEDS: CLOPIDOGREL 75 MG TAB PO SCH (08:34)
[2019-03-22] MEDS: INSULIN GLARGINE [LANTus] (100 UNITS/ML) SYG SC SCH (08:34)
[2019-03-22] MEDS: ASPIRIN 81 MG TAB PO SCH (08:34)
[2019-03-22] MEDS: ISOSORBIDE DINITRATE 10 MG TAB PO SCH ×3 (08:35→21:46)
[2019-03-22] MEDS: CALAMINE/PRAMOXINE LOT 180 ML BTL TOP SCH ×4 (09:00→21:00)
--- NOTE | 2019-03-22 11:39 | HPN ---
Date/Time of Note Date/Time of Note DATE: 03/22/19 TIME: 11:39 Interval H&P Admission Note Pt. seen H&P reviewed: No system changes KHADRA ODOM DPM March 22, 2019 11:39
--- NOTE | 2019-03-22 14:52 | PREAC ---
Date/Time of Note Date/Time of Note DATE: 03/22/19 TIME: 14:50 Anesthesia Eval and Record Evaluation Time Pre-Procedure Interview DATE: 03/22/19 TIME: 14:50 Age 48 Sex male NPO: 8 hrs Preoperative diagnosis right diabetic foot ulcer Planned procedure debridement of right foot ulcer and application of wound vac Past Medical History Past Medical History: Includes Cardio: HTN, CAD Endo: Diabetes GI: Morbid obesity Surgery & Anesthesia Issues No known issue Meds Anticoagulation: No Beta Carlos within 24 hr: Yes Active Scripts Insulin Lispro (Humalog) 100 Unit/1 Ml Cartridge, 14 UNIT SQ TIDM A, #1 EA Take insulin lispro 14 units subcutaneous 3 times a day with meals. Need to check blood sugar 3 times a day and at bedtime. Provide patient with 100 lancet, 100 test strips, 100 32-gauge insulin pen needles. Prov:KIMI HULL V. CERAMIC MOLD DESIGNER 01/17/19 Insulin Glargine,Hum.rec.anlog (Basaglar Kwikpen U-100) 100 Unit/1 Ml Insuln.pen, 32 UNIT SC .HS, #1 EA Prov:KIMI HULL V. CERAMIC MOLD DESIGNER 01/17/19 Collagenase* (Santyl*) 30 Gm Oint..gm., 1 APPLIC TOP DAILY, #1 TUBE Apply to right lower extremity wound after irrigation with Dakin solution. Prov:KIMI HULL V. CERAMIC MOLD DESIGNER 01/17/19 Linagliptin (TRADJENTA) 5 Mg Tablet, 5 MG PO DAILY, #30 TAB Prov:KIMI HULL V. CERAMIC MOLD DESIGNER 01/17/19 Empagliflozin (Jardiance) 10 Mg Tablet, 25 MG PO DAILY@08, #30 TAB Prov:KIMI HULL V. CERAMIC MOLD DESIGNER 01/17/19 Reported Medications Alprazolam* (Xanax*) 1 Mg Tab, 1 MG PO TID PRN for ANXIETY, TAB 03/21/19 Hydrocodone/Acetaminophen ([place] 10-325 Tablet) 1 Each Tablet, 1 EACH PO Q8H, TAB 03/03/19 Oxycodone HCl/Acetaminophen (Oxycodone-Acetaminophen 10-325) 1 Each Tablet, 1 EACH PO Q12H PRN for NEEDED, TAB 03/03/19 Atorvastatin* (Atorvastatin*) 80 Mg Tablet, 80 MG PO QHS, #30 TAB 01/15/19 Clopidogrel Bisulfate* (Clopidogrel Bisulfate*) 75 Mg Tablet, 75 MG PO DAILY, #30 TAB 01/15/19 Carvedilol* (Carvedilol*) 12.5 Mg Tablet, 12.5 MG PO BID, #60 TAB 01/15/19 Aspirin* (Aspirin* EC) 81 Mg Tablet.dr, 81 MG PO DAILY, TAB 01/15/19 Amlodipine Besylate* (Norvasc*) 5 Mg Tablet, 5 MG PO DAILY, TAB 01/15/19 Hydrochlorothiazide* (Hydrochlorothiazide*) 25 Mg Tab, 25 MG PO DAILY, #30 TAB 01/15/19 Lisinopril* (Lisinopril*) 20 Mg Tablet, 20 MG PO DAILY, #30 TAB 01/15/19 Gabapentin* (Gabapentin*) 300 Mg Capsule, 300 MG PO TID, #90 CAP 01/15/19 Isosorbide Dinitrate* (Isordil*) 10 Mg Tablet, 10 MG PO TID, TAB 01/15/19 Current Medications Vancomycin HCl (Vanco Iv Per Pharmacy) VANCOMYCIN PER PHARMACY PER PROTOCOL XX ; Start 03/21/19 at 17:30 Piperacillin Sod/ Tazobactam Sod 100 ml @ 200 mls/hr Q6 IVPB Last administered on 03/22/19at 11:51; Admin Dose 200 MLS/HR; Start 03/22/19 at 00:00 IV Flush (NS 3 ml) 3 ml PER PROTOCOL IV ; Start 03/21/19 at 17:30 Aspirin (Aspirin) 81 mg DAILY PO Last administered on 03/22/19at 08:34; Admin Dose 81 MG; Start 03/22/19 at 09:00 Clopidogrel Bisulfate (plaVIX) 75 mg DAILY PO Last administered on 03/22/19at 08:34; Admin Dose 75 MG; Start 03/22/19 at 09:00 Acetaminophen (Tylenol Tab) 650 mg Q6H PRN PO .PAIN 1-3 OR TEMP; Start 03/21/19 at 17:30 Oxycodone/ Acetaminophen (Percocet (5/ 325)) 1 tab Q6H PRN PO .PAINS 4-6; Start 03/21/19 at 17:30 Hydromorphone HCl (Dilaudid) 0.5 mg Q4H PRN IV .PAIN 7-10 Last administered on 03/22/19 11:52; Admin Dose 0.5 MG; Start 03/21/19 at 17:30 Amlodipine Besylate (Norvasc) 5 mg DAILY PO Last administered on 03/21/19 22: 05; Admin Dose 5 MG; Start 03/22/19 at 09:00 Atorvastatin Calcium (Lipitor) 80 mg QHS PO ; Start 03/21/19 at 21:00 Carvedilol (Coreg) 12.5 mg BID PO Last administered on 03/22/19 11:58; Admin Dose 12.5 MG; Start 03/21/19 at 21:00 Gabapentin (Neurontin) 300 mg TID PO Last administered on 03/22/19 08:34; Admin Dose 300 MG; Start 03/21/19 at 21:00 Isosorbide Dinitrate (Isordil) 10 mg TID PO Last administered on 03/22/19 08:35; Admin Dose 10 MG; Start 03/21/19 at 21:00 Lisinopril (Zestril) 20 mg DAILY PO Last administered on 03/21/19 22:07; Admin Dose 20 MG; Start 03/22/19 at 09:00 Diagnostic Test (Pha) (Accu-Chek) 1 ea 02 XX ; Start 03/22/19 at 02:00 Insulin Aspart (Novolog Insulin Pen) 13 unit WITH MEALS SC Last administered on 03/22/19 08:33; Admin Dose 13 UNIT; Start 03/21/19 at 18:00 Insulin Aspart (Novolog Insulin Pen) NOVOLOG *MILD* ALGORITHM WITH MEALS BEDTIME SC Last administered on 03/22/19 08:33; Admin Dose 4 UNIT; Start 03/21/19 at 18:00 Hydralazine HCl (Apresoline) 10 mg Q4H PRN IV sbp >160; Start 03/21/19 at 17:30 Lorazepam (Ativan) 0.5 mg TID PRN PO ANXIETY; Start 03/21/19 at 17:30 Ondansetron HCl (Zofran Inj) 4 mg BRIDGE ORDER PRN IV NAUSEA/VOMITING; Start 03/21/19 at 17:30; Stop 03/22/19 at 17:29 Diphenhydramine HCl (Benadryl) 25 mg Q6H PRN IV itching Last administered on 03/22/19at 12:18; Admin Dose 25 MG; Start 03/21/19 at 18:00 Calamine/Pramoxine (Caladryl Lotion) 1 applic QID TOP ; Start 03/21/19 at 21:00 Vancomycin HCl 250 ml @ 125 mls/hr Q12H IVPB Last administered on 03/22/19at 08:29; Admin Dose 125 MLS/HR; Start 03/22/19 at 08:00 Insulin Glargine (Lantus) 32 units DAILY@0800 SC Last administered on 03/22/19at 08:34; Admin Dose 32 UNITS; Start 03/22/19 at 08:00 Miscellaneous Information (*Rx Drug Level Order Reminder*) 1 0700 ONCE XX ; Start 03/23/19 at 07:00; Stop 03/23/19 at 07:01 Meds reviewed: Yes Allergies Coded Allergies: metformin (Verified Allergy, Intermediate, 03/21/19) per pt, makes him feel horribles, worse abdominal pain morphine (Verified Allergy, Mild, NAUSEA, RASH, 03/21/19) Allergies Reviewed: Yes Labs/Studies Labs Reviewed: Reviewed by anesthesiologist Result Diagram: 03/22/19 0716 03/22/19 0716 Laboratory Tests 03/22/19 07:16 test: N/A Studies: ECG, CXR Pre-procedure Exam Last vitals Vital Signs Date Temp Pulse Resp B/P (MAP) Pulse Ox O2 O2 Flow FiO2 Time Delivery Rate 03/22/19 87 20 141/92 96 Room Air 11:58 (108) 03/22/19 97.6 08:44 Airway: Adequate mouth opening, Adequate thyromental dist Mallampati: Mallampati II Teeth: Normal Lung: Normal Heart: Normal ASA Physical Status ASA physical status: 3 Emergency: None Planned Anesthetic General/MAC: LMA Planned Pain Management Parenteral pain med Pre-operative Attestations Prior to commencing anesthesia and surgery, the patient was re-evaluated, there was verification of: *The patient's identity *The results of appropriate recent lab work and preoperative vital signs *The above evaluation not changing prior to induction *Anesthetic plan, risk benefits, alternative and complications discussed with patient/family; questions answered; patient/family understands, accepts and wishes to proceed. BENNY VILLAGOMEZ March 22, 2019 14:52
[2019-03-22] MEDS ORDERED: FENTAnyl 50 MCG/ML VIAL ONE (14:58)
[2019-03-22] MEDS ORDERED: LIDOCAINE 2% (SDV) 5 ML INJ ONE (14:59)
[2019-03-22] MEDS ORDERED: PROPOFOL 20 ML ONE (14:59)
[2019-03-22] MEDS ORDERED: LIDOCAINE 1%/EPI (1:100,000) (MDV) 20 ML ONE (15:06)
[2019-03-22] MEDS ORDERED: BUPIVACAINE 0.5% (SDV) 30 ML INJ ONE (15:06)
[2019-03-22] MEDS ORDERED: POLYMYXIN/BACITRACIN 1L IRRIG ONE (15:06)
[2019-03-22] MEDS ORDERED: MINERAL OIL LIGHT 10 ML VIAL ONE (15:44)
[2019-03-22] MEDS: LIDOCAINE 1% (MPF) 30 ML INJ ONE ×2 (15:57→16:02)
[2019-03-22] MEDS ORDERED: BACITRACIN/POLYMYXIN 28.35 GM OINT TOP ONE (16:16)
--- NOTE | 2019-03-22 16:33 | PAC ---
Date/Time of Note Date/Time of Note DATE: 03/22/19 TIME: 16:32 Post-Anesthesia Notes Post-Anesthesia Note Last documented vital signs Vital Signs Date Temp Pulse Resp B/P (MAP) Pulse Ox O2 O2 Flow FiO2 Time Delivery Rate 03/22/19 87 20 141/92 96 Room Air 1632 (108) 03/22/19 97.6 08:44 Activity: WNL Respiratory function: WNL Cardiovascular function: WNL Mental status: Baseline Pain reasonably controlled: Yes Hydration appropriate: Yes Nausea/Vomiting absent: Yes BENNY VILLAGOMEZ March 22, 2019 16:33
--- NOTE | 2019-03-22 16:36 | PN ---
Date/Time of Note Date/Time of Note DATE: 03/22/19 TIME: 16:34 Assessment/Plan VTE Prophylaxis Risk score (from Ns)>0 risk: 2 SCD applied (from Ns): No SCD contraindicated: other Pharmacological prophylaxis: heparin Lines/Catheters IV [facility]ter [facility]from [facility]): Saline Lock Assessment/Plan Hospital Course SUBJECTIVE: The patient went down for debridement of the right lower extremity ulcer. OBJECTIVE: Physical Exam Patient off the unit. Labs & Vitals per chart ASSESSMENT & PLAN 48-year-old male with comorbidities including chronic right lower extremity diabetic ulcers, CAD status post coronary artery stenting, dyslipidemia, hypertension, diabetes mellitus, and obesity who presented to [facility] secondary to right lower extremity pain from the right lower extremity diabetic foot wound. The patient was noticed to have leukocytosis. The patient was admitted to inpatient setting for further treatment and evaluation. 1. Right lower extremity nonhealing ulcer. -Continue antimicrobials including coverage for MRSA. -Local wound care as per podiatry. -Pending surgical debridement. 2. Multivessel coronary artery disease. -Status post RCA stent on 03/04/2019. -Continue dual antiplatelet therapy. -Needs staged coronary intervention. 3. Diabetes mellitus. -Hemoglobin A1c 9.9. -Continue sliding scale insulin along with pre-meal insulin and basal insulin. 4. Dyslipidemia. -Continue statins. 5. Hypertension. -Continue antihypertensives. 6. Obesity. -BMI more than 41 kg/m. -Weight reduction will be advised. 7. Chronic kidney disease. -Continue to monitor BUN and creatinine closely. 8. Obstructive sleep apnea. -Nocturnal CPAP if the patient is agreeable. 9. Fluids, electrolytes, and nutrition. -Low carbohydrate diet. 10. DVT prophylaxis. -SQ Heparin. 11. Plan. -Continue pain control. -Continue antimicrobials. -Repeat potassium. -Await surgical debridement and clinical improvement. The patient was seen in collaboration with Dr. Callejas. Result Diagram: 03/22/19 0716 03/22/19 0716 Results 24hrs Laboratory Tests Test 03/21/19 16:53 03/21/19 16:58 03/21/19 18:48 03/21/19 19:52 POC Venous Lactate 1.2 White Blood Count 12.4 #H Red Blood Count 5.11 Hemoglobin 14.5 Hematocrit 45.6 Mean Corpuscular 89.2 Volume Mean Corpuscular 28.4 L Hemoglobin Mean Corpuscular 31.8 L Hemoglobin Concent Red Cell 14.3 Distribution Width Platelet Count 310 Mean Platelet Volume 11.4 H Immature 0.300 Granulocytes % Neutrophils % 52.3 Lymphocytes % 25.5 Monocytes % 7.8 Eosinophils % 13.2 H Basophils % 0.9 Nucleated Red Blood 0.0 Cells % Immature 0.040 H Granulocytes # Neutrophils # 6.5 Lymphocytes # 3.2 H Monocytes # 1.0 H Eosinophils # 1.6 H Basophils # 0.1 Nucleated Red Blood 0.0 Cells # Prothrombin Time 11.7 L Prothrombin Time 0.9 Ratio INR International 0.85 Normalized Ratio Activated 24.2 Partial Thromboplast Time Sodium Level 139 Potassium Level 4.2 Chloride Level 102 Carbon Dioxide Level 26 Anion Gap 11 Blood Urea Nitrogen 29 H Creatinine 1.24 Est Glomerular > 60 Filtrat Rate mL/min Glucose Level 206 Calcium Level 9.4 Total Bilirubin 0.4 Direct Bilirubin 0.00 Indirect Bilirubin 0.4 Aspartate Amino 26 Transf (AST/SGOT) Alanine 26 Aminotransferase (AL T/SGPT) Alkaline Phosphatase 77 Troponin I < 0.012 Total Protein 7.5 Albumin 4.3 Globulin 3.20 Albumin/Globulin 1.34 Ratio Lactic Acid Level 1.7 Bedside Glucose 156 Test 03/21/19 21:18 03/21/19 22:15 03/22/19 05:13 03/22/19 07:16 Lactic Acid Level 1.8 Bedside Glucose 168 352 H White Blood Count 24.8 #H Red Blood Count 4.96 Hemoglobin 14.2 Hematocrit 46.7 Mean Corpuscular 94.2 Volume Mean Corpuscular 28.6 L Hemoglobin Mean Corpuscular 30.4 L Hemoglobin Concent Red Cell 14.5 Distribution Width Platelet Count 301 Mean Platelet Volume 11.6 H Immature 0.700 H Granulocytes % Neutrophils % 81.8 H Lymphocytes % 8.1 L Monocytes % 6.1 Eosinophils % 2.7 Basophils % 0.6 Nucleated Red Blood 0.0 Cells % Immature 0.170 H Granulocytes # Neutrophils # 20.3 H Lymphocytes # 2.0 Monocytes # 1.5 H Eosinophils # 0.7 H Basophils # 0.1 Nucleated Red Blood 0.0 Cells # Sodium Level 138 Potassium Level 5.9 H Chloride Level 103 Carbon Dioxide Level 23 Anion Gap 12 Blood Urea Nitrogen 32 H Creatinine 1.57 H Est Glomerular 47 L Filtrat Rate mL/min Glucose Level 312 H Hemoglobin A1c 9.9 H Calcium Level 8.9 Magnesium Level 2.3 Total Bilirubin 0.4 Direct Bilirubin 0.00 Indirect Bilirubin 0.4 Aspartate Amino 48 #H Transf (AST/SGOT) Alanine 36 Aminotransferase (AL T/SGPT) Alkaline Phosphatase 85 Total Protein 7.7 Albumin 4.2 Globulin 3.50 H Albumin/Globulin 1.20 Ratio Test 03/22/19 08:05 03/22/19 11:50 03/22/19 14:24 Bedside Glucose 278 H 184 163 Exam/Review of Systems Exam Vitals Vital Signs Date Temp Pulse Resp B/P (MAP) Pulse Ox O2 O2 Flow FiO2 Time Delivery Rate 03/22/19 98.5 86 20 144/93 92 14:00 (110) 03/22/19 Room Air 11:58 Intake and Output 03/21/19 03/21/19 03/22/19 1515:00 23:00 07:00 IntakeIntake Total 350 ml BalanceBalance 350 ml Results Results 24hrs Laboratory Tests Test 03/21/19 16:53 03/21/19 16:58 03/21/19 18:48 03/21/19 19:52 POC Venous Lactate 1.2 White Blood Count 12.4 #H Red Blood Count 5.11 Hemoglobin 14.5 Hematocrit 45.6 Mean Corpuscular 89.2 Volume Mean Corpuscular 28.4 L Hemoglobin Mean Corpuscular 31.8 L Hemoglobin Concent Red Cell 14.3 Distribution Width Platelet Count 310 Mean Platelet Volume 11.4 H Immature 0.300 Granulocytes % Neutrophils % 52.3 Lymphocytes % 25.5 Monocytes % 7.8 Eosinophils % 13.2 H Basophils % 0.9 Nucleated Red Blood 0.0 Cells % Immature 0.040 H Granulocytes # Neutrophils # 6.5 Lymphocytes # 3.2 H Monocytes # 1.0 H Eosinophils # 1.6 H Basophils # 0.1 Nucleated Red Blood 0.0 Cells # Prothrombin Time 11.7 L Prothrombin Time 0.9 Ratio INR International 0.85 Normalized Ratio Activated 24.2 Partial Thromboplast Time Sodium Level 139 Potassium Level 4.2 Chloride Level 102 Carbon Dioxide Level 26 Anion Gap 11 Blood Urea Nitrogen 29 H Creatinine 1.24 Est Glomerular > 60 Filtrat Rate mL/min Glucose Level 206 Calcium Level 9.4 Total Bilirubin 0.4 Direct Bilirubin 0.00 Indirect Bilirubin 0.4 Aspartate Amino 26 Transf (AST/SGOT) Alanine 26 Aminotransferase (AL T/SGPT) Alkaline Phosphatase 77 Troponin I < 0.012 Total Protein 7.5 Albumin 4.3 Globulin 3.20 Albumin/Globulin 1.34 Ratio Lactic Acid Level 1.7 Bedside Glucose 156 Test 03/21/19 21:18 03/21/19 22:15 03/22/19 05:13 03/22/19 07:16 Lactic Acid Level 1.8 Bedside Glucose 168 352 H White Blood Count 24.8 #H Red Blood Count 4.96 Hemoglobin 14.2 Hematocrit 46.7 Mean Corpuscular 94.2 Volume Mean Corpuscular 28.6 L Hemoglobin Mean Corpuscular 30.4 L Hemoglobin Concent Red Cell 14.5 Distribution Width Platelet Count 301 Mean Platelet Volume 11.6 H Immature 0.700 H Granulocytes % Neutrophils % 81.8 H Lymphocytes % 8.1 L Monocytes % 6.1 Eosinophils % 2.7 Basophils % 0.6 Nucleated Red Blood 0.0 Cells % Immature 0.170 H Granulocytes # Neutrophils # 20.3 H Lymphocytes # 2.0 Monocytes # 1.5 H Eosinophils # 0.7 H Basophils # 0.1 Nucleated Red Blood 0.0 Cells # Sodium Level 138 Potassium Level 5.9 H Chloride Level 103 Carbon Dioxide Level 23 Anion Gap 12 Blood Urea Nitrogen 32 H Creatinine 1.57 H Est Glomerular 47 L Filtrat Rate mL/min Glucose Level 312 H Hemoglobin A1c 9.9 H Calcium Level 8.9 Magnesium Level 2.3 Total Bilirubin 0.4 Direct Bilirubin 0.00 Indirect Bilirubin 0.4 Aspartate Amino 48 #H Transf (AST/SGOT) Alanine 36 Aminotransferase (AL T/SGPT) Alkaline Phosphatase 85 Total Protein 7.7 Albumin 4.2 Globulin 3.50 H Albumin/Globulin 1.20 Ratio Test 03/22/19 08:05 03/22/19 11:50 03/22/19 14:24 Bedside Glucose 278 H 184 163 Medications Medication Current Medications Vancomycin HCl (Vanco Iv Per Pharmacy) VANCOMYCIN PER PHARMACY PER PROTOCOL XX ; Start 03/21/19 at 17:30 Piperacillin Sod/ Tazobactam Sod 100 ml @ 200 mls/hr Q6 IVPB Last administered on 03/22/19at 11:51; Admin Dose 200 MLS/HR; Start 03/22/19 at 00:00 IV Flush (NS 3 ml) 3 ml PER PROTOCOL IV ; Start 03/21/19 at 17:30 Aspirin (Aspirin) 81 mg DAILY PO Last administered on 03/22/19 08:34; Admin Dose 81 MG; Start 03/22/19 at 09:00 Clopidogrel Bisulfate (plaVIX) 75 mg DAILY PO Last administered on 03/22/19 08:34; Admin Dose 75 MG; Start 03/22/19 at 09:00 Acetaminophen (Tylenol Tab) 650 mg Q6H PRN PO .PAIN 1-3 OR TEMP; Start 03/21/19 at 17:30 Oxycodone/ Acetaminophen (Percocet (5/ 325)) 1 tab Q6H PRN PO .PAINS 4-6; Start 03/21/19 at 17:30 Hydromorphone HCl (Dilaudid) 0.5 mg Q4H PRN IV .PAIN 7-10 Last administered on 03/22/19 11:52; Admin Dose 0.5 MG; Start 03/21/19 at 17:30 Amlodipine Besylate (Norvasc) 5 mg DAILY PO Last administered on 03/21/19 22:05; Admin Dose 5 MG; Start 03/22/19 at 09:00 Atorvastatin Calcium (Lipitor) 80 mg QHS PO ; Start 03/21/19 at 21:00 Carvedilol (Coreg) 12.5 mg BID PO Last administered on 03/22/19 11:58; Admin Dose 12.5 MG; Start 03/21/19 at 21:00 Gabapentin (Neurontin) 300 mg TID PO Last administered on 03/22/19 08:34; Admin Dose 300 MG; Start 03/21/19 at 21:00 Isosorbide Dinitrate (Isordil) 10 mg TID PO Last administered on 03/22/19 08:35; Admin Dose 10 MG; Start 03/21/19 at 21:00 Lisinopril (Zestril) 20 mg DAILY PO Last administered on 03/21/19 22:07; Admin Dose 20 MG; Start 03/22/19 at 09:00 Diagnostic Test (Pha) (Accu-Chek) 1 ea 02 XX ; Start 03/22/19 at 02:00 Insulin Aspart (Novolog Insulin Pen) 13 unit WITH MEALS SC Last administered on 03/22/19 08:33; Admin Dose 13 UNIT; Start 03/21/19 at 18:00 Insulin Aspart (Novolog Insulin Pen) NOVOLOG *MILD* ALGORITHM WITH MEALS BEDTIME SC Last administered on 03/22/19 08:33; Admin Dose 4 UNIT; Start 03/21/19 at 18:00 Hydralazine HCl (Apresoline) 10 mg Q4H PRN IV sbp >160; Start 03/21/19 at 17:30 Lorazepam (Ativan) 0.5 mg TID PRN PO ANXIETY; Start 03/21/19 at 17:30 Ondansetron HCl (Zofran Inj) 4 mg BRIDGE ORDER PRN IV NAUSEA/VOMITING; Start 03/21/19 at 17:30; Stop 03/22/19 at 17:29 Diphenhydramine HCl (Benadryl) 25 mg Q6H PRN IV itching Last administered on 03/22/19at 12:18; Admin Dose 25 MG; Start 03/21/19 at 18:00 Calamine/Pramoxine (Caladryl Lotion) 1 applic QID TOP ; Start 03/21/19 at 21:00 Vancomycin HCl 250 ml @ 125 mls/hr Q12H IVPB Last administered on 03/22/19at 08:29; Admin Dose 125 MLS/HR; Start 03/22/19 at 08:00 Insulin Glargine (Lantus) 32 units DAILY@0800 SC Last administered on 03/22/19at 08:34; Admin Dose 32 UNITS; Start 03/22/19 at 08:00 Miscellaneous Information (*Rx Drug Level Order Reminder*) 1 0700 ONCE XX ; Start 03/23/19 at 07:00; Stop 03/23/19 at 07:01 FERDINAND MARTINEZ NP March 22, 2019 16:36
[2019-03-22] MEDS ORDERED: KETOROLAC 30 MG INJ IV PRN (17:00)
[2019-03-22] MEDS ORDERED: hydrALAzine 20 MG INJ IV PRN (17:00)
[2019-03-22] MEDS ORDERED: DIPHENHYDRAMINE 50 MG INJ IV PRN (17:00)
[2019-03-22] MEDS ORDERED: EPHEDrine 25 MG/5 ML SYG IV PRN (17:00)
[2019-03-22] MEDS ORDERED: ONDANSETRON 4 MG INJ IV PRN (17:00)
[2019-03-22] MEDS ORDERED: METOCLOPRAMIDE 10 MG INJ IV PRN (17:00)
[2019-03-22] MEDS ORDERED: ALBUTEROL 0.083% (NEB) 2.5 MG/3 ML AMP HHN PRN (17:00)
[2019-03-22] MEDS ORDERED: FENTAnyl 50 MCG/ML VIAL IV PRN ×3 (17:00)
[2019-03-22] MEDS ORDERED: MEPERIDINE 25 MG INJ IV PRN (17:00)
[2019-03-22] MEDS ORDERED: LABETALOL HCL 20MG INJ IV PRN (17:00)
[2019-03-22] MEDS ORDERED: MIDAZOLAM 1 MG/ML 2 ML INJ IV PRN (17:00)
[2019-03-22] MEDS: ATORVASTATIN 80 MG TAB PO SCH (21:46)
[2019-03-22] MEDS: HEPARIN 5,000 UNIT/1 ML VIAL SC SCH (22:00)
--- NOTE | 2019-03-22 22:39 | OPR ---
DATE OF OPERATION: 03/22/2019 SURGEON: Jasmyne Peoples DPM PUBLIC RELATIONS ANALYST: Pierre Wilkins DPM PREOPERATIVE DIAGNOSES: 1. Right lower extremity ulcerations. 1. Failed prior skin grafting, skin graft compromise. 2. Diabetic skin ulceration. 3. Edema. POSTOPERATIVE DIAGNOSES: 1. Right lower extremity ulcerations. 2. Failed prior skin grafting, skin graft compromise 3. Diabetic skin ulceration. 4. Edema. PROCEDURES PERFORMED: 1. Right lower extremity wound bed preparation less than 100 cm2 in preparation for skin graft. 2. Right lower extremity split thickness skin graft. PATHOLOGY: Cultures from 3 wounds individually sent. ANESTHESIA: General and local, 0.5% Marcaine plain, 1% lidocaine plain and lidocaine 1% with epineph rine to the donor site. COMPLICATIONS: None. MATERIALS: 3-0 nylon. INDICATION FOR PROCEDURE: The patient with chronic pain due to open ulcerations, has a prior skin gr afting with compromise, currently in hyperbaric oxygen therapy, presented through the ER due to sever e pain and concern for infection, has been on IV antibiotics and wounds appear improved at this time. The extremity was preserved. PROCEDURE IN DETAIL: The patient brought into the operating room and placed in the supine position. Formal timeout had been performed and the extremities were prepped and scrubbed and draped in usual sterile fashion using a combination of instrumentation. Three wounds were prepared for skin grafting using scissors and pickup curet, had 3 separate wounds. Each had a wound tissue obtained for cultur es and labeled 1, 2 and 3 from proximal to distal. Wounds were irrigated with saline and collectivel y the wounds measured 8 x 4 cm. At this time, my attention was directed to the ipsilateral thigh. L idocaine 1% with epinephrine was injected and of an inch skin graft harvested, meshed 1.5 to 1 and secured to the recipient site with 3-0 nylon. Hemostasis achieved at the donor site with compr ession, applied Xeroform, 4 x 4 and a Tegaderm and recipient site covered with Xeroform, polymyxin an d a dry sterile dressing with compression wrap. The patient tolerated procedure well. Recommend trent vation of extremity and continuation of antibiotics for 24 to 48 hours. Dictated By: JASMYNE PERES/MILLY Conf#: [id number] DID#: [id number] CC: ANJEL RENTERIA MD;*End*
[2019-03-23] MEDS: ACCU-CHEK XX SCH (02:00)
[2019-03-23 02:05] VITALS: BP 128/69; PULSE 101; RESP 18
[2019-03-23] MEDS: HYDROmorphONE 0.5 MG/0.5 ML SYG IV PRN ×4 (04:01→22:15)
[2019-03-23] MEDS: DIPHENHYDRAMINE 50 MG INJ IV PRN ×4 (04:23→23:45)
[2019-03-23] MEDS: PIPER-TAZO 3.375 GM IV (PMX) 100 ML IVPB SCH ×4 (06:00→18:10)
[2019-03-23] MEDS: HEPARIN 5,000 UNIT/1 ML VIAL SC SCH ×3 (06:00→21:26)
[2019-03-23 07:49] VITALS: BP 141/85; PULSE 98; RESP 20
[2019-03-23] MEDS: VANCOMYCIN 1 GM in 250 ML IVPB SCH ×2 (08:00→09:24)
[2019-03-23] MEDS: INSULIN ASPART [NOVOLOG] 3 ML PEN SC SCH ×7 (08:00→20:48)
[2019-03-23] MEDS: CALAMINE/PRAMOXINE LOT 180 ML BTL TOP SCH ×4 (09:00→21:00)
[2019-03-23] MEDS: ASPIRIN 81 MG TAB PO SCH (09:21)
[2019-03-23] MEDS: CLOPIDOGREL 75 MG TAB PO SCH (09:21)
[2019-03-23] MEDS: ISOSORBIDE DINITRATE 10 MG TAB PO SCH ×3 (09:21→20:44)
[2019-03-23] MEDS: GABAPENTIN 300 MG CAP PO SCH ×3 (09:21→20:48)
[2019-03-23] MEDS: LISINOPRIL 20 MG TAB PO SCH (09:22)
[2019-03-23] MEDS: AMLODIPINE 5 MG TAB PO SCH (09:22)
[2019-03-23] MEDS: INSULIN GLARGINE [LANTus] (100 UNITS/ML) SYG SC SCH (09:46)
[2019-03-23] MEDS: OXYCODONE/ACETAMINOPHEN (5/325) TAB PO PRN ×2 (10:50→21:34)
--- NOTE | 2019-03-23 13:16 | PN ---
Date/Time of Note Date/Time of Note DATE: 03/23/19 TIME: 13:10 Assessment/Plan VTE Prophylaxis Risk score (from [facility])>0 risk: 6 SCD applied (from [facility]): No SCD contraindicated: other (dressing rle ) Pharmacological prophylaxis: heparin Lines/Catheters IV Catheter Type (from [facility]): Peripheral IV Assessment/Plan Hospital Course 1. Right lower extremity nonhealing ulcer. -Continue abx - continue wound care - s/p surgical debridement 03/22/19 2. Multivessel coronary artery disease. -Status post RCA stent on 03/04/2019. -Continue dual antiplatelet therapy. - patient for outpatient follow up for staged coronary intervention. 3. Diabetes mellitus. -Hemoglobin A1c 9.9. -Continue insulin regimen 4. Dyslipidemia. -Continue statins. 5. Hypertension. -Continue antihypertensives. 6. Obesity. -BMI more than 41 kg/m. -Weight reduction was advised. 7. Chronic kidney disease. - Monitor renal panel 8. Obstructive sleep apnea. - Was advised for Nocturnal CPAP Dispo/Plan: continue with analgesics. Follow-up on final wound cultures. ID consult consulted. Continue inhouse monitoring Discussed plan of care with Dr. Callejas Result Diagram: 03/23/19 0734 03/23/19 0734 Results 24hrs Laboratory Tests Test 03/22/19 14:24 03/22/19 18:07 03/22/19 22:07 03/22/19 22:39 Bedside Glucose 163 93 94 Potassium Level 4.3 Troponin I 0.027 Test 03/23/19 07:34 03/23/19 09:29 03/23/19 12:47 White Blood Count 12.6 #H Red Blood Count 4.93 Hemoglobin 14.1 Hematocrit 44.5 Mean Corpuscular 90.3 Volume Mean Corpuscular 28.6 L Hemoglobin Mean Corpuscular 31.7 L Hemoglobin Concent Red Cell 14.5 Distribution Width Platelet Count 279 Mean Platelet Volume 11.3 H Immature 0.300 Granulocytes % Neutrophils % 67.5 Lymphocytes % 17.2 Monocytes % 6.8 Eosinophils % 7.4 H Basophils % 0.8 Nucleated Red Blood 0.0 Cells % Immature 0.040 H Granulocytes # Neutrophils # 8.5 H Lymphocytes # 2.2 Monocytes # 0.9 Eosinophils # 0.9 H Basophils # 0.1 Nucleated Red Blood 0.0 Cells # Sodium Level 141 Potassium Level 4.2 Chloride Level 107 Carbon Dioxide Level 27 Anion Gap 7 Blood Urea Nitrogen 22 H Creatinine 1.16 Est Glomerular > 60 Filtrat Rate mL/min Glucose Level 122 # Calcium Level 8.8 Phosphorus Level 3.6 Magnesium Level 2.0 Creatine Kinase 126 Creatine Kinase 1.7 Index Creatinine Kinase MB 2.10 (Mass) Troponin I 0.024 Vancomycin Level 6.4 L Trough Bedside Glucose 115 128 Subjective 24 Hr Interval Summary Free Text/Dictation no s/s of distress. RN at bedside. Exam/Review of Systems Exam Vitals Vital Signs Date Temp Pulse Resp B/P (MAP) Pulse Ox O2 O2 Flow FiO2 Time Delivery Rate 03/23/19 98.9 98 20 141/85 93 07:49 (103) 03/22/19 Room Air 18:00 03/22/19 2.0 16:29 Intake and Output 03/22/19 03/22/19 03/23/19 1515:00 23:00 07:00 IntakeIntake Total 450 ml 900 ml 240 ml OutputOutput Total 620 ml 800 ml BalanceBalance 450 ml 280 ml -560 ml Constitutional: alert, oriented Psych: anxiety Head: normocephalic Neck: supple, non-tender Respiratory: clear to auscultation Cardiovascular: other (regular rate ) Gastrointestinal: soft, non-tender Musculoskeletal: other (dressing RLE, noted open wound on right upper thigh ) Neurological: DORMITORY COUNSELOR II-XII intact, nl mental status, nl speech Skin: other (wound right upper thigh ) Results Results 24hrs Laboratory Tests Test 03/22/19 14:24 03/22/19 18:07 03/22/19 22:07 03/22/19 22:39 Bedside Glucose 163 93 94 Potassium Level 4.3 Troponin I 0.027 Test 03/23/19 07:34 03/23/19 09:29 03/23/19 12:47 White Blood Count 12.6 #H Red Blood Count 4.93 Hemoglobin 14.1 Hematocrit 44.5 Mean Corpuscular 90.3 Volume Mean Corpuscular 28.6 L Hemoglobin Mean Corpuscular 31.7 L Hemoglobin Concent Red Cell 14.5 Distribution Width Platelet Count 279 Mean Platelet Volume 11.3 H Immature 0.300 Granulocytes % Neutrophils % 67.5 Lymphocytes % 17.2 Monocytes % 6.8 Eosinophils % 7.4 H Basophils % 0.8 Nucleated Red Blood 0.0 Cells % Immature 0.040 H Granulocytes # Neutrophils # 8.5 H Lymphocytes # 2.2 Monocytes # 0.9 Eosinophils # 0.9 H Basophils # 0.1 Nucleated Red Blood 0.0 Cells # Sodium Level 141 Potassium Level 4.2 Chloride Level 107 Carbon Dioxide Level 27 Anion Gap 7 Blood Urea Nitrogen 22 H Creatinine 1.16 Est Glomerular > 60 Filtrat Rate mL/min Glucose Level 122 # Calcium Level 8.8 Phosphorus Level 3.6 Magnesium Level 2.0 Creatine Kinase 126 Creatine Kinase 1.7 Index Creatinine Kinase MB 2.10 (Mass) Troponin I 0.024 Vancomycin Level 6.4 L Trough Bedside Glucose 115 128 Medications Medication Current Medications Vancomycin HCl (Vanco Iv Per Pharmacy) VANCOMYCIN PER PHARMACY PER PROTOCOL XX ; Start 03/21/19 at 17:30 Piperacillin Sod/ Tazobactam Sod 100 ml @ 200 mls/hr Q6 IVPB Last administered on 03/23/19at 13:07; Admin Dose 200 MLS/HR; Start 03/22/19 at 00:00 IV Flush (NS 3 ml) 3 ml PER PROTOCOL IV ; Start 03/21/19 at 17:30 Aspirin (Aspirin) 81 mg DAILY PO Last administered on 03/23/19 09:21; Admin Dose 81 MG; Start 03/22/19 at 09:00 Clopidogrel Bisulfate (plaVIX) 75 mg DAILY PO Last administered on 03/23/19at 09:21; Admin Dose 75 MG; Start 03/22/19 at 09:00 Acetaminophen (Tylenol Tab) 650 mg Q6H PRN PO .PAIN 1-3 OR TEMP; Start 03/21/19 at 17:30 Oxycodone/ Acetaminophen (Percocet (5/ 325)) 1 tab Q6H PRN PO .PAINS 4-6 Last administered on 03/23/19at 10:50; Admin Dose 1 TAB; Start 03/21/19 at 17:30 Hydromorphone HCl (Dilaudid) 0.5 mg Q4H PRN IV .PAIN 7-10 Last administered on 03/23/19 09:16; Admin Dose 0.5 MG; Start 03/21/19 at 17:30 Amlodipine Besylate (Norvasc) 5 mg DAILY PO Last administered on 03/23/19 09:22; Admin Dose 5 MG; Start 03/22/19 at 09:00 Atorvastatin Calcium (Lipitor) 80 mg QHS PO Last administered on 03/22/19 21:46; Admin Dose 80 MG; Start 03/21/19 at 21:00 Carvedilol (Coreg) 12.5 mg BID PO Last administered on 03/23/19 09:22; Admin Dose 12.5 MG; Start 03/21/19 at 21:00 Gabapentin (Neurontin) 300 mg TID PO Last administered on 03/23/19 09:21; Admin Dose 300 MG; Start 03/21/19 at 21:00 Isosorbide Dinitrate (Isordil) 10 mg TID PO Last administered on 03/23/19 09:21; Admin Dose 10 MG; Start 03/21/19 at 21:00 Lisinopril (Zestril) 20 mg DAILY PO Last administered on 03/23/19 09:22; Admin Dose 20 MG; Start 03/22/19 at 09:00 Diagnostic Test (Pha) (Accu-Chek) 1 ea 02 XX ; Start 03/22/19 at 02:00 Insulin Aspart (Novolog Insulin Pen) 13 unit WITH MEALS SC Last administered on 03/23/19 12:57; Admin Dose 13 UNIT; Start 03/21/19 at 18:00 Insulin Aspart (Novolog Insulin Pen) NOVOLOG *MILD* ALGORITHM WITH MEALS BEDTIME SC Last administered on 03/22/19 08:33; Admin Dose 4 UNIT; Start 03/21/19 at 18:00 Hydralazine HCl (Apresoline) 10 mg Q4H PRN IV sbp >160; Start 03/21/19 at 17:30 Lorazepam (Ativan) 0.5 mg TID PRN PO ANXIETY; Start 03/21/19 at 17:30 Calamine/Pramoxine (Caladryl Lotion) 1 applic QID TOP ; Start 03/21/19 at 21:00 Insulin Glargine (Lantus) 32 units DAILY@0800 SC Last administered on 03/23/19 09:46; Admin Dose 32 UNITS; Start 03/22/19 at 08:00 Heparin Sodium (Porcine) (Heparin (5000 Units/1ml)) 5,000 unit Q8 SC ; Start 5/25/19 at 22:00 Vancomycin HCl 1.5 gm/Sodium Chloride 250 ml @ 83.333 mls/ hr Q12H IVPB ; Start 03/23/19 at 20:00 Diphenhydramine HCl (Benadryl) 25 mg Q4H PRN IV itching Last administered on 03/23/19at 10:17; Admin Dose 25 MG; Start 03/23/19 at 10:00 CLOVER ROBISON NP March 23, 2019 13:16
[2019-03-23 13:34] VITALS: BP 118/73; PULSE 84; RESP 20
--- NOTE | 2019-03-23 13:56 | CONS ---
Assessment/Plan Assessment/Plan Assessment/Plan (Daily) Right lower extremity ulcerations. Failed prior skin grafting, skin graft compromise Diabetic skin ulceration. Edema. Plan Instructed nurses to change the dressings for the donor site. Patient to keep dressings clean dry and intact. Patient permitted to weight bear as tolerated. Tight glycemic control. Instructed patient to follow up in outpatient wound care clinic and will continue with HBO therapy. Consultation Date/Type/Reason Admit Date/Time March 21, 2019 at 17:20 Initial Consult Date Date/Time of Note DATE: 03/23/19 TIME: 13:55 24 HR Interval Summary Free Text/Dictation No acute events overnight. Exam/Review of Systems Exam Vitals Vital Signs Date Temp Pulse Resp B/P (MAP) Pulse Ox O2 O2 Flow FiO2 Time Delivery Rate 03/23/19 98.2 84 20 118/73 93 13:34 (88) 03/22/19 Room Air 18:00 03/22/19 2.0 16:29 Intake and Output 03/22/19 03/22/19 03/23/19 1515:00 23:00 07:00 IntakeIntake Total 450 ml 900 ml 240 ml OutputOutput Total 620 ml 800 ml BalanceBalance 450 ml 280 ml -560 ml Exam Strikethrough drainage noted to donor site. Surgical recipient site without strikethrough or proximal streaking Absent protective sensations Results Result Diagram: 03/23/19 0734 03/23/19 0734 Results 24hrs Laboratory Tests Test 03/22/19 14:24 03/22/19 18:07 03/22/19 22:07 03/22/19 22:39 Bedside Glucose 163 93 94 Potassium Level 4.3 Troponin I 0.027 Test 03/23/19 07:34 03/23/19 09:29 03/23/19 12:47 White Blood Count 12.6 #H Red Blood Count 4.93 Hemoglobin 14.1 Hematocrit 44.5 Mean Corpuscular 90.3 Volume Mean Corpuscular 28.6 L Hemoglobin Mean Corpuscular 31.7 L Hemoglobin Concent Red Cell 14.5 Distribution Width Platelet Count 279 Mean Platelet Volume 11.3 H Immature 0.300 Granulocytes % Neutrophils % 67.5 Lymphocytes % 17.2 Monocytes % 6.8 Eosinophils % 7.4 H Basophils % 0.8 Nucleated Red Blood 0.0 Cells % Immature 0.040 H Granulocytes # Neutrophils # 8.5 H Lymphocytes # 2.2 Monocytes # 0.9 Eosinophils # 0.9 H Basophils # 0.1 Nucleated Red Blood 0.0 Cells # Sodium Level 141 Potassium Level 4.2 Chloride Level 107 Carbon Dioxide Level 27 Anion Gap 7 Blood Urea Nitrogen 22 H Creatinine 1.16 Est Glomerular > 60 Filtrat Rate mL/min Glucose Level 122 # Calcium Level 8.8 Phosphorus Level 3.6 Magnesium Level 2.0 Creatine Kinase 126 Creatine Kinase 1.7 Index Creatinine Kinase MB 2.10 (Mass) Troponin I 0.024 Vancomycin Level 6.4 L Trough Bedside Glucose 115 128 Medications Medication Current Medications Vancomycin HCl (Vanco Iv Per Pharmacy) VANCOMYCIN PER PHARMACY PER PROTOCOL XX ; Start 03/21/19 at 17:30 Piperacillin Sod/ Tazobactam Sod 100 ml @ 200 mls/hr Q6 IVPB Last administered on 03/23/19at 13:07; Admin Dose 200 MLS/HR; Start 03/22/19 at 00:00 IV Flush (NS 3 ml) 3 ml PER PROTOCOL IV ; Start 03/21/19 at 17:30 Aspirin (Aspirin) 81 mg DAILY PO Last administered on 03/23/19at 09:21; Admin Dose 81 MG; Start 03/22/19 at 09:00 Clopidogrel Bisulfate (plaVIX) 75 mg DAILY PO Last administered on 03/23/19 09:21; Admin Dose 75 MG; Start 03/22/19 at 09:00 Acetaminophen (Tylenol Tab) 650 mg Q6H PRN PO .PAIN 1-3 OR TEMP; Start 03/21/19 at 17:30 Oxycodone/ Acetaminophen (Percocet (5/ 325)) 1 tab Q6H PRN PO .PAINS 4-6 Last administered on 03/23/19at 10:50; Admin Dose 1 TAB; Start 03/21/19 at 17:30 Hydromorphone HCl (Dilaudid) 0.5 mg Q4H PRN IV .PAIN 7-10 Last administered on 03/23/19 09:16; Admin Dose 0.5 MG; Start 03/21/19 at 17:30 Amlodipine Besylate (Norvasc) 5 mg DAILY PO Last administered on 03/23/19 09:22; Admin Dose 5 MG; Start 03/22/19 at 09:00 Atorvastatin Calcium (Lipitor) 80 mg QHS PO Last administered on 03/22/19 21:46; Admin Dose 80 MG; Start 03/21/19 at 21:00 Carvedilol (Coreg) 12.5 mg BID PO Last administered on 03/23/19 09:22; Admin Dose 12.5 MG; Start 03/21/19 at 21:00 Gabapentin (Neurontin) 300 mg TID PO Last administered on 03/23/19 09:21; Admin Dose 300 MG; Start 03/21/19 at 21:00 Isosorbide Dinitrate (Isordil) 10 mg TID PO Last administered on 03/23/19 09:21; Admin Dose 10 MG; Start 03/21/19 at 21:00 Lisinopril (Zestril) 20 mg DAILY PO Last administered on 03/23/19 09:22; Admin Dose 20 MG; Start 03/22/19 at 09:00 Diagnostic Test (Pha) (Accu-Chek) 1 ea 02 XX ; Start 03/22/19 at 02:00 Insulin Aspart (Novolog Insulin Pen) 13 unit WITH MEALS SC Last administered on 03/23/19at 12:57; Admin Dose 13 UNIT; Start 03/21/19 at 18:00 Insulin Aspart (Novolog Insulin Pen) NOVOLOG *MILD* ALGORITHM WITH MEALS BEDTIME SC Last administered on 03/22/19 08:33; Admin Dose 4 UNIT; Start 03/21/19 at 18:00 Hydralazine HCl (Apresoline) 10 mg Q4H PRN IV sbp >160; Start 03/21/19 at 17:30 Lorazepam (Ativan) 0.5 mg TID PRN PO ANXIETY; Start 03/21/19 at 17:30 Calamine/Pramoxine (Caladryl Lotion) 1 applic QID TOP ; Start 03/21/19 at 21:00 Insulin Glargine (Lantus) 32 units DAILY@0800 SC Last administered on 03/23/19 09:46; Admin Dose 32 UNITS; Start 03/22/19 at 08:00 Heparin Sodium (Porcine) (Heparin (5000 Units/1ml)) 5,000 unit Q8 SC ; Start 03/22/19 at 22:00 Vancomycin HCl 1.5 gm/Sodium Chloride 250 ml @ 83.333 mls/ hr Q12H IVPB ; Start 03/23/19 at 20:00 Diphenhydramine HCl (Benadryl) 25 mg Q4H PRN IV itching Last administered on 03/23/19at 10:17; Admin Dose 25 MG; Start 03/23/19 at 10:00 KHADRA ODOM DPM March 23, 2019 13:56
--- NOTE | 2019-03-23 19:28 | RADRPT ---
Vent Rate: 100 bpm RR Interval: 600 msec [place] Interval: 166 msec QRS Duration: 100 msec QT Interval: 356 msec QTC Interval: 460 msec P-R-T [place]: 57 - 196 - 74 degrees Sinus tachycardia...rate> 99 Right axis deviation...QRS axis (100,269) Probable anteroseptal infarct, old...Q >30mS & abn ST-T, V1-V2 Electronically Signed By: Jan Elena
[2019-03-23] MEDS ORDERED: VANCOMYCIN HCL 1.5 GM in SOD CHLORIDE 0.9% 250 ML IVPB SCH (20:00)
[2019-03-23] MEDS ORDERED: GLUCAGON 1 MG INJ IM PRN (20:00)
[2019-03-23] MEDS ORDERED: DEXTROSE 50% 50 ML SYRINGE IV PRN ×2 (20:00)
[2019-03-23] MEDS ORDERED: GLUCOSE GEL 15 GRAM TUBE BUCCAL PRN (20:00)
[2019-03-23] MEDS ORDERED: GLUCOSE GEL 15 GRAM TUBE PO PRN ×2 (20:00)
[2019-03-23 20:13] VITALS: BP 146/81; PULSE 80; RESP 18
[2019-03-23] MEDS ORDERED: CEFTRIAXONE 2 GM/NS 50 ML IVPB SCH (20:30)
[2019-03-23] MEDS: ATORVASTATIN 80 MG TAB PO SCH (20:45)
--- NOTE | 2019-03-23 21:22 | CONS ---
DATE OF ADMISSION: 03/21/2019 DATE OF CONSULTATION: TYPE OF CONSULTATION: Infectious disease consultation for Dr. Benoit Maravilla. REQUESTED BY: Dr. Veto Vann. and Yossi Hess. HISTORY OF PRESENT ILLNESS: The patient is a 48-year-old white male diabetic, who was admitted for a chief complaint of severe pain in the right lower extremity. The patient has had peripheral vascula r disease and has had stenting in the right lower extremity recently. He has had a number of skin gr afts on his thigh and has edema and stasis changes slightly above the level of the ankles, chronicall y. He has not had any fever or chills. He was seen in the emergency room, which identified a white count of 12,400 with 52 polys, 26 lymphs, 8 monocytes and 13 eosinophils. The patient's white count willian the next day up to 24,800 with 7 eosinophils. The patient was started on vancomycin and Zosyn f or infection in the lower leg and perhaps a skin graft site. The patient's blood sugar was 122. PAST MEDICAL HISTORY: Diabetes mellitus with an A1c of 10%, hyperlipidemia, peripheral vascular dise ase, a coronary artery disease for which he was stented previously. ALLERGIES: NO KNOWN ALLERGIES except to metformin and Morphine. MEDICATIONS: Include Plavix, various opioids, Coreg, atorvastatin, amlodipine, hydrochlorothiazide, lisinopril, Isordil, linagliptin, Humalog insulin and Levemir insulin. PHYSICAL EXAMINATION GENERAL: Reveals a mesomorphic, obese, tattooed white male, who is in mild distress over painful leg s, for which he is removing the bandage and for bandage change. There is no drainage. The walker rounding area is erythematous, as is the rest of the leg proper and thigh distally. VITAL SIGNS: Revealed a temperature of 98.2, pulse 84, respirations 20, blood pressure 118/73, pulse oximetry is 93 on room air. HEENT: Pupils are constricted, round and react to light. Extraocular movements are full. Mucous me mbranes of the mouth are moist. NECK: Short and obese. CHEST: Also in the back is obese. Chest is clear. HEART: Tones are distant, but appear to be regular, without murmur. ABDOMEN: Protuberant and obese with no palpable organs or masses. EXTREMITIES: Reveal stasis changes in the left lower extremity, which are chronic and stasis changes in the right lower extremity as well as diffuse redness in the surrounding complex tattoo pattern ex tending up into the thigh. There is a skin graft on the right anterior thigh. NEUROLOGIC: Grossly within normal limits. INITIAL IMPRESSION: Right lower extremity cellulitis, right lower extremity pain, peripheral vascula r disease, morbid obesity, uncontrolled diabetes, coronary artery disease status post stents x2, hype rtension, hypercholesterolemia. RECOMMENDATIONS: Change antibiotics to ceftriaxone, pending cultures. The wound does not appear to be infected. The patient states that vancomycin is making him sick and states he has gotten a 3 to 4 doses yesterday and it makes him feel sick. He had no nausea or vomiting, so recommended changing t o ceftriaxone 2 grams IV because of the patient's 123 kilogram weight for 7 days, pending culture res ults. Also recommended the patient keep his lower extremities elevated particular the right side to reduce the swelling and encouraged the healing. The patient states he has chronic itching in his lower extremities as well as his body for a number o f months for which he does not get any relief, although he does take Benadryl. The fact that his itc josé miguel, his white count improved after initially going up. Suggested that the patient may have scabies , although an atypical presentation. I have given the patient a prescription for ivermectin 3 mg 3 p ills weekly for 3 weeks. Should he wished to pursue this clinical diagnosis. Dictated By: Uriel SAMUEL/MILLY Conf#: [id number] DID#: [id number]
[2019-03-24 01:36] VITALS: BP 114/56; PULSE 81; RESP 20
[2019-03-24] MEDS: ACCU-CHEK XX SCH (02:00)
[2019-03-24] MEDS: HYDROmorphONE 0.5 MG/0.5 ML SYG IV PRN ×3 (02:25→10:26)
[2019-03-24] MEDS: OXYCODONE/ACETAMINOPHEN (5/325) TAB PO PRN ×2 (04:49→12:21)
[2019-03-24] MEDS: DIPHENHYDRAMINE 50 MG INJ IV PRN ×3 (04:50→13:13)
[2019-03-24] MEDS: HEPARIN 5,000 UNIT/1 ML VIAL SC SCH ×2 (05:48→13:28)
[2019-03-24 07:37] VITALS: BP 139/82; PULSE 72; RESP 18
[2019-03-24] MEDS: INSULIN ASPART [NOVOLOG] 3 ML PEN SC SCH ×4 (08:38→13:26)
[2019-03-24] MEDS: CLOPIDOGREL 75 MG TAB PO SCH (08:40)
[2019-03-24] MEDS: LISINOPRIL 20 MG TAB PO SCH (08:40)
[2019-03-24] MEDS: ASPIRIN 81 MG TAB PO SCH (08:41)
[2019-03-24] MEDS: AMLODIPINE 5 MG TAB PO SCH (08:42)
[2019-03-24] MEDS: ISOSORBIDE DINITRATE 10 MG TAB PO SCH ×2 (08:42→13:28)
[2019-03-24] MEDS: GABAPENTIN 300 MG CAP PO SCH ×2 (08:43→13:28)
[2019-03-24] MEDS: CALAMINE/PRAMOXINE LOT 180 ML BTL TOP SCH ×2 (08:57→13:00)
[2019-03-24] MEDS: INSULIN GLARGINE [LANTus] (100 UNITS/ML) SYG SC SCH (08:57)
--- NOTE | 2019-03-24 12:31 | DS ---
Date/Time of Note Date/Time of Note DATE: 03/24/19 TIME: 12:23 Discharge Summary Admission/Discharge Info Admit Date/Time March 21, 2019 at 17:20 Discharge Date/Time Discharge Diagnosis 1. Right lower extremity nonhealing ulcer, diabetic skin ulcer - s/p surgical debridement 03/22/19 2. Failed prior skin grafting, skin graft compromise 3. Multivessel coronary artery disease. -Status post RCA stent on 03/04/2019. -Continue dual antiplatelet therapy. - patient for outpatient follow up for staged coronary intervention. 4. Diabetes mellitus. -Hemoglobin A1c 9.9. -Continue insulin regimen 5. Dyslipidemia. -Continue statins. 6. Hypertension. -Continue antihypertensives. 7. Obesity. -BMI more than 41 kg/m. -Weight reduction was advised. 8. JANNIE on Chronic kidney disease. 9. Obstructive sleep apnea. - Was advised for Nocturnal CPAP . Patient Condition: Stable Consults Podiatry ID . Procedures See hospital course . Hospital Course 48-year-old male with a complicated medical history to include diabetes mellitus, hypertension, coronary artery disease, chronic kidney disease who had presented to the emergency room due to unrelenting right lower extremity pain. He recently had PCI for coronary artery disease and a stent was placed and has had skin graft in the past to a chronic right lower extremity diabetic ulcer. He was admitted and podiatry was consulted to see him and initially started on IV antibiotics. He did undergo a skin grafting to his ulceration on the basis of a diagnosis of air-filled prior skin graft with skin graft compromise. At this time he has done well. All cultures so far from the wound have been negative. Infectious disease was consulted, did this patient on IV ceftriaxone for 7 days and I did recommend that patient keep his lower extremities elevated to reduce swelling and encourage healing. At this time we will transition him to oral antibiotic therapy and he will continue follow-up with Dr. Elsie galeas. . Home Meds Active Scripts Insulin Lispro (Humalog) 100 Unit/1 Ml Cartridge, 14 UNIT SQ TIDM A, #1 EA Take insulin lispro 14 units subcutaneous 3 times a day with meals. Need to check blood sugar 3 times a day and at bedtime. Provide patient with 100 lancet, 100 test strips, 100 32-gauge insulin pen needles. Prov:KIMI HULL NP 01/17/19 Insulin Glargine,Hum.rec.anlog (Chris Alvarez U-100) 100 Unit/1 Ml Insuln.pen, 32 UNIT SC .HS, #1 EA Prov:HULLCADYA V. HEEL FINISHER 01/17/19 Collagenase* (Santyl*) 30 Gm Oint..gm., 1 APPLIC TOP DAILY, #1 TUBE Apply to right lower extremity wound after irrigation with Dakin solution. Prov:HULL,KIMI V. HEEL FINISHER 01/17/19 Linagliptin (TRADJENTA) 5 Mg Tablet, 5 MG PO DAILY, #30 TAB Prov:HULL,KIMI V. HEEL FINISHER 01/17/19 Empagliflozin (Jardiance) 10 Mg Tablet, 25 MG PO DAILY@08, #30 TAB Prov:HULL,KIMI V. HEEL FINISHER 01/17/19 Reported Medications Alprazolam* (Xanax*) 1 Mg Tab, 1 MG PO TID PRN for ANXIETY, TAB 03/21/19 Hydrocodone/Acetaminophen ([place] 10-325 Tablet) 1 Each Tablet, 1 EACH PO Q8H, TAB 03/03/19 Oxycodone HCl/Acetaminophen (Oxycodone-Acetaminophen 10-325) 1 Each Tablet, 1 EACH PO Q12H PRN for NEEDED, TAB 03/03/19 Atorvastatin* (Atorvastatin*) 80 Mg Tablet, 80 MG PO QHS, #30 TAB 01/15/19 Clopidogrel Bisulfate* (Clopidogrel Bisulfate*) 75 Mg Tablet, 75 MG PO DAILY, #30 TAB 01/15/19 Carvedilol* (Carvedilol*) 12.5 Mg Tablet, 12.5 MG PO BID, #60 TAB 01/15/19 Aspirin* (Aspirin* EC) 81 Mg Tablet.dr, 81 MG PO DAILY, TAB 01/15/19 Amlodipine Besylate* (Norvasc*) 5 Mg Tablet, 5 MG PO DAILY, TAB 01/15/19 Hydrochlorothiazide* (Hydrochlorothiazide*) 25 Mg Tab, 25 MG PO DAILY, #30 TAB 01/15/19 Lisinopril* (Lisinopril*) 20 Mg Tablet, 20 MG PO DAILY, #30 TAB 01/15/19 Gabapentin* (Gabapentin*) 300 Mg Capsule, 300 MG PO TID, #90 CAP 01/15/19 Isosorbide Dinitrate* (Isordil*) 10 Mg Tablet, 10 MG PO TID, TAB 01/15/19 Follow-up Plan Patient needs to keep his lower extremities elevated particular the right side to reduce the swelling and encouraged the healing. He will follow-up with podiatry Dr. Cross as outpatient Specialty: Podiatry Comments: Office Address: [facility] [address] [place] [address] Office Office . Primary Care Provider Not On Staff Doctor Time spent on discharge: > 30 minutes Pending Labs Laboratory Tests Test 03/23/19 12:47 03/23/19 18:21 03/23/19 20:47 03/24/19 08:22 Bedside 128 160 129 154 Glucose mg/dL (70-220) mg/dL (70-220) mg/dL (70-220) mg/dL (70-220) Test 03/24/19 09:54 White Blood 9.3 Count 10^3/ul (4.8-10 .8) Red Blood 4.68 Count 10^6/ul (4.70-6 .10) Hemoglobin 13.4 g/dl (14.0-18.0 ) Hematocrit 42.6 % (42.0-52.0) Mean 91.0 Corpuscular fl (82.0-101.0) Volume Mean 28.6 Corpuscular pg (29.0-33.0) Hemoglobin Mean 31.5 Corpuscular g/dl (32.0-37.0 Hemoglobin Conc ) ent Red Cell 14.3 Distribution % (11.5-14.5) Width Platelet Count 259 10^3/UL (140-41 5) Mean Platelet 11.2 Volume fl (7.4-10.4) Immature 0.200 Granulocytes % % (0.001-0.429) Neutrophils % 50.8 % (39.0-77.0) Lymphocytes % 26.7 % (15.0-51.0) Monocytes % 8.9 % (0.0-11.0) Eosinophils % 12.6 % (0.0-7.0) Basophils % 0.8 % (0.0-2.0) Nucleated Red 0.0 Blood Cells % /100WBC (0.0-0. 0) Immature 0.020 Granulocytes # 10^3/ul (0.0-0. 031) Neutrophils # 4.7 10^3/ul (1.6-7. 5) Lymphocytes # 2.5 10^3/ul (0.8-2. 9) Monocytes # 0.8 10^3/ul (0.3-0. 9) Eosinophils # 1.2 10^3/ul (0.0-0. 5) Basophils # 0.1 10^3/ul (0.0-0. 1) Nucleated Red 0.0 Blood Cells # 10^3/ul (0.0-0. 0) Sodium Level 140 mmol/L (135-144 ) Potassium 4.1 Level mmol/L (3.5-5.1 ) Chloride Level 106 mmol/L (97-110) Carbon Dioxide 29 Level mmol/L (21-31) Anion Gap 5 (5-13) Blood Urea 21 mg/dl (7-20) Nitrogen Creatinine 1.13 mg/dl (0.61-1.2 4) Est Glomerular > 60 Filtrat mL/min (>60) Rate mL/min Glucose Level 171 mg/dl (70-220) Calcium Level 8.8 mg/dl (8.4-10.2 ) Phosphorus 3.2 Level mg/dl (2.5-4.9) Magnesium 2.0 Level mg/dl (1.7-2.5) JOSE RAMON MICHAEL March 24, 2019 12:31
[2019-03-24] MEDS ORDERED: GABA100C14 PO (12:34)
[2019-03-24] MEDS ORDERED: LACT1CAP57 PO (12:35)
[2019-03-24] MEDS ORDERED: AMOX1TAB10 PO (12:35)
[2019-03-24] MEDS ORDERED: HDRP454O TOP (12:35)
--- NOTE | 2019-03-24 12:36 | PDOCDIS ---
Discharge Instructions DIAGNOSIS Discharge Diagnosis 1. Right lower extremity nonhealing ulcer, diabetic skin ulcer - s/p skin grafting 03/22/19 2. Failed prior skin grafting, skin graft compromise 3. Multivessel coronary artery disease. -Status post RCA stent on 03/04/2019. -Continue dual antiplatelet therapy. - patient for outpatient follow up for staged coronary intervention. 4. Diabetes mellitus. -Hemoglobin A1c 9.9. -Continue insulin regimen 5. Dyslipidemia. -Continue statins. 6. Hypertension. -Continue antihypertensives. 7. Obesity. -BMI more than 41 kg/m. -Weight reduction was advised. 8. JANNIE on Chronic kidney disease. 9. Obstructive sleep apnea. - Was advised for Nocturnal CPAP . CONDITION [id number] Patient Condition: [id number] Stable HOME CARE INSTRUCTIONS: [id number] Special Diet: [id number] TY: [id number] Activity Restrictions: [id number] Slowly Increase Activity Rest between Activity FOLLOW UP/APPOINTMENTS Follow-up Plan Patient needs to keep his lower extremities elevated particular the right side to reduce the swelling and encouraged the healing. He will follow-up with podiatry Dr. Cross as outpatient Specialty: Podiatry Comments: Office Address: [address] [place] [address] [address] [place] [address] Office Office . JOSE RAMON MICHAEL March 24, 2019 12:36
== END 2019-03-24 14:40 | disposition home health service (06) | DRG 623 ==
LOC: E/R 14:35 → 2NE 17:20
PROVIDERS: ADMIT Internal Medicine; ATTEND Family Medicine
PROC: 0HBHXZZ Excision of Right Upper Leg Skin, External Approach (ICD-10-PCS; 2019-03-22)
PROC: 0HRKX74 Replacement of Right Lower Leg Skin with Autologous Tissue Substitute, Partial Thickness, External Approach (ICD-10-PCS; principal; 2019-03-22 15:30)
DX: E11.622 Type 2 diabetes mellitus with other skin ulcer (principal); L03.115 Cellulitis of right lower limb; Z68.41 Body mass index [BMI] 40.0-44.9, adult; L97.819 Non-pressure chronic ulcer of other part of right lower leg with unspecified severity; E11.65 Type 2 diabetes mellitus with hyperglycemia; F17.200 Nicotine dependence, unspecified, uncomplicated; N17.9 Acute kidney failure, unspecified; G89.29 Other chronic pain; I25.10 Atherosclerotic heart disease of native coronary artery without angina pectoris; E11.51 Type 2 diabetes mellitus with diabetic peripheral angiopathy without gangrene; E66.01 Morbid (severe) obesity due to excess calories; E78.00 Pure hypercholesterolemia, unspecified; G47.33 Obstructive sleep apnea (adult) (pediatric); N18.9 Chronic kidney disease, unspecified; E11.22 Type 2 diabetes mellitus with diabetic chronic kidney disease; I12.9 Hypertensive chronic kidney disease with stage 1 through stage 4 chronic kidney disease, or unspecified chronic kidney disease; Z79.4 Long term (current) use of insulin; Z79.82 Long term (current) use of aspirin; Z95.5 Presence of coronary angioplasty implant and graft; Z79.02 Long term (current) use of antithrombotics/antiplatelets; Z83.3 Family history of diabetes mellitus
CPT/HCPCS: 36415; 71045; 80048; 80053; 80202; 82550; 82553; 82962; 83036; 83605; 83735; 84100; 84132; 84484; 85025; 85610; 85730; 87070; 87075; 87102; 93005; 96374; 96375; J0696; J1170; J1200; J1644; J1815; J2405; J2543; J3010; J3370; J7050

== ENCOUNTER 2019-05-30 14:29 | Day surgery (SDC) | payer OTHER ==
[~2019-05-30] VITALS: Ht 172.7 cm; Wt 139.5 kg
[2019-05-30] VITALS (8 sets, daily range): BP systolic 141–179; BP diastolic 78–98; PULSE 66–77; RESP 15–19; Ht 172.7 cm; Wt 139.5 kg
[~2019-05-30 14:29] MED LIST changes: +ALPR1TAB2 PO; +AMOX1TAB10 PO; +GABA100C14 PO; +HDRP454O TOP; -HYDR25TA6 PO; +LACT1CAP57 PO; -OXYC-431 PO
[2019-05-30] MEDS ORDERED: CEFAZOLIN 2 GM/50 ML (PMX) 50 ML IVPB ONE (15:00)
[2019-05-30] MEDS ORDERED: HYDROmorphONE 0.5 MG/0.5 ML SYG IV STA (15:41)
[2019-05-30] MEDS ORDERED: ONDANSETRON 4 MG INJ IV STA (15:41)
[2019-05-30] MEDS ORDERED: HYDROmorphONE 1 MG/ML SYG IV STA (15:55)
[2019-05-30] MEDS ORDERED: LIDOCAINE 1% (MPF) 30 ML INJ ONE (16:51)
[2019-05-30] MEDS ORDERED: MINERAL OIL LIGHT 10 ML VIAL ONE ×2 (16:55→18:20)
[2019-05-30] MEDS ORDERED: SOD CHLORIDE 0.9% 1,000 ML IV SCH (17:00)
--- NOTE | 2019-05-30 17:08 | HPN ---
Date/Time of Note Date/Time of Note DATE: 05/30/19 TIME: 17:07 Interval H&P Admission Note Pt. seen H&P reviewed: No system changes JASMYNE DIAZ DPM May 30, 2019 17:08
[2019-05-30] MEDS ORDERED: POLYMYXIN/BACITRACIN 1L IRRIG ONE (17:21)
[2019-05-30] MEDS ORDERED: LIDOCAINE 1%/EPI 30 ML INJ ONE ×2 (17:21→18:20)
--- NOTE | 2019-05-30 17:39 | PREAC ---
Date/Time of Note Date/Time of Note DATE: 05/30/19 TIME: 17:37 Anesthesia Eval and Record Evaluation Time Pre-Procedure Interview DATE: 05/30/19 TIME: 17:37 Age 48 Sex male NPO: 8 hrs Preoperative diagnosis right ankle ulceration Planned procedure skin graft Past Medical History Past Medical History: Includes Cardio: HTN, PA, CAD Endo: Diabetes Neuro: CVA Surgery & Anesthesia Issues No known issue Meds Anticoagulation: No Beta Carlos within 24 hr: No Reason Beta Carlos not given: Pt. not on B-Carlos Active Scripts Hydrophilic Base* (Aquaphor*) 454 Gm-Topical Oint, 1 APPLIC TOP DAILY, #1 JAR Prov:JOSE RAMON MICHAEL . 03/24/19 Lactobacillus Rhamnosus* (Culturelle*) 1 Each Cap.sprink, 1 CAP PO BID, #14 CAP Prov:JOSE RAMON MICHAEL . 03/24/19 Amoxicillin/Potassium Clav (Amox-Clav 875-125 mg Tablet) 875-125 mg Tab, 1 TAB PO BID, #14 TAB Prov:JOSE RAMON MICHAEL . 03/24/19 Gabapentin* (Gabapentin*) 100 Mg Capsule, 100 MG PO TID, #90 CAP to increase dose to 400mg Prov:JOSE RAMON MICHAEL. 03/24/19 Insulin Lispro (Humalog) 100 Unit/1 Ml Cartridge, 14 UNIT SQ TIDM A, #1 EA Take insulin lispro 14 units subcutaneous 3 times a day with meals. Need to check blood sugar 3 times a day and at bedtime. Provide patient with 100 lancet, 100 test strips, 100 32-gauge insulin pen needles. Prov:HULL,KIMI V. TIRE WORKER 01/17/19 Insulin Glargine,Hum.rec.anlog (Basaglar Kwikpen U-100) 100 Unit/1 Ml Insuln.pen, 32 UNIT SC .HS, #1 EA Prov:HULL,KIMI V. TIRE WORKER 01/17/19 Collagenase* (Santyl*) 30 Gm Oint..gm., 1 APPLIC TOP DAILY, #1 TUBE Apply to right lower extremity wound after irrigation with Dakin solution. Prov:HULL,KIMI V. TIRE WORKER 01/17/19 Linagliptin (TRADJENTA) 5 Mg Tablet, 5 MG PO DAILY, #30 TAB Prov:HULL,KIMI V. TIRE WORKER 01/17/19 Empagliflozin (Jardiance) 10 Mg Tablet, 25 MG PO DAILY@08, #30 TAB Prov:KIMI HULL Hien TIRE WORKER 01/17/19 Reported Medications Alprazolam* (Xanax*) 1 Mg Tab, 1 MG PO TID PRN for ANXIETY, TAB 03/21/19 Hydrocodone/Acetaminophen ([place] 10-325 Tablet) 1 Each Tablet, 1 EACH PO Q8H, TAB 03/03/19 Atorvastatin* (Atorvastatin*) 80 Mg Tablet, 80 MG PO QHS, #30 TAB 01/15/19 Clopidogrel Bisulfate* (Clopidogrel Bisulfate*) 75 Mg Tablet, 75 MG PO DAILY, #30 TAB 01/15/19 Carvedilol* (Carvedilol*) 12.5 Mg Tablet, 12.5 MG PO BID, #60 TAB 01/15/19 Aspirin* (Aspirin* EC) 81 Mg Tablet.dr, 81 MG PO DAILY, TAB 01/15/19 Amlodipine Besylate* (Norvasc*) 5 Mg Tablet, 5 MG PO DAILY, TAB 01/15/19 Lisinopril* (Lisinopril*) 20 Mg Tablet, 20 MG PO DAILY, #30 TAB 01/15/19 Gabapentin* (Gabapentin*) 300 Mg Capsule, 300 MG PO TID, #90 CAP 01/15/19 Isosorbide Dinitrate* (Isordil*) 10 Mg Tablet, 10 MG PO TID, TAB 01/15/19 Current Medications Sodium Chloride 1,000 ml @ 25 mls/hr Q24H IV Last administered on 05/30/19at 17:36; Admin Dose 25 MLS/HR; Start 05/30/19 at 17:00 Meds reviewed: Yes Allergies Coded Allergies: metformin (Verified Allergy, Intermediate, 03/21/19) per pt, makes him feel horribles, worse abdominal pain morphine (Verified Allergy, Mild, NAUSEA, RASH, 03/21/19) Allergies Reviewed: Yes Labs/Studies Labs Reviewed: Reviewed by anesthesiologist test: N/A Pre-procedure Exam Last vitals Vital Signs Date Temp Pulse Resp B/P (MAP) Pulse Ox O2 O2 Flow FiO2 Time Delivery Rate 05/30/19 97.5 74 16 159/98 93 Room Air 16:21 (118) Airway: Adequate mouth opening, Adequate thyromental dist Mallampati: Mallampati IV Teeth: Normal Lung: Normal Heart: Normal ASA Physical Status ASA physical status: 3 Emergency: None Pre-operative Attestations Prior to commencing anesthesia and surgery, the patient was re-evaluated, there was verification of: *The patient's identity *The results of appropriate recent lab work and preoperative vital signs *The above evaluation not changing prior to induction *Anesthetic plan, risk benefits, alternative and complications discussed with patient/family; questions answered; patient/family understands, accepts and wishes to proceed. ENDY HOU DO May 30, 2019 17:39
[2019-05-30] MEDS ORDERED: CEFAZOLIN 1 GM INJ ONE (17:53)
[2019-05-30] MEDS ORDERED: MIDAZOLAM 1 MG/ML 2 ML INJ ONE (17:53)
[2019-05-30] MEDS ORDERED: PROPOFOL 200 MG INJ ONE (17:53)
[2019-05-30] MEDS ORDERED: LABETALOL HCL 20MG INJ IV PRN (18:00)
[2019-05-30] MEDS ORDERED: hydrALAzine 20 MG INJ IV PRN (18:00)
[2019-05-30] MEDS ORDERED: ONDANSETRON 4 MG INJ IV PRN ×2 (18:00→19:00)
[2019-05-30] MEDS ORDERED: HYDROmorphONE 1 MG/5 ML IV SYRINGE IV PRN ×2 (18:00)
--- NOTE | 2019-05-30 18:02 | PAC ---
Date/Time of Note Date/Time of Note DATE: 05/30/19 TIME: 18:02 Post-Anesthesia Notes Post-Anesthesia Note Last documented vital signs Vital Signs Date Temp Pulse Resp B/P (MAP) Pulse Ox O2 O2 Flow FiO2 Time Delivery Rate 05/30/19 97.5 74 16 159/98 93 Room Air 16:21 (118) Activity: WNL Respiratory function: WNL Cardiovascular function: WNL Mental status: Baseline Pain reasonably controlled: Yes Hydration appropriate: Yes Nausea/Vomiting absent: Yes ENDY HOU DO May 30, 2019 18:02
[2019-05-30] MEDS ORDERED: BUPIVACAINE 0.5% 30 ML VIAL INJ ONE (18:25)
--- NOTE | 2019-05-30 18:49 | SIPON ---
Date/Time of Note Date/Time of Note DATE: 05/30/19 TIME: 18:46 Operative Report Preoperative Diagnosis Right ankle ulceration Edema Chronic pain Postoperative Diagnosis same Operation/Procedure Performed Right ankle wound bed prep Right ankle STSG Surgeon see signature line field technical assistant Ana Longo DPM Anesthesia: MAC Estimated blood loss: 0 - 10 ml's Transfusion Required none Specimen none Grafts/Implants none Complications none JASMYNE DIAZ DPM May 30, 2019 18:49
--- NOTE | 2019-05-31 00:11 | OPR ---
DATE OF OPERATION: 05/30/2019 SURGEON: Jasmyne Peoples DPM [facility]ILY [facility] COUNSELOR: Ana Delacruz DPM PREOPERATIVE DIAGNOSES: 1. Right ankle ulceration. 2. Pain. 3. Edema. POSTOPERATIVE DIAGNOSES: 1. Right ankle ulceration. 2. Pain. 3. Edema. PROCEDURES PERFORMED: 1. Right ankle wound bed preparation. 2. Right ankle split thickness skin graft. PATHOLOGY: None. ANESTHESIA: MAC, lidocaine 1% with epinephrine 20 mL to the donor site, 30 mL of lidocaine 1% plain to the right ankle and 10 mL of 0.5% Marcaine plain to the right ankle. HEMOSTASIS: Compression. ESTIMATED BLOOD LOSS: 10 mL. COMPLICATIONS: None. MATERIALS: 3-0 nylon. INDICATION FOR PROCEDURE: Failed prior treatment, has painful ulcerations, presents for a split thic kness skin graft. PROCEDURE IN DETAILS: The patient was brought into the operating room and placed in the supine posit ion. Formal timeout was performed. The foot was properly marked, confirmed by the surgical team, pr epped and draped in usual sterile fashion. The right ankle wounds were debrided excisionally in prep aration for skin grafting, excising nonviable tissue using pickups, scissors, curette. The patient h ad estimated blood loss of 10 mL. Attention was directed to the ipsilateral thigh and the donor site had been injected with lidocaine 1% with epinephrine. A split thickness skin graft was harvested. Mineral oil was applied to the surface and 7 x 2 cm graft obtained 18/1000th of an inch and meshed 1. 5:1. The skin graft was secured to the recipient site with 3-0 nylon. Hemostasis was achieved with compression. Donor site covered with Xeroform, 4 x 4 and Tegaderm. Right ankle was dressed with Xer oform, 4 x 4, Kerlix and bias. The patient tolerated the procedure well and was transferred to PACU with vital signs stable. POSTOPERATIVE PLAN: I recommend elevation of extremity. Follow up in 1 week. Keep dressings clean, dry, intact. The patient can continue preoperative medication. Dictated By: JASMYNE PERES/MILLY Conf#: [id number] DID#: [id number]
== END 2019-05-30 20:19 | disposition home or self-care (01) ==
LOC: SDS 14:29
PROVIDERS: ATTEND Podiatrist Foot & Ankle Surgery
DX: L97.319 Non-pressure chronic ulcer of right ankle with unspecified severity (principal); E11.9 Type 2 diabetes mellitus without complications; I10 Essential (primary) hypertension; I25.10 Atherosclerotic heart disease of native coronary artery without angina pectoris; I25.2 Old myocardial infarction; Z86.73 Personal history of transient ischemic attack (TIA), and cerebral infarction without residual deficits; Z79.82 Long term (current) use of aspirin; Z79.4 Long term (current) use of insulin
CPT/HCPCS: 15100; 82962; J0690; J1170; J2250; J2405; J3010; Z7512; Z7610